=== PATIENT | female | born 1965 | race Caucasian/White ===

== ENCOUNTER 2018-01-15 21:43 | Inpatient (IN) | payer OTHER ==
[~2018-01-15] VITALS: Ht 160 cm; Wt 161.4 kg
[~2018-01-15 21:43] MED LIST: ASPEC81 PO; FRS/40 PO; IPRA1AER2 INH; LEVO125T72 PO; LSN20 PO; MCRK20 PO; MGNO400 PO; NCDT14 TD; PLN5 PO; SPIR25TA6 PO; TPRSR50 PO
[2018-01-16] VITALS (8 sets, daily range): BP systolic 82–105; BP diastolic 38–67; PULSE 83–92; TEMP 36.5–37.6; O2SAT 93–96; Ht 160 cm; Wt 161.4 kg
[2018-01-16] MEDS ORDERED: LORAZEPAM 2 MG/ML 1 ML VIAL IV PRN (02:45)
[2018-01-16] MEDS ORDERED: ACETAMINOPHEN 325 MG TAB PO PRN (02:45)
[2018-01-16] MEDS ORDERED: NITROGLYCERIN 0.4 MG SL PER TAB CHARGE SL PRN (02:45)
[2018-01-16] MEDS ORDERED: PROCHLORPERAZINE INJ 5 MG in SYRINGE 4 ML IV PRN (02:45)
[2018-01-16] MEDS ORDERED: HYDROmorphone INJ 0.5 MG/0.5 ML SYR IV PRN (02:45)
[2018-01-16] MEDS ORDERED: ALBU18002 INH (03:23)
[2018-01-16] MEDS ORDERED: BUSP5TAB59 PO (03:28)
[2018-01-16] MEDS ORDERED: LORAZEPAM INJ 0.5 MG in SYRINGE 0.75 ML IV PRN (03:30)
[2018-01-16] MEDS ORDERED: DICL-201 PO (03:32)
[2018-01-16] MEDS ORDERED: LEVO175T3 PO (03:33)
[2018-01-16] MEDS ORDERED: LISI20TA3 PO (03:34)
[2018-01-16] MEDS ORDERED: METO100T44 PO (03:35)
[2018-01-16] MEDS ORDERED: SPIRIVA 18MCG INH (03:37)
[2018-01-16] MEDS ORDERED: FURO80TA63 PO (03:38)
[2018-01-16] MEDS ORDERED: OXGN (03:39)
[2018-01-16] MEDS ORDERED: SODIUM CHLORIDE 0.9% 1000ML 1,000 ML IV ONE (03:45)
[2018-01-16] MEDS ORDERED: SODIUM CHLORIDE 0.9% 1000ML 1,000 ML IV SCH ×2 (03:45→05:15)
[2018-01-16] MEDS ORDERED: LEVALBUTEROL/IPRATROPIUM NEB INH PRN (03:45)
[2018-01-16 04:41] LABS: BASO % 0.2 %; BASO ABS # 0.02 K/uL (0-0.2); EOS % 1.9 %; HEMATOCRIT 31.5 % (37-47); HEMOGLOBIN 10.3 g/dL (12.0-16.0); IG# 0.09 K/uL (0.00-0.02); LYMPH ABS # 1.94 K/uL (1.2-3.4); MEAN CELL VOLUME 87.7 fL (80-100); MEAN CORPUSCULAR HEMOGLOBIN 28.7 pg (25-34); MEAN CORPUSCULAR HGB CONC 32.7 g/dl (32-36); MEAN PLATELET VOLUME 10.3 fL (7.4-10.4); MONO ABS # 0.65 K/uL (0.11-0.59); NEUT % 73.1 %; NEUT ABS # 7.86 K/uL (1.4-6.5); PLATELET COUNT 302 K/uL (130-400); RED CELL DISTRIBUTION WIDTH CV 15.1 % (11.5-14.5); RED CELL DISTRIBUTION WIDTH SD 48.8 fL (36.4-46.3); RETIC COUNT % 1.1 % (0.5-2.0); WHITE BLOOD COUNT 10.76 K/uL (4.8-10.8)
[2018-01-16] MEDS ORDERED: LEVALBUTEROL 1.25MG/0.5ML NEB INH PRN (04:45)
[2018-01-16] MEDS ORDERED: IPRATROPIUM BROMIDE NEB SOLN 0.02% 2.5 ML VIAL INH PRN (04:45)
[2018-01-16 05:00] LABS: PTT PATIENT 26.8 SECONDS (21.0-31.0)
[2018-01-16 05:11] LABS: CALCIUM 7.8 mg/dl (8.5-10.1); CREATININE 7.86 mg/dl (0.60-1.20); PHOSPHORUS 8.1 mg/dl (2.5-4.9); POTASSIUM 5.3 mmol/L (3.5-5.1)
[2018-01-16] MEDS ORDERED: DOXYCYCLINE IV 100 MG in DEXTROSE 5% 100ML 100 ML IV ONE (05:45)
[2018-01-16] MEDS ORDERED: SODIUM BICARB 8.4% INJ 50 MEQ/50 ML SYR IV STA (06:12)
[2018-01-16] MEDS: LEVOTHYROXINE 200 MCG TAB PO SCH (06:13)
--- NOTE | 2018-01-16 08:19 | DIAGNOSTIC IMAGING REPORT ---
CHEST ONE VIEW PORTABLE HISTORY: 52 years-old Female renal failure acute renal failure COMPARISON: Chest radiograph 12/25/2013 TECHNIQUE: Portable AP view of the chest FINDINGS: Cardiac silhouette is upper limits of normal in size. No pneumothorax, pleural effusion, focal airspace consolidation or overt pulmonary edema. Bones of the chest appear grossly intact. There are degenerative changes of the shoulders and spine. IMPRESSION: No acute process. The above report was generated using voice recognition software. It may contain grammatical, syntax or spelling errors. Electronically signed by: Romain Cunningham M.D. 01/16/2018 8:18 AM Dictated Date/Time: 01/16/2018 8:17 AM
[2018-01-16] MEDS: TIOTROPIUM BROMIDE 5 PUFF/90 MCG INH INH SCH (08:38)
[2018-01-16] MEDS: NICOTINE 14 MG/24 HR TDSY TD SCH (08:39)
--- NOTE | 2018-01-16 08:51 | ECHOCARDIOGRAM REPORT ---
*NOTICE TO RECEIVING LIBERTARIAN AGENCY This information is strictly Confidential and protected under [place] law. [place] law prohibits you from making any further disclosure of this information unless further disclosure is expressly permitted by the written consent of the person to whom it pertains or is authorized by law. A general authorization for the release of medical or other information is not sufficient for this purpose. Hospital accepts no responsibility if the information is made available to any other person, INCLUDING THE PATIENT. Interpretation Summary * Name: LUANN ALICEA Study Date: 01/16/2018 07:16 AM BP: 90/60 mmHg * Patient Location: .2E\S\E205\S\1 HR: 92 * : 1965 (M/d/yyyy) Gender: Female Height: 62 in * Age: 52 yrs Ethnicity: CA Weight: 345 lb * Ordering Physician: Elio Nayak * Performed By: Becca Riddle RDCS * * Reason For Study: Hypotension * BSA: 2.4 m2 * Grossly normal valvular structure and function. * -- Conclusions -- * This is a technically limited study. * The left ventricle is grossly normal size. * The left ventricular ejection fraction is grossly normal. * The right ventricle is not well visualized. * The left atrial size is normal. * Right atrial size is normal. * Grossly normal valvular structure and function. Procedure Details * A complete two-dimensional transthoracic echocardiogram was performed (2D, M-mode, Doppler and color flow Doppler). * The study was technically difficult. * The study was technically difficult, but visualization was adequate with the administration of Definity ultrasound contrast. * There were technical limitations due to patient'sbody habitus * A contrast injection of Definity was performed to improve assessment of LV function. * Contrast was injected into an intravenous site in the left arm. * One vial of Definity ultrasound contrast was diluted in normal saline to a total volume of 10 ml. A total of '2' ml of solution was administered during imaging. * Lot # [id number] of Definity utilized for procedure. * Expiration date 1May19. * The attending nurse who injected the contrast agent was HARINDER Cox. Left Ventricle * The left ventricle is grossly normal size. * Ejection Fraction = 65-70%. * The left ventricular ejection fraction is grossly normal. Right Ventricle * The right ventricle is not well visualized. Atria * The left atrial size is normal. * Right atrial size is normal. Mitral Valve * The mitral valve is not well visualized. * Significant mitral regurgitation is absent. Tricuspid Valve * The tricuspid valve is not well visualized. * Significant tricuspid regurgitation is absent. Aortic Valve * The aortic valve is not well visualized. * No hemodynamically significant valvular aortic stenosis. Pulmonic Valve * The pulmonic valve is not well visualized. MMode 2D Measurements and Calculations IVSd 1.1 cm LVIDd 3.8 cm LVIDs 2.1 cm LVPWd 1.6 cm IVS/LVPW 0.70 FS 43.8 % EDV(Teich) 61.2 ml ESV(Teich) 14.8 ml EF(Teich) 75.8 % EDV(cubed) 54.0 ml ESV(cubed) 9.6 ml EF(cubed) 82.3 % LV mass(C)d 181.8 grams LV mass(C)dI 75.4 grams/m\S\2 SV(Teich) 46.4 ml SI(Teich) 19.2 ml/m\S\2 SV(cubed) 44.5 ml SI(cubed) 18.4 ml/m\S\2 Ao root diam 3.3 cm Ao root area 8.6 cm\S\2 ACS 1.8 cm LA dimension 3.0 cm LA/Ao 0.91 LVAd ap4 31.9 cm\S\2 LVLd ap4 8.9 cm EDV(MOD-sp4) 95.9 ml EDV(sp4-el) 97.4 ml LVAs ap4 17.0 cm\S\2 LVLs ap4 7.8 cm ESV(MOD-sp4) 30.7 ml ESV(sp4-el) 31.3 ml EF(MOD-sp4) 67.9 % EF(sp4-el) 67.8 % LVAd ap2 35.8 cm\S\2 LVLd ap2 9.2 cm EDV(MOD-sp2) 113.9 ml EDV(sp2-el) 118.1 ml LVAs ap2 16.9 cm\S\2 LVLs ap2 7.4 cm ESV(MOD-sp2) 32.8 ml ESV(sp2-el) 32.6 ml EF(MOD-sp2) 71.2 % EF(sp2-el) 72.4 % LVLd %diff 3.2 % EDV(MOD-bp) 105.8 ml LVLs %diff -5.76 % ESV(MOD-bp) 32.6 ml EF(MOD-bp) 69.2 % SV(MOD-sp4) 65.1 ml SI(MOD-sp4) 27.0 ml/m\S\2 SV(MOD-sp2) 81.0 ml SI(MOD-sp2) 33.6 ml/m\S\2 SV(MOD-bp) 73.3 ml SI(MOD-bp) 30.4 ml/m\S\2 SV(sp4-el) 66.1 ml SI(sp4-el) 27.4 ml/m\S\2 SV(sp2-el) 85.5 ml SI(sp2-el) 35.5 ml/m\S\2 Doppler Measurements and Calculations MV E max ny 87.2 cm/sec MV A max ny 79.1 cm/sec MV E/A 1.1 MV dec time 0.25 sec Ao V2 max 182.0 cm/sec Ao max PG 13.3 mmHg Ao max PG (full) 7.6 mmHg LV V1 max PG 5.6 mmHg LV V1 max 118.8 cm/sec PA V2 max 114.3 cm/sec PA max PG 5.2 mmHg
--- NOTE | 2018-01-16 08:58 | HISTORY & PHYSICAL EXAMINATION ---
DATE OF ADMISSION: 01/16/2018 PRIMARY CARE PHYSICIAN: HOLLI Shields, Edwina Barr. CHIEF COMPLAINT: Renal failure. HISTORY OF PRESENT ILLNESS: History obtained from patient and records. Medical history significant for chronic diastolic heart failure, EF of 59% from a 2D echo from August 2015, hypertension, COPD/restrictive lung disease as per records , ongoing tobacco abuse, hypothyroidism, chronic nocturnal hypoxemia as per records, chronic lymphedema, history of MRSA, medication noncompliance as per records. Patient admitted at [facility] in the first week of November 2017 for leg swelling/ recurrent cellulitis in the setting of chronic lymphedema. Process not to be thought to be infectious as per notes. Home clonidine stopped due to BP being low as per notes on discharge. Had a followup with Podiatry about 2 weeks ago, ulcerated wounds noted on the lower extremities. As per note, patient unable to tolerate recommendations like forming compression wraps and offloading posterior lower legs. Patient declined second opinion at Wound care clinic. Three days history of fatigue, weakness, poor appetite, nonbloody diarrhea, no abdominal pain, not peeing a lot. Patient feeling sleepy. Denies headache or dizziness. No chest pain, no shortness of breath. Usual medication regimen. Legs little swollen, LE wounds draining odoriferous fluid. No fever no chills. Patient brought by family to [facility]. Creatinine noted to be 8.7, potassium 5.9. Patient given NSS, calcium gluconate, regular insulin and bicarbonate. Transferred to [facility] as per patient's request. MEDICAL HISTORY: As above. SURGICAL HISTORY: She has had a cholecystectomy, carpal tunnel syndrome/release. MEDICATIONS: Home medications include albuterol, buspirone, diclofenac, levothyroxine, lisinopril, metoprolol, citalopram, furosemide. ALLERGIES: ADHESIVE, MORPHINE. FAMILY HISTORY: Unknown as patient was adopted. PERSONAL/SOCIAL HISTORY: Half pack daily. No chronic alcoholic beverages. Unemployed. REVIEW OF SYSTEMS: As per HPI, all 10 systems reviewed, admits to usual depression, denies suicidal ideation; All other ROS negative. PHYSICAL EXAMINATION: VITAL SIGNS: Blood pressure was 90/60, pulse rate 92, RR 20, temperature 37 O2 saturations 94% on room air. GENERAL: Noted to be obese, somewhat apathetic. Uremic fetor SKIN: Sallow, warm. HEENT: Pale palpebral conjunctivae. No ptosis. Dry oral mucosa. NECK: Short, supple. CHEST: Decreased effort. Occasional wheeze. HEART: Regular rate and rhythm, no murmur. ABDOMEN: Some distention, nontender. EXTREMITIES: Bilateral indurated LE swelling with minimal erythema at the ankles close to the ankles. Ulcers in the posterior aspect yielding foul smelling drainage. NEUROLOGIC: Coherent. No gross focality. Gait and stance not assessed. LABORATORY DATA: Labs from [facility] 01/15/18 Hg 11.8, hematocrit 35, white cell count was 11, platelets 329. Sodium 132, potassium 5.9, CO2 of 18, BUN 92, creatinine 8.7, glucose 96, magnesium was 3.1, calcium 8.8, phosphorus 8.2. TSH noted to be 48.3. Troponin noted to be 0.02. EKG as per my interpretation showed junctional rhythm, peaked T waves, low voltage Chest x-ray as per my interpretation (01/16, [facility]) as per my interpretation showed atelectasis. ASSESSMENT: 1. Acute renal failure, hyperkalemia multifactorial : clinical dehydration secondary to acute gastroenteritis (rule out Clostridium difficile) Home medications (diuretics, CARLOS inhibitor, NSAIDs) 2. Chronic diastolic heart failure, EF 59% from a 2D echo in 2016. Patient on the dry side. 3. HTN, BP has been on the lower side since 11/2017 confinement at [facility] Prior clonidine rx had to be stopped. SBP currently 90s from hypovolemia. ro systolic dysfunction, pericardial effusion 4. Chronic obstructive pulmonary disease, restrictive lung disease per records. Ongoing tobacco abuse Pulmonary status at baseline. 5. Hypothyroidism, elevated TSH. hx medication noncompliance as per records 6. Leg wounds/minimal induration hx chronic lymphedema Foul-smelling drainage noted, potential infection; patient not septic however rule out deep venous thrombosis, 7. New onset anemia 8. Mood disorder, suboptimal as of recent outpatient PCP visit contributory to medication noncompliance PLAN: PCU. Baseline UA monitor creatinine response to IVF Daily renal function. Renal ultrasound if without improvement of kidney function Nephrology consult. RE Hyperkalemia, ARF Appropriate to hold CARLOS inhibitor, diuretics, NSAIDS for now until creatinine at baseline. Stool C. difficile Leg wound cultures, Doxycycline Wound care consult, leg wounds : Px may need wound care provider consult pending evaluation. Appropriate to hold other antihypertensives for now given low BP. 2D echo. RE hypotension Adjust levothyroxine dose. Anemia workup Psych consult RE depression, apathy Nicotine patch PT/OT evaluation. DVT prophylaxis.: Heparin subcu. Full code. MTDD
--- NOTE | 2018-01-16 09:49 | DIAGNOSTIC IMAGING REPORT ---
BILATERAL LOWER EXTREMITY VENOUS DOPPLER HISTORY: Acute pain and swelling of the bilateral lower extremities leg swelling COMPARISON STUDY: None. FINDINGS: There is normal compressibility, flow, and augmentation within the bilateral lower extremity deep venous systems. Subcutaneous edema about the lower extremities limits evaluation of the calf vessels. IMPRESSION: No sonographic evidence of deep venous thrombosis within the right or left lower extremity. Electronically signed by: Romain Cunningham M.D. 01/16/2018 9:48 AM Dictated Date/Time: 01/16/2018 9:46 AM
--- NOTE | 2018-01-16 10:09 | Nephrology Consultation ---
Nephrology Consultation Date of Consultation: Jan 16, 2018. Requesting Physician: Elio Nayak MD Reason for Consultation: MINDA History of Present Illness Patient is a 52 year old female with history of morbid obesity, CHF with EF of 59%, COPD, hypothyroidism and hypertension who we are asked to see for evaluation of worsening renal function. Patient was admitted yesterday with history of weakness, vomiting and diarrhea about 3 days. Patient reported poor p.o. intake. Patient was recently admitted at [facility] in November and at that time she had a creatinine of 1.5. She had normal creatinine of 0.8 in August of this year. We do not have records since November but it appears her renal function has markedly worsened and her creatinine now is 6.8 with a potassium of 5.3. Patient has also been diuresed aggressively with Lasix 80 mg twice daily. She also reports using NSAIDs occasionally. Her blood pressure has been low and today her blood pressures in the 90s over 60. Urine output since admission is about 200 mL. She did report reduced urine output over the past 3 days. Today she denies shortness of breath and main complaint is the pain in the legs. Past Medical/Surgical History CHF Morbid obesity Hypertension COPD Chronic leg ulcers Hypothyroidism Family History Patient reports no known family medical history. Social History Smoking Status: Current Every Day Smoker Alcohol Use: none Marital Status: Occupation Status: unemployed Allergies Coded Allergies: No Known Allergies (Unverified , 12/23/13) Medications Current Inpatient Medications Medications (Trade) Dose Ordered Sig/Eveline Route Start Time Stop Time Status Last Admin Dose Admin Acetaminophen (Tylenol Tab) 650 mg Q4H PRN PO 01/16/18 02:45 02/15/18 02:44 Nitroglycerin (Nitrostat Tab) 0.4 mg UD PRN SL 01/16/18 02:45 02/15/18 02:44 Hydromorphone HCl (Dilaudid Inj) 0.5 mg Q3H PRN IV 01/16/18 02:45 01/30/18 02:44 Tramadol HCl (Ultram Tab) 25 mg Q6H PRN PO 01/16/18 02:45 02/15/18 02:44 Prochlorperazine Edisylate 5 mg/ Syringe 5 ml @ 5 mls/min Q6H PRN IV 01/16/18 02:45 02/15/18 02:44 Lorazepam (Ativan Inj) 0.5 mg Q4H PRN IV 01/16/18 02:45 02/15/18 02:44 Lorazepam 0.5 mg/ Syringe 1 ml @ 1 mls/min Q4H PRN IV 01/16/18 03:30 02/15/18 03:29 Nicotine (Nicoderm Cq 14MG Patch) 1 patch QAM TD 01/16/18 09:00 02/15/18 08:59 Miscellaneous (Remove Nicoderm Patch) 1 ea HS N/A 01/16/18 21:00 02/15/18 20:59 Levothyroxine Sodium (Synthroid Tab) 200 mcg DAILYBB PO 01/16/18 06:00 02/15/18 05:59 01/16/18 06:13 200 MCG Ipratropium [place] (Atrovent 0.02% 0.5MG/2.5ML Neb) 0.5 mg Q4H PRN INH 01/16/18 04:45 02/15/18 04:44 Levalbuterol (Xopenex 1.25MG/ 0.5ML Neb) 1.25 mg Q4H PRN INH 01/16/18 04:45 02/15/18 04:44 Sodium Chloride 1,000 ml @ 80 mls/hr [id number] IV 01/16/18 05:15 01/16/18 17:15 01/16/18 05:34 80 MLS/HR Tiotropium [place] (Spiriva Handihaler Inhaler) 1 puff DAILY INH 01/16/18 09:00 02/15/18 08:59 01/16/18 08:38 1 PUFF Doxycycline Hyclate (Vibramycin Cap) 100 mg BID PO 01/16/18 21:00 01/26/18 20:59 Home Meds and Scripts Medications Dose Route/Sig Max Daily Dose Days Date Category Dose Instructions Oxygen Gas 2 Liters NA DAILY/UD 01/16/18 Reported Lasix (Furosemide) 80 Mg Tab 80 Mg PO BID 01/16/18 Reported Toprol-Xl (Metoprolol Succinate) 100 Mg Tabcr 100 Mg PO DAILY 01/16/18 Reported Levothyroxine Sodium 175 Mcg Tab 175 Mcg PO DAILY 01/16/18 Reported TAKE AT LEAST 30 MINUTES PRIOR TO BREAKFAST OR OTHER MEDS. Voltaren (Diclofenac Sodium) 75 Mg Tabcr 75 Mg PO BID 01/16/18 Reported WITH FOOD Buspirone Hcl 5 Mg Tab 5 Mg PO BID PRN 01/16/18 Reported Proair Respiclick (Albuterol Sulfate) 108 Mcg/Act Aer 2 Puffs INH QID 01/16/18 Reported Lisinopril 20 Mg Tab 20 Mg PO QAM 12/27/13 Rx Review of Systems Constitutional: No fever, No chills Eyes: No worsening of vision, No eye pain ENT: No hearing loss, No unusual epistaxis Respiratory: No cough, No sputum, No shortness of breath Cardiac: No chest pain, No orthopnea Abdomen: + nausea, No pain Musculoskeletal: + joint pain, + muscle pain, + swelling Female : No dysuria, No urinary frequency Heme: No abnormal bleeding/bruising Endo: No fatigue Skin: + new/changing skin lesions, No rash Physical Exam Date Time Temp Pulse Resp B/P (MAP) Pulse Ox O2 Delivery O2 Flow Rate FiO2 01/16/18 08:00 Room Air 01/16/18 06:55 36.5 83 18 90/67 (75) 96 Room Air 01/16/18 03:39 36.9 92 20 90/60 94 Room Air 01/16/18 02:52 36.9 92 20 90/60 (70) 94 Room Air General Appearance: no apparent distress Eyes: normal inspection ENT: normal ENT inspection, hearing grossly normal, pharynx normal Neck: supple, no adenopathy, thyroid normal, no JVD Respiratory/Chest: chest non-tender, lungs clear, normal breath sounds Cardiovascular: regular rate, rhythm, no murmur Abdomen: normal bowel sounds, non tender, soft Extremities: + pedal edema Neurologic/Psych: no motor/sensory deficits, alert, normal mood/affect, oriented x 3 Skin: normal color, warm/dry (Ulcers on the back of the legs) Diagnostics Last 24 Hours Test 01/16/18 04:15 01/16/18 04:25 01/16/18 04:28 01/16/18 04:54 Urine Color YELLOW Urine Appearance CLOUDY Urine pH 5.0 Urine Specific [place] 1.018 Urine Protein 1+ Urine Glucose (UA) NEG Urine Ketones TRACE Urine Occult Blood NEG Urine Nitrite NEG Urine Bilirubin NEG Urine Urobilinogen NEG Urine Leukocyte Esterase NEG Urine WBC (Auto) 1-5 /hpf Urine RBC (Auto) 0-4 /hpf Urine Hyaline Casts (Auto) >30 /lpf Urine Epithelial Cells (Auto) >30 /lpf Urine Bacteria (Auto) NEG Urine Renal Epithelial Cells /lpf Urine Crystals See comments Urine Pathogenic Casts /lpf White Blood Count 10.76 K/uL Red Blood Count 3.59 M/uL Hemoglobin 10.3 g/dL Hematocrit 31.5 % Mean Corpuscular Volume 87.7 fL Mean Corpuscular Hemoglobin 28.7 pg Mean Corpuscular Hemoglobin Concent 32.7 g/dl Platelet Count 302 K/uL Mean Platelet Volume 10.3 fL Neutrophils (%) (Auto) 73.1 % Lymphocytes (%) (Auto) 18.0 % Monocytes (%) (Auto) 6.0 % Eosinophils (%) (Auto) 1.9 % Basophils (%) (Auto) 0.2 % Neutrophils # (Auto) 7.86 K/uL Lymphocytes # (Auto) 1.94 K/uL Monocytes # (Auto) 0.65 K/uL Eosinophils # (Auto) 0.20 K/uL Basophils # (Auto) 0.02 K/uL RDW Standard Deviation 48.8 fL RDW Coefficient of Variation 15.1 % Immature Granulocyte % (Auto) 0.8 % Immature Granulocyte # (Auto) 0.09 K/uL Absolute Reticulocyte Count 0.04 10^6/uL Percent Reticulocyte Count 1.1 % Activated Partial Thromboplast Time 26.8 SECONDS Partial Thromboplastin Ratio 1.0 Sodium Level 133 mmol/L Potassium Level 5.3 mmol/L Chloride Level 105 mmol/L Carbon Dioxide Level 15 mmol/L Anion Gap 13.0 mmol/L Blood Urea Nitrogen 87 mg/dl Creatinine 7.86 mg/dl Est Creatinine Clear Calc Drug Dose 12.3 ml/min Estimated GFR () 6.2 Estimated GFR (Non- 5.3 BUN/Creatinine Ratio 11.0 Random Glucose 81 mg/dl Calcium Level 7.8 mg/dl Phosphorus Level 8.1 mg/dl Iron Level 64 mcg/dl Total Iron Binding Capacity 265 mcg/dl Transferrin 177 mg/dl Transferrin % Saturation 26 % Ferritin 172.8 ng/ml Ammonia 23.0 umol/L Albumin 2.7 gm/dl Vitamin B12 Level 317 pg/mL Folate 9.18 ng/mL Procalcitonin 0.10 ng/ml Thyroid Stimulating Hormone (TSH) 40.500 uIu/ml Free Thyroxine 0.79 ng/dl Total Triiodothyronine 0.54 ng/ml Hepatitis C Antibody Screen NEG Venous Blood pH 7.23 Venous Blood Partial Pressure CO2 43 mmHg Venous Blood Partial Pressure O2 35 mmHg Venous Blood HCO3 18 mmol/L Venous Blood Oxygen Saturation 62.5 % Venous Blood Base Excess -9.5 mEq/L Lactic Acid Level 1.1 mmol/L Assessment & Plan This is a 52-year-old female with history of morbid obesity, CHF, hypertension and hypothyroidism was admitted with fatigue vomiting and diarrhea now being evaluated for worsening renal function. 1. Acute kidney injury: Etiology is multifactorial but most likely acute tubular necrosis in setting of hypotension for several days. Patient has had diarrhea and vomiting for the past several days. She was also taking antihypertensives and high doses of Lasix with an CARLOS inhibitor. Urine sediment today reviewed by myself showed numerous granular casts, few muddy brown casts and a lot of hyaline casts. She also had calcium oxalate crystals. Recommend: Send urine sodium and creatinine Renal ultrasound Volume resuscitation with IV isotonic sodium bicarbonate solution. This can be prepared by putting 150 mEq of sodium bicarbonate in 1 L of D5 water and infusion can be run at 100 mL/h for 2 L. Stop Normal saline Monitor input output, avoid nephrotoxins. Agree with holding diuretics antihypertensives and CARLOS inhibitors. 2. Hyperkalemia: Due to acute kidney injury and acidosis. In short patient is on a renal diet. Anticipate improvement with correction of acidosis. 3. Acidosis due to MINDA. We are giving the patient isotonic sodium bicarbonate as above. 4. Hyperphosphatemia: Recommend Tums 1 g 3 times daily with food. Consider endocrinology referral for management of hypothyroidism Thank you for the courtesy of this consultation. Tima Nolasco MD
[2018-01-16 13:20] LABS: ALBUMIN 2.4 gm/dl (3.4-5.0); CALCIUM 7.6 mg/dl (8.5-10.1); CREATININE 6.36 mg/dl (0.60-1.20); PHOSPHORUS 7.2 mg/dl (2.5-4.9); POTASSIUM 5.3 mmol/L (3.5-5.1)
--- NOTE | 2018-01-16 14:12 | Psychiatric Consultation ---
Consultation Date of Consultation Jan 16, 2018. Identifying Data 52-year-old female from [facility] who has no psychiatric history but a history of multiple fairly severe medical problems and was admitted for renal failure. Psychiatry is consulted for depression. Chief Complaint "I have a lot going on with my health ". History of Present Illness According to records, the patient was admitted for renal failure. She has a history of chronic diastolic heart failure, hypertension, COPD, tobacco abuse, hypothyroidism, chronic nocturnal hypoxia, chronic lymphedema, MRSA, obesity, and medication noncompliance. She was admitted to [facility] in November for leg swelling and recurrent cellulitis, and followed up with podiatry 2 weeks ago, with ulcerated wounds noted on lower extremities. It appears she was transferred from [facility] to our facility at her request after she presented with 3 days of fatigue, weakness, or appetite, and diarrhea. She admitted to depressed mood on review of systems, and denied suicidal thoughts. Nephrology has been consulted due to acute renal failure, she is being treated for gastroenteritis and C. difficile ruled out, is being re-hydrated as dehydrated and hypotensive, and has leg wounds with foul-smelling drainage. On my assessment, the patient states that she has been frustrated by her ongoing medical problems and interactions with her outpatient doctors. She states that for years, she has been telling her outpatient doctors that "something's wrong, " and feels they just dismiss her concerns and "keep switching me to someone else." She does not feel they have communicated her diagnoses to her, and states she was not aware she had been diagnosed with renal failure in the past, until she was informed by staff here. She is in the process of switching to a new PCP, and hopes that it will be better. She states that mood is "not the best," and that it always goes down when she has to go to a doctor's appointment , but is "generally pretty good" the rest of the time. She had been going to the wound clinic once a week for a while, and noted that mood was always lower when she was at the clinic, but improved after returning home. She endorses decreased energy which she attributes to leg swelling, poor sleep for the past 2 weeks, and decreased appetite for the past few days. Concentration is slightly impaired, and she denies anhedonia, suicidal thoughts, psychomotor changes, and guilt. She denies symptoms of HENRRY, panic, OCD, and PTSD, and denies any history of depressive symptoms, roger, or psychotic symptoms. She says her PCP started low dose buspirone about a month ago to target episodes of tachycardia that she was having 1-2 times a day, lasted a few minutes, and were accompanied by shortness of breath, and she does think it is helping. She does not feel she needs psychiatric treatment, and states "I just need my doctor to take me seriously." She reports good support from her family and says they will attend doctor's appointments with her which she finds helpful. She scored a 6 on the PHQ 9, and states she has always been able to "handle a lot, I have broad shoulders." Past Psychiatric History Current OP Treatment: no current treatment Prior OP Treatment: no prior treatment Prior Psych Hospitalizations: none Access to a Gun: No Suicide Attempts: No Past Medication Trials None. Past Medical/Surgical History (1) Obesity (2) Hypertensive urgency (3) Hypoxia (4) CHF (congestive heart failure) (5) ARF (acute renal failure) (6) Hypothyroidism Allergies Allergies: Coded Allergies: No Known Allergies (Unverified , 12/23/13) Home Medications Scheduled Albuterol Sulfate (Proair Respiclick), 2 PUFFS INH QID Diclofenac (Voltaren), 75 MG PO BID Furosemide (Lasix), 80 MG PO BID Home O2 Therapy (Oxygen), 2 LITERS NA DAILY/UD Levothyroxine Sodium (Levothyroxine Sodium), 175 MCG PO DAILY Lisinopril (Lisinopril), 20 MG PO QAM Metoprolol Succ (Toprol Xl) (Toprol-Xl ), 100 MG PO DAILY Scheduled PRN Buspirone Hcl (Buspirone Hcl), 5 MG PO BID PRN for Anxiety Family History Patient reports no known family medical history. History of Suicide: No History of Substance Abuse: No Psychiatric History: No Alcohol Use Alcohol Use In Past 12 Months: No Smoking Use Smoking Status: Current Every Day Smoker Substance History Denies substance use/abuse. 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 Relationship History: ( lives in [place], [place] with her daughter, for financial reasons.) Children: 2 daughters and 7 grandchildren. Spiritual Affiliation: Denies Legal History: none Psychological Trauma History: Denies Hx Traumatic Event Review of Systems 10 systems reviewed, positive for shortness of breath, fatigue, decreased appetite, lower extremity swelling, joint and muscle pain, skin infection/lesion , others negative except as stated above. Examination Vital Signs Vital Signs Past 12 Hours Date Time Temp Pulse Resp B/P (MAP) Pulse Ox O2 Delivery O2 Flow Rate FiO2 01/16/18 12:55 37.6 87 20 82/38 (53) 93 Room Air 01/16/18 08:00 Room Air 01/16/18 06:55 36.5 83 18 90/67 (75) 96 Room Air 01/16/18 03:39 36.9 92 20 90/60 94 Room Air 01/16/18 02:52 36.9 92 20 90/60 (70) 94 Room Air Laboratory Results Last 24 Hours Test 01/16/18 04:15 01/16/18 04:25 01/16/18 04:28 01/16/18 04:54 Urine Color YELLOW Urine Appearance CLOUDY Urine pH 5.0 Urine Specific [place] 1.018 Urine Protein 1+ Urine Glucose (UA) NEG Urine Ketones TRACE Urine Occult Blood NEG Urine Nitrite NEG Urine Bilirubin NEG Urine Urobilinogen NEG Urine Leukocyte Esterase NEG Urine WBC (Auto) 1-5 /hpf Urine RBC (Auto) 0-4 /hpf Urine Hyaline Casts (Auto) >30 /lpf Urine Epithelial Cells (Auto) >30 /lpf Urine Bacteria (Auto) NEG Urine Renal Epithelial Cells /lpf Urine Crystals See comments Urine Pathogenic Casts /lpf White Blood Count 10.76 K/uL Red Blood Count 3.59 M/uL Hemoglobin 10.3 g/dL Hematocrit 31.5 % Mean Corpuscular Volume 87.7 fL Mean Corpuscular Hemoglobin 28.7 pg Mean Corpuscular Hemoglobin Concent 32.7 g/dl Platelet Count 302 K/uL Mean Platelet Volume 10.3 fL Neutrophils (%) (Auto) 73.1 % Lymphocytes (%) (Auto) 18.0 % Monocytes (%) (Auto) 6.0 % Eosinophils (%) (Auto) 1.9 % Basophils (%) (Auto) 0.2 % Neutrophils # (Auto) 7.86 K/uL Lymphocytes # (Auto) 1.94 K/uL Monocytes # (Auto) 0.65 K/uL Eosinophils # (Auto) 0.20 K/uL Basophils # (Auto) 0.02 K/uL RDW Standard Deviation 48.8 fL RDW Coefficient of Variation 15.1 % Immature Granulocyte % (Auto) 0.8 % Immature Granulocyte # (Auto) 0.09 K/uL Absolute Reticulocyte Count 0.04 10^6/uL Percent Reticulocyte Count 1.1 % Activated Partial Thromboplast Time 26.8 SECONDS Partial Thromboplastin Ratio 1.0 Sodium Level 133 mmol/L Potassium Level 5.3 mmol/L Chloride Level 105 mmol/L Carbon Dioxide Level 15 mmol/L Anion Gap 13.0 mmol/L Blood Urea Nitrogen 87 mg/dl Creatinine 7.86 mg/dl Est Creatinine Clear Calc Drug Dose 12.3 ml/min Estimated GFR () 6.2 Estimated GFR (Non- 5.3 BUN/Creatinine Ratio 11.0 Random Glucose 81 mg/dl Calcium Level 7.8 mg/dl Phosphorus Level 8.1 mg/dl Iron Level 64 mcg/dl Total Iron Binding Capacity 265 mcg/dl Transferrin 177 mg/dl Transferrin % Saturation 26 % Ferritin 172.8 ng/ml Ammonia 23.0 umol/L Albumin 2.7 gm/dl Vitamin B12 Level 317 pg/mL Folate 9.18 ng/mL Procalcitonin 0.10 ng/ml Thyroid Stimulating Hormone (TSH) 40.500 uIu/ml Free Thyroxine 0.79 ng/dl Total Triiodothyronine 0.54 ng/ml Hepatitis C Antibody Screen NEG Venous Blood pH 7.23 Venous Blood Partial Pressure CO2 43 mmHg Venous Blood Partial Pressure O2 35 mmHg Venous Blood HCO3 18 mmol/L Venous Blood Oxygen Saturation 62.5 % Venous Blood Base Excess -9.5 mEq/L Lactic Acid Level 1.1 mmol/L Test 01/16/18 12:07 01/16/18 14:01 Sodium Level 134 mmol/L Potassium Level 5.3 mmol/L Chloride Level 106 mmol/L Carbon Dioxide Level 17 mmol/L Anion Gap 11.0 mmol/L Blood Urea Nitrogen 87 mg/dl Creatinine 6.36 mg/dl Est Creatinine Clear Calc Drug Dose 15.2 ml/min Estimated GFR () 8.0 Estimated GFR (Non- 6.9 BUN/Creatinine Ratio 13.9 Random Glucose 78 mg/dl Calcium Level 7.6 mg/dl Phosphorus Level 7.2 mg/dl Albumin 2.4 gm/dl Mental Examination During interview pt is: alert and oriented, cooperative Appearance: appropriately dressed, other (Morbidly obese, malodorous, lying in bed in no acute distress) Motor behavior is: no abnormal motor movements Speech: normal in rate, rhythm & volume Affect: other (Mildly depressed, but reactive and appropriate, makes jokes at times and smiles appropriately.) Mood is: other ("Not the best.") Thought process: goal directed, linear, logical, clear, coherent Thought content: reality based without delusions Suicidal thought are: denied Homicidal thoughts are: denied Hallucinations: denies auditory, denies visual Cognition: memory grossly intact, attention grossly intact, language grossly intact Intelligence estimated to be: average Insight: fair Judgement: fair Impression / Recommendations Impression 52-year-old female with multiple medical problems and no psychiatric history who was transferred from an outside hospital at her request. She presented with several days of fatigue, decreased appetite, weakness, and diarrhea, and was found to be in renal failure. We are consulted for depression after she endorsed depressed mood on review of systems. She reports that mood has been negatively impacted by her ongoing health issues and dissatisfaction with her previous care. Her depressive symptoms are subsyndromal and limited to specific times (doctor's appointments), and she does not meet criteria for a primary mood or anxiety disorder. She was started on buspirone by her PCP, which she feels has been helpful, so may continue it. She does not express interest in outpatient mental health treatment at this time , but if we can be of any further assistance, please let us know.
[2018-01-16] MEDS: SODIUM BICARBONATE 8.4% INJ 150 MEQ in DEXTROSE 5% 1000ML 1,000 ML IV SCH (21:12)
[2018-01-16] MEDS: DOXYCYCLINE HYCLATE 100 MG CAP PO SCH (21:15)
[2018-01-16] MEDS ORDERED: HEPARIN SOD 5000 UNIT/0.5 ML CARP SQ SCH (22:00)
[2018-01-17 04:00] VITALS: BP 89/57; PULSE 83; TEMP 37.1; O2SAT 95
[2018-01-17] MEDS: LEVOTHYROXINE 200 MCG TAB PO SCH (06:18)
[2018-01-17 06:51] VITALS: BP 116/62; PULSE 84; TEMP 37.1; O2SAT 94
[2018-01-17 06:58] LABS: BASO % 0.4 %; BASO ABS # 0.03 K/uL (0-0.2); EOS % 2.9 %; EOS ABS # 0.23 K/uL (0-0.5); HEMATOCRIT 31.2 % (37-47); HEMOGLOBIN 10.3 g/dL (12.0-16.0); IG# 0.07 K/uL (0.00-0.02); LYMPH % 21.8 %; LYMPH ABS # 1.74 K/uL (1.2-3.4); MEAN CELL VOLUME 87.6 fL (80-100); MEAN CORPUSCULAR HEMOGLOBIN 28.9 pg (25-34); MEAN PLATELET VOLUME 10.4 fL (7.4-10.4); MONO % 7.3 %; MONO ABS # 0.58 K/uL (0.11-0.59); NEUT % 66.7 %; NEUT ABS # 5.32 K/uL (1.4-6.5); PLATELET COUNT 279 K/uL (130-400); RED CELL DISTRIBUTION WIDTH CV 14.9 % (11.5-14.5); WHITE BLOOD COUNT 7.97 K/uL (4.8-10.8)
[2018-01-17 07:34] LABS: ALBUMIN 2.5 gm/dl (3.4-5.0); CALCIUM 7.7 mg/dl (8.5-10.1); CREATININE 3.67 mg/dl (0.60-1.20); PHOSPHORUS 4.9 mg/dl (2.5-4.9); POTASSIUM 4.2 mmol/L (3.5-5.1)
[2018-01-17] MEDS: CALCIUM CARBONATE 500 MG CHEWABLE PO SCH ×3 (07:35→17:07)
[2018-01-17] MEDS: TIOTROPIUM BROMIDE 5 PUFF/90 MCG INH INH SCH (07:36)
[2018-01-17] MEDS: DOXYCYCLINE HYCLATE 100 MG CAP PO SCH ×2 (07:36→20:14)
[2018-01-17] MEDS: HEPARIN SOD 5000 UNIT/0.5 ML CARP SQ SCH ×2 (07:40→20:16)
[2018-01-17] MEDS: NICOTINE 14 MG/24 HR TDSY TD SCH (07:49)
[2018-01-17] MEDS: SODIUM BICARBONATE 8.4% INJ 150 MEQ in DEXTROSE 5% 1000ML 1,000 ML IV SCH (07:49)
[2018-01-17 11:08] VITALS: BP 101/50; PULSE 88; TEMP 37.3; O2SAT 92
[2018-01-17 15:16] VITALS: BP 131/59; PULSE 89; TEMP 36.9; O2SAT 92
--- NOTE | 2018-01-17 17:13 | Nephrology Progress Note ---
Nephrology Progress Note Date of Service: Jan 17, 2018. Subjective seen and evaluated on rounds this am about 10. no c/o sob, n/v; feels edema somewhat improved; some constipation/ minimal BM w/ less po Objective Date Time Temp Pulse Resp B/P (MAP) Pulse Ox O2 Delivery O2 Flow Rate FiO2 01/17/18 06:51 37.1 84 16 116/62 (80) 94 Room Air 01/17/18 04:00 37.1 83 16 89/57 (68) 95 Room Air 01/16/18 23:58 37.3 83 18 97/49 (65) 93 Room Air 01/16/18 20:00 Room Air 01/16/18 19:17 37.5 88 18 96/58 (71) 96 Room Air 01/16/18 15:48 37.1 92 18 105/57 (73) 94 Room Air 01/16/18 14:04 96/53 (67) 01/16/18 12:55 37.6 87 20 82/38 (53) 93 Room Air Physical Exam: General Appearance: no apparent distress, on RA, oriented x 3 Eyes: eomi ENT: dry MM Neck: supple Respiratory/Chest: diminishe dBS BL Cardiovascular: regular rate, rhythm, no murmur Abdomen: normal bowel sounds, non tender, soft Extremities: L>R BL distal LE redness; trace distal LE /pedal edema Neurologic/Psych: allen, maneuvers w/o help for exam, fluent speech Skin: normal color, warm/dry (Ulcers on the back of the legs) Current Inpatient Medications Medications (Trade) Dose Ordered Sig/[facility] Route Start Time Stop Time Status Last Admin Dose Admin Acetaminophen (Tylenol Tab) 650 mg Q4H PRN PO 01/16/18 02:45 02/15/18 02:44 Nitroglycerin (Nitrostat Tab) 0.4 mg UD PRN SL 01/16/18 02:45 02/15/18 02:44 Hydromorphone HCl (Dilaudid Inj) 0.5 mg Q3H PRN IV 01/16/18 02:45 01/30/18 02:44 Tramadol HCl (Ultram Tab) 25 mg Q6H PRN PO 01/16/18 02:45 02/15/18 02:44 Prochlorperazine Edisylate 5 mg/ Syringe 5 ml @ 5 mls/min Q6H PRN IV 01/16/18 02:45 02/15/18 02:44 Lorazepam (Ativan Inj) 0.5 mg Q4H PRN IV 01/16/18 02:45 02/15/18 02:44 Lorazepam 0.5 mg/ Syringe 1 ml @ 1 mls/min Q4H PRN IV 01/16/18 03:30 02/15/18 03:29 Nicotine (Nicoderm Cq 14MG Patch) 1 patch QAM TD 01/16/18 09:00 02/15/18 08:59 Miscellaneous (Remove Nicoderm Patch) 1 ea HS N/A 01/16/18 21:00 02/15/18 20:59 Levothyroxine Sodium (Synthroid Tab) 200 mcg DAILYBB PO 01/16/18 06:00 02/15/18 05:59 01/17/18 06:18 200 MCG Ipratropium [place] (Atrovent 0.02% 0.5MG/2.5ML Neb) 0.5 mg Q4H PRN INH 01/16/18 04:45 02/15/18 04:44 Levalbuterol (Xopenex 1.25MG/ 0.5ML Neb) 1.25 mg Q4H PRN INH 01/16/18 04:45 02/15/18 04:44 Tiotropium [place] (Spiriva Handihaler Inhaler) 1 puff DAILY INH 01/16/18 09:00 02/15/18 08:59 01/17/18 07:36 1 PUFF Doxycycline Hyclate (Vibramycin Cap) 100 mg BID PO 01/16/18 21:00 01/26/18 20:59 01/17/18 07:36 100 MG Heparin Sodium (Porcine) (Heparin Sq 5000 Unit/0.5ml) 5,000 unit BID SQ 01/17/18 09:00 02/15/18 21:59 01/17/18 07:40 5,000 UNIT Sodium Bicarbonate 150 meq/Dextrose 1,150 ml @ 100 mls/hr [id number] IV 01/16/18 20:45 02/15/18 20:44 01/17/18 07:49 100 MLS/HR Calcium Carbonate (Tums Chew Tab) 500 mg TIDM PO 01/17/18 07:30 02/16/18 07:29 01/17/18 07:35 500 MG Last 24 Hours Test 01/16/18 12:07 01/16/18 14:26 01/17/18 06:22 Sodium Level 134 mmol/L 136 mmol/L Potassium Level 5.3 mmol/L 4.2 mmol/L Chloride Level 106 mmol/L 106 mmol/L Carbon Dioxide Level 17 mmol/L 21 mmol/L Anion Gap 11.0 mmol/L 9.0 mmol/L Blood Urea Nitrogen 87 mg/dl 74 mg/dl Creatinine 6.36 mg/dl 3.67 mg/dl Est Creatinine Clear Calc Drug Dose 15.2 ml/min 26.8 ml/min Estimated GFR () 8.0 15.5 Estimated GFR (Non- 6.9 13.3 BUN/Creatinine Ratio 13.9 20.3 Random Glucose 78 mg/dl 101 mg/dl Calcium Level 7.6 mg/dl 7.7 mg/dl Phosphorus Level 7.2 mg/dl 4.9 mg/dl Albumin 2.4 gm/dl 2.5 gm/dl Prothrombin Time 10.3 SECONDS Prothromb Time International Ratio 1.0 White Blood Count 7.97 K/uL Red Blood Count 3.56 M/uL Hemoglobin 10.3 g/dL Hematocrit 31.2 % Mean Corpuscular Volume 87.6 fL Mean Corpuscular Hemoglobin 28.9 pg Mean Corpuscular Hemoglobin Concent 33.0 g/dl Platelet Count 279 K/uL Mean Platelet Volume 10.4 fL Neutrophils (%) (Auto) 66.7 % Lymphocytes (%) (Auto) 21.8 % Monocytes (%) (Auto) 7.3 % Eosinophils (%) (Auto) 2.9 % Basophils (%) (Auto) 0.4 % Neutrophils # (Auto) 5.32 K/uL Lymphocytes # (Auto) 1.74 K/uL Monocytes # (Auto) 0.58 K/uL Eosinophils # (Auto) 0.23 K/uL Basophils # (Auto) 0.03 K/uL RDW Standard Deviation 48.0 fL RDW Coefficient of Variation 14.9 % Immature Granulocyte % (Auto) 0.9 % Immature Granulocyte # (Auto) 0.07 K/uL Assessment & Plan 52-year-old female with morbid obesity, HF, hypertension and hypothyroidism admitted 01/16 with fatigue vomiting and diarrhea and presenting creatinine 7.9 Baseline creatinine 0.8 as recently as 08/2017; creatinine 1.5 last month during admission to [facility] ([place] for cellulitis . >>>Acute kidney injury>>nonoliguric prerenal MINDA on renal function which has worsened this spring/early summer and so with unestablished baseline. Etiology is multifactorial but most likely from hypotension, diarrhea and vomiting for several days [employer]. She was also taking antihypertensives and high doses of Lasix with an CARLOS inhibitor. No specific intervention needed for phos currently. Recommend: -Renal ultrasound -Volume resuscitation to continue but would change to 1/2 NS w/ 75 mEq/L Na bicarb same rate -Monitor input output, avoid nephrotoxins. Agree with holding diuretics antihypertensives and CARLOS inhibitors. >>>Hyperkalemia and acidosis improved > cont renal diet Consider endocrinology referral for management of hypothyroidism Appreciate consult; will follow with you.
[2018-01-17] MEDS: SODIUM BICARBONATE 8.4% INJ 75 MEQ in SODIUM CHLORIDE 0.45% 1000ML 1,000 ML IV SCH (18:28)
[2018-01-17 18:55] VITALS: BP 105/55; PULSE 93; TEMP 37.4; O2SAT 91
--- NOTE | 2018-01-17 20:51 | Progress Note ---
Medicine Progress Note Date & Time of Visit: Jan 17, 2018 at 16:00 . Subjective CC: Follow-up visit for acute kidney injury and other problems. HPI: Feels better. No fever or chills. No chest pain. No cough or SOB. No nausea, vomiting, diarrhea. Still has [place] cath to monitor urine output. Persistent lower extremity edema and discomfort. ROS: as noted above in HPI Objective Last 8 Hrs Date Time Temp Pulse Resp B/P (MAP) Pulse Ox O2 Delivery O2 Flow Rate FiO2 01/17/18 18:55 37.4 93 18 105/55 (72) 91 Room Air 01/17/18 15:16 36.9 89 20 131/59 (83) 92 Room Air Physical Exam: General- lying in bed; no distress Lungs- clear to auscultation; no respiratory distress Cardiovascular- RRR; no murmur or gallop appreciated; no JVD; marked edema lower extremities Abdomen- + bowel sounds, soft, nontender Extremities- no cyanosis; no calf tenderness; legs bandaged Neuro- alert, oriented Skin- warm & dry . Laboratory Results: Last 24 Hours Test 01/17/18 06:22 White Blood Count 7.97 K/uL Red Blood Count 3.56 M/uL Hemoglobin 10.3 g/dL Hematocrit 31.2 % Mean Corpuscular Volume 87.6 fL Mean Corpuscular Hemoglobin 28.9 pg Mean Corpuscular Hemoglobin Concent 33.0 g/dl Platelet Count 279 K/uL Mean Platelet Volume 10.4 fL Neutrophils (%) (Auto) 66.7 % Lymphocytes (%) (Auto) 21.8 % Monocytes (%) (Auto) 7.3 % Eosinophils (%) (Auto) 2.9 % Basophils (%) (Auto) 0.4 % Neutrophils # (Auto) 5.32 K/uL Lymphocytes # (Auto) 1.74 K/uL Monocytes # (Auto) 0.58 K/uL Eosinophils # (Auto) 0.23 K/uL Basophils # (Auto) 0.03 K/uL RDW Standard Deviation 48.0 fL RDW Coefficient of Variation 14.9 % Immature Granulocyte % (Auto) 0.9 % Immature Granulocyte # (Auto) 0.07 K/uL Sodium Level 136 mmol/L Potassium Level 4.2 mmol/L Chloride Level 106 mmol/L Carbon Dioxide Level 21 mmol/L Anion Gap 9.0 mmol/L Blood Urea Nitrogen 74 mg/dl Creatinine 3.67 mg/dl Est Creatinine Clear Calc Drug Dose 26.8 ml/min Estimated GFR () 15.5 Estimated GFR (Non- 13.3 BUN/Creatinine Ratio 20.3 Random Glucose 101 mg/dl Calcium Level 7.7 mg/dl Phosphorus Level 4.9 mg/dl Albumin 2.5 gm/dl Assessment & Plan ACUTE KIDNEY INJURY / METABOLIC ACIDOSIS Serum creatinine at time of admission 7.86. Nonoliguric MINDA associated with vomiting and diarrhea. Nephrology consulted. Receiving IV fluids with bicarb. Creatinine today = 3.67. Total CO2 15 --> 21. K 5.3 --> 4.2. CHF Echo technically limited, grossly normal LV sized and systolic function. May have chronic left ventricular diastolic CHF and/or right-sided heart failure due to COPD and/or obesity hypoventilation syndrome. Diuretics on hold due to MINDA. HYPERTENSION Metoprolol and lisinopril on hold. Follow and titrate therapy. COPD Pulmonary status appears to be stable. Continue bronchodilators. CHRONIC HYPOXIC RESPIRATORY FAILURE Probably due to COPD and/or obesity hypoventilation syndrome. On home O2. Continue O2. HYPOTHYROIDISM TSH = 40.5. ? compliance issue vs absorption vs dosing. Best not to escalate dose too quickly and overtreat. Continue levothyroxine 200 mcg daily. Follow. LOWER EXTREMITY ULCERS Wound Care consulted. MORBID OBESITY Wt 163 kg. BMI 63.7. AHA diet. HISTORY MRSA Contact isolation. VTE PROPHYLAXIS SQ heparin. Ambulate as able. DISPOSITION To be determined. Primary Care follow-up with HOLLI Shields, Edwina Barr. . Current Inpatient Medications: Current Inpatient Medications Medications (Trade) Dose Ordered Sig/[place] Route Start Time Stop Time Status Last Admin Dose Admin Acetaminophen (Tylenol Tab) 650 mg Q4H PRN PO 01/16/18 02:45 02/15/18 02:44 Nitroglycerin (Nitrostat Tab) 0.4 mg UD PRN SL 01/16/18 02:45 02/15/18 02:44 Hydromorphone HCl (Dilaudid Inj) 0.5 mg Q3H PRN IV 01/16/18 02:45 01/30/18 02:44 Tramadol HCl (Ultram Tab) 25 mg Q6H PRN PO 01/16/18 02:45 02/15/18 02:44 Prochlorperazine Edisylate 5 mg/ Syringe 5 ml @ 5 mls/min Q6H PRN IV 01/16/18 02:45 02/15/18 02:44 Lorazepam (Ativan Inj) 0.5 mg Q4H PRN IV 01/16/18 02:45 02/15/18 02:44 Lorazepam 0.5 mg/ Syringe 1 ml @ 1 mls/min Q4H PRN IV 01/16/18 03:30 02/15/18 03:29 Nicotine (Nicoderm Cq 14MG Patch) 1 patch QAM TD 01/16/18 09:00 02/15/18 08:59 Miscellaneous (Remove Nicoderm Patch) 1 ea HS N/A 01/16/18 21:00 02/15/18 20:59 Levothyroxine Sodium (Synthroid Tab) 200 mcg DAILYBB PO 01/16/18 06:00 02/15/18 05:59 01/17/18 06:18 200 MCG Ipratropium [place] (Atrovent 0.02% 0.5MG/2.5ML Neb) 0.5 mg Q4H PRN INH 01/16/18 04:45 02/15/18 04:44 Levalbuterol (Xopenex 1.25MG/ 0.5ML Neb) 1.25 mg Q4H PRN INH 01/16/18 04:45 02/15/18 04:44 Tiotropium [place] (Spiriva Handihaler Inhaler) 1 puff DAILY INH 01/16/18 09:00 02/15/18 08:59 01/17/18 07:36 1 PUFF Doxycycline Hyclate (Vibramycin Cap) 100 mg BID PO 01/16/18 21:00 01/26/18 20:59 01/17/18 20:14 100 MG Heparin Sodium (Porcine) (Heparin Sq 5000 Unit/0.5ml) 5,000 unit BID SQ 01/17/18 09:00 02/15/18 21:59 01/17/18 20:16 5,000 UNIT Calcium Carbonate (Tums Chew Tab) 500 mg TIDM PO 01/17/18 07:30 02/16/18 07:29 01/17/18 17:07 500 MG Sodium Bicarbonate 75 meq/Sodium Chloride 1,075 ml @ 80 mls/hr [id number] IV 01/17/18 17:30 02/16/18 17:29 01/17/18 18:28 80 MLS/HR
[2018-01-17] MEDS: TRAMADOL HCL 50 MG TAB PO PRN (21:59)
[2018-01-18] VITALS (9 sets, daily range): BP systolic 89–136; BP diastolic 58–78; PULSE 77–96; TEMP 36.4–37.5; O2SAT 91–99
[2018-01-18] MEDS: LEVOTHYROXINE 200 MCG TAB PO SCH (05:22)
[2018-01-18 06:23] LABS: BASO % 0.5 %; BASO ABS # 0.04 K/uL (0-0.2); EOS % 3.6 %; EOS ABS # 0.27 K/uL (0-0.5); HEMATOCRIT 29.3 % (37-47); HEMOGLOBIN 9.5 g/dL (12.0-16.0); IG# 0.02 K/uL (0.00-0.02); LYMPH % 33.2 %; LYMPH ABS # 2.47 K/uL (1.2-3.4); MEAN CELL VOLUME 87.2 fL (80-100); MEAN CORPUSCULAR HEMOGLOBIN 28.3 pg (25-34); MEAN CORPUSCULAR HGB CONC 32.4 g/dl (32-36); MEAN PLATELET VOLUME 10.1 fL (7.4-10.4); MONO % 9.2 %; MONO ABS # 0.68 K/uL (0.11-0.59); NEUT % 53.2 %; NEUT ABS # 3.95 K/uL (1.4-6.5); PLATELET COUNT 265 K/uL (130-400); RED CELL DISTRIBUTION WIDTH CV 14.7 % (11.5-14.5); RED CELL DISTRIBUTION WIDTH SD 46.8 fL (36.4-46.3); WHITE BLOOD COUNT 7.43 K/uL (4.8-10.8)
[2018-01-18 06:57] LABS: ALBUMIN 2.3 gm/dl (3.4-5.0); CALCIUM 7.9 mg/dl (8.5-10.1); CREATININE 1.94 mg/dl (0.60-1.20); PHOSPHORUS 2.9 mg/dl (2.5-4.9); POTASSIUM 4.3 mmol/L (3.5-5.1)
[2018-01-18] MEDS: NICOTINE 14 MG/24 HR TDSY TD SCH (07:23)
[2018-01-18] MEDS: CALCIUM CARBONATE 500 MG CHEWABLE PO SCH ×3 (07:25→18:30)
[2018-01-18] MEDS: TIOTROPIUM BROMIDE 5 PUFF/90 MCG INH INH SCH (07:26)
[2018-01-18] MEDS: DOXYCYCLINE HYCLATE 100 MG CAP PO SCH (07:26)
[2018-01-18] MEDS: HEPARIN SOD 5000 UNIT/0.5 ML CARP SQ SCH ×2 (07:27→20:31)
[2018-01-18] MEDS: SODIUM BICARBONATE 8.4% INJ 75 MEQ in SODIUM CHLORIDE 0.45% 1000ML 1,000 ML IV SCH (09:33)
--- NOTE | 2018-01-18 09:57 | Progress Note ---
Internal Med Progress Note Date of Service: Jan 18, 2018. Provider Documentation: SUBJECTIVE: Patient found sitting on chair, Mentions she feels tired as did not get much sleep last night-bed was uncomfortable Denies of any shortness of breath, no dyspnea on exertion, no cough, no dizzy spells or lightheadedness Has good appetite No nausea vomiting or diarrhea No fever or chills [place] draining clear/yellow urine OBJECTIVE: Vital Signs-as noted below Exam: General-very pleasant, no apparent distress, morbid obesity Eyes-sclera nonicteric, pupils bilateral equal reactive to light, extraocular muscle intact ENT-moist oral mucosa Neck-no JVD, no carotid bruit, no thyromegaly, trachea midline Lungs-occasional wheeze on expiration, no rales Heart-regular S1 and S2, no murmur gallop Abdomen-obese, soft, nontender, active bowel sound Extremities-extensive bilateral lower extremity lymphedema, with infected wound on the left lower extremity, bandage present, for plus pitting edema bilateral ankles and feet Neuro-no focal neurological deficit Psych-alert awake oriented 3, normal mood and affect Lymph nodes-no lymphadenopathy Lab data as noted below. ASSESSMENT & PLAN: ACUTE KIDNEY INJURY/CKD STAGE III -Presented with AK I/acute tubular necrosis secondary to volume loss-vomiting diarrhea/poor p.o. intake for a few days -Creatinine was 7.86 on admission (on : Creatinine was 0.8, Last month creatinine was 1.5 while at [facility]) -Appreciate input from nephrology -Ordered for renal ultrasound to rule out hydronephrosis, obstructive uropathy -Home antihypertensives, CARLOS inhibitor kept on hold since admission -Significant improvement of creatinine with IV fluids 1.9 today Continue to monitor renal function with daily PRP -Avoid NSAIDs, contrast studies -Patient is counseled not to take [id number] NSAIDs-Motrin, Aleve, Advil, ibuprofen, naproxen METABOLIC ACIDOSIS-RESOLVED Due to above -On IV bicarb drip per nephrology -CO2 improved to 25 today -Nephrology updated-possible need to discontinue bicarb drip today, will defer it to nephrology HYPERKALEMIA-RESOLVED Due to AK I CARLOS inhibitor been on hold/has been on bicarb drip potassium within normal limits-improvement of renal function/metabolic acidosis with bicarb drip Follow PRP Low potassium diet HISTORY OF HYPERTENSION BP in the low 100s now Patient denies of any symptoms of dizzy spell or lightheadedness Echo shows normal LV size and systolic function Lisinopril and metoprolol has been kept on hold CHRONIC CHF WITH DIASTOLIC DYSFUNCTION Possible associated with right-sided heart failure due to COPD and or obesity hypoventilation syndrome/WANDA Diuretics has been on hold for AK I/hypotension Continue to monitor daily weight/volume status COPD: Has occasional wheeze No shortness of breath, or dyspnea on exertion Continue home inhalers Spiriva, as needed albuterol as needed neb treatment as indicated for symptom of worsening of wheeze/shortness of breath CHRONIC HYPOXEMIC RESPIRATORY FAILURE Due to COPD/obstructive sleep apnea/obesity hypoventilation syndrome Respiratory status approximate baseline Continue 2 lIter O2 at night- HYPOTHYROIDISM Was on levothyroxine 175 mcg p.o. daily TSH elevated more than 40/with low T3 and T4 level Patient mentions she has been taking her levothyroxine daily in the morning Levothyroxine dose increased to 200 mcg p.o. daily Repeat TSH level in clinic 6-8 weeks to assess adequate correction Patient will benefit with outpatient endocrine referral CHRONIC BILATERAL LOWER EXTREMITY LYMPHEDEMA Lower extremity ultrasound negative for DVT Diuretics on hold secondary to AK I Patient is asked to keep limited elevated while sitting LEFT LOWER EXTREMITY INFECTED WOUND Wound culture: Growing group B streptococcus/gram-positive bacilli-isolation and sensitivity pending Antibiotic changed to IV Rocephin(was on p.o. doxycycline) ID evaluation requested Wound care consulted Patient was been followed at [facility] care clinic Was not happy with the care Will benefit with home health visiting nurse for wound care and dressing change MORBID OBESITY Weight 163.1 kg/BMI 63.7 Leading to bilateral lower extremity severe lymphedema, limited mobility On AHA diet HISTORY OF MRSA Contact isolation Ordered for repeat MRSA screen DEPRESSION Patient reported of being tired, fatigued all the time, none motivated Feels burdened with all her medical issues Has good family support Denies of any suicidal ideation or delusion Appreciate input from psychiatry Patient does not need any SSRI Was on BuSpar twice daily as needed for anxiety/sleep-recommend to continue that Patient does not want to follow-up with outpatient psychiatric clinic CODE STATUS: Full code DVT PROPHYLAXIS Moderate to high risk Secondary to morbid obesity/extensive lymphedema bilateral lower extremity/ limited mobility Subcu heparin DISPOSITION Lives at home, Mobility is restricted secondary to significant lower extremity lymphedema Uses walker Has a very supportive daughter Will benefit with home health visiting nurse-for chronic left lower extremity wound dressing Home physical therapy for ambulatory dysfunction PT OT evaluation requested Social service updated regarding home health visiting nurse referral expected to be discharged home when medically stable Follows at [facility] clinic with HOLLI Shields, Vital Signs: Date Time Temp Pulse Resp B/P (MAP) Pulse Ox O2 Delivery O2 Flow Rate FiO2 01/20/18 14:36 37.1 69 18 94 Room Air Lab Results:
[2018-01-18] MEDS ORDERED: ALBUTEROL HFA 8 GM INHALER INH PRN (10:00)
[2018-01-18] MEDS: SODIUM CHLORIDE 0.45% 1000ML 1,000 ML IV SCH ×2 (10:45→23:05)
[2018-01-18] MEDS: CEFTRIAXONE SOD INJ 1 GM in DEXTROSE 5% ADD-VANTAGE 50ML 50 ML IV SCH (10:52)
--- NOTE | 2018-01-18 14:02 | DIAGNOSTIC IMAGING REPORT ---
RENAL ULTRASOUND HISTORY: ACUTE RENAL FAILURE COMPARISON: None. FINDINGS: Right kidney: 11.2 cm. No hydronephrosis. Normal corticomedullary differentiation and cortical thickness. Left kidney: 10.9 cm. No hydronephrosis. Normal corticomedullary differentiation and cortical thickness. Bladder: No bladder wall thickening. The bilateral ureteral jets were identified. IMPRESSION: Normal renal ultrasound. Electronically signed by: Beau Wharton M.D. 01/18/2018 2:01 PM Dictated Date/Time: 01/18/2018 1:56 PM
[2018-01-18] MEDS: TRAMADOL HCL 50 MG TAB PO PRN (18:30)
--- NOTE | 2018-01-18 19:38 | Nephrology Progress Note ---
Nephrology Progress Note Date of Service: Jan 18, 2018. Subjective no c/o sob, n/v; feels edema improved; some constipation/ minimal BM w/ less po ; c/o dale discomfort Objective Date Time Temp Pulse Resp B/P (MAP) Pulse Ox O2 Delivery O2 Flow Rate FiO2 01/18/18 10:13 77 100/62 (75) 01/18/18 07:01 37.5 86 18 89/71 (77) 91 Room Air 01/18/18 04:05 37.3 87 16 99/58 (72) 92 Room Air 01/18/18 00:02 37.5 91 18 98/58 (71) 94 Room Air 01/17/18 20:00 Room Air 01/17/18 18:55 37.4 93 18 105/55 (72) 91 Room Air 01/17/18 15:16 36.9 89 20 131/59 (83) 92 Room Air 01/17/18 11:08 37.3 88 20 101/50 (67) 92 Physical Exam: General Appearance: no apparent distress, on RA, oriented x 3, up in chair Eyes: eomi ENT: dry MM Neck: supple Respiratory/Chest: diminished BS BL Cardiovascular: regular rate, rhythm, no murmur Abdomen: normal bowel sounds, non tender, soft Extremities: L>R BL distal LE redness; trace distal LE /pedal edema Neurologic/Psych: allen, maneuvers w/o help for exam, fluent speech Skin: normal color, warm/dry, leg ulcers not examined Current Inpatient Medications Medications (Trade) Dose Ordered Sig/Eveline Route Start Time Stop Time Status Last Admin Dose Admin Acetaminophen (Tylenol Tab) 650 mg Q4H PRN PO 01/16/18 02:45 02/15/18 02:44 Nitroglycerin (Nitrostat Tab) 0.4 mg UD PRN SL 01/16/18 02:45 02/15/18 02:44 Hydromorphone HCl (Dilaudid Inj) 0.5 mg Q3H PRN IV 01/16/18 02:45 01/30/18 02:44 Tramadol HCl (Ultram Tab) 25 mg Q6H PRN PO 01/16/18 02:45 02/15/18 02:44 01/17/18 21:59 25 MG Prochlorperazine Edisylate 5 mg/ Syringe 5 ml @ 5 mls/min Q6H PRN IV 01/16/18 02:45 02/15/18 02:44 Lorazepam (Ativan Inj) 0.5 mg Q4H PRN IV 01/16/18 02:45 02/15/18 02:44 Lorazepam 0.5 mg/ Syringe 1 ml @ 1 mls/min Q4H PRN IV 01/16/18 03:30 02/15/18 03:29 Nicotine (Nicoderm Cq 14MG Patch) 1 patch QAM TD 01/16/18 09:00 02/15/18 08:59 Miscellaneous (Remove Nicoderm Patch) 1 ea HS N/A 01/16/18 21:00 02/15/18 20:59 Levothyroxine Sodium (Synthroid Tab) 200 mcg DAILYBB PO 01/16/18 06:00 02/15/18 05:59 01/18/18 05:22 200 MCG Ipratropium [place] (Atrovent 0.02% 0.5MG/2.5ML Neb) 0.5 mg Q4H PRN INH 01/16/18 04:45 02/15/18 04:44 Levalbuterol (Xopenex 1.25MG/ 0.5ML Neb) 1.25 mg Q4H PRN INH 01/16/18 04:45 02/15/18 04:44 Tiotropium [place] (Spiriva Handihaler Inhaler) 1 puff DAILY INH 01/16/18 09:00 02/15/18 08:59 01/18/18 07:26 1 PUFF Heparin Sodium (Porcine) (Heparin Sq 5000 Unit/0.5ml) 5,000 unit BID SQ 01/17/18 09:00 02/15/18 21:59 01/18/18 07:27 5,000 UNIT Calcium Carbonate (Tums Chew Tab) 500 mg TIDM PO 01/17/18 07:30 02/16/18 07:29 01/18/18 07:25 500 MG Sodium Bicarbonate 75 meq/Sodium Chloride 1,075 ml @ 80 mls/hr [id number] IV 01/17/18 17:30 02/16/18 17:29 01/18/18 09:33 80 MLS/HR Buspirone HCl (Buspar Tab) 5 mg BID PRN PO 01/18/18 10:00 02/17/18 09:59 UNV Non-Formulary Medication (Albuterol Sulfate (Proair Respiclick)) 2 puffs QID PRN INH 01/18/18 10:00 02/17/18 09:59 UNV Ceftriaxone Sodium 1 gm/ Dextrose 50 ml @ 100 mls/hr Q24H IV 01/18/18 10:00 01/28/18 09:59 UNV Last 24 Hours Test 01/18/18 05:48 White Blood Count 7.43 K/uL Red Blood Count 3.36 M/uL Hemoglobin 9.5 g/dL Hematocrit 29.3 % Mean Corpuscular Volume 87.2 fL Mean Corpuscular Hemoglobin 28.3 pg Mean Corpuscular Hemoglobin Concent 32.4 g/dl Platelet Count 265 K/uL Mean Platelet Volume 10.1 fL Neutrophils (%) (Auto) 53.2 % Lymphocytes (%) (Auto) 33.2 % Monocytes (%) (Auto) 9.2 % Eosinophils (%) (Auto) 3.6 % Basophils (%) (Auto) 0.5 % Neutrophils # (Auto) 3.95 K/uL Lymphocytes # (Auto) 2.47 K/uL Monocytes # (Auto) 0.68 K/uL Eosinophils # (Auto) 0.27 K/uL Basophils # (Auto) 0.04 K/uL RDW Standard Deviation 46.8 fL RDW Coefficient of Variation 14.7 % Immature Granulocyte % (Auto) 0.3 % Immature Granulocyte # (Auto) 0.02 K/uL Sodium Level 138 mmol/L Potassium Level 4.3 mmol/L Chloride Level 106 mmol/L Carbon Dioxide Level 25 mmol/L Anion Gap 7.0 mmol/L Blood Urea Nitrogen 49 mg/dl Creatinine 1.94 mg/dl Est Creatinine Clear Calc Drug Dose 51.2 ml/min Estimated GFR () 33.4 Estimated GFR (Non- 28.8 BUN/Creatinine Ratio 25.3 Random Glucose 83 mg/dl Calcium Level 7.9 mg/dl Phosphorus Level 2.9 mg/dl Albumin 2.3 gm/dl Assessment & Plan 52-year-old female with morbid obesity, HF, hypertension and hypothyroidism admitted 01/16 with fatigue vomiting and diarrhea and presenting creatinine 7.9 Baseline creatinine 0.8 as recently as 08/2017; creatinine 1.5 last month during admission to [facility] for cellulitis . >>>Acute kidney injury>>nonoliguric prerenal MINDA on renal function which has worsened this spring/early summer and so with unestablished baseline. Etiology is multifactorial but most likely from hypotension, diarrhea and vomiting for several days [employer]. She was also taking antihypertensives and high doses of Lasix with an CARLOS inhibitor. No specific intervention needed for phos currently. Recommend: -Renal ultrasound -Volume resuscitation to continue but would change to 1/2 NS w/ 75 mEq/L Na bicarb to 1/2 NS same rate -Monitor input output, avoid nephrotoxins. Agree with holding diuretics antihypertensives and CARLOS inhibitors. -OK to remove dale >>>Hyperkalemia and acidosis improved > cont renal diet Appreciate consult; will follow with you. care coordinated w/ dr garcia
[2018-01-18] MEDS: BOOST BREEZE NUTRITION DRINK 1 BOX PO SCH (20:29)
[2018-01-19 04:25] VITALS: BP 97/61; PULSE 85; TEMP 37.6; O2SAT 91
[2018-01-19] MEDS: LEVOTHYROXINE 200 MCG TAB PO SCH (06:13)
[2018-01-19 06:22] LABS: ALBUMIN 2.3 gm/dl (3.4-5.0); CALCIUM 7.9 mg/dl (8.5-10.1); CREATININE 1.48 mg/dl (0.60-1.20); PHOSPHORUS 2.8 mg/dl (2.5-4.9); POTASSIUM 4.2 mmol/L (3.5-5.1)
[2018-01-19] MEDS: TIOTROPIUM BROMIDE 5 PUFF/90 MCG INH INH SCH (07:50)
[2018-01-19] MEDS: BOOST BREEZE NUTRITION DRINK 1 BOX PO SCH ×2 (07:50→20:21)
[2018-01-19] MEDS: CALCIUM CARBONATE 500 MG CHEWABLE PO SCH ×3 (07:50→18:40)
[2018-01-19] MEDS: NICOTINE 14 MG/24 HR TDSY TD SCH (07:51)
[2018-01-19] MEDS: HEPARIN SOD 5000 UNIT/0.5 ML CARP SQ SCH ×2 (07:52→21:22)
[2018-01-19 07:56] VITALS: BP 104/56; PULSE 82; TEMP 37.5; O2SAT 90
[2018-01-19] MEDS ORDERED: METOPROLOL SUCC 50MG EXT REL TAB PO SCH (09:00)
[2018-01-19] MEDS: SODIUM CHLORIDE 0.45% 1000ML 1,000 ML IV SCH ×2 (09:30→23:48)
[2018-01-19] MEDS: CEFTRIAXONE SOD INJ 1 GM in DEXTROSE 5% ADD-VANTAGE 50ML 50 ML IV SCH (09:59)
[2018-01-19 11:55] VITALS: BP 93/60; PULSE 75; TEMP 37; O2SAT 93
--- NOTE | 2018-01-19 15:04 | Medical Consult ---
Consultation Date of Consultation: Jan 19, 2018. Attending Physician: Aysha Gentile M.D. Reason for Consultation: Lower extremity infected wound History of Present Illness 52-year-old female with morbid obesity, chronic lower extremity edema, COPD, hypertension, chronic congestive heart failure, hospitalized in November for lower extremity cellulitis, followed for bilateral lower extremity wounds at [facility] wound care center, now admitted with several days of weakness , dizziness, and fatigue. Found to have acute kidney injury with creatinine 8.9. Also noted to have bilateral leg ulcerations with foul-smelling drainage. We will start empirically on ceftriaxone 1 g daily. Cultures have now grown group C streptococcus, Morganella, and also another gram-negative bacilli. She has been afebrile, drainage has improved. Creatinine also significantly improved. Denies any significant fever or chills prior to admission. Previously known to be MRSA carrier. Past Medical/Surgical History Past Medical/Surgical History CHF Morbid obesity Hypertension COPD Chronic leg ulcers Hypothyroidism Family History Patient reports no known family medical history. Social History Smoking Status: Current Every Day Smoker Marital Status: Occupation Status: unemployed Allergies Coded Allergies: No Known Allergies (Unverified , 12/23/13) Current Inpatient Medications Current Inpatient Medications Medications (Trade) Dose Ordered Sig/Eveline Route Start Time Stop Time Status Last Admin Dose Admin Acetaminophen (Tylenol Tab) 650 mg Q4H PRN PO 01/16/18 02:45 02/15/18 02:44 Nitroglycerin (Nitrostat Tab) 0.4 mg UD PRN SL 01/16/18 02:45 02/15/18 02:44 Hydromorphone HCl (Dilaudid Inj) 0.5 mg Q3H PRN IV 01/16/18 02:45 01/30/18 02:44 01/18/18 20:34 0.5 MG Tramadol HCl (Ultram Tab) 25 mg Q6H PRN PO 01/16/18 02:45 02/15/18 02:44 01/18/18 18:30 25 MG Prochlorperazine Edisylate 5 mg/ Syringe 5 ml @ 5 mls/min Q6H PRN IV 01/16/18 02:45 02/15/18 02:44 Lorazepam (Ativan Inj) 0.5 mg Q4H PRN IV 01/16/18 02:45 02/15/18 02:44 Lorazepam 0.5 mg/ Syringe 1 ml @ 1 mls/min Q4H PRN IV 01/16/18 03:30 02/15/18 03:29 Nicotine (Nicoderm Cq 14MG Patch) 1 patch QAM TD 01/16/18 09:00 02/15/18 08:59 Miscellaneous (Remove Nicoderm Patch) 1 ea HS N/A 01/16/18 21:00 02/15/18 20:59 Levothyroxine Sodium (Synthroid Tab) 200 mcg DAILYBB PO 01/16/18 06:00 02/15/18 05:59 01/19/18 06:13 200 MCG Ipratropium [place] (Atrovent 0.02% 0.5MG/2.5ML Neb) 0.5 mg Q4H PRN INH 01/16/18 04:45 02/15/18 04:44 Levalbuterol (Xopenex 1.25MG/ 0.5ML Neb) 1.25 mg Q4H PRN INH 01/16/18 04:45 02/15/18 04:44 Tiotropium [place] (Spiriva Handihaler Inhaler) 1 puff DAILY INH 01/16/18 09:00 02/15/18 08:59 01/19/18 07:50 1 PUFF Heparin Sodium (Porcine) (Heparin Sq 5000 Unit/0.5ml) 5,000 unit BID SQ 01/17/18 09:00 02/15/18 21:59 01/19/18 07:52 5,000 UNIT Calcium Carbonate (Tums Chew Tab) 500 mg TIDM PO 01/17/18 07:30 02/16/18 07:29 01/19/18 11:52 500 MG Buspirone HCl (Buspar Tab) 5 mg BID PRN PO 01/18/18 10:00 02/17/18 09:59 Albuterol (Ventolin Hfa Inhaler) 2 puffs QID PRN INH 01/18/18 10:00 02/17/18 09:59 Ceftriaxone Sodium 1 gm/ Dextrose 50 ml @ 100 mls/hr Q24H IV 01/18/18 11:00 01/28/18 10:59 01/19/18 09:59 100 MLS/HR Sodium Chloride 1,000 ml @ 80 mls/hr [id number] IV 01/18/18 10:30 02/16/18 17:29 01/19/18 09:30 80 MLS/HR Enteral Nutritional Formula (Boost Breeze Nutritional Drink) 1 box BID PO 01/18/18 21:00 02/17/18 20:59 01/19/18 07:50 1 BOX Metoprolol Succinate (Toprol Xl Tab) 50 mg DAILY PO 01/20/18 09:00 02/19/18 08:59 Review of Systems All systems were reviewed and are negative except as per HPI Physical Exam Date Time Temp Pulse Resp B/P (MAP) Pulse Ox O2 Delivery O2 Flow Rate FiO2 01/19/18 11:55 37.0 75 16 93/60 (71) 93 Room Air 01/19/18 08:00 Room Air 01/19/18 07:56 37.5 82 16 104/56 (72) 90 Room Air 01/19/18 04:25 37.6 85 18 97/61 (73) 91 Room Air 01/18/18 23:03 37.1 87 18 125/64 (84) 92 Room Air 01/18/18 20:42 Room Air 01/18/18 19:07 37.5 96 15 101/78 (86) 95 Room Air 01/18/18 19:00 36.4 83 19 136/70 (92) 99 Nasal Cannula 4.0 Humidified Oxygen 01/18/18 15:29 37.0 85 19 123/71 (88) 95 Room Air General Appearance: WD/WN, no apparent distress, + obese Head: normocephalic, atraumatic Eyes: normal inspection, EOMI, sclerae normal ENT: normal ENT inspection, hearing grossly normal, pharynx normal Neck: supple, no adenopathy, thyroid normal, trachea midline Respiratory/Chest: chest non-tender, lungs clear, normal breath sounds, no respiratory distress Cardiovascular: regular rate, rhythm, no gallop, no murmur Abdomen/GI: normal bowel sounds, non tender, soft, no organomegaly Back: normal inspection, no CVA tenderness Extremities/Musculoskelatal: no calf tenderness, + inflammation, + pedal edema , + swelling, + pertinent finding (Massive lymphedema both lower extremities) Neurologic/Psych: alert, oriented x 3 Skin: normal color, no rash Lymphatic: no adenopathy Laboratory Results RUN DATE: 01/19/18 [facility] LAB PAGE 1 RUN TIME: 08 Specimen Inquiry PATIENT: LUANN ALICEA LOC: Anisha U # : [id number] AGE/SX: 52/F ROOM: [facility] REG : 01/16/[address]: Aysha Gentile M.D. : 1965 BED: 1 DIS : STATUS: ADM IN TLOC: SPEC #: [id number] GISELL: 01/16/18 STATUS: RES REQ #: [id number] RECD: 01/16/[address]: Elio Nayak M.D. SOURCE: ULCER ENTR: 01/16/[address]: Tima Nolasco M.D. SPDESC: LEG LL No Doctor, Assigned ORDERED: SURF MALLORY CHILEL/JOHN COMMENTS: Has Specimen Been Obtained/Collected? Y Procedure Result Verified Site GRAM STAIN Final 01/16/18 RESULT FEW WBCs SEEN FEW GRAM POSITIVE COCCI RARE GRAM NEGATIVE BACILLI RARE GRAM POSITIVE BACILLI SURFACE WOUND CULTURE Preliminary 01/19/18 Organism 1 GROUP C BETA STREP QUANITY MODERATE SENS SENSITIVITY TO FOLLOW +MIXWOUND PLUS MODERATE COUNTS OF PROBABLE SKIN FRANCE Organism 2 GRAM NEGATIVE BACILLI QUANITY MODERATE SENS SENSITIVITY TO FOLLOW Organism 3 MORGANELLA MORGANII QUANITY MODERATE SENS SENSITIVITY TO FOLLOW GCBS MOR ELVIN M.I.C. RX M.I.C. RX --------- ------ --------- ------ TRIMET/SULFA <=2/38 S AMPICILLIN <=0.06 S AMPICILLIN/SUL >16/8 R CEFOXITIN <=8 S CEFOTAXIME <=0.25 S <=2 S CEFTRIAXONE <=0.25 S <=1 S CEFEPIME <=0.25 S <=4 S CHLORAMPHENICOL 4 S IMIPENEM 4 R VANCOMYCIN 0.5 S PENICILLIN <=0.03 S GENTAMICIN <=4 S TOBRAMYCIN <=4 S ERYTHROMYCIN <=0.06 S AMIKACIN <=16 S CIPROFLOXACIN <=1 S LEVOFLOXACIN <=2 S CLINDAMYCIN 0.25 S ERTAPENEM <=1 S PIP/TAZO <=16 S CONTINUED ON NEXT PAGE RUN DATE: 01/19/18 [facility] LAB PAGE 2 RUN TIME: 829 Specimen Inquiry SPEC: [id number] PATIENT: LUANN ALICEA [id number] ( Continued) Procedure Result Verified Site SURFACE WOUND CULTURE Preliminary (continued) 01/19/18-829 NEVIN GoddardITeresaCTeresa JIMENEZ M.I.CTeresa RX --------- ------ --------- ------ AZITHROMYCIN <=0.25 S 1. GROUP C BETA STREP Target Route Dose RX AB Cost M.I.C. IQ ------ ----- ------ -- ------ -------- - ------ AMPICILLIN S <=0.06 CEFOTAXIME S <=0.25 CEFTRIAXONE S <=0.25 CEFEPIME S <=0.25 CHLORAMPHENICOL S 4 VANCOMYCIN S 0.5 PENICILLIN S <=0.03 ERYTHROMYCIN S <=0.06 CLINDAMYCIN S 0.25 AZITHROMYCIN S <=0.25 3. MORGANELLA MORGANII Target Route Dose RX AB Cost M.I.C. IQ ------ ----- ------ -- ------ -------- - ------ TRIMET/SULFA S <=2/38 AMPICILLIN/SUL R >16/8 CEFOXITIN S <=8 CEFOTAXIME S <=2 CEFTRIAXONE S <=1 CEFEPIME S <=4 IMIPENEM R 4 GENTAMICIN S <=4 TOBRAMYCIN S <=4 AMIKACIN S <=16 CIPROFLOXACIN S <=1 LEVOFLOXACIN S <=2 ERTAPENEM S <=1 PIP/TAZO S <=16 S = SENSITIVE I = INTERMEDIATE R = RESISTANT END OF REPORT Last 24 Hours Test 01/19/18 05:37 Sodium Level 137 mmol/L Potassium Level 4.2 mmol/L Chloride Level 106 mmol/L Carbon Dioxide Level 27 mmol/L Anion Gap 4.0 mmol/L Blood Urea Nitrogen 40 mg/dl Creatinine 1.48 mg/dl Est Creatinine Clear Calc Drug Dose 67.5 ml/min Estimated GFR () 46.4 Estimated GFR (Non- 40.0 BUN/Creatinine Ratio 26.8 Random Glucose 83 mg/dl Calcium Level 7.9 mg/dl Phosphorus Level 2.8 mg/dl Albumin 2.3 gm/dl Patient Name: LUANN ALICEA Unit Number: [id number] Dictated: 01/16/18945 Transcribed: 01/16/18945 JRB Printed Date/Time: [~ rep prt dt]/[~ rep prt tm] [~ rep ct labl] - [~ rep ct ivnm] [facility] [place] [address] Dictated: 01/16/18945 Transcribed: 01/16/18945 JRB Printed Date/Time: [~ rep prt dt]/[~ rep prt tm] [~ rep ct labl] - [~ rep ct ivnm] [~ rep ct add3]] BILATERAL LOWER EXTREMITY VENOUS DOPPLER HISTORY: Acute pain and swelling of the bilateral lower extremities leg swelling COMPARISON STUDY: None. FINDINGS: There is normal compressibility, flow, and augmentation within the bilateral lower extremity deep venous systems. Subcutaneous edema about the lower extremities limits evaluation of the calf vessels. IMPRESSION: No sonographic evidence of deep venous thrombosis within the right or left lower extremity. Electronically signed by: Romain Cunningham M.D. 01/16/2018 9:48 AM Dictated Date/Time: 01/16/2018 9:46 AM The status of this report is Signed. Draft = Not yet reviewed or approved by Radiologist. Signed = Reviewed and approved by Radiologist. <AttendingPhy>Jorden Manrique M.D.</AttendingPhy> <FamilyPhy>No Doctor, Assigned </FamilyPhy> <PrimaryPhy>No Doctor, Assigned</PrimaryPhy> <UnitNumber>[id number] </UnitNumber> <VisitNumber>[id number]</VisitNumber> <PatientName>LUANN ALICEA</PatientName> <DateOfBirth>1965</DateOfBirth> <Location>[facility]</ Location> <ServiceDate></ServiceDate> <MNE>ESINDI</MNE> <OrderingPhy>Elio Nayak M.D.</OrderingPhy> <OrderingPhyMNE>f rep ord dr hendrickson</OrderingPhyMNE> < DictatingPhyMNE>f rep dict dr hendrickson</DictatingPhyMNE> <CCListMNE>f rep ct vannessae</ CCListMNE> <AdmittingPhyMNE>f pt admit dr hendrickson</AdmittingPhyMNE> <AttendingPhyMNE >f pt attend dr hendrickson</AttendingPhyMNE> <ConsultingPhyMNE>f pt consult dr hendrickson</ConsultingPhyMNE> <FamilyPhyMNE>f pt fam dr hendrickson</FamilyPhyMNE> <OtherPhyMNE>f pt other dr hendrickson</OtherPhyMNE> < PrimaryPhyMNE>f pt prim care dr hendrickson</PrimaryPhyMNE> <ReferringPhyMNE>f pt referring dr hendrickson</ReferringPhyMNE> Assessment & Plan 52-year-old with infected leg ulcerations bilaterally in the setting of lymphedema. Cultures positive for Streptococcus and Morganella. Ceftriaxone should provide adequate coverage, will increase dose to 2 g daily, likely can transition to oral antibiotics in the near future, likely Ceftin ear 300 mg twice daily. Compressive therapy and other treatments for lymphedema critical in management of this patient. Will follow.
--- NOTE | 2018-01-19 15:31 | Progress Note ---
Internal Med Progress Note Date of Service: Jan 19, 2018. Provider Documentation: SUBJECTIVE: No complaint of pain or discomfort No fever or chills, Denies of any shortness of breath, no orthopnea no dyspnea on exertion OBJECTIVE: Vital Signs-as noted below Exam: General-very pleasant, no apparent distress, morbid obesity Eyes-sclera nonicteric, pupils bilateral equal reactive to light, extraocular muscle intact ENT-moist oral mucosa Neck-no JVD, no carotid bruit, no thyromegaly, trachea midline Lungs-occasional wheeze on expiration, no rales Heart-regular S1 and S2, no murmur gallop Abdomen-obese, soft, nontender, active bowel sound Extremities-extensive bilateral lower extremity lymphedema, with infected wound on the left lower extremity, bandage present, +3 pitting edema bilateral ankles and feet Neuro-no focal neurological deficit Psych-alert awake oriented 3, normal mood and affect Lymph nodes-no lymphadenopathy Lab data as noted below. ASSESSMENT & PLAN: ACUTE KIDNEY INJURY/CKD STAGE III Renal function continues to improve with IV hydration -Presented with AK I/acute tubular necrosis secondary to volume loss-vomiting diarrhea/poor p.o. intake for a few days -Creatinine was 7.86 on admission (on : Creatinine was 0.8, Last month creatinine was 1.5 while at [facility]) -Appreciate input from nephrology -renal ultrasound shows normal study - CARLOS inhibitor kept on hold since admission -Significant improvement of creatinine with IV fluids 1.9 - > 1.4 today Continue to monitor renal function with daily PRP -Avoid NSAIDs, contrast studies -Patient is counselled not to take [id number] NSAIDs-Motrin, Aleve, Advil , ibuprofen, naproxen METABOLIC ACIDOSIS-RESOLVED Due to above HYPERKALEMIA-RESOLVED potassium within normal limits-improvement of renal function/metabolic acidosis with bicarb drip Due to MINDA CARLOS inhibitor kept on hold Can be resumed in next 1-2 days as renal function improves to approximate baseline Follow PRP Low potassium diet HISTORY OF HYPERTENSION BP remains low in 90s Asymptomatic Patient denies of any symptoms of dizzy spell or lightheadedness Echo shows normal LV size and systolic function Lisinopril on hold for MINDA Toprol resumed with lower dose 50 mg daily (was on 100 mg daily) Stable to be transferred to medical CHRONIC CHF WITH DIASTOLIC DYSFUNCTION Possible associated with right-sided heart failure due to COPD and or obesity hypoventilation syndrome/WANDA Diuretics has been on hold for MINDA/hypotension Continue to monitor daily weight/volume status COPD: Has occasional wheeze No shortness of breath, or dyspnea on exertion Continue home inhalers Spiriva, as needed albuterol as needed neb treatment as indicated for symptom of worsening of wheeze/shortness of breath CHRONIC HYPOXEMIC RESPIRATORY FAILURE Due to COPD/obstructive sleep apnea/obesity hypoventilation syndrome Respiratory status approximate baseline Continue 2 lIter O2 at night- HYPOTHYROIDISM Was on levothyroxine 175 mcg p.o. daily TSH elevated more than 40/with low T3 and T4 level Patient mentions she has been taking her levothyroxine daily in the morning Levothyroxine dose increased to 200 mcg p.o. daily Repeat TSH level in clinic 6-8 weeks to assess adequate correction Patient will benefit with outpatient endocrine referral CHRONIC BILATERAL LOWER EXTREMITY LYMPHEDEMA Lower extremity ultrasound negative for DVT Diuretics on hold secondary to AK I Patient is asked to keep legs elevated while sitting LEFT LOWER EXTREMITY INFECTED WOUND infected leg ulcerations bilaterally in the setting of lymphedema. Wound culture: Growing group B streptococcus/gram-positive bacilli-Morganella Antibiotic changed to IV Rocephin(was not p.o. doxycycline) ID evaluation requested Appreciate input Recommend to continue ceftriaxone /increase d dose to 2 g IV daily transition to oral antibiotics prior to discharge - Ceftin 300 mg p.o. twice daily. Compressive therapy and other treatments for lymphedema critical in management of chronic lower extremity wound Wound care consulted Patient was been followed at [place] wound care clinic Was not happy with the care Arrangement made for home health visiting nurse for wound care and dressing change MORBID OBESITY Weight 163.1 kg/BMI 63.7 Leading to bilateral lower extremity severe lymphedema, limited mobility On AHA diet HISTORY OF MRSA Contact isolation MRSA screen-negative DEPRESSION Patient reported of being tired, fatigued all the time, none motivated Feels burdened with all her medical issues Has good family support Denies of any suicidal ideation or delusion Appreciate input from psychiatry Patient does not need any SSRI Was on BuSpar twice daily as needed for anxiety/sleep-recommend to continue that Patient does not want to follow-up with outpatient psychiatric clinic CODE STATUS: Full code DVT PROPHYLAXIS Moderate to high risk Secondary to morbid obesity/extensive lymphedema bilateral lower extremity/ limited mobility Subcu heparin DISPOSITION Lives at home, Mobility is restricted secondary to significant lower extremity lymphedema Uses walker Has a very supportive daughter Will benefit with home health visiting nurse-for chronic left lower extremity wound dressing Home physical therapy for ambulatory dysfunction PT OT evaluation appreciated, patient is at her baseline functional status stable to return home with home health Social service updated regarding home health visiting nurse referral Possible discharged home tomorrow Follows at [facility] with HOLLI Shields, Vital Signs: Date Time Temp Pulse Resp B/P (MAP) Pulse Ox O2 Delivery O2 Flow Rate FiO2 01/20/18 14:36 37.1 69 18 94 Room Air Lab Results:
[2018-01-19 16:12] VITALS: BP 107/69; PULSE 70; TEMP 37; O2SAT 94
[2018-01-19] MEDS: TRAMADOL HCL 50 MG TAB PO PRN (18:40)
[2018-01-20 00:02] VITALS: BP 111/68; PULSE 80; TEMP 37.4; O2SAT 91
[2018-01-20] MEDS: LEVOTHYROXINE 200 MCG TAB PO SCH (06:44)
[2018-01-20 07:28] LABS: ALBUMIN 2.3 gm/dl (3.4-5.0); CREATININE 1.26 mg/dl (0.60-1.20); PHOSPHORUS 2.8 mg/dl (2.5-4.9); POTASSIUM 4.1 mmol/L (3.5-5.1)
[2018-01-20 07:32] VITALS: BP 124/81; PULSE 69; TEMP 37.1; O2SAT 94
[2018-01-20] MEDS ORDERED: METOPROLOL SUCC 50MG EXT REL TAB PO SCH (08:00)
[2018-01-20] MEDS: NICOTINE 14 MG/24 HR TDSY TD SCH (08:00)
[2018-01-20] MEDS: BOOST BREEZE NUTRITION DRINK 1 BOX PO SCH (08:25)
[2018-01-20] MEDS: TIOTROPIUM BROMIDE 5 PUFF/90 MCG INH INH SCH (08:25)
[2018-01-20] MEDS: CALCIUM CARBONATE 500 MG CHEWABLE PO SCH ×2 (08:25→11:38)
[2018-01-20] MEDS: HEPARIN SOD 5000 UNIT/0.5 ML CARP SQ SCH (09:37)
[2018-01-20] MEDS: CEFTRIAXONE SOD INJ 1 GM in DEXTROSE 5% ADD-VANTAGE 50ML 50 ML IV SCH (11:37)
[2018-01-20] MEDS: SODIUM CHLORIDE 0.45% 1000ML 1,000 ML IV SCH (11:38)
[2018-01-20] MEDS ORDERED: CIPROFLOXACIN 500 MG TAB PO SCH (14:00)
[2018-01-20] MEDS ORDERED: TPRSR50 PO (14:25)
[2018-01-20] MEDS ORDERED: ULT50X PO (14:25)
[2018-01-20] MEDS ORDERED: SYN200 PO (14:25)
--- NOTE | 2018-01-20 14:26 | Discharge Instructions ---
Discharge Instructions Date of Service Jan 20, 2018. Admission Reason for Admission: Acute Renal Failure Discharge Discharge Diagnosis / Problem: ACUTE RENAL FAILURE /INFECTED LOWER EXTREMITY WOUND Discharge Goals Goal(s): Decrease discomfort, Improve function, Increase independence, Improve disease control, Therapeutic intervention Activity Recommendations Activity Limitations: resume your previous activity . Instructions / Follow-Up Instructions / Follow-Up HOSPITAL FOLLOW UP ; 01/25/2018 1:00 PM Nisa Gaston DO [facility] LAB WORK : BASIC METABOLIC PANEL ON 01/25/18 YOUR LEVOTHYROXINE DOSE INCREASED TO 200 MCG DAILY ( WAS ON 175 MCG DAILY ) NEED TSH LEVEL TO BE CHECKED IN 4-6 WEEKS AND ADJUST LEVOTHYROXINE DOSE NEEDED DO NOT TAKE ADVIL , IBUPROFEN , MOTRIN , ALEVE , NAPROXEN ,VOLTAREN( Diclofenac ) -WILL CAUSE MORE DAMAGE TO YOUR KIDNEYS Current Hospital Diet Patient's current hospital diet: Renal Diet, Low Potassium Diet (2g K) Discharge Diet Recommended Diet: AHA Diet (Heart Healthy), Low Potassium Diet (2g K) Pending Studies Studies pending at discharge: no Work Instructions Additional Instructions: Medical Emergencies . Who to Call and When: Medical Emergencies: If at any time you feel your situation is an emergency, please call 911 immediately. . Non-Emergent Contact Non-Emergency issues call your: Primary Care Provider . . "Provider Documentation" section prepared by Aysha Gentile. .
[2018-01-20] MEDS ORDERED: CPR500 PO (14:31)
[2018-01-20] MEDS ORDERED: AMOX1TAB43 PO (14:32)
[2018-01-20 14:36] VITALS: BP 124/81; PULSE 69; TEMP 37.1; O2SAT 94
--- NOTE | 2018-01-20 15:20 | Discharge Summary ---
Discharge Summary Date of Service Jan 20, 2018. Discharge Summary Admission Date: Jan 16, 2018 at 02:32 Discharge Date: Jan 20, 2018 Discharge Disposition: Home with services Principal Diagnosis: ACUTE RENAL FAILURE /INFECTED LOWER EXTREMITY WOUND Procedures: RENAL ULTRASOUND FINDINGS: Right kidney: 11.2 cm. No hydronephrosis. Normal corticomedullary differentiation and cortical thickness. Left kidney: 10.9 cm. No hydronephrosis. Normal corticomedullary differentiation and cortical thickness. Bladder: No bladder wall thickening. The bilateral ureteral jets were identified. IMPRESSION: Normal renal ultrasound. ECHOCARDIOGRAM Study dated 01/17/2008 This is a technically limited study. The left ventricle is grossly normal size Left ventricular ejection fraction is grossly normal The right ventricle is not well visualized The left atrial size is normal Right atrial size is normal Grossly normal valvular structure and function Consultations: [facility] ID DR MAYORGA Medication Reconciliation New Medications: Amoxicillin & Pot Clavulanate (Amoxicillin/Clavulanate P) 1 Tab Tab 875 MG PO BIDM for 5 Days, #10 TAB Ciprofloxacin (Ciprofloxacin HCl) 500 Mg Tab 500 MG PO BID for 5 Days, #10 TAB Levothyroxine Sodium (Synthroid) 200 Mcg Tab 200 MCG PO DAILYBB for 30 Days, #30 TAB 1 Refill Metoprolol Succinate (Metoprolol Succinate ER) 50 Mg Tabcr 50 MG PO DAILY for 30 Days, #30 TABS 3 Refills Tramadol HCl (Tramadol HCl) 50 Mg Tab 25 MG PO Q8 PRN for Pain, #14 TAB Continued Medications: Albuterol Sulfate (Proair Respiclick) 108 Mcg/Act Aer 2 PUFFS INH QID Buspirone Hcl (Buspirone Hcl) 5 Mg Tab 5 MG PO BID PRN for Anxiety, TAB Furosemide (Lasix) 80 Mg Tab 80 MG PO BID, TAB Home O2 Therapy (Oxygen) Gas 2 LITERS NA DAILY/UD, BTL Discontinued Medications: Diclofenac (Voltaren) 75 Mg Tabcr 75 MG PO BID, TAB WITH FOOD Levothyroxine Sodium (Levothyroxine Sodium) 175 Mcg Tab 175 MCG PO DAILY, TAB TAKE AT LEAST 30 MINUTES PRIOR TO BREAKFAST OR OTHER MEDS. Lisinopril (Lisinopril) 20 Mg Tab 20 MG PO QAM, #30 TAB Metoprolol Succ (Toprol Xl) (Toprol-Xl ) 100 Mg Tabcr 100 MG PO DAILY, TAB Admission Information HPI (per Admitting provider): DATE OF ADMISSION: 01/16/2018 PRIMARY CARE PHYSICIAN: HOLLI Shields, Edwina Barr. CHIEF COMPLAINT: Renal failure. HISTORY OF PRESENT ILLNESS: History obtained from patient and records. Medical history significant for chronic diastolic heart failure, EF of 59% from a 2D echo from August 2015, hypertension, COPD/restrictive lung disease as per records , ongoing tobacco abuse, hypothyroidism, chronic nocturnal hypoxemia as per records, chronic lymphedema, history of MRSA, medication noncompliance as per records. Patient admitted at [facility] in the first week of November 2017 for leg swelling/ recurrent cellulitis in the setting of chronic lymphedema. Process not to be thought to be infectious as per notes. Home clonidine stopped due to BP being low as per notes on discharge. Had a followup with Podiatry about 2 weeks ago, ulcerated wounds noted on the lower extremities. As per note, patient unable to tolerate recommendations like forming compression wraps and offloading posterior lower legs. Patient declined second opinion at Wound care clinic. Three days history of fatigue, weakness, poor appetite, nonbloody diarrhea, no abdominal pain, not peeing a lot. Patient feeling sleepy. Denies headache or dizziness. No chest pain, no shortness of breath. Usual medication regimen. Legs little swollen, LE wounds draining odoriferous fluid. No fever no chills. Patient brought by family to [facility]. Creatinine noted to be 8.7, potassium 5.9. Patient given NSS, calcium gluconate, regular insulin and bicarbonate. Transferred to [facility] as per patient's request. REVIEW OF SYSTEMS: As per HPI, all 10 systems reviewed, admits to usual depression, denies suicidal ideation; All other ROS negative. Physical Exam (per Admitting): PHYSICAL EXAMINATION: VITAL SIGNS: Blood pressure was 90/60, pulse rate 92, RR 20, temperature 37 O2 saturations 94% on room air. GENERAL: Noted to be obese, somewhat apathetic. Uremic fetor SKIN: Sallow, warm. HEENT: Pale palpebral conjunctivae. No ptosis. Dry oral mucosa. NECK: Short, supple. CHEST: Decreased effort. Occasional wheeze. HEART: Regular rate and rhythm, no murmur. ABDOMEN: Some distention, nontender. EXTREMITIES: Bilateral indurated LE swelling with minimal erythema at the ankles close to the ankles. Ulcers in the posterior aspect yielding foul smelling drainage. NEUROLOGIC: Coherent. No gross focality. Gait and stance not assessed. Hospital Course Feels fine today, No complaint of shortness of breath, no cough no fever or chills Renal function improved to baseline Stable to be discharged home today Arrangements made for home health visiting nurse PHYSICAL EXAM General-very pleasant, no apparent distress, morbid obesity Eyes-sclera nonicteric, pupils bilateral equal reactive to light, extraocular muscle intact ENT-moist oral mucosa Neck-no JVD, no carotid bruit, no thyromegaly, trachea midline Lungs-occasional wheeze on expiration, no rales Heart-regular S1 and S2, no murmur gallop Abdomen-obese, soft, nontender, active bowel sound Extremities-extensive bilateral lower extremity lymphedema, with infected wound on the left lower extremity, bandage present, +3 pitting edema bilateral ankles and feet Neuro-no focal neurological deficit Psych-alert awake oriented 3, normal mood and affect Lymph nodes-no lymphadenopathy Date Time Temp Pulse Resp B/P (MAP) Pulse Ox O2 Delivery O2 Flow Rate FiO2 01/20/18 14:36 37.1 69 18 94 Room Air ACUTE KIDNEY INJURY/CKD STAGE III -Presented with MINDA/acute tubular necrosis secondary to volume loss-vomiting diarrhea/poor p.o. intake for a few days Renal function improved to approximate baseline with IV hydration/Creatinine 1.2 today -Creatinine was 7.86 on admission (on : Creatinine was 0.8,/last admission in [facility] creatinine was 1.5-possible new baseline ) -Appreciate input from nephrology -renal ultrasound shows normal study - CARLOS inhibitor kept on hold since admission - will not be a candidate for future CARLOS inhibitor treatment given presentation with hyperkalemia, MINDA Patient lab work with the next physician visit to check renal function -Patient is counselled not to take [id number] NSAIDs-Motrin, Aleve, Advil , ibuprofen, naproxen METABOLIC ACIDOSIS-RESOLVED Due to acute kidney injury/ Required IV bicarb drip transiently Bicarb within normal limits at present HYPERKALEMIA-RESOLVED Due to MINDA potassium within normal limits-improvement of renal function/metabolic acidosis with bicarb drip will not be a candidate for future CARLOS inhibitor treatment given presentation with hyperkalemia, MINDA HISTORY OF HYPERTENSION Was hypotensive on presentation Blood pressure at present remained stable Asymptomatic Patient denies of any symptoms of dizzy spell or lightheadedness Echo shows normal LV size and systolic function Lisinopril discontinued for MINDA/hyperkalemia Toprol resumed with lower dose 50 mg daily (was on 100 mg daily) CHRONIC CHF WITH DIASTOLIC DYSFUNCTION Possible associated with right-sided heart failure due to COPD and or obesity hypoventilation syndrome/WANDA Diuretics has been on hold for MINDA/hypotension Lisinopril discontinued for MINDA/hyperkalemia Lasix resumed-improved to approximate baseline Outpatient lab work with basic metabolic panel with next physician visit COPD: Respiratory status stable No evidence of exacerbation No shortness of breath, or dyspnea on exertion Continue home inhalers Spiriva, as needed albuterol CHRONIC HYPOXEMIC RESPIRATORY FAILURE Due to COPD/obstructive sleep apnea/obesity hypoventilation syndrome Respiratory status approximate baseline Continue 2 lIter O2 at night- HYPOTHYROIDISM Was on levothyroxine 175 mcg p.o. daily TSH elevated more than 40/with low T3 and T4 level Patient mentions she has been taking her levothyroxine daily in the morning Levothyroxine dose increased to 200 mcg p.o. daily Repeat TSH level in clinic 6-8 weeks to assess adequate correction Patient will benefit with outpatient endocrine referral CHRONIC BILATERAL LOWER EXTREMITY LYMPHEDEMA Lower extremity ultrasound negative for DVT Diuretics on hold secondary to MINDA Lasix resumed, Lisinopril discontinued for MINDA/hyperkalemia Patient is asked to keep legs elevated while sitting Will benefit with outpatient lymphedema clinic for compression wrap/stocking LEFT LOWER EXTREMITY INFECTED WOUND infected leg ulcerations bilaterally in the setting of lymphedema. Treated while in hospital IV Rocephin, increased to 2 g IV daily per ID recommendation ID evaluation appreciated Appreciate input Left lower leg wound culture: Multi-organism 1.Group C beta Streptococcus-sensitive to penicillin 2.Pseudomonas/ 3.Morganella morganii-sensitive to ciprofloxacin Antibiotic changed to: P.o. Augmentin 875 mg twice daily for 5 days (group C beta Streptococcus) Ciprofloxacin 500 mg twice daily for 5 days(Pseudomonas/Morganella morganii Compressive therapy and other treatments for lymphedema is recommended for management of chronic lower extremity wound Wound care consulted Patient was been followed at [place] wound care clinic Was not happy with the care Arrangement made for home health visiting nurse for wound care and dressing change Patient's daughter is very involved in care, helps with wound dressing change MORBID OBESITY Weight 163.1 kg/BMI 63.7 Leading to bilateral lower extremity severe lymphedema, limited mobility On AHA diet HISTORY OF MRSA Contact isolation MRSA screen-negative DEPRESSION Patient reported of being tired, fatigued all the time, none motivated Feels burdened with all her medical issues Has good family support Denies of any suicidal ideation or delusion Appreciate input from psychiatry Patient does not need any SSRI Was on BuSpar twice daily as needed for anxiety/sleep-recommend to continue that Patient does not want to follow-up with outpatient psychiatric clinic CODE STATUS: Full code DVT PROPHYLAXIS Moderate to high risk Secondary to morbid obesity/extensive lymphedema bilateral lower extremity/ limited mobility Subcu heparin DISPOSITION Stable to be discharged home today Management made for home health visiting nurse Follows at [facility] with HOLLI Shields, Total time spent on discharge = 40 mins This includes examination of the patient, discharge planning, medication reconciliation, and communication with other providers. Discharge Instructions Discharge Instructions Date of Service Jan 20, 2018. Admission Reason for Admission: Acute Renal Failure Discharge Discharge Diagnosis / Problem: ACUTE RENAL FAILURE /INFECTED LOWER EXTREMITY WOUND Discharge Goals Goal(s): Decrease discomfort, Improve function, Increase independence, Improve disease control, Therapeutic intervention Activity Recommendations Activity Limitations: resume your previous activity . Instructions / Follow-Up Instructions / Follow-Up HOSPITAL FOLLOW UP ; 01/25/2018 1:00 PM Nisa Gaston DO [facility] LAB WORK : BASIC METABOLIC PANEL ON 01/25/18 YOUR LEVOTHYROXINE DOSE INCREASED TO 200 MCG DAILY ( WAS ON 175 MCG DAILY ) NEED TSH LEVEL TO BE CHECKED IN 4-6 WEEKS AND ADJUST LEVOTHYROXINE DOSE NEEDED DO NOT TAKE ADVIL , IBUPROFEN , MOTRIN , ALEVE , NAPROXEN ,VOLTAREN( Diclofenac ) -WILL CAUSE MORE DAMAGE TO YOUR KIDNEYS Current Hospital Diet Patient's current hospital diet: Renal Diet, Low Potassium Diet (2g K) Discharge Diet Recommended Diet: AHA Diet (Heart Healthy), Low Potassium Diet (2g K) Pending Studies Studies pending at discharge: no Work Instructions Additional Instructions: Medical Emergencies . Who to Call and When: Medical Emergencies: If at any time you feel your situation is an emergency, please call 911 immediately. . Non-Emergent Contact Non-Emergency issues call your: Primary Care Provider . . "Provider Documentation" section prepared by Aysha Gentile. .
[2018-01-20] MEDS ORDERED: AMOXICILLIN/CLAVULANATE TAB 875 MG TAB PO SCH (17:00)
[2018-01-21] MEDS ORDERED: CEFTRIAXONE SOD INJ 2000 MG in DEXTROSE 5% 50ML IV SCH (11:00)
== END 2018-01-20 16:35 | disposition home or self-care (01) | DRG 683 ==
LOC: C.2T 21:43 → UNDOADMIN 21:43 → C.2E 01-16 02:32 → ENRESERV 01-19 14:40 → C.MS4W 01-19 15:41
PROVIDERS: ADMIT Internal Medicine; ATTEND Hospitalist
DX: N17.0 Acute kidney failure with tubular necrosis (principal); J96.11 Chronic respiratory failure with hypoxia; I50.32 Chronic diastolic (congestive) heart failure; Z68.44 Body mass index [BMI] 60.0-69.9, adult; E87.2 Acidosis; I13.0 Hypertensive heart and chronic kidney disease with heart failure and stage 1 through stage 4 chronic kidney disease, or unspecified chronic kidney disease; L97.929 Non-pressure chronic ulcer of unspecified part of left lower leg with unspecified severity; L97.919 Non-pressure chronic ulcer of unspecified part of right lower leg with unspecified severity; E66.2 Morbid (severe) obesity with alveolar hypoventilation; L08.9 Local infection of the skin and subcutaneous tissue, unspecified; B95.4 Other streptococcus as the cause of diseases classified elsewhere; B96.5 Pseudomonas (aeruginosa) (mallei) (pseudomallei) as the cause of diseases classified elsewhere; B96.89 Other specified bacterial agents as the cause of diseases classified elsewhere; I95.9 Hypotension, unspecified; E87.5 Hyperkalemia; E83.39 Other disorders of phosphorus metabolism; E86.0 Dehydration; K52.9 Noninfective gastroenteritis and colitis, unspecified; N18.3 Chronic kidney disease, stage 3 (moderate); J44.9 Chronic obstructive pulmonary disease, unspecified; E03.9 Hypothyroidism, unspecified; I89.0 Lymphedema, not elsewhere classified; D64.9 Anemia, unspecified; F32.9 Major depressive disorder, single episode, unspecified; F17.210 Nicotine dependence, cigarettes, uncomplicated; Z22.322 Carrier or suspected carrier of Methicillin resistant Staphylococcus aureus; Z86.14 Personal history of Methicillin resistant Staphylococcus aureus infection; Z91.14 Patient's other noncompliance with medication regimen; Z99.81 Dependence on supplemental oxygen; Z79.899 Other long term (current) drug therapy

== ENCOUNTER 2018-07-30 18:15 | Inpatient (IN) ==
[2018-07-30] MEDS ORDERED: methylPREDNISolone 125 MG/2 ML VIAL IV STA (18:44)
[2018-07-30] MEDS ORDERED: ALBUT/IPRATROP 3MG/0.5MG NEB 3 ML VIAL NEB STA (18:44)
[2018-07-30] MEDS ORDERED: ACETAMINOPHEN 500 MG TAB PO STA (18:53)
--- NOTE | 2018-07-30 19:05 | XRay Report ---
XR chest 1V portable CLINICAL HISTORY: 52 years-old Female presenting with cough, fever, sob. TECHNIQUE: Portable upright AP view of the chest was obtained. COMPARISON: 04/04/2018. FINDINGS: Atherosclerosis of the aortic arch. Cardiac silhouette enlarged. Pulmonary vascular prominence. Appar ent nodular opacity in the right mid lung new from prior. Bronchial wall thickening may be present on the right. Overall coarsened lung markings. No large effusion or pneumothorax. Osseous structures no rmal. IMPRESSION: 1. Apparent right midlung nodular infiltrate and possible right bronchial wall thickening. PA and la teral views are recommended for better assessment. 2. Cardiomegaly with volume overload. Electronically signed by: Vincent Richter M.D. 07/30/2018 7:04 PM
[2018-07-30 19:43] LABS: Hematocrit (blood only) 33.5 % (37-47); Hemoglobin 10.7 g/dL (12.0-16.0); Mean Corpuscular Hgb Conc 31.9 g/dL (32-36); Mean Corpuscular Volume 88.9 fL (80-100); Platelet Count 419 K/uL (130-400); RDW Coefficient of Variation 15.2 % (11.5-14.5); RDW Standard Deviation 49.4 fL (36.4-46.3); Red Blood Count 3.77 M/uL (4.2-5.4); White Blood Count 14.21 K/uL (4.8-10.8)
[2018-07-30 20:03] LABS: Alanine Aminotransferase 21 U/L (12-78); Albumin Level 2.9 gm/dl (3.4-5.0); Aspartate Aminotransferase 17 U/L (15-37); BUN Creatinine Ratio 16.2 (10-20); Blood Urea Nitrogen 25 mg/dl (7-18); Calcium 8.7 mg/dl (8.5-10.1); Carbon Dioxide 29 mmol/L (21-32); Chloride 101 mmol/L (98-107); Creatinine Clr Calc Pharmacy 61.1 ml/min; Est GFR (African American) 45.3; Est GFR (Non-African American) 39.1; Glucose 105 mg/dl (70-99); Magnesium 2.3 mg/dl (1.8-2.4); Potassium 3.5 mmol/L (3.5-5.1); Sodium 140 mmol/L (136-145)
[2018-07-30 20:08] LABS: Albumin Globulin Ratio 0.5 (0.9-2); Alkaline Phosphatase 83 U/L (45-117); Bilirubin,Total 0.5 mg/dl (0.2-1); Globulin 6.1 gm/dl (2.5-4.0); NT Pro B Type Natriuretic Pept 108 pg/ml (0-900); Troponin I < 0.015 ng/ml (0-0.045)
[2018-07-30 20:10] LABS: Basophils # (auto) 0.05 K/uL (0-0.2); Basophils % (auto) 0.4 %; Eosinophils # (auto) 0.17 K/uL (0-0.5); Eosinophils % (auto) 1.2 %; Immature Granulocytes # (auto) 0.13 K/uL (0.00-0.02); Immature Granulocytes % (auto) 0.9 %; Lymphocytes # (auto) 2.59 K/uL (1.2-3.4); Lymphocytes % (auto) 18.2 %; Monocytes # (auto) 1.36 K/uL (0.11-0.59); Monocytes % (auto) 9.6 %; Neutrophils # (auto) 9.91 K/uL (1.4-6.5); Neutrophils % (auto) 69.7 %
[2018-07-30] MEDS ORDERED: LEVOFLOXACIN/D5W 750 MG/150 ML BAG IV STA (20:31)
[2018-07-30] MEDS ORDERED: ALBUT/IPRATROP 3MG/0.5MG NEB 3 ML VIAL NEB ONE (20:31)
--- NOTE | 2018-07-30 22:39 | CT Scan Report ---
CT abd pelvis wo con CLINICAL HISTORY: 52 years-old Female presenting with L abd pain for a few days. TECHNIQUE: Multidetector CT of the abdomen and pelvis was performed without the use of intravenous co ntrast. IV contrast: None. One or more dose lowering techniques were used consistent with the princip les of ALARA (as low as reasonably achievable), including automatic exposure control, mA or kV adjust ment to individual patient size, and/or use of iterative reconstruction. COMPARISON: None. CT DOSE (mGy.cm): The estimated cumulative dose is 1471.61 mGy.cm. FINDINGS: [employer] topogram: Cholecystectomy clips. Lung bases: Extensive tree-in-bud opacities with scattered nodular consolidation and endobronchial de bris. Aortic valve calcification. Normal heart size. No pericardial or pleural effusion. Liver: Normal morphology. Density consistent with hepatic steatosis. Biliary: No gross biliary ductal dilatation allowing for noncontrast technique. Gallbladder surgicall y absent. Pancreas: Moderate parenchymal atrophy. Spleen: Normal. Splenule noted. Adrenal glands: Indeterminant 1.4 cm left adrenal nodule. Kidneys and ureters: Normal noncontrast appearance. No nephrolithiasis. No hydronephrosis. Normal ure ters. Bladder: Incompletely evaluated secondary to underdistention. Pelvic organs: Normal noncontrast appearance. Bowel: Normal appendix. No bowel obstruction. Peritoneal cavity: No free fluid or intraperitoneal gas. Lymph nodes: No gross lymphadenopathy allowing for noncontrast technique. Vasculature: Atherosclerosis of the normal caliber abdominal aorta. Abdominal wall: Large intramuscular hematoma within the left rectus abdominis and abdominal wall musc ulature extending into the properitoneal fat along the left inguinal region. Cyst measures up to 10.3 x 6.5 cm in maximal axial dimension. Mild overlying subcutaneous infiltration. Musculoskeletal: Degenerative changes of the spine. IMPRESSION: 1. Large intramuscular left abdominal wall hematoma with extension into the properitoneal fat along the left inguinal region. This may iatrogenic or spontaneous related to coagulopathy. Correlate clini janet. 2. No hemoperitoneum. 3. Indeterminate 1.4 cm left adrenal nodule. 4. Extensive tree-in-bud opacities and nodular consolidation at the lung bases as well as the right middle lobe and lingula. This raises concern for an indolent infection such as mycobacterium avium in tracellulare. The report will be called/faxed according to standard departmental protocol. Electronically signed by: Vincent Richter M.D. 07/30/2018 10:38 PM
[2018-07-30 22:56] LABS: HCO3 ABG 28 mmol/L (19-24); Oxygen Saturation ABG 84.2 % (90-95); PCO2 ABG 45 mmHg (35-46); PO2 ABG 53 mm/Hg (80-95); pH ABG 7.41 (7.35-7.45)
[2018-07-30 22:57] LABS: Allen Test Pos (Pos)
[2018-07-30 23:12] LABS: Prothrombin Time 64.6 Seconds (9.0-12.0)
[2018-07-30 23:19] LABS: INR 7.1 (0.9-1.1)
[2018-07-31] MEDS ORDERED: POTASSIUM CHLORIDE 20 MEQ TABCR PO STA (00:04)
[2018-07-31 00:14] LABS: Hematocrit (blood only) 31.7 % (37-47); Hemoglobin 9.8 g/dL (12.0-16.0)
[2018-07-31] MEDS ORDERED: DOXYCYCLINE HYCLATE 100 MG in DEXTROSE 5% 100 ML IV STA (00:36)
--- NOTE | 2018-07-31 00:38 | History & Physical Report ---
Date of Service July 31, 2018 Assessment & Plan (1) Acute hypoxemic respiratory failure: Secondary to COPD/RLD exacerbation secondary to communty acquired pneumonia Possible sepsis History MRSA as per records chronic diastolic heart failure, EF of 70%, TTE 2018 Patient euvolemic to dry. Despite pulmonary congestion on CXR, patient has actually had significant weight loss. hypertension, slight elevated secondary to illness WANDA on CPAP Recent history ischemic CVA status post completion of Plavix rx Currently on aspirin for secondary stroke prevention hx recent PE (03/2018) on Coumadin, INR supratherapeutic Left abdominal wall hematoma secondary to cough symptoms in the setting of Coumadin coagulopathy Hemoglobin stable at baseline Hypothyroidism, euthyroid as of recent outpatient TSH of 1.24 last April 2018 past tobacco abuse CRI, creatinine at baseline chronic lymphedema Medical telemetry Supplemental O2 Cultures, Ceftriaxone, Doxycycline Nebs, prednisone course Pulmonology consult RE respiratory failure IVF, resume home diuretic in a.m. if volume status improved Hold Coumadin given supratherapeutic INR/abdominal wall hematoma, oral vitamin K for now given stable hemoglobin Patient may need full reversal with IV vitamin K if with further hemoglobin drop from baseline. Consider cessation of Coumadin Rx given therapy greater than 3 months. Appropriate to hold home aspirin for now with abdominal wall hematoma. Resume aspirin for secondary stroke prevention once hemoglobin stable. DVT prophylaxis. SCDs while Coumadin on hold if INR less than 2 RE abdominal hematoma Full code History of Present Illness Chief Complaint: cough, SOB Primary Care Provider: Dr. Nisa Gaston History obtained from patient and records. Medical history significant for chronic diastolic heart failure, EF of 70%, TTE 2018, hypertension, COPD/restrictive lung disease/WANDA on CPAP as per records, history CVA, history PE on Coumadin, past tobacco abuse, hypothyroidism, CRI (baseline creatinine 1.3-1.5 ), chronic anemia (baseline hemoglobin 9-10 ) chronic lymphedema, history of MRSA Recent confinement March 2018 for decompensated heart failure. Patient also found to have CVA, left frontoparietal. Patient discharged on aspirin and Plavix. Patient also found to have multiple pulmonary emboli during confinement. Patient discharged on Coumadin. Few days history of cough symptoms productive of junky sputum with worsening shortness of breath. Admits to some sick contacts, denies aspiration. No chest pain. Achy left-sided abdominal pain from coughing. Patient brought to the ER by family because of worsening symptoms. At the ER, patient received IV Solu-Medrol and Levaquin for COPD exacerbation. Patient currently feeling better. Medical History as above Surgical History : Breast surgery, section, carpal tunnel surgery, tonsillectomy, cholecystectomy Family History : Unknown as patient was adopted Personal/Social history : Past tobacco abuse, no chronic EtOH intake, unemployed Allergies Allergy/AdvReac Type Severity Reaction Status Date / Time morphine AdvReac Unknown Unverified 07/30/18 18:59 CLOTH TAPE AdvReac Rash Uncoded 07/30/18 18:59 Home Medications Home Medications Medication Instructions Recorded Confirmed Type acetaminophen [Tylenol] 650 mg PO Q4 PRN 07/30/18 07/30/18 History albuterol sulfate 2 puff INHALATION QID PRN 07/30/18 07/30/18 History aspirin 81 mg PO DAILY 07/30/18 07/30/18 History fluticasone-vilanterol [Breo 1 inh INHALATION DAILY 07/30/18 07/30/18 History Ellipta] levothyroxine 12.5 mcg PO DAILY 07/30/18 07/30/18 History levothyroxine 200 mcg PO DAILY 07/30/18 07/30/18 History metoprolol succinate 50 mg PO DAILY 07/30/18 07/30/18 History potassium chloride 40 meq PO DAILY 07/30/18 07/30/18 History tiotropium bromide [Spiriva with 1 cap INHALATION DAILY 07/30/18 07/30/18 History HandiHaler] torsemide [Demadex] 20 mg PO DAILY 07/30/18 07/30/18 History varenicline 0.5 mg PO UD 07/30/18 07/30/18 History warfarin [Coumadin] 12 mg PO DAILY 07/30/18 07/30/18 History Past Med/Surg History Medical History Pulmonary emboli CVA (cerebral vascular accident) WANDA (obstructive sleep apnea) Tobacco abuse COPD (chronic obstructive pulmonary disease) (Chronic) UTI (urinary tract infection) Expressive aphasia Chronic acquired lymphedema Acute right heart failure SOB (shortness of breath) (Acute) CHF (congestive heart failure) (Acute) Hypoxia (Acute) Elevated troponin (Acute) Hypothyroidism (Chronic) ARF (acute renal failure) CHF (congestive heart failure) (Acute) Hypertensive urgency (Acute) Hypertensive urgency (Acute) Hypoxia (Acute) Malignant hypertension (Acute 12/24/13) Obesity ARF (acute renal failure) (Chronic) CHF (congestive heart failure) (Chronic) Family History Other Adopted No pertinent family history Social History Current Living Situation: Family Feels Safe at Home: Yes Safety Concerns: Feels Safe At This Time Smoking Status: Never smoker Hx Alcohol Use: No Hx Substance Use: No Beliefs That Will Affect Care: None Preferred Language: Georgian Communication Ability: Effective Tour Consultant Required: No Review of Systems As per HPI, all 10 systems reviewed, all other ROS negative Physical Exam 2 Vital Signs (Past 24 Hours): Last Vital Signs Temp 36.7 C 07/30/18 22:51 Pulse 111 H 07/30/18 22:51 Resp 22 07/30/18 22:51 BP 107/59 L 07/30/18 22:51 Pulse Ox 93 07/30/18 22:51 Physical Exam: GENERAL: Obese, minimal respiratory distress SKIN: Pallor, warm HEENT: Pale palpebral conjunctivae, no ptosis, dry buccal mucosa, O2 mask in place NECK : Supple, short, no tenderness CHEST : Decreased breath sounds, occasional expiratory wheezes, no tenderness HEART : Tachycardic , no obvious murmurs ABDOMEN: Some distention, nontender EXTREMITIES : scottie LE swelling/skin thickening (chronic), no tenderness, no other conspicuous deformities noted NEUROLOGIC : Coherent, no facial asymmetry, no other gross focality Results & Data Laboratory Results Laboratory Results WBC 14.21 K/uL (4.8-10.8) H 07/30/18 19:30 RBC 3.77 M/uL (4.2-5.4) L 07/30/18 19:30 Hgb 9.8 g/dL (12.0-16.0) L 07/31/18 00:01 Hct 31.7 % (37-47) L 07/31/18 00:01 MCV 88.9 fL (80-100) 07/30/18 19:30 MCH 28.4 pg (25-34) 07/30/18 19:30 MCHC 31.9 g/dL (32-36) L 07/30/18 19:30 RDW Std Deviation 49.4 fL (36.4-46.3) H 07/30/18 19:30 RDW Coeff of [place] 15.2 % (11.5-14.5) H 07/30/18 19:30 Plt Count 419 K/uL (130-400) H 07/30/18 19:30 MPV 10.0 fL (7.4-10.4) 07/30/18 19:30 Immature Gran % (Auto) 0.9 % 07/30/18 19:30 Neut % (Auto) 69.7 % 07/30/18 19:30 Lymph % (Auto) 18.2 % 07/30/18 19:30 [place] % (Auto) 9.6 % 07/30/18 19:30 Eos % (Auto) 1.2 % 07/30/18 19:30 Baso % (Auto) 0.4 % 07/30/18 19:30 Immature Gran # (Auto) 0.13 K/uL (0.00-0.02) H 07/30/18 19:30 Neut # (Auto) 9.91 K/uL (1.4-6.5) H 07/30/18 19:30 Lymph # (Auto) 2.59 K/uL (1.2-3.4) 07/30/18 19:30 [place] # (Auto) 1.36 K/uL (0.11-0.59) H 07/30/18 19:30 Eos # (Auto) 0.17 K/uL (0-0.5) 07/30/18 19:30 Baso # (Auto) 0.05 K/uL (0-0.2) 07/30/18 19:30 PT 64.6 Seconds (9.0-12.0) H 07/30/18 22:46 INR 7.1 (0.9-1.1) H* 07/30/18 22:46 ABG pH 7.41 (7.35-7.45) 07/30/18 22:46 ABG pCO2 45 mmHg (35-46) 07/30/18 22:46 ABG pO2 53 mm/Hg (80-95) L 07/30/18 22:46 ABG HCO3 28 mmol/L (19-24) H 07/30/18 22:46 ABG O2 Saturation 84.2 % (90-95) L 07/30/18 22:46 ABG Base Excess 2.3 mEq/L (-9-1.8) H 07/30/18 22:46 Carl Test Pos (Pos) 07/30/18 22:46 Barometric Pressure 733.8 mm/Hg 07/30/18 22:46 Oxygen Given 2.5 07/30/18 22:46 Sodium 140 mmol/L (136-145) 07/30/18 19:30 Potassium 3.5 mmol/L (3.5-5.1) 07/30/18 19:30 Chloride 101 mmol/L (98-107) 07/30/18 19:30 Carbon Dioxide 29 mmol/L (21-32) 07/30/18 19:30 Anion Gap 9.0 (3-11) 07/30/18 19:30 BUN 25 mg/dl (7-18) H 07/30/18 19:30 Creatinine 1.51 mg/dl (0.6-1.2) H 07/30/18 19:30 Est Cr Clr Drug Dosing 61.1 ml/min 07/30/18 19:30 Est GFR ( Amer) 45.3 07/30/18 19:30 Est GFR (Non-Af Amer) 39.1 07/30/18 19:30 BUN/Creatinine Ratio 16.2 (10-20) 07/30/18 19:30 Glucose 105 mg/dl (70-99) H 07/30/18 19:30 POC Lactic Acid Omer 1.24 mmol/L (0.90-1.70) 07/30/18 19:34 Calcium 8.7 mg/dl (8.5-10.1) 07/30/18 19:30 Magnesium 2.3 mg/dl (1.8-2.4) 07/30/18 19:30 Total Bilirubin 0.5 mg/dl (0.2-1) 07/30/18 19:30 AST 17 U/L (15-37) 07/30/18 19:30 ALT 21 U/L (12-78) 07/30/18 19:30 Alkaline Phosphatase 83 U/L (45-117) 07/30/18 19:30 Troponin I < 0.015 ng/ml (0-0.045) 07/30/18 19:30 NT-Pro-B Natriuret Pep 108 pg/ml (0-900) 07/30/18 19:30 Total Protein 9.0 gm/dl (6.4-8.2) H 07/30/18 19:30 Albumin 2.9 gm/dl (3.4-5.0) L 07/30/18 19:30 Globulin 6.1 gm/dl (2.5-4.0) H 07/30/18 19:30 Albumin/Globulin Ratio 0.5 (0.9-2) L 07/30/18 19:30 Diagnostic Findings Chest x-ray: 1. Apparent right midlung nodular infiltrate and possible right bronchial wall thickening. PA and lateral views are recommended for better assessment. 2. Cardiomegaly with volume overload. CT abdomen pelvis: 1. Large intramuscular left abdominal wall hematoma with extension into the properitoneal fat along the left inguinal region. This may iatrogenic or spontaneous related to coagulopathy. Correlate clinically. 2. No hemoperitoneum. 3. Indeterminate 1.4 cm left adrenal nodule. 4. Extensive tree-in-bud opacities and nodular consolidation at the lung bases as well as the right middle lobe and lingula. This raises concern for an indolent infection such as mycobacterium avium intracellulare. EKG as per my interpretation: Rate 110, sinus tachycardia, nonspecific ST-T wave abnormalities
[2018-07-31] MEDS ORDERED: PHYTONADIONE 5 MG TAB PO STA (00:44)
[2018-07-31 01:39] LABS: Influenza A virus by PCR Neg for Influ A (Neg); Influenza B virus by PCR Neg for Influ B (Neg)
[2018-07-31] MEDS ORDERED: HYDROmorphone INJ 0.5 MG/0.5 ML SYR IV PRN (02:20)
[2018-07-31] MEDS ORDERED: TRAMADOL HCL 50 MG TABLET PO PRN (02:20)
[2018-07-31] MEDS ORDERED: LACTATED RINGER'S 1,000 ML IV ONE (02:20)
[2018-07-31] MEDS ORDERED: XOPENEX/ATROVENT 1.25mg/0.5MG NEB COMBO NEB SCH (02:20)
[2018-07-31] MEDS ORDERED: PROCHLORPERAZINE 5 MG in SYRINGE 4 ML IV PRN (02:20)
[2018-07-31] MEDS: METOPROLOL SUCC 50MG EXT REL TAB PO SCH (03:08)
[2018-07-31] MEDS: LEVOTHYROXINE SODIUM 200 MCG TABLET PO SCH (06:21)
[2018-07-31] MEDS: LEVOTHYROXINE SODIUM 25 MCG TABLET PO SCH (06:21)
[2018-07-31] MEDS: guaiFENesin 600 MG TABCR PO SCH ×3 (06:21→20:42)
[2018-07-31 07:06] LABS: Mean Corpuscular Hgb Conc 30.9 g/dL (32-36); Mean Platelet Volume 10.3 fL (7.4-10.4); Nucleated RBC # (auto) 0.02 K/uL (0-0); Nucleated RBC % (auto) 0.1 %; Platelet Count 403 K/uL (130-400)
[2018-07-31] MEDS: LEVALBUTEROL 1.25MG/0.5ML NEB INH SCH ×3 (07:24→18:52)
[2018-07-31] MEDS: IPRATROPIUM BROMIDE NEB SOLN 0.02% 2.5 ML VIAL INH SCH ×3 (07:24→18:52)
[2018-07-31 07:41] LABS: BUN Creatinine Ratio 19.6 (10-20); Est GFR (African American) 54.2; Est GFR (Non-African American) 46.8
[2018-07-31 07:47] LABS: Prothrombin Time 63.4 Seconds (9.0-12.0)
[2018-07-31] MEDS: predniSONE 20 MG TAB PO SCH (07:55)
[2018-07-31] MEDS: BENZONATATE 100 MG CAPSULE PO PRN ×2 (07:57→20:42)
[2018-07-31 08:06] LABS: Hematocrit (blood only) 31.7 % (37-47); Hemoglobin 9.8 g/dL (12.0-16.0); Mean Corpuscular Volume 88.3 fL (80-100); RDW Coefficient of Variation 15.2 % (11.5-14.5); RDW Standard Deviation 48.9 fL (36.4-46.3); Red Blood Count 3.59 M/uL (4.2-5.4); White Blood Count 13.04 K/uL (4.8-10.8)
[2018-07-31 08:07] LABS: Basophils # (auto) 0.01 K/uL (0-0.2); Basophils % (auto) 0.1 %; Immature Granulocytes # (auto) 0.12 K/uL (0.00-0.02); Immature Granulocytes % (auto) 0.9 %; Lymphocytes # (auto) 1.06 K/uL (1.2-3.4); Lymphocytes % (auto) 8.1 %; Monocytes # (auto) 0.47 K/uL (0.11-0.59); Monocytes % (auto) 3.6 %; Neutrophils # (auto) 11.38 K/uL (1.4-6.5); Neutrophils % (auto) 87.3 %
[2018-07-31] MEDS ORDERED: METOPROLOL SUCC 50MG EXT REL TAB PO SCH (09:00)
[2018-07-31] MEDS: cefTRIAXone SODIUM 1,000 MG in DEXTROSE 5% 50 ML IV SCH (09:00)
--- NOTE | 2018-07-31 11:35 | Hospitalist Progress Note ---
Date of Service July 31, 2018 Assessment & Plan (1) Pneumonia: (2) COPD exacerbation: (3) Acute hypoxemic respiratory failure: Secondary to COPD exacerbation secondary vs pneumonia CXR showed right midlung nodular infiltrate and possible right bronchial wall thickening. CT showed extensive tree-in-bud opacities and nodular consolidation at the lung bases as well as the right middle lobe and lingula Continue abx with Rocephin and doxycycline Continue prednisone and neb treatment Blood cx pending Pulmonology on board (4) Hematoma of abdominal wall: Possible due to excessive cough in the setting of supratherapeutic INR CT abd/pelvis showed Large intramuscular left abdominal wall hematoma with extension into the properitoneal fat along the left inguinal region INR on admission above 7 Received Vit K and hold aspirin Hgb 9.8 Continue monitor H/H (5) WANDA (obstructive sleep apnea): Continue CPap (6) CVA (cerebral vascular accident): CVA in Mar 2018 Completed plavix for 1 month has been on aspirin daily Hold aspirin for now due to hematoma Stable (7) Pulmonary emboli: Present with abdominal wall hematoma INR above 7 Reeived Vit K Hgb 9.8 Continue holding coumadin Monitor INR (8) CHF (congestive heart failure): Chronic diastolic heart failure Last ECHO showed EF of 70%, TTE 2018 CXR showed cardiomegaly with volume overload. Does not showed any clinically signs of volume overload Will give torsemide x1 dose today (9) Supratherapeutic INR: INR above 7 Received Vit K oral Coumadin on hold Monitor PT/INR DVT px on SCDS INR above 7 CODE STATUS FULL CODE Subjective Pt was seen and examined Lying in bed with no distress Pt said that continues to cough She said that she is having left lower abdominal tenderness after coughing Denies any chest pain, palpitation and SOB Physical Exam 2 Vital Signs (Past 24 Hours): Last Vital Signs Temp 36.8 C 07/31/18 02:26 Pulse 85 07/31/18 10:21 Resp 18 07/31/18 07:26 BP 167/87 H 07/31/18 02:26 Pulse Ox 93 07/31/18 07:26 Physical Exam: General- No acute distress Head- atraumatic Eyes- PERRL, EOMI, ENT- oropharynx clear Neck- supple, no JVD Lungs- coarse BS Heart- regular rhythm Abdomen- normal bowel sounds, soft, nontender Extremities- no calf tenderness, +edema Neuro- alert, oriented x 3; PERRL, EOMI; no facial palsy Skin- warm & dry _ (1) CHF (congestive heart failure) Heart failure chronicity: unspecified Heart failure type: unspecified Qualified Code(s): I50.9 - Heart failure, unspecified (2) Pneumonia Aspiration pneumonia type: Laterality: right Lung location: middle lobe of lung Pneumonia type: due to unspecified organism Qualified Code(s): J18.1 - Lobar pneumonia, unspecified organism
[2018-07-31 12:11] LABS: Hematocrit (blood only) 30.9 % (37-47); Hemoglobin 9.6 g/dL (12.0-16.0)
--- NOTE | 2018-07-31 14:39 | Emergency Department Note ---
Entered by Rafi Zelaya acting as a scribe for History of Present Illness General Chief complaint: Shortness of Breath/Dyspnea Stated complaint: SOB, ABD PAIN Time Seen by Provider: 07/30/18 18:23 Source: patient History of Present Illness Onset (ago): day(s) (a few days ago) Location: chest Pain Consistency: + constant Maximum Pain Intensity: 10 Associated symptoms: + other (Positive for a dry cough, pelvis pain, and a decreased appetite. Negative for fever, chills, rhinorrhea, sore throat, nausea , vomiting, urinary symptoms, and change in her bowels.) The patient is a 52 year old female who presents to the emergency department with complaints of constant SOB beginning a few days ago. The patient states that she first developed a cold a week ago. She notes that the cold is not going away and she reports that she still has a dry cough. No hemoptysis. The patient states that she fell in the bathroom last week. She notes that she fell backwards and landed on her buttocks. No head injury or LOC. She reports that she developed left pelvis pain beginning two days after she fell. States she felt fine with help was able to get up and had no reported pain or injury. The patient states that her LLQ pain worsens when she coughs. She also complains of a decreased appetite. She denies any fever, chills, rhinorrhea, sore throat, nausea, vomiting, urinary symptoms, and change in her bowels. She notes that she has a history of CHF but does not have a history of diabetes. She reports that she did not receive a flu vaccine this year. Patient states she does take Coumadin due to prior blood clot. Home Medications Home Medications Medication Instructions Recorded Confirmed Type acetaminophen [Tylenol] 650 mg PO Q4 PRN 07/30/18 07/30/18 History albuterol sulfate 2 puff INHALATION QID PRN 07/30/18 07/30/18 History aspirin 81 mg PO DAILY 07/30/18 07/30/18 History fluticasone-vilanterol [Breo 1 inh INHALATION DAILY 07/30/18 07/30/18 History Ellipta] levothyroxine 12.5 mcg PO DAILY 07/30/18 07/30/18 History levothyroxine 200 mcg PO DAILY 07/30/18 07/30/18 History metoprolol succinate 50 mg PO DAILY 07/30/18 07/30/18 History potassium chloride 40 meq PO DAILY 07/30/18 07/30/18 History tiotropium bromide [Spiriva with 1 cap INHALATION DAILY 07/30/18 07/30/18 History HandiHaler] torsemide [Demadex] 20 mg PO DAILY 07/30/18 07/30/18 History varenicline 0.5 mg PO UD 07/30/18 07/30/18 History warfarin [Coumadin] 12 mg PO DAILY 07/30/18 07/30/18 History Allergies Allergy/AdvReac Type Severity Reaction Status Date / Time morphine AdvReac Unknown Unverified 07/30/18 18:59 CLOTH TAPE AdvReac Rash Uncoded 07/30/18 18:59 Past Med/Surg History Medical History Pulmonary emboli CVA (cerebral vascular accident) WANDA (obstructive sleep apnea) Tobacco abuse COPD (chronic obstructive pulmonary disease) (Chronic) UTI (urinary tract infection) Expressive aphasia Chronic acquired lymphedema Acute right heart failure SOB (shortness of breath) (Acute) CHF (congestive heart failure) (Acute) Hypoxia (Acute) Elevated troponin (Acute) Hypothyroidism (Chronic) ARF (acute renal failure) CHF (congestive heart failure) (Acute) Hypertensive urgency (Acute) Hypertensive urgency (Acute) Hypoxia (Acute) Malignant hypertension (Acute 12/24/13) Obesity ARF (acute renal failure) (Chronic) CHF (congestive heart failure) (Chronic) Family History Other Adopted No pertinent family history Social History Current Living Situation: Family Feels Safe at Home: Yes Safety Concerns: Feels Safe At This Time Smoking Status: Never smoker Hx Alcohol Use: No Hx Substance Use: No Beliefs That Will Affect Care: None Preferred Language: Haitian Communication Ability: Effective Rn Womens Health Required: No Review of Systems See HPI for pertinent positives & negatives. and A total of 10 systems reviewed and were otherwise negative Physical Exam Vital Signs Vital Signs - 24 hr 07/30/18 18:17 07/30/18 19:36 07/30/18 20:06 Temperature 38.1 C H 37.4 C Temperature Source Oral Oral Sepsis Recent Fever Within 48 Hours Yes Sepsis New/Unexplained Change in Mental Status No Sepsis Action Taken by Nursing No Action Required Pulse Rate 112 H Pulse Rate [Apical] 106 H Pulse Rate [Right Finger] Pulse Rhythm [Apical] Regular Pulse Rhythm [Right Finger] Pulse Strength [Apical] Normal Pulse Strength [Right Finger] Respiratory Rate 24 22 Respiratory Effort / Characteristics Non-Labored Spontaneous Respiratory Depth Normal Respiratory Pattern Blood Pressure 138/65 Blood Pressure [Left Arm] 173/101 H Blood Pressure Mean 89 Blood Pressure Mean [Left Arm] 125 Blood Pressure Position [Left Arm] Sitting Pulse Oximetry 92 92 88 L Oxygen Delivery Method Nasal Cannula Nasal Cannula Oxygen Flow Rate 2.5 2 07/30/18 20:09 07/30/18 20:57 07/30/18 21:03 Temperature Temperature Source Sepsis Recent Fever Within 48 Hours Sepsis New/Unexplained Change in Mental Status Sepsis Action Taken by Nursing Pulse Rate Pulse Rate [Apical] 101 H 101 H Pulse Rate [Right Finger] Pulse Rhythm [Apical] Regular Pulse Rhythm [Right Finger] Pulse Strength [Apical] Normal Pulse Strength [Right Finger] Respiratory Rate 20 20 22 Respiratory Effort / Characteristics Non-Labored Spontaneous Non-Labored Spontaneous Non-Labored Spontaneous Respiratory Depth Normal Normal Respiratory Pattern Regular Regular Blood Pressure Blood Pressure [Left Arm] 121/65 Blood Pressure Mean Blood Pressure Mean [Left Arm] 83 Blood Pressure Position [Left Arm] Sitting Pulse Oximetry 93 95 96 Oxygen Delivery Method Oxymask Room Air Nebulizer Oxygen Flow Rate 3 15 07/30/18 22:51 07/31/18 01:02 07/31/18 01:29 Temperature 36.7 C 36.8 C Temperature Source Oral Oral Sepsis Recent Fever Within 48 Hours Sepsis New/Unexplained Change in Mental Status Sepsis Action Taken by Nursing Pulse Rate Pulse Rate [Apical] 111 H 102 H 100 H Pulse Rate [Right Finger] Pulse Rhythm [Apical] Regular Regular Regular Pulse Rhythm [Right Finger] Pulse Strength [Apical] Normal Normal Normal Pulse Strength [Right Finger] Respiratory Rate 22 20 21 Respiratory Effort / Characteristics Non-Labored Spontaneous Respiratory Depth Normal Normal Respiratory Pattern Regular Blood Pressure Blood Pressure [Left Arm] 107/59 L 133/75 122/79 Blood Pressure Mean Blood Pressure Mean [Left Arm] 75 94 93 Blood Pressure Position [Left Arm] Sitting Pulse Oximetry 93 91 90 Oxygen Delivery Method Oxymask Oxymask Oxymask Oxygen Flow Rate 3 3 3 07/31/18 01:44 07/31/18 02:20 07/31/18 02:26 Temperature 37.7 C H 36.8 C Temperature Source Oral Oral Sepsis Recent Fever Within 48 Hours Sepsis New/Unexplained Change in Mental Status Sepsis Action Taken by Nursing Pulse Rate Pulse Rate [Apical] 114 H Pulse Rate [Right Finger] 99 H Pulse Rhythm [Apical] Regular Pulse Rhythm [Right Finger] Regular Pulse Strength [Apical] Normal Pulse Strength [Right Finger] Normal Respiratory Rate 18 20 Respiratory Effort / Characteristics Non-Labored Spontaneous SOB on Exertion Non-Labored Spontaneous SOB on Exertion Respiratory Depth Normal Normal Respiratory Pattern Regular Regular Blood Pressure Blood Pressure [Left Arm] 143/84 H 167/87 H Blood Pressure Mean Blood Pressure Mean [Left Arm] 103 113 Blood Pressure Position [Left Arm] Right Lateral Lying Pulse Oximetry 93 91 Oxygen Delivery Method Oxymask Nasal Cannula Oxymask CPAP Oxygen Flow Rate 3 4 3 07/31/18 02:54 07/31/18 07:26 07/31/18 10:21 Temperature Temperature Source Sepsis Recent Fever Within 48 Hours Sepsis New/Unexplained Change in Mental Status Sepsis Action Taken by Nursing Pulse Rate 97 H 85 Pulse Rate [Apical] Pulse Rate [Right Finger] 90 Pulse Rhythm [Apical] Pulse Rhythm [Right Finger] Pulse Strength [Apical] Pulse Strength [Right Finger] Respiratory Rate 18 18 Respiratory Effort / Characteristics Non-Labored Spontaneous Non-Labored Spontaneous Non-Labored Spontaneous Short of Breath Respiratory Depth Normal Respiratory Pattern Regular Blood Pressure Blood Pressure [Left Arm] Blood Pressure Mean Blood Pressure Mean [Left Arm] Blood Pressure Position [Left Arm] Pulse Oximetry 92 93 Oxygen Delivery Method Oxymask Nasal Cannula Oxygen Flow Rate 3 2 3 07/31/18 14:14 Temperature Temperature Source Sepsis Recent Fever Within 48 Hours Sepsis New/Unexplained Change in Mental Status Sepsis Action Taken by Nursing Pulse Rate Pulse Rate [Apical] Pulse Rate [Right Finger] 86 Pulse Rhythm [Apical] Pulse Rhythm [Right Finger] Pulse Strength [Apical] Pulse Strength [Right Finger] Respiratory Rate 18 Respiratory Effort / Characteristics Respiratory Depth Respiratory Pattern Blood Pressure Blood Pressure [Left Arm] Blood Pressure Mean Blood Pressure Mean [Left Arm] Blood Pressure Position [Left Arm] Pulse Oximetry 94 Oxygen Delivery Method Nasal Cannula Oxygen Flow Rate 4 GENERAL: alert, ill appearing, well nourished, no distress, non-toxic, morbidly obese. EYE EXAM: normal conjunctiva, PERRL and EOM's grossly intact OROPHARYNX: no exudate, no erythema, lips, buccal mucosa, and tongue normal and mucous membranes are dry NECK: supple, no nuchal rigidity, no adenopathy, non-tender LUNGS: Clear to auscultation. Normal chest wall mechanics. Coarse breath sounds bilaterally with faint scattered expiratory wheeze. HEART: no murmurs, S1 normal and S2 normal ABDOMEN: abdomen soft, normo-active bowel sounds, no masses, no rebound or guarding. Mild left lower quadrant tenderness with palpation. BACK: Back is symmetrical on inspection and there is no deformity, no midline tenderness, no CVA tenderness. SKIN: no rashes and no bruising UPPER EXTREMITIES: upper extremities are grossly normal. FROM, nml pulses b/l. LOWER EXTREMITIES: No lower extremity edema. FROM, nml pulses b/l. NEURO EXAM: Normal sensorium, cranial nerves II-XII grossly intact, normal speech, no gross weakness of arms, no gross weakness of legs. Course 1832: Past medical records reviewed. The patient was evaluated in room A3, and a complete history and physical examination were performed. 2029: I reevaluated and updated the patient. She has increased wheezing bilaterally. On room air, her oxygen saturation is 88%. On 3.5L, she has an oxygen saturation of 92%. We discussed admission and the patient is in agreement. 2051: Upon reevaluation, the patient is stable. I discussed the results and treatment plan with the patient. She verbalizes understanding and agreement. I discussed the patient's case with Edwina Mendez. The patient will be evaluated for further management and care. Consultations Consultation #1: I reviewed the patient's case with Edwina Mendez. He will evaluate the patient for further management. Time: 20:52 Administered Medications Benzonatate (Tessalon Perle) 100 mg PO TID PRN PRN Reason: Cough Stop: 08/30/18 05:48 Last Admin: 07/31/18 07:57 Dose: 100 mg Guaifenesin (Mucinex) 600 mg PO Q12 KAREEM Stop: 08/30/18 02:19 Last Admin: 07/31/18 07:55 Dose: Not Given Admin: 07/31/18 06:21 Dose: Not Given Ceftriaxone Sodium 1,000 mg/ (Dextrose) 60 mls @ 100 mls/hr IV Q24H KAREEM Stop: 08/07/18 08:59 Last Infusion: 07/31/18 11:34 Dose: 0 mls/hr Admin: 07/31/18 09:00 Dose: 100 mls/hr Lactated Ringer's (Lr) 1,000 mls @ 75 mls/hr IV .[id number] ONE Stop: 07/31/18 15:39 Last Admin: 07/31/18 03:08 Dose: 75 mls/hr Ipratropium [place] (Atrovent 0.02% 0.5mg/2.5ml) 0.5 mg INH Q6R KAREEM Stop: 08/30/18 07:59 Last Admin: 07/31/18 14:11 Dose: 0.5 mg Admin: 07/31/18 07:24 Dose: 0.5 mg Levalbuterol HCl (Xopenex 1.25mg/0.5ml Neb) 1.25 mg INH Q6R KAREEM Stop: 08/30/18 07:59 Last Admin: 07/31/18 14:11 Dose: 1.25 mg Admin: 07/31/18 07:24 Dose: 1.25 mg Levothyroxine Sodium (Synthroid) 12.5 mcg PO DAILYBB [facility] Stop: 08/30/18 06:29 Last Admin: 07/31/18 06:21 Dose: 12.5 mcg Levothyroxine Sodium (Synthroid) 200 mcg PO DAILYBB [facility] Stop: 08/30/18 06:29 Last Admin: 07/31/18 06:21 Dose: 200 mcg Metoprolol Succinate (Toprol Xl) 50 mg PO DAILY KAREEM Stop: 08/30/18 02:44 Last Admin: 07/31/18 03:08 Dose: 50 mg Prednisone (Prednisone) 40 mg PO DAILY KAREEM Stop: 08/04/18 08:59 Last Admin: 07/31/18 07:55 Dose: 40 mg Discontinued Medications Acetaminophen (Tylenol) 1,000 mg PO NOW STA Stop: 07/30/18 18:54 Last Admin: 07/30/18 19:06 Dose: 1,000 mg Albuterol (Duoneb) 3 ml NEB NOW STA Stop: 07/30/18 18:45 Last Admin: 07/30/18 19:06 Dose: 3 ml Albuterol (Duoneb) 12 ml NEB ONE ONE Stop: 07/30/18 20:32 Last Admin: 07/30/18 20:55 Dose: 12 ml Levofloxacin/Dextrose (Levaquin/D5w) 750 mg in 150 mls @ 100 mls/hr IV NOW STA Stop: 07/30/18 22:00 Last Infusion: 07/30/18 23:48 Dose: 0 mls/hr Admin: 07/30/18 21:02 Dose: 100 mls/hr Doxycycline Hyclate 100 mg/ (Dextrose) 110 mls @ 50 mls/hr IV NOW STA Stop: 07/31/18 02:47 Last Infusion: 07/31/18 03:38 Dose: 0 mls/hr Admin: 07/31/18 01:26 Dose: 50 mls/hr Methylprednisolone (Solumedrol) 125 mg IV NOW STA Stop: 07/30/18 18:45 Last Admin: 07/30/18 19:06 Dose: 125 mg Phytonadione (Mephyton) 5 mg PO NOW STA Stop: 07/31/18 00:45 Last Admin: 07/31/18 00:51 Dose: 5 mg Potassium Chloride (Klor-Con M20) 50 meq PO NOW STA Stop: 07/31/18 00:05 Last Admin: 07/31/18 00:37 Dose: 50 meq Medical Decision Making Differential Diagnosis Differential diagnosis: Etiologies such as infections, reactive airway disease, COPD, pneumonia, pleural effusion, pulmonary edema, ARDS, pneumothorax, CHF, cardiac ischemia, cardiac tamponade, dysrhythmia, anemia, pulmonary embolism, musculoskeletal, gastrointestinal process, as well as others were entertained. Medical Records Attestation: I reviewed the patient's medical records. Home Medications Current Medication List: was personally reviewed by me Laboratory Data Attestation: I reviewed the patient's lab results. Result diagrams: 07/31/18 11:57 07/31/18 06:28 Lab Results 07/30/18 07/30/18 07/30/18 Range/Units 19:30 19:30 19:34 WBC 14.21 H (4.8-10.8) K/uL RBC 3.77 L (4.2-5.4) M/uL Hgb 10.7 L (12.0-16.0) g/dL Hct 33.5 L (37-47) % MCV 88.9 (80-100) fL MCH 28.4 (25-34) pg MCHC 31.9 L (32-36) g/dL RDW Std Deviation 49.4 H (36.4-46.3) fL RDW Coeff of [place] 15.2 H (11.5-14.5) % Plt Count 419 H (130-400) K/uL MPV 10.0 (7.4-10.4) fL Immature Gran % (Auto) 0.9 % Neut % (Auto) 69.7 % Lymph % (Auto) 18.2 % [place] % (Auto) 9.6 % Eos % (Auto) 1.2 % Baso % (Auto) 0.4 % Immature Gran # (Auto) 0.13 H (0.00-0.02) K/uL Neut # (Auto) 9.91 H (1.4-6.5) K/uL Lymph # (Auto) 2.59 (1.2-3.4) K/uL [place] # (Auto) 1.36 H (0.11-0.59) K/uL Eos # (Auto) 0.17 (0-0.5) K/uL Baso # (Auto) 0.05 (0-0.2) K/uL Absolute Nucleated RBC (0-0) K/uL Nucleated RBC % (auto) % Giant Platelets PT (9.0-12.0) Seconds INR (0.9-1.1) ABG pH (7.35-7.45) ABG pCO2 (35-46) mmHg ABG pO2 (80-95) mm/Hg ABG HCO3 (19-24) mmol/L ABG O2 Saturation (90-95) % ABG Base Excess (-9-1.8) mEq/L Carl Test (Pos) Barometric Pressure mm/Hg Oxygen Given Sodium 140 (136-145) mmol/L Potassium 3.5 (3.5-5.1) mmol/L Chloride 101 (98-107) mmol/L Carbon Dioxide 29 (21-32) mmol/L Anion Gap 9.0 (3-11) BUN 25 H (7-18) mg/dl Creatinine 1.51 H (0.6-1.2) mg/dl Est Cr Clr Drug Dosing 61.1 ml/min Est GFR ( Amer) 45.3 Est GFR (Non-Af Amer) 39.1 BUN/Creatinine Ratio 16.2 (10-20) Glucose 105 H (70-99) mg/dl POC Lactic Acid Omer 1.24 (0.90-1.70) mmol/L Calcium 8.7 (8.5-10.1) mg/dl Magnesium 2.3 (1.8-2.4) mg/dl Total Bilirubin 0.5 (0.2-1) mg/dl AST 17 (15-37) U/L ALT 21 (12-78) U/L Alkaline Phosphatase 83 (45-117) U/L Troponin I < 0.015 (0-0.045) ng/ml NT-Pro-B Natriuret Pep 108 (0-900) pg/ml Total Protein 9.0 H (6.4-8.2) gm/dl Albumin 2.9 L (3.4-5.0) gm/dl Globulin 6.1 H (2.5-4.0) gm/dl Albumin/Globulin Ratio 0.5 L (0.9-2) Influenza Type A (PCR) (Neg) Influenza Type B (PCR) (Neg) Blood Type Antibody Screen 07/30/18 07/30/18 07/31/18 Range/Units 22:46 22:46 00:01 WBC (4.8-10.8) K/uL RBC (4.2-5.4) M/uL Hgb 9.8 L (12.0-16.0) g/dL Hct 31.7 L (37-47) % MCV (80-100) fL MCH (25-34) pg MCHC (32-36) g/dL RDW Std Deviation (36.4-46.3) fL RDW Coeff of [place] (11.5-14.5) % Plt Count (130-400) K/uL MPV (7.4-10.4) fL Immature Gran % (Auto) % Neut % (Auto) % Lymph % (Auto) % [place] % (Auto) % Eos % (Auto) % Baso % (Auto) % Immature Gran # (Auto) (0.00-0.02) K/uL Neut # (Auto) (1.4-6.5) K/uL Lymph # (Auto) (1.2-3.4) K/uL [place] # (Auto) (0.11-0.59) K/uL Eos # (Auto) (0-0.5) K/uL Baso # (Auto) (0-0.2) K/uL Absolute Nucleated RBC (0-0) K/uL Nucleated RBC % (auto) % Giant Platelets PT 64.6 H (9.0-12.0) Seconds INR 7.1 H* (0.9-1.1) ABG pH 7.41 (7.35-7.45) ABG pCO2 45 (35-46) mmHg ABG pO2 53 L (80-95) mm/Hg ABG HCO3 28 H (19-24) mmol/L ABG O2 Saturation 84.2 L (90-95) % ABG Base Excess 2.3 H (-9-1.8) mEq/L Carl Test Pos (Pos) Barometric Pressure 733.8 mm/Hg Oxygen Given 2.5 Sodium (136-145) mmol/L Potassium (3.5-5.1) mmol/L Chloride (98-107) mmol/L Carbon Dioxide (21-32) mmol/L Anion Gap (3-11) BUN (7-18) mg/dl Creatinine (0.6-1.2) mg/dl Est Cr Clr Drug Dosing ml/min Est GFR ( Amer) Est GFR (Non-Af Amer) BUN/Creatinine Ratio (10-20) Glucose (70-99) mg/dl POC Lactic Acid Omer (0.90-1.70) mmol/L Calcium (8.5-10.1) mg/dl Magnesium (1.8-2.4) mg/dl Total Bilirubin (0.2-1) mg/dl AST (15-37) U/L ALT (12-78) U/L Alkaline Phosphatase (45-117) U/L Troponin I (0-0.045) ng/ml NT-Pro-B Natriuret Pep (0-900) pg/ml Total Protein (6.4-8.2) gm/dl Albumin (3.4-5.0) gm/dl Globulin (2.5-4.0) gm/dl Albumin/Globulin Ratio (0.9-2) Influenza Type A (PCR) (Neg) Influenza Type B (PCR) (Neg) Blood Type Antibody Screen 07/31/18 07/31/18 07/31/18 Range/Units 00:01 00:50 06:28 WBC 13.04 H (4.8-10.8) K/uL RBC 3.59 L (4.2-5.4) M/uL Hgb 9.8 L (12.0-16.0) g/dL Hct 31.7 L (37-47) % MCV 88.3 (80-100) fL MCH 27.3 (25-34) pg MCHC 30.9 L (32-36) g/dL RDW Std Deviation 48.9 H (36.4-46.3) fL RDW Coeff of [place] 15.2 H (11.5-14.5) % Plt Count 403 H (130-400) K/uL MPV 10.3 (7.4-10.4) fL Immature Gran % (Auto) 0.9 % Neut % (Auto) 87.3 % Lymph % (Auto) 8.1 % [place] % (Auto) 3.6 % Eos % (Auto) 0.0 % Baso % (Auto) 0.1 % Immature Gran # (Auto) 0.12 H (0.00-0.02) K/uL Neut # (Auto) 11.38 H (1.4-6.5) K/uL Lymph # (Auto) 1.06 L (1.2-3.4) K/uL [place] # (Auto) 0.47 (0.11-0.59) K/uL Eos # (Auto) 0.00 (0-0.5) K/uL Baso # (Auto) 0.01 (0-0.2) K/uL Absolute Nucleated RBC 0.02 H (0-0) K/uL Nucleated RBC % (auto) 0.1 % Giant Platelets 1+ PT (9.0-12.0) Seconds INR (0.9-1.1) ABG pH (7.35-7.45) ABG pCO2 (35-46) mmHg ABG pO2 (80-95) mm/Hg ABG HCO3 (19-24) mmol/L ABG O2 Saturation (90-95) % ABG Base Excess (-9-1.8) mEq/L Carl Test (Pos) Barometric Pressure mm/Hg Oxygen Given Sodium (136-145) mmol/L Potassium (3.5-5.1) mmol/L Chloride (98-107) mmol/L Carbon Dioxide (21-32) mmol/L Anion Gap (3-11) BUN (7-18) mg/dl Creatinine (0.6-1.2) mg/dl Est Cr Clr Drug Dosing ml/min Est GFR ( Amer) Est GFR (Non-Af Amer) BUN/Creatinine Ratio (10-20) Glucose (70-99) mg/dl POC Lactic Acid Omer (0.90-1.70) mmol/L Calcium (8.5-10.1) mg/dl Magnesium (1.8-2.4) mg/dl Total Bilirubin (0.2-1) mg/dl AST (15-37) U/L ALT (12-78) U/L Alkaline Phosphatase (45-117) U/L Troponin I (0-0.045) ng/ml NT-Pro-B Natriuret Pep (0-900) pg/ml Total Protein (6.4-8.2) gm/dl Albumin (3.4-5.0) gm/dl Globulin (2.5-4.0) gm/dl Albumin/Globulin Ratio (0.9-2) Influenza Type A (PCR) Neg for Influ A (Neg) Influenza Type B (PCR) Neg for Influ B (Neg) Blood Type A Negative Antibody Screen NEGATIVE 07/31/18 07/31/18 07/31/18 Range/Units 06:28 06:28 11:57 WBC (4.8-10.8) K/uL RBC (4.2-5.4) M/uL Hgb 9.6 L (12.0-16.0) g/dL Hct 30.9 L (37-47) % MCV (80-100) fL MCH (25-34) pg MCHC (32-36) g/dL RDW Std Deviation (36.4-46.3) fL RDW Coeff of [place] (11.5-14.5) % Plt Count (130-400) K/uL MPV (7.4-10.4) fL Immature Gran % (Auto) % Neut % (Auto) % Lymph % (Auto) % [place] % (Auto) % Eos % (Auto) % Baso % (Auto) % Immature Gran # (Auto) (0.00-0.02) K/uL Neut # (Auto) (1.4-6.5) K/uL Lymph # (Auto) (1.2-3.4) K/uL [place] # (Auto) (0.11-0.59) K/uL Eos # (Auto) (0-0.5) K/uL Baso # (Auto) (0-0.2) K/uL Absolute Nucleated RBC (0-0) K/uL Nucleated RBC % (auto) % Giant Platelets PT 63.4 H (9.0-12.0) Seconds INR 7.0 H* (0.9-1.1) ABG pH (7.35-7.45) ABG pCO2 (35-46) mmHg ABG pO2 (80-95) mm/Hg ABG HCO3 (19-24) mmol/L ABG O2 Saturation (90-95) % ABG Base Excess (-9-1.8) mEq/L Carl Test (Pos) Barometric Pressure mm/Hg Oxygen Given Sodium 136 (136-145) mmol/L Potassium 4.0 (3.5-5.1) mmol/L Chloride 104 (98-107) mmol/L Carbon Dioxide 29 (21-32) mmol/L Anion Gap 3.0 (3-11) BUN 25 H (7-18) mg/dl Creatinine 1.30 H (0.6-1.2) mg/dl Est Cr Clr Drug Dosing 71.0 ml/min Est GFR ( Amer) 54.2 Est GFR (Non-Af Amer) 46.8 BUN/Creatinine Ratio 19.6 (10-20) Glucose 145 H (70-99) mg/dl POC Lactic Acid Omer (0.90-1.70) mmol/L Calcium 9.0 (8.5-10.1) mg/dl Magnesium (1.8-2.4) mg/dl Total Bilirubin (0.2-1) mg/dl AST (15-37) U/L ALT (12-78) U/L Alkaline Phosphatase (45-117) U/L Troponin I (0-0.045) ng/ml NT-Pro-B Natriuret Pep (0-900) pg/ml Total Protein (6.4-8.2) gm/dl Albumin (3.4-5.0) gm/dl Globulin (2.5-4.0) gm/dl Albumin/Globulin Ratio (0.9-2) Influenza Type A (PCR) (Neg) Influenza Type B (PCR) (Neg) Blood Type Antibody Screen 07/31/18 Range/Units 11:57 WBC (4.8-10.8) K/uL RBC (4.2-5.4) M/uL Hgb (12.0-16.0) g/dL Hct (37-47) % MCV (80-100) fL MCH (25-34) pg MCHC (32-36) g/dL RDW Std Deviation (36.4-46.3) fL RDW Coeff of [place] (11.5-14.5) % Plt Count (130-400) K/uL MPV (7.4-10.4) fL Immature Gran % (Auto) % Neut % (Auto) % Lymph % (Auto) % [place] % (Auto) % Eos % (Auto) % Baso % (Auto) % Immature Gran # (Auto) (0.00-0.02) K/uL Neut # (Auto) (1.4-6.5) K/uL Lymph # (Auto) (1.2-3.4) K/uL [place] # (Auto) (0.11-0.59) K/uL Eos # (Auto) (0-0.5) K/uL Baso # (Auto) (0-0.2) K/uL Absolute Nucleated RBC (0-0) K/uL Nucleated RBC % (auto) % Giant Platelets PT (9.0-12.0) Seconds INR (0.9-1.1) ABG pH (7.35-7.45) ABG pCO2 (35-46) mmHg ABG pO2 (80-95) mm/Hg ABG HCO3 (19-24) mmol/L ABG O2 Saturation (90-95) % ABG Base Excess (-9-1.8) mEq/L Carl Test (Pos) Barometric Pressure mm/Hg Oxygen Given Sodium (136-145) mmol/L Potassium (3.5-5.1) mmol/L Chloride (98-107) mmol/L Carbon Dioxide (21-32) mmol/L Anion Gap (3-11) BUN (7-18) mg/dl Creatinine (0.6-1.2) mg/dl Est Cr Clr Drug Dosing ml/min Est GFR ( Amer) Est GFR (Non-Af Amer) BUN/Creatinine Ratio (10-20) Glucose (70-99) mg/dl POC Lactic Acid [place]mer (0.90-1.70) mmol/L Calcium (8.5-10.1) mg/dl Magnesium (1.8-2.4) mg/dl Total Bilirubin (0.2-1) mg/dl AST (15-37) U/L ALT (12-78) U/L Alkaline Phosphatase (45-117) U/L Troponin I (0-0.045) ng/ml NT-Pro-B Natriuret Pep 216 (0-900) pg/ml Total Protein (6.4-8.2) gm/dl Albumin (3.4-5.0) gm/dl Globulin (2.5-4.0) gm/dl Albumin/Globulin Ratio (0.9-2) Influenza Type A (PCR) (Neg) Influenza Type B (PCR) (Neg) Blood Type Antibody Screen Imaging Data Radiologist's Impression: Radiology results as stated below per my review and the radiologist's interpretation: XR chest 1V portable FINDINGS: Atherosclerosis of the aortic arch. Cardiac silhouette enlarged. Pulmonary vascular prominence. Apparent nodular opacity in the right mid lung new from prior. Bronchial wall thickening may be present on the right. Overall coarsened lung markings. No large effusion or pneumothorax. Osseous structures normal. IMPRESSION: 1. Apparent right midlung nodular infiltrate and possible right bronchial wall thickening. PA and lateral views are recommended for better assessment. 2. Cardiomegaly with volume overload. Electronically signed by: Vincent Richter M.D. 07/30/2018 7:04 PM ECG Data Attestation: I personally reviewed and interpreted this ECG as follows: Indication: SOB/dyspnea Rate (beats per minute): 107 Rhythm: sinus tachycardia Findings: no ST depression and no ST elevation Additional Comments: Normal axis, normal intervals, baseline artifact noted. Blood Pressure Blood Pressure Findings: Elevated blood pressure Blood Pressure Disposition: further management by hospitalist FRANK Narrative Patient here ill-appearing with trouble breathing and cough. Patient anticoagulated and stated last check of INR was normal. Patient denies any hemoptysis. Patient with history of tobacco abuse and only quit smoking 2 months ago. Likely patient with evolving pneumonia and COPD exacerbation. Patient is difficult exam due to body habitus. I do not suspect overt congestive heart failure. Patient with some left lower quadrant pain that began several days after a fall, however only hurts when she coughs. Patient had a fall from standing several days ago, with no reported injury at that time and was ambulatory afterwards. Mild anemia noted although stable compared to baseline. Given fever, leukocytosis, hypoxia on room air, likely evolving pneumonia, case discussed with hospitalist for additional evaluation and management. PT/INR still pending at the time of our discussion. ABG reassuring , no evidence of hypercarbia. Patient had initial single DuoNeb, then placed on a continuous nebulizer given worsening bilateral wheezing as well as other adventitious sounds at the right base on physical exam. Patient's troponin negative. I do not suspect additional cardiac etiology. Patient otherwise hemodynamically stable here. Tachycardia seems more related to fever and nebulizer treatments. I do not suspect bacteremia/sepsis at this time. I have a low suspicion for additional occult traumatic injury. I do not suspect occult GI or infection or pathology at this time given the left lower quadrant pain which is involved. UA pending at the time of discussion with the hospitalist also, however no change in urinary habits and no symptoms reported by patient. Impression & Plan Pneumonia, Obesity, COPD exacerbation, Hypoxia Discharge Plan Visit Data *Final* Discharge Date/Time: 07/31/18 01:44 Chief Complaint: Shortness of Breath/Dyspnea Stated Complaint: SOB, ABD PAIN ED Provider: Fina Ruffin Discharge Problem: Pneumonia, Obesity, COPD exacerbation, Hypoxia Patient Disposition: Admitted As Inpatient Condition: Good Discharge Instructions Interventions: ED Discharge Assessment Last Done: 07/31/18 01:44 The jarredibe's documentation has been prepared under my direction and personally reviewed by me in its entirety. I confirm that the note above accurately reflects all work, treatment, procedures, and medical decision making performed by me.
[2018-07-31 18:16] LABS: Hematocrit (blood only) 31.4 % (37-47); Hemoglobin 9.7 g/dL (12.0-16.0)
[2018-07-31] MEDS: DOXYCYCLINE HYCLATE 100 MG CAP PO SCH (20:42)
--- NOTE | 2018-07-31 21:05 | Consultation Report ---
DATE OF CONSULTATION: 07/31/2018 PULMONARY CONSULTATION TIME: 11:00 a.m. REPORT OF CONSULTATION: The patient was seen in room 279, bed 1. She is a 52-year-old female with a history of COPD. Approximately 2 weeks ago, she developed an increased cough. The cough has felt loose, but she has not expectorated any phlegm. Sometimes, it would awaken her at night. She was not aware of any chills, fevers, or sweats at home. She did not contact her physicians regarding the symptoms. Yesterday, her shortness of breath became much more severe. She was short of breath at rest. She was feeling much more congested. The cough intermittently has been severe. About a week ago, she developed some pain in the left side of her abdomen that seemed to be related to the coughing. She has been found to have an abdominal wall hematoma based upon CAT scanning. The patient does carry a history of COPD. She had been a long-term smoker, but she ultimately quit 2 months ago. She did smoke up to 2 packs per day. She has smoked for about 25 years. She had cut back to one-half pack last fall and now has been off cigarettes entirely for 2 months. Alcohol use is denied. Last fall she did become hospitalized with a CVA. Her manifestations were expressive aphasia. She was found to have a pulmonary embolism at that time. She has been on Coumadin since then. An echocardiogram was done at that time, but it was very limited by her body habitus. I am not certain if she ever had a bubble study to rule out a patent foramen ovale in light of that history. In addition to her pulmonary problems, she carries a diagnosis of diastolic CHF. She also has sleep apnea. This was diagnosed within the past 6 months. She wears CPAP regularly, although she had not worn it much recently due to the cough. She states that she has lost as much as 72 pounds in the last 4-6 months. I was not exactly certain how that was accomplished. She did state that she has lost a lot of edema to her lower extremities. PAST SURGICAL HISTORY: 1. Carpal tunnel x2. 2. x2. 3. Hernia repair. 4. T and A. PAST MEDICAL HISTORY: 1. Diastolic CHF. 2. Hypertension. 3. COPD. 4. Restrictive lung disease. 5. Obstructive sleep apnea. 6. CVA. 7. PE. 8. Hypothyroidism. 9. Anemia. 10. Lymphedema. 11. MRSA from a leg wound. FAMILY HISTORY: The patient was adopted. ALLERGIES: MORPHINE. 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 MEDICATIONS AT HOME: 1. Albuterol inhaler p.r.n. 2. Baby aspirin. 3. Breo Ellipta. 4. Levothyroxine 12.5 and 200 daily. 5. Metoprolol 50 mg daily. 6. Potassium 40 mEq daily. 7. Spiriva 1 daily. 8. Torsemide 20 mg daily. 9. Varenicline 0.5 mg daily. 10. Coumadin 12 mg daily. REVIEW OF SYSTEMS: The patient denies headache. She does have expressive aphasia. She denies heartburn. Appetite is decreased since her stroke. Denies difficulty swallowing. Denies bowel complaints. Denies urine complaints. She is quite inactive. The remainder of review of systems is negative except as noted. Ten systems reviewed. PHYSICAL EXAMINATION: GENERAL: The patient is a 52-year-old female who was cooperative, alert and oriented. She had obvious expressive aphasia. Weight is 146.1 kilograms with a BMI of 57.1. HEENT: Pupils were reactive to light and equal in size. Nares were clear. Mouth exam shows a Mallampati grade 3 pharynx. No erythema or exudate was noted in the throat. NECK: Palpation of the neck reveals no lymph nodes. VITAL SIGNS: The cardiac rate is 85 per minute. Rhythm was regular. Blood pressure 167/87. Temperature is 36, temperature upon presentation yesterday was up to 38.1. Respiratory rate was 18. LUNGS: Scattered rales and rhonchi are heard posteriorly bilaterally. She was not in distress. There was no accessory muscle use. Saturation is 93% on 3 liter nasal cannula. ABDOMEN: Obese. Bowel sounds were normal. She does have tenderness in the left side of her abdomen and there is some focal tenderness and fullness in this area as well. This is likely the area of the hematoma. EXTREMITIES: Reveal findings consistent with lymphedema. There was no pitting edema, but there is still significant swelling. DIAGNOSTIC DATA: I was unable to access her EKG. A chest x-ray done yesterday suggested a questionable nodular infiltrate in the right mid lung field. It was a one-view portable, however. Cardiomegaly was seen. Could not exclude mild CHF. She did have a CAT scan of the abdomen and pelvis done. This showed a large intramuscular left abdominal wall hematoma. There was a 1.4 cm left adrenal nodule that was indeterminant. In the lung bases as well as the middle lobe and lingula was extensive tree-in-bud opacities with some nodular consolidation. Cannot exclude atypical infection such as Mycobacterium avium. White count is 13.04, hemoglobin 9.8, platelets 403,000. In March, her hemoglobin had been 9.6, so it is not significantly changed. INR on admission was 7.1 and today it is 7.0. ABG showed a pH of 7.41, pCO2 of 45, and a pO2 of 53. Electrolytes show sodium 136, potassium 4, chloride 104, bicarb 29. BUN 25 with a creatinine of 1.3. Total protein was elevated at 9. Albumin was 2.9, which is low, but globulin was markedly elevated at 6.1. Flu test was negative. Blood cultures are pending. IMPRESSION: 1. Chronic obstructive pulmonary disease with exacerbation. 2. Nodular tree-in-bud changes, mid and lower lung llanos - rule out atypical infection versus bronchiolitis. 3. Obstructive sleep apnea. 4. Obesity with BMI 57. 5. History of pulmonary embolism. 6. Restrictive lung disease by history. 7. Abdominal wall hematoma secondary to anticoagulation. COMMENTS AND RECOMMENDATIONS: The patient clinically seems to be doing reasonably well. I agree with ceftriaxone and doxycycline as ordered for antibiotic coverage. I also agree with the levalbuterol, ipratropium treatments being given every 6 hours. She is on prednisone 40 mg daily and I would taper this gradually. She is getting lactated Ringer's at 75 mL per hour. The x-ray report suggested the possibility of some volume overload. Her creatinine today has returned to baseline. Perhaps the Ringer's could be decreased or discontinued. Would consider doing a ProBNP in light of her volume overload suggested on CAT scan. I believe we should do a CAT scan of the chest without contrast to better evaluate the nodulations noted on the CAT scan of the abdomen. The patient has abnormal total protein and globulin. Suggest protein electrophoresis. The patient did have a CVA and pulmonary embolism concurrently. At some point in time, one might consider doing an echo with bubble study if not already done. Thank you for asking me to assist in her care.
[2018-08-01] MEDS: LEVALBUTEROL 1.25MG/0.5ML NEB INH SCH ×4 (01:52→19:40)
[2018-08-01] MEDS: IPRATROPIUM BROMIDE NEB SOLN 0.02% 2.5 ML VIAL INH SCH ×4 (01:52→19:40)
[2018-08-01] MEDS: LEVOTHYROXINE SODIUM 200 MCG TABLET PO SCH (06:46)
[2018-08-01] MEDS: LEVOTHYROXINE SODIUM 25 MCG TABLET PO SCH (06:46)
[2018-08-01 06:47] LABS: Hematocrit (blood only) 29.4 % (37-47); Hemoglobin 9.1 g/dL (12.0-16.0); Mean Corpuscular Volume 88.3 fL (80-100); Mean Platelet Volume 10.1 fL (7.4-10.4); Platelet Count 396 K/uL (130-400); RDW Coefficient of Variation 15.3 % (11.5-14.5); RDW Standard Deviation 49.5 fL (36.4-46.3); Red Blood Count 3.33 M/uL (4.2-5.4); White Blood Count 17.92 K/uL (4.8-10.8)
[2018-08-01 07:15] LABS: INR 2.1 (0.9-1.1); Prothrombin Time 20.3 Seconds (9.0-12.0)
[2018-08-01 07:25] LABS: BUN Creatinine Ratio 26.3 (10-20); Calcium 9.1 mg/dl (8.5-10.1); Creatinine Clr Calc Pharmacy 76.7 ml/min; Est GFR (African American) 59.2; Potassium 4.1 mmol/L (3.5-5.1)
--- NOTE | 2018-08-01 08:50 | CT Scan Report ---
CT chest wo con CLINICAL HISTORY: 52 years-old Female presenting with abnormal ct abd with basilar tree in bud. TECHNIQUE: Multidetector CT imaging of the chest was performed without the use of intravenous contras t. IV contrast: None. One or more dose lowering techniques were used consistent with the principles o f ALARA (as low as reasonably achievable), including automatic exposure control, mA or kV adjustment to individual patient size, and/or use of iterative reconstruction. COMPARISON: CTA from 12/26/2013 and chest x-ray from 07/30/[address] abdomen and pelvis from 07/30/2018. CT DOSE (mGy.cm): The estimated cumulative dose is 949.31 mGy.cm. FINDINGS: Senior Compliance Analyst topogram: Unremarkable. On soft tissue windows, thyroid mildly enlarged. Infiltration along the left lateral inferior chest w all (series 4 image 277) No axillary, supraclavicular, hilar, or mediastinal lymphadenopathy. Normal aorta. Normal heart size. Coronary artery calcification. No pericardial or pleural effusion. Mild hep atic steatosis. On lung windows, no pneumothorax. Minimal subsegmental endobronchial debris primarily in the lower lo bes. Diffuse mild bronchial wall thickening most severe in the lower lobes, right middle lobe, and li ngula. Bandlike opacities in the medial segment of the right middle lobe and lingula likely relate to atelectasis or scarring. Peribronchovascular nodular consolidation in the lateral segment of the rig ht middle lobe, measuring 20 mm in diameter (series 4 image 131). Extensive centrilobular groundglass nodules noted throughout all 5 lobes. Additional patchy groundglass and more solid consolidation wit h an upper lobe predominance. No significant bronchiectasis. On bone windows, degenerative changes of the spine. IMPRESSION: 1. Extensive centrilobular nodules throughout all 5 lobes though with an upper lobe predominance as well as patchy consolidation, including a dominant 20 mm peribronchovascular nodule in the right midd le lobe. These findings are concerning for subacute hypersensitivity pneumonitis or infectious bronch iolitis. Infectious etiologies include tuberculous nontuberculous mycobacterial infections as well as fungal infectious lung other etiologies. Sarcoidosis or other etiologies are considered less likely. Consider bronchoscopy and/or short-term interval follow-up chest CT in 3 -- 6 months. Electronically signed by: Vincent Richter M.D. 08/01/2018 8:48 AM
[2018-08-01] MEDS: cefTRIAXone SODIUM 1,000 MG in DEXTROSE 5% 50 ML IV SCH (10:06)
[2018-08-01] MEDS: guaiFENesin 600 MG TABCR PO SCH ×2 (10:06→22:03)
[2018-08-01] MEDS: predniSONE 20 MG TAB PO SCH (10:07)
[2018-08-01] MEDS: DOXYCYCLINE HYCLATE 100 MG CAP PO SCH ×2 (10:07→22:04)
[2018-08-01] MEDS: METOPROLOL SUCC 50MG EXT REL TAB PO SCH ×2 (10:49→18:05)
--- NOTE | 2018-08-01 16:02 | Hospitalist Progress Note ---
Date of Service August 01, 2018 Assessment & Plan (1) Pneumonia: (2) COPD exacerbation: (3) Acute hypoxemic respiratory failure: Secondary to COPD exacerbation secondary vs pneumonia CXR showed right midlung nodular infiltrate and possible right bronchial wall thickening. CT showed extensive tree-in-bud opacities and nodular consolidation at the lung bases as well as the right middle lobe and lingula CT chest done today showed extensive centrilobular nodules throughout all 5 lobes though with an upper lobe predominance as well as patchy consolidation, including a dominant 20 mm peribronchovascular nodule in the right middle lobe. Case discussed with pulmonology recommended to r/o active Sputum AFB x3 ordered (08/01, 08/02, 08/03) Plan to get Bronch done possible Wednesday or Continue abx with Rocephin and doxycycline Continue prednisone and neb treatment Blood cx no growth Will keep on airbone isolation until AFB r/o any active TB (4) Hematoma of abdominal wall: Possible due to excessive cough in the setting of supratherapeutic INR CT abd/pelvis showed Large intramuscular left abdominal wall hematoma with extension into the properitoneal fat along the left inguinal region INR on admission above 7 INR 2 today Received Vit K and hold aspirin Hgb 9.1 Continue monitor H/H Will repeat imaging before discharge or if hgb trending down to f/u the hematoma (5) WANDA (obstructive sleep apnea): Continue CPap (6) CVA (cerebral vascular accident): CVA in Mar 2018 Completed plavix for 1 month has been on aspirin daily Hold aspirin and coumadin for now due to hematoma Stable (7) Pulmonary emboli: Present with abdominal wall hematoma INR above 7 on admission Reeived VitK yesterday INR 2 today Hgb 9.1 Continue holding coumadin Monitor INR (8) CHF (congestive heart failure): Chronic diastolic heart failure Last ECHO showed EF of 70%, TTE 2018 CXR showed cardiomegaly with volume overload. Does not showed any clinically signs of volume overload Will give torsemide x1 dose today (9) Supratherapeutic INR: INR above 7 Received Vit K oral Coumadin on hold Monitor PT/INR DVT px on SCDS INR 2 today Continue monitor coumadin CODE STATUS FULL CODE Disposition Continue monitor closely Subjective Pt was seen and examined Sitting in bed with no distress eating lunch She said that her breathing improves and she is coughing less She does have tenderness in her LLQ area with coughing Denies any chest pain, palpitation, dizziness and SOB Physical Exam 2 Vital Signs (Past 24 Hours): Last Vital Signs Temp 36.9 C 08/01/18 11:01 Pulse 108 H 08/01/18 15:50 Resp 18 08/01/18 13:29 BP 135/62 08/01/18 11:01 Pulse Ox 93 08/01/18 13:29 Physical Exam: General- No acute distress Head- atraumatic Eyes- PERRL, EOMI, ENT- oropharynx clear Neck- supple, no JVD Lungs- coarse BS Heart- regular rhythm Abdomen- normal bowel sounds, soft, nontender Extremities- no calf tenderness, +edema Neuro- alert, oriented x 3; PERRL, EOMI; no facial palsy Skin- warm & dry _ (1) CHF (congestive heart failure) Heart failure chronicity: unspecified Heart failure type: unspecified Qualified Code(s): I50.9 - Heart failure, unspecified (2) Pneumonia Aspiration pneumonia type: Laterality: right Lung location: middle lobe of lung Pneumonia type: due to unspecified organism Qualified Code(s): J18.1 - Lobar pneumonia, unspecified organism
[2018-08-01] MEDS ORDERED: TORSEMIDE 20 MG TAB PO ONE (16:25)
--- NOTE | 2018-08-01 23:58 | Progress Note ---
DATE: 08/01/2018 SUBJECTIVE: A 52-year-old female who has past medical history significant for hypertension as well as COPD, restrictive lung disease, and obstructive sleep apnea as well as chronic obstructive pulmonary disease, and also recent episode of pulmonary embolism in March, was admitted in the hospital with increasing shortness of breath, cough, and tightness in the chest. She had some sputum, but no fever, no chills, sweat, or hemoptysis. Also, she denies having any chest pain. The patient denies any sick contact with any patient who has got flu or any other infectious disease or tuberculosis. 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 The patient had a CT scan of the chest, which was reported as extensive centrilobular nodules throughout all 5 lobes with an upper lobe predominance as well as patchy consolidation and 20 mm peribronchovascular nodules in the right middle lobe, possibility of subacute hypersensitivity pneumonitis or infectious bronchiolitis, possibility of tuberculous, nontuberculous mycobacterial infections, as well as fungal infections of the lung. Currently, she is being treated with antibiotics. She is on doxycycline and also on prednisone. The patient denies having any chest pain or hemoptysis. PHYSICAL EXAMINATION: GENERAL: Middle-aged female, morbidly obese, resting in the bed, not in any acute distress. VITAL SIGNS: Her temperature is 36.9, blood pressure 135/62, pulse ox 93% on 4 L nasal cannula and respiratory rate was 18. Her input was 1210 and output was 750. HEENT: Pupils are reactive to light. There is no cervical or supraclavicular adenopathy. No jugular venous distention. Nasal passages are clear. Sinuses are nontender. CHEST: Bilateral air entry with decreased breath sounds, few scattered rhonchi, no wheezing heard. Some crackles posteriorly at the bases. HEART: S1, S2 heard, regular rate and rhythm. ABDOMEN: Soft, nontender, obese. Bowel sounds are positive. EXTREMITIES: Bilaterally lymphedema. There was no pitting edema. Nontender calf muscles. NEUROLOGIC: Limited study, which is grossly nonfocal. She is moving all her extremities. SKIN: No rash, no lesions. LABORATORY DATA: WBC is 17.92, H and H 9.1/29.4 and her platelets are 396, PT/INR is 20.3/2.1. She was admitted with INR of 7. Sodium 138, potassium 4.1, chloride 104, CO2 30, anion gap was 4, BUN 32, creatinine 1.21, glucose 108, calcium 9.1. CT of the chest revealed extensive centrilobular nodules throughout all the lung llanos. Predominant in upper lobes also patchy consolidation, also 20 mm peribronchovascular nodules in the right middle lobe, possibility of hypersensitivity pneumonitis or infectious bronchiolitis, possibility of tuberculosis/nontuberculous mycobacterial infection as well as fungal infection, sarcoidosis. Other etiologies less likely. IMPRESSION AND PLAN: A 52-year-old female admitted with cough, increasing shortness of breath, hypoxemia. 1. Pulmonary nodules/tree-in-bud changes bilaterally in all the lung llanos. At this stage, I am concerned that it could be related to Mycobacterium avium infection or tuberculous bacteria. The patient is on droplet precaution and now we are also going to schedule her for bronchoscopy and bronchoalveolar lavage as soon as her INR comes down. She was on Coumadin for pulmonary embolism and she was admitted with INR of 7. Currently, INR is also 2.2 and she also got vitamin K. We will repeat INR tomorrow and if is therapeutic, we will go ahead and schedule her for bronchoscopy and will send the lavage for microbiology culture and sensitivity, AFB smear culture and sensitivity, fungal smear culture and sensitivity as well as cytology. 2. Possibility of pneumonia. The patient will be going for bronchoscopy. In the meantime, she was started on doxycycline which we are going to continue with that. We will also follow the sputum for Gram stain, culture and sensitivity. 3. Chronic obstructive pulmonary disease with exacerbation. Currently, she is on nebulizer treatment. She is also on Levaquin, which will be also continued and we will follow very closely. 4. Obstructive sleep apnea syndrome. The patient remains on CPAP. She is also on CPAP at home. 5. History of pulmonary embolism. The patient has been on Coumadin, which was on hold secondary to her elevated PT/INR and she also has hematoma in abdominal wall. 6. Restrictive lung disease, mostly related to the obesity, possibility of pulmonary component as well. We will follow her. We do not have any pulmonary function tests at this time. 7. History of pulmonary embolism. The patient has been on Coumadin. Right now, she is off the Coumadin because of elevated INR and we are also going to schedule him for bronchoscopy. In the meantime, she is on sequential compression device, which will be continued. We are going to continue with all other management as prescribed. I have also discussed with the primary care provider. I have also discussed with nursing staff. I have spent greater than 35 minutes of critical care time. I had a long discussion with the patient, explained to her about the indication, contraindication, complications, and alternatives of the bronchoscopy and she wishes to proceed as soon as her PT/INR comes to baseline. FRANCIE
[2018-08-02] MEDS: LEVALBUTEROL 1.25MG/0.5ML NEB INH SCH ×4 (02:08→19:28)
[2018-08-02] MEDS: IPRATROPIUM BROMIDE NEB SOLN 0.02% 2.5 ML VIAL INH SCH ×4 (02:08→19:28)
[2018-08-02] MEDS: LEVOTHYROXINE SODIUM 25 MCG TABLET PO SCH (05:57)
[2018-08-02] MEDS: LEVOTHYROXINE SODIUM 200 MCG TABLET PO SCH (05:57)
[2018-08-02 07:03] LABS: Hematocrit (blood only) 29.8 % (37-47); Mean Corpuscular Hgb Conc 30.2 g/dL (32-36); Mean Platelet Volume 10.3 fL (7.4-10.4); Platelet Count 405 K/uL (130-400); RDW Coefficient of Variation 15.4 % (11.5-14.5); Red Blood Count 3.35 M/uL (4.2-5.4)
[2018-08-02 07:17] LABS: INR 1.4 (0.9-1.1)
[2018-08-02 07:34] LABS: BUN Creatinine Ratio 28.1 (10-20); Calcium 8.6 mg/dl (8.5-10.1); Creatinine Clr Calc Pharmacy 72.3 ml/min; Est GFR (African American) 54.8; Est GFR (Non-African American) 47.2; Potassium 3.9 mmol/L (3.5-5.1)
[2018-08-02] MEDS ORDERED: TORSEMIDE 20 MG TAB PO SCH (08:00)
[2018-08-02] MEDS: guaiFENesin 600 MG TABCR PO SCH ×2 (08:03→20:29)
[2018-08-02] MEDS: predniSONE 20 MG TAB PO SCH (08:03)
[2018-08-02] MEDS: DOXYCYCLINE HYCLATE 100 MG CAP PO SCH ×2 (08:04→20:31)
[2018-08-02] MEDS: cefTRIAXone SODIUM 1,000 MG in DEXTROSE 5% 50 ML IV SCH (08:10)
--- NOTE | 2018-08-02 11:02 | Pulmonology Progress Note ---
Date of Service August 02, 2018 Assessment & Plan (1) Pneumonia: 1. Pneumonia. The patient has bilateral patchy infiltrates and she also has nodular densities. Currently she is on IV antibiotics which will be continued. 2. Bilateral nodular densities/tree-in-bud appearance. 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 We have scheduled this patient for bronchoscopy and and bronchoalveolar lavage. 3. Hypoxia. The patient remains on 2 L nasal cannula O2 and is oxygenating well. We are going to continue with all other management as prescribed. I have spent greater than 35 minutes of clinical time. I have also discuss with primary care about this patient at length. Dr. Jaquez. Aspiration pneumonia type: Laterality: right Lung location: middle lobe of lung Pneumonia type: due to unspecified organism Qualified Code (s): J18.1 - Lobar pneumonia, unspecified organism Present on Admission?: Yes Subjective 52-year-old female.Was admitted with bilateral pneumonia. The CT scan of the chest was consistent with bilateral nodular densities and tree-in-bud appearance. Overall the patient seems to be doing better. She is still coughing but has improved. Denies having any chest pain fever chills or hemoptysis. Her PT/INR has come down to 1.4. We are going to schedule this patient for bronchoscopy and bronchoalveolar lavage. Since she ate her breakfast today she is scheduled for tomorrow at 10:30 in the morning. I had a long discussion with the patient and she was also explained about the indication , contraindication, complications and alternatives of the procedure and she is wishing to go ahead with the procedure. Physical Exam 2 Vital Signs (Past 24 Hours): Last Vital Signs Temp 37.0 C 08/02/18 07:00 Pulse 75 08/02/18 07:26 Resp 18 08/02/18 07:26 BP 140/85 08/02/18 07:00 Pulse Ox 94 08/02/18 07:26 Physical Exam: Middle-aged female morbidly obese resting comfortably and not in any acute distress. HEENT pupils are equally reactive to light there is no cervical or supraclavicular adenopathy. Neck. Supple no JVD no lymphadenopathy. Chest. Bilateral air entry with decreased breath sounds, bilateral scattered rhonchi, no wheezing no crackles. Heart. S1-S2 heard no murmur no gallop no rub. Abdomen. Morbidly obese. Soft, nontender, bowel sounds are positive. Extremities. No edema no clubbing nontender calf muscles. Skin. No rash no lesion. Neurological exam. Alert, awake and oriented x3. Pupils are reactive to light. The patient is moving all her extremities and there is no focal deficit. Results & Data Laboratory Results Laboratory Results - last 24 hr 08/02/18 08/02/18 08/02/18 06:26 06:26 06:26 WBC 12.60 H RBC 3.35 L Hgb 9.0 L Hct 29.8 L MCV 89.0 MCH 26.9 MCHC 30.2 L RDW Std Deviation 50.0 H RDW Coeff of [place] 15.4 H Plt Count 405 H MPV 10.3 PT 14.0 H INR 1.4 H Sodium 139 Potassium 3.9 Chloride 105 Carbon Dioxide 29 Anion Gap 5.0 BUN 36 H Creatinine 1.29 H Est Cr Clr Drug Dosing 72.3 Est GFR ( Amer) 54.8 Est GFR (Non-Af Amer) 47.2 BUN/Creatinine Ratio 28.1 H Glucose 89 Calcium 8.6 Medications Administered Current Inpatient Medications Benzonatate (Tessalon Perle) 100 mg PO TID PRN PRN Reason: Cough Stop: 08/30/18 05:48 Last Admin: 07/31/18 20:42 Dose: 100 mg Doxycycline Hyclate (Vibramycin) 100 mg PO BID KAREEM Stop: 08/07/18 20:59 Last Admin: 08/02/18 08:04 Dose: 100 mg Guaifenesin (Mucinex) 600 mg PO Q12 KAREEM Stop: 08/30/18 02:19 Last Admin: 08/02/18 08:03 Dose: 600 mg Hydromorphone HCl (Dilaudid) 0.5 mg IV Q3H PRN PRN Reason: Pain Stop: 08/14/18 02:19 Ceftriaxone Sodium 1,000 mg/ (Dextrose) 60 mls @ 100 mls/hr IV Q24H KAREEM Stop: 08/07/18 08:59 Last Infusion: 08/02/18 08:46 Dose: Infused Prochlorperazine 5 mg/ Syringe 5 mls @ 5 mls/min IV Q6H PRN PRN Reason: Nausea And Vomiting Stop: 08/30/18 02:19 Ipratropium [place] (Atrovent 0.02% 0.5mg/2.5ml) 0.5 mg INH Q6R [facility] Stop: 08/30/18 07:59 Last Admin: 08/02/18 07:24 Dose: 0.5 mg Levalbuterol HCl (Xopenex 1.25mg/0.5ml Neb) 1.25 mg INH Q6R [facility] Stop: 08/30/18 07:59 Last Admin: 08/02/18 07:24 Dose: 1.25 mg Levothyroxine Sodium (Synthroid) 12.5 mcg PO DAILYBB [facility] Stop: 08/30/18 06:29 Last Admin: 08/02/18 05:57 Dose: 12.5 mcg Levothyroxine S[facility]roid) [facility] Stop: 08/30/18 06:29 Last Admin: 08/02/18 05:57 Dose: 200 mcg Metoprolol Succinate (Toprol Xl) 50 mg PO QDD [facility] Stop: 08/31/18 16:29 Last Admin: 08/01/18 18:05 Dose: 50 mg Prednisone (Prednisone) 40 mg PO DAILY [facility] Stop: 08/04/18 08:59 Last Admin: 08/02/18 08:03 Dose: 40 mg Tramadol HCl (Ultram) 25 - 50 mg PO Q4H PRN PRN Reason: Pain Stop: 08/30/18 02:19
--- NOTE | 2018-08-02 14:04 | Hospitalist Progress Note ---
Date of Service August 02, 2018 Assessment & Plan (1) Pneumonia: (2) COPD exacerbation: (3) Acute hypoxemic respiratory failure: Secondary to COPD exacerbation secondary vs pneumonia CXR showed right midlung nodular infiltrate and possible right bronchial wall thickening. CT showed extensive tree-in-bud opacities and nodular consolidation at the lung bases as well as the right middle lobe and lingula CT chest done today showed extensive centrilobular nodules throughout all 5 lobes though with an upper lobe predominance as well as patchy consolidation, including a dominant 20 mm peribronchovascular nodule in the right middle lobe. Case discussed with pulmonology recommended to r/o active Sputum AFB x3 ordered (08/01, 08/02, 08/03) Plan to get Bronch done possible Wednesday Continue abx with Rocephin and doxycycline Continue prednisone and neb treatment Blood cx no growth Will keep on airbone isolation until AFB r/o any active TB Plan for bronch in am Will keep NPO after midnight Clinically improves (4) Hematoma of abdominal wall: Possible due to excessive cough in the setting of supratherapeutic INR CT abd/pelvis showed Large intramuscular left abdominal wall hematoma with extension into the properitoneal fat along the left inguinal region INR on admission above 7 Received Vit K INR 1.4 today Hgb 9 today Continue hold aspirin and coumadin Continue monitor H/H Will repeat imaging before discharge or if hgb trending down to f/u the hematoma (5) WANDA (obstructive sleep apnea): Continue CPap (6) CVA (cerebral vascular accident): CVA in Mar 2018 Completed plavix for 1 month has been on aspirin daily Hold aspirin and coumadin for now due to hematoma Stable (7) Pulmonary emboli: Present with abdominal wall hematoma INR above 7 on admission Reeived VitK yesterday INR 1.4 today Hgb 9.1 Continue holding coumadin Monitor INR (8) CHF (congestive heart failure): Chronic diastolic heart failure Last ECHO showed EF of 70%, TTE 2018 CXR showed cardiomegaly with volume overload. Does not showed any clinically signs of volume overload Will give torsemide x1 dose today (9) Supratherapeutic INR: INR above 7 Received Vit K oral Coumadin on hold Monitor PT/INR DVT px on SCDS INR 2 today Continue monitor coumadin CODE STATUS FULL CODE Disposition Plan for bronch tomorrow Subjective Pt was seen and examined Lying in bed with no distress Pt said that she does have tenderness in LLQ She said that cough and breathing improve Denies any chest pain, palpitation and SOB Physical Exam 2 Vital Signs (Past 24 Hours): Last Vital Signs Temp 36.8 C 08/02/18 11:00 Pulse 96 H 08/02/18 11:00 Resp 20 08/02/18 11:00 BP 150/79 H 08/02/18 11:00 Pulse Ox 91 08/02/18 11:00 Physical Exam: General- No acute distress Head- atraumatic Eyes- PERRL, EOMI, ENT- oropharynx clear Neck- supple, no JVD Lungs- coarse BS Heart- regular rhythm Abdomen- normal bowel sounds, soft, nontender Extremities- no calf tenderness, +edema Neuro- alert, oriented x 3; PERRL, EOMI; no facial palsy Skin- warm & dry _ (1) Pneumonia Aspiration pneumonia type: Laterality: right Lung location: middle lobe of lung Pneumonia type: due to unspecified organism Qualified Code(s): J18.1 - Lobar pneumonia, unspecified organism (2) CHF (congestive heart failure) Heart failure chronicity: unspecified Heart failure type: unspecified Qualified Code(s): I50.9 - Heart failure, unspecified
--- NOTE | 2018-08-02 15:50 | Anesthesiology Consultation ---
Date of Service August 02, 2018 Assessment & Plan (1) Encounter for pre-operative examination: Chart Review Chart Review: entry level management initiated History Surgery Operation Date: 08/03/18 10:30 Proposed Procedures p Bronchoscopy Respiratory - Melissa Jaquez Height/Weight Height: 5 ft 3 in Weight: 148.3 kg Allergies Allergy/AdvReac Type Severity Reaction Status Date / Time morphine AdvReac Unknown Unverified 07/30/18 18:59 CLOTH TAPE AdvReac Rash Uncoded 07/30/18 18:59 Medications Home Medications Medication Instructions Recorded Confirmed Last Taken acetaminophen [Tylenol] 650 mg PO Q4 PRN 07/30/18 07/30/18 Unknown albuterol sulfate 2 puff INHALATION QID PRN 07/30/18 07/30/18 Unknown aspirin 81 mg PO DAILY 07/30/18 07/30/18 Unknown fluticasone-vilanterol [Breo 1 inh INHALATION DAILY 07/30/18 07/30/18 Unknown Ellipta] levothyroxine 12.5 mcg PO DAILY 07/30/18 07/30/18 Unknown levothyroxine 200 mcg PO DAILY 07/30/18 07/30/18 Unknown metoprolol succinate 50 mg PO DAILY 07/30/18 07/30/18 Unknown potassium chloride 40 meq PO DAILY 07/30/18 07/30/18 Unknown tiotropium bromide [Spiriva with 1 cap INHALATION DAILY 07/30/18 07/30/18 Unknown HandiHaler] torsemide [Demadex] 20 mg PO DAILY 07/30/18 07/30/18 Unknown varenicline 0.5 mg PO UD 07/30/18 07/30/18 Unknown warfarin [Coumadin] 12 mg PO DAILY 07/30/18 07/30/18 07/28/18 Active Medications Generic Name Dose Route Start Last Admin Trade Name Freq PRN Reason Stop Dose Admin Benzonatate 100 mg 07/31/18 05:49 07/31/18 20:42 Tessalon Perle PO 08/30/18 05:48 100 mg TID PRN Administration Cough Doxycycline Hyclate 100 mg 07/31/18 21:00 08/02/18 08:04 Vibramycin PO 08/07/18 20:59 100 mg BID KAREEM Administration Guaifenesin 600 mg 07/31/18 02:20 08/02/18 08:03 Mucinex PO 08/30/18 02:19 600 mg Q12 KAREEM Administration Ceftriaxone Sodium 1,000 mg/ 60 mls @ 100 mls/hr 07/31/18 09:00 08/02/18 08: 46 Dextrose IV 08/07/18 08:59 Infused Q24H KAREEM Infusion Ipratropium [place] 0.5 mg 07/31/18 08:00 08/02/18 14:19 Atrovent 0.02% 0.5mg/2.5ml INH 08/30/18 07:59 0.5 mg Q6R KAREEM Administration Levalbuterol HCl 1.25 mg 07/31/18 08:00 08/02/18 14:19 Xopenex 1.25mg/0.5ml Neb INH 08/30/18 07:59 1.25 mg Q6R KAREEM Administration Levothyroxine Sodium 12.5 mcg 07/31/18 06:30 08/02/18 05:57 Synthroid PO 08/30/18 06:29 12.5 mcg DAILYBB KAREEM Administration Levothyroxine Sodium 200 mcg 07/31/18 06:30 08/02/18 05:57 Synthroid PO 08/30/18 06:29 200 mcg DAILYBB KAREEM Administration Metoprolol Succinate 50 mg 08/01/18 16:30 08/01/18 18:05 Toprol Xl PO 08/31/18 16:29 50 mg QDD KAREEM Administration Prednisone 40 mg 07/31/18 09:00 08/02/18 08:03 Prednisone PO 08/04/18 08:59 40 mg DAILY KAREEM Administration Past Medical History Medical History Pulmonary emboli CVA (cerebral vascular accident) WANDA (obstructive sleep apnea) Tobacco abuse COPD (chronic obstructive pulmonary disease) (Chronic) UTI (urinary tract infection) Expressive aphasia Chronic acquired lymphedema Acute right heart failure SOB (shortness of breath) (Acute) CHF (congestive heart failure) (Acute) Hypoxia (Acute) Elevated troponin (Acute) Hypothyroidism (Chronic) ARF (acute renal failure) CHF (congestive heart failure) (Acute) Hypertensive urgency (Acute) Hypertensive urgency (Acute) Hypoxia (Acute) Malignant hypertension (Acute 12/24/13) Obesity ARF (acute renal failure) (Chronic) CHF (congestive heart failure) (Chronic) Past Family History Family History Other Adopted No pertinent family history Social History Smoking Status: Never smoker Hx Alcohol Use: No Hx Substance Use: No Physical Exam Vital Signs Last Vital Signs Temp 36.8 C 08/02/18 11:00 Pulse 87 08/02/18 15:12 Resp 18 08/02/18 14:21 BP 150/79 H 08/02/18 11:00 Pulse Ox 93 08/02/18 14:21 ENMT Mouth: + dentition abnormality, + poor dentition and + chipped teeth Thyromental Distance: > or= 3.5 Finger Breadths Mallampati Class: II Mouth / Teeth: 2 1. Missing 2. Missing 3. broken 4. broken 5. missing/broken Neck normal visual inspection Respiratory normal respiratory effort Auscultation: + diminished lung sounds C/o WEI with current problem. Cardiovascular Rate/Rhythm: regular rate and regular rhythm Neurologic moves all extremities Testing Electrocardiogram Date: 07/30/18 Findings: + ST @ (107) Sinus tachycardia Nonspecific ST and T wave abnormality Abnormal ECG When compared with ECG of 06-APR-2018 07:30, No significant change was found Chest X-Ray Date: 07/30/18 IMPRESSION: 1. Apparent right midlung nodular infiltrate and possible right bronchial wall thickening. PA and lateral views are recommended for better assessment. 2. Cardiomegaly with volume overload. Echocardiogram Date: 04/05/18 Echo technically limited due to poor acoustic windows. LV wall motion normal. LVEF 60-65% RV not well visualized. Mild RV chamber enlargement present and mild RV systolic dysfunction present. Tricuspid regurgitation envelope was insufficient to allow estimation of the PASP. Other Testing Chest CT (08/01/18) IMPRESSION: 1. Extensive centrilobular nodules throughout all 5 lobes though with an upper lobe predominance as well as patchy consolidation, including a dominant 20 mm peribronchovascular nodule in the right middle lobe. These findings are concerning for subacute hypersensitivity pneumonitis or infectious bronchiolitis. Infectious etiologies include tuberculous nontuberculous mycobacterial infections as well as fungal infectious lung other etiologies. Sarcoidosis or other etiologies are considered less likely. Consider bronchoscopy and/or short-term interval follow-up chest CT in 3 -- 6 months. Abd/Pelvis CT (07/30/18) IMPRESSION: 1. Large intramuscular left abdominal wall hematoma with extension into the properitoneal fat along the left inguinal region. This may iatrogenic or spontaneous related to coagulopathy. Correlate clinically. 2. No hemoperitoneum. 3. Indeterminate 1.4 cm left adrenal nodule. 4. Extensive tree-in-bud opacities and nodular consolidation at the lung bases as well as the right middle lobe and lingula. This raises concern for an indolent infection such as mycobacterium avium intracellulare. Neck CTA (04/07/18) IMPRESSION: 1. Multiple pulmonary emboli are seen involving lobar, segmental and subsegmental branches of the bilateral upper lobes. 2. No aneurysm, dissection, high-grade stenosis or proximal branch occlusion. 3. Patchy groundglass opacities about the imaged bilateral upper lobes suggest an infectious or inflammatory pneumonitis. 4. Multinodular goiter. Carotid Doppler (04/05/18) IMPRESSION: No evidence for a hemodynamically significant stenosis. Laboratory Results 08/02/18 06:26 08/02/18 06:26 Blood Type A Negative 07/31/18 00:01 Antibody Screen NEGATIVE 07/31/18 00:01 PT 14.0 Seconds (9.0-12.0) H 08/02/18 06:26 INR 1.4 (0.9-1.1) H 08/02/18 06:26 07/30/18 20:44 Blood Culture - Preliminary Blood No growth to date. 07/30/18 20:39 Blood Culture - Preliminary Blood No growth to date.
[2018-08-02] MEDS: METOPROLOL SUCC 50MG EXT REL TAB PO SCH (16:48)
[2018-08-02 17:27] LABS: Albumin 2.7 G/DL (3.8-4.8); Alpha 1 Globulin 0.4 G/DL (0.2-0.3); Alpha 2 Globulin 1.1 G/DL (0.5-0.9); Beta-1-Globulin 0.4 G/DL (0.4-0.6); Beta-2-Globulin 0.6 G/DL (0.2-0.5); Gamma Globulin 1.8 G/DL (0.8-1.7); Monoclonal Protein Band 1 DNR G/DL (NOT DETECTED); Monoclonal Protein Band 2 DNR G/DL (NOT DETECTED); Monoclonal Protein Band 3 DNR G/DL (NOT DETECTED)
[2018-08-03] MEDS: LEVALBUTEROL 1.25MG/0.5ML NEB INH SCH ×4 (01:43→18:58)
[2018-08-03] MEDS: IPRATROPIUM BROMIDE NEB SOLN 0.02% 2.5 ML VIAL INH SCH ×4 (01:43→18:58)
[2018-08-03] MEDS: LEVOTHYROXINE SODIUM 200 MCG TABLET PO SCH (06:17)
[2018-08-03] MEDS: LEVOTHYROXINE SODIUM 25 MCG TABLET PO SCH (06:17)
[2018-08-03 06:29] LABS: Hemoglobin 9.1 g/dL (12.0-16.0); Mean Corpuscular Hgb Conc 30.3 g/dL (32-36); Mean Corpuscular Volume 88.2 fL (80-100); Mean Platelet Volume 10.1 fL (7.4-10.4); Platelet Count 413 K/uL (130-400); RDW Coefficient of Variation 15.2 % (11.5-14.5); White Blood Count 13.07 K/uL (4.8-10.8)
[2018-08-03 06:53] LABS: INR 1.3 (0.9-1.1); Prothrombin Time 12.7 Seconds (9.0-12.0)
[2018-08-03] MEDS: cefTRIAXone SODIUM 1,000 MG in DEXTROSE 5% 50 ML IV SCH (09:03)
[2018-08-03] MEDS: predniSONE 20 MG TAB PO SCH (11:28)
[2018-08-03] MEDS: DOXYCYCLINE HYCLATE 100 MG CAP PO SCH ×2 (11:28→21:13)
[2018-08-03] MEDS: guaiFENesin 600 MG TABCR PO SCH ×2 (11:29→21:13)
--- NOTE | 2018-08-03 13:47 | Pulmonology Progress Note ---
Date of Service August 03, 2018 Assessment & Plan (1) Pneumonia: 1. Pneumonia. The patient has bilateral patchy infiltrates and she also has nodular densities. Currently she is on IV antibiotics which will be continued. 2. Bilateral nodular densities/tree-in-bud appearance. 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 We have scheduled this patient for bronchoscopy and and bronchoalveolar lavage In the OR. We are waiting for her sputum to come back and if they are reported as negative then she will be taken to the OR intubated for airway protection and will go for bronchoscopy and bronchoalveolar lavage. 3. Hypoxia. The patient remains on 2 L nasal cannula O2 and is oxygenating well. We are going to continue with all other management as prescribed. I have spent greater than 35 minutes of clinical time. I have also discuss with primary care about this patient at length. Dr. Jaquez. Aspiration pneumonia type: Laterality: right Lung location: middle lobe of lung Pneumonia type: due to unspecified organism Qualified Code (s): J18.1 - Lobar pneumonia, unspecified organism Subjective 52-year-old female.Was admitted with bilateral pneumonia. The CT scan of the chest was consistent with bilateral nodular densities and tree-in-bud appearance. Overall the patient seems to be doing better. She is still coughing but has improved. Denies having any chest pain fever chills or hemoptysis. Her PT/INR has come down to 1.4. We are going to schedule this patient for bronchoscopy and bronchoalveolar lavage. Since she ate her breakfast today she is scheduled for tomorrow at 10:30 in the morning. I had a long discussion with the patient and she was also explained about the indication , contraindication, complications and alternatives of the procedure and she is wishing to go ahead with the procedure. The patient was scheduled for bronchoscopy today. We will be awaiting for sputum for AFB to come back and if they are negative then we are going to take her to the OR and intubate the patient to protect her airways and do a bronchoscopy and bronchoalveolar lavage and send the bronchial lavage for AFB, fungus, cytology and Gram stain and culture and sensitivity. I have explained this to the patient as well as her family and they agreed to that. Otherwise she is comfortable she is resting comfortably. The patient is also hemodynamically stable and is oxygenating well. Physical Exam 2 Vital Signs (Past 24 Hours): Last Vital Signs Temp 37.2 C 08/03/18 11:40 Pulse 90 08/03/18 11:40 Resp 18 08/03/18 11:40 BP 114/69 08/03/18 11:40 Pulse Ox 93 08/03/18 11:40
[2018-08-03] MEDS: METOPROLOL SUCC 50MG EXT REL TAB PO SCH (17:04)
--- NOTE | 2018-08-03 19:01 | Hospitalist Progress Note ---
Date of Service August 03, 2018 Assessment & Plan (1) Pneumonia: CXR 07/30/18 showed right midlung nodular infiltrate and possible right bronchial wall thickening. CT 07/30/18 showed extensive tree-in-bud opacities and nodular consolidation at the lung bases as well as the right middle lobe and lingula CT chest 08/01/18 showed extensive centrilobular nodules throughout all 5 lobes though with an upper lobe predominance as well as patchy consolidation, including a dominant 20 mm peribronchovascular nodule in the right middle lobe. 1. Pneumonia. The patient has bilateral patchy infiltrates and she also has nodular densities. Currently she is on IV antibiotics which will be continued ( ceftriaxone and doxycycline since 07/31/18) 2. Bilateral nodular densities/tree-in-bud appearance. 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 We have scheduled this patient for bronchoscopy and and bronchoalveolar lavage In the OR. We are waiting for her sputum to come back and if they are reported as negative then she will be taken to the OR intubated for airway protection and will go for bronchoscopy and bronchoalveolar lavage. 3. Hypoxia. The patient remains on 2 L nasal cannula O2 and is oxygenating well. (2) COPD exacerbation: (3) Acute hypoxemic respiratory failure: Secondary to above (4) Hematoma of abdominal wall: Possible due to excessive cough in the setting of supratherapeutic INR CT abd/pelvis showed Large intramuscular left abdominal wall hematoma with extension into the properitoneal fat along the left inguinal region had supratherapeutic INR of 7 on 07/30/18 to 07/31/18 and then received Vit K oral Coumadin on hold, INR is now 1.3 Monitor PT/INR (5) WANDA (obstructive sleep apnea): Continue CPAP (6) CVA (cerebral vascular accident): CVA in Mar 2018 Completed plavix for 1 month has been on aspirin daily Hold aspirin and coumadin for now due to hematoma Stable (7) Pulmonary emboli: had supratherapeutic INR of 7 on 07/30/18 to 07/31/18 and then received Vit K oral Coumadin on hold because of hematoma, INR is now 1.3 (8) CHF (congestive heart failure): Chronic diastolic heart failure Last ECHO showed EF of 70%, TTE 2018 CXR showed cardiomegaly with volume overload. Does not showed any clinically signs of volume overload Will give torsemide x1 dose today (9) Supratherapeutic INR: had supratherapeutic INR of 7 on 07/30/18 to 07/31/18 and then received Vit K oral Coumadin on hold, INR is now 1.3 Monitor PT/INR DVT prophylaxis as SCD CODE STATUS FULL CODE Subjective Pt was seen and examined Lying in bed with no distress On nasal cannula Denies any chest pain. denies abdominal pain. denies palpitations Physical Exam 2 Vital Signs (Past 24 Hours): Last Vital Signs Temp 37.2 C 08/03/18 15:10 Pulse 89 08/03/18 17:03 Resp 18 08/03/18 15:10 BP 152/83 H 08/03/18 17:03 Pulse Ox 92 08/03/18 17:03 Physical Exam: GENERAL: Obese, minimal respiratory distress SKIN: Pallor, warm HEENT: Pale palpebral conjunctivae, no ptosis, dry buccal mucosa, O2 mask in place NECK : Supple, short, no tenderness CHEST : no wheezing, good air entry and exhalation HEART : regular rate ABDOMEN: Some distention, nontender EXTREMITIES : scottie LE swelling/skin thickening (chronic), no tenderness, no other conspicuous deformities noted NEUROLOGIC : Coherent, no facial asymmetry, no other gross focality _ (1) CHF (congestive heart failure) Heart failure chronicity: unspecified Heart failure type: unspecified Qualified Code(s): I50.9 - Heart failure, unspecified (2) Pneumonia Aspiration pneumonia type: Laterality: right Lung location: middle lobe of lung Pneumonia type: due to unspecified organism Qualified Code(s): J18.1 - Lobar pneumonia, unspecified organism
[2018-08-04] MEDS: IPRATROPIUM BROMIDE NEB SOLN 0.02% 2.5 ML VIAL INH SCH ×4 (02:01→19:00)
[2018-08-04] MEDS: LEVALBUTEROL 1.25MG/0.5ML NEB INH SCH ×4 (02:01→19:00)
[2018-08-04] MEDS: LEVOTHYROXINE SODIUM 200 MCG TABLET PO SCH (06:12)
[2018-08-04] MEDS: LEVOTHYROXINE SODIUM 25 MCG TABLET PO SCH (06:12)
[2018-08-04] MEDS ORDERED: Heparin IV Standard *NO* Bolus IV SCH (08:05)
[2018-08-04] MEDS ORDERED: WARFARIN SOD 10 MG TAB PO ONE (08:08)
[2018-08-04] MEDS: cefTRIAXone SODIUM 1,000 MG in DEXTROSE 5% 50 ML IV SCH (08:44)
[2018-08-04] MEDS: HEPARIN STANDARD DEXTROSE 25,000 UNITS/500 ML IV SCH ×3 (08:50→23:32)
[2018-08-04] MEDS: guaiFENesin 600 MG TABCR PO SCH ×2 (08:51→21:14)
[2018-08-04] MEDS: DOXYCYCLINE HYCLATE 100 MG CAP PO SCH ×2 (08:51→21:14)
[2018-08-04 09:30] LABS: Basophils # (auto) 0.03 K/uL (0-0.2); Basophils % (auto) 0.2 %; Eosinophils # (auto) 0.07 K/uL (0-0.5); Eosinophils % (auto) 0.5 %; Hematocrit (blood only) 31.4 % (37-47); Hemoglobin 9.6 g/dL (12.0-16.0); Immature Granulocytes # (auto) 0.17 K/uL (0.00-0.02); Immature Granulocytes % (auto) 1.1 %; Lymphocytes % (auto) 23.5 %; Mean Corpuscular Volume 89.2 fL (80-100); Mean Platelet Volume 10.1 fL (7.4-10.4); Monocytes # (auto) 0.63 K/uL (0.11-0.59); Monocytes % (auto) 4.1 %; Neutrophils % (auto) 70.6 %; Platelet Count 394 K/uL (130-400); RDW Coefficient of Variation 15.4 % (11.5-14.5); RDW Standard Deviation 50.1 fL (36.4-46.3); Red Blood Count 3.52 M/uL (4.2-5.4)
[2018-08-04 09:32] LABS: Mean Corpuscular Hgb Conc 30.6 g/dL (32-36)
[2018-08-04 09:54] LABS: INR 1.2 (0.9-1.1); Partial Thromboplastin Time 25.5 Seconds (21.0-31.0)
--- NOTE | 2018-08-04 11:48 | Pulmonology Progress Note ---
Date of Service August 04, 2018 Assessment & Plan (1) Pneumonia: Patient is white count is 15.3 Patient is afebrile Patient continues on ceftriaxone and doxycycline We will continue 7 days of total treatment Patient will need outpatient CT scan in 4 weeks Continue to titrate O2 off as tolerated Patient should be out of bed to chair and ambulate as tolerated Aspiration pneumonia type: Laterality: right Lung location: middle lobe of lung Pneumonia type: due to unspecified organism Qualified Code (s): J18.1 - Lobar pneumonia, unspecified organism (2) Pulmonary emboli: History of prior pulmonary emboli in March Anticoagulation has been held for possible bronchoscopy At this point, agree with starting Coumadin and anticoagulated with a heparin drip Patient does have a hematoma on imaging Would watch H&H closely as anticoagulation is initiated (3) Tobacco abuse: Patient quit smoking in March 2018 Continue Chantix as an outpatient Continue to encouraging smoking abstinence (4) Abnormal CT of the chest: Patient has a multinodular bilateral appearance which was not present in 2014. Patient also has some new tree-in-bud appearance with some groundglass opacities There is an area of approximately 2 cm in the right middle lobe that may possibly be mucus as it terminates at the end of a bronchus. Would repeat chest x-ray PA, lateral views and follow Consider aggressive pulmonary toilet with flutter valve and incentive spirometry to clear any mucus Question of miliary tuberculosis -continue isolation precautions pending AFB smears QuantiFERON gold ordered -await reference test results If no improvement on CAT scan in 4 weeks, would refer patient to pulmonary clinic for further management and care (5) Hypoxia: Patient has abnormal findings on CT of chest as listed above No home O2 use in the past Significant past tobacco abuse -quit smoking March 2018 Would ambulate patient as tolerated and moved patient from bed to chair as tolerated Titrate supplemental O2 to approximately 90% SaO2 No respiratory distress on exam (6) DVT prophylaxis: Anticoagulation reinstituted today with heparin drip. Coumadin also started Ambulate as tolerated Out of bed to chair as tolerated Thank you for including us in the care of this patient. Please refer to Dr. Jaquez's addendum for further recommendations. Supervising Physician Co-Signing Physician Notes I have seen and examined this patient with Julian Carrion and agree with his assessment and plan of care. We are going to continue with current plan of care as prescribed. Talked to the pathology today about the AFB smear and 1 out of 3 smears are negative for AFB at this time. The 2 smears are pending which will be reported tomorrow. I have discussed the case with the primary care physician Dr. Gilmore that we are not going to do a bronchoscopy at this time and we are going to follow and if it is negative, we will continue with the above plan of care as prescribed and patient will be followed up from outpatient with the pulmonary physician with a follow-up CT scan of the chest in 1 month time. During that time if the CT scan is still abnormal then we will consider doing a bronchoscopy from outpatient. Thank you. Dr. Mario Jaquez. Subjective There is a 52-year-old [place] female that was admitted with shortness of breath and abnormal CT scan suggestive of bilateral pneumonia. She also has tree-in- bud opacities as well as a multinodular pattern bilaterally. The patient has been placed on droplet precautions to rule out miliary TB and we are currently awaiting acid-fast bacilli testing from morning sputum. Patient was scheduled for bronchoscopy but this was held secondary to unavailability of a negative pressure bronchoscopy room. CT scan from this admission was compared to a prior CTA of the chest from 2013. While there was some minimal tree-in-bud appearance on the prior CT it certainly is progressive over the last 5 years. The patient was seen at bedside and reports that her shortness of breath is much improved. She is on supplemental oxygen with 2 L/min and is comfortable as well saturating well at that level. She denies any home O2 use. She does have a smoking history of most of her adult life. She did have a stroke last fall and states that she has been on Chantix since March and this has abated her urge for nicotine. She has no chest pain or tightness. She has no sputum production with cough. She denies back pain. She has no fever, sweats, rigors. She denies nausea or vomiting. She is eating well and denies aspiration or coughing with ingestion. The patient has no other acute complaints this morning. Physical Exam 2 Vital Signs (Past 24 Hours): Last Vital Signs Temp 37.1 C 08/04/18 07:00 Pulse 93 H 08/04/18 08:00 Resp 20 08/04/18 07:00 BP 124/73 08/04/18 07:00 Pulse Ox 92 08/04/18 07:00 Physical Exam: GENERAL : No acute distress. Pleasant EYES: No icterus, gaze conjugate, pupils equal round and reactive to light NOSE: No evidence of epistaxis MOUTH: No lesions or candidiasis. Patient does have poor dental hygiene with several missing teeth. NECK: Supple. LUNGS: Patient is generally clear throughout all lung zones. She does have an occasional wheeze on the anterior upper lung zone. She has no stridor. HEART: Regular, rate controlled. No appreciation of ectopy. Heart sounds are distant ABDOMEN: Soft, NT, ND, BS Present EXTREMITIES: No LE edema, pedal pulses intact bilaterally. Positive for bilateral lymphadema of the lower extremities NEURO: A&OX3 Results & Data Laboratory Results Abnormal lab results 08/04/18 08/04/18 Range/Units 09:16 09:16 WBC 15.30 H (4.8-10.8) K/uL RBC 3.52 L (4.2-5.4) M/uL Hgb 9.6 L (12.0-16.0) g/dL Hct 31.4 L (37-47) % MCHC 30.6 L (32-36) g/dL RDW Std Deviation 50.1 H (36.4-46.3) fL RDW Coeff of [place] 15.4 H (11.5-14.5) % Immature Gran # (Auto) 0.17 H (0.00-0.02) K/uL Neut # (Auto) 10.80 H (1.4-6.5) K/uL Lymph # (Auto) 3.60 H (1.2-3.4) K/uL [place] # (Auto) 0.63 H (0.11-0.59) K/uL INR 1.2 H (0.9-1.1) Diagnostic Findings PA and lateral chest x-ray is ordered and pending
--- NOTE | 2018-08-04 12:10 | XRay Report ---
XR chest PA, lat, obliques CLINICAL HISTORY: 52 years-old Female presenting with follow up lung infiltrates. TECHNIQUE: PA, lateral and bilateral oblique views of the chest were obtained. COMPARISON: 07/30/[address] from 08/01/2018. FINDINGS: Cardiac silhouette mildly enlarged. Mild pulmonary basilar prominence. Redemonstration of vague bilat eral opacities. No pleural effusion or pneumothorax. Degenerative changes of the thoracic spine. Uppe r abdomen normal. IMPRESSION: 1. Vague bilateral infiltrates best demonstrated on CT. Radiographic evaluation for follow-up is not reliable for resolution given the diffuse tree-in-bud predominant pattern. No progression. 2. Mild cardiomegaly. Electronically signed by: Vincent Richter M.D. 08/04/2018 12:08 PM
--- NOTE | 2018-08-04 15:28 | Hospitalist Progress Note ---
Date of Service August 04, 2018 Assessment & Plan (1) Pneumonia: CXR 07/30/18 showed right midlung nodular infiltrate and possible right bronchial wall thickening. CT 07/30/18 showed extensive tree-in-bud opacities and nodular consolidation at the lung bases as well as the right middle lobe and lingula CT chest 08/01/18 showed extensive centrilobular nodules throughout all 5 lobes though with an upper lobe predominance as well as patchy consolidation, including a dominant 20 mm peribronchovascular nodule in the right middle lobe. 1. Pneumonia. The patient has bilateral patchy infiltrates and she also has nodular densities. Currently she is on IV antibiotics which will be continued ( ceftriaxone and doxycycline since 07/31/18) continue 7 days of total treatment 2. Bilateral nodular densities/tree-in-bud appearance. 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 at this time there are no active plans for for bronchoscopy or bronchoalveolar lavage as per pulmonary service awaiting final results of the 3 AFB smears Patient will need outpatient CT scan in 4 weeks 3. Hypoxia. The patient remains on nasal cannula O2 and is oxygenating well. (2) COPD exacerbation: (3) Acute hypoxemic respiratory failure: Secondary to above (4) Hematoma of abdominal wall: Possible due to excessive cough in the setting of supratherapeutic INR CT abd/pelvis showed Large intramuscular left abdominal wall hematoma with extension into the properitoneal fat along the left inguinal region had supratherapeutic INR of 7 on 07/30/18 to 07/31/18 and then received Vit K oral subsequently coumadin was placed on hold because of concerns of abdominal wall hematoma and also unclear whether pulmonary service was going to perfrom bronchoscopy on the patient as of 08/04/18 no obvious superficial bruising of abdomen, and no immediate plans by pulmonary service to perform bronschoscopy so patient has been started on heparin drip and and oral coumadin to resume anticoagulation from history of pulmonary embolism (5) WANDA (obstructive sleep apnea): Continue CPAP (6) CVA (cerebral vascular accident): CVA in Mar 2018 Completed plavix for 1 month has been on aspirin daily Hold aspirin for now due to abdominal wall hematoma (7) Pulmonary emboli: had supratherapeutic INR of 7 on 07/30/18 to 07/31/18 and then received Vit K oral subsequently coumadin was placed on hold because of concerns of abdominal wall hematoma and also unclear whether pulmonary service was going to perfrom bronchoscopy on the patient as of 08/04/18 no obvious superficial bruising of abdomen, and no immediate plans by pulmonary service to perform bronschoscopy so patient has been started on heparin drip and and oral coumadin to resume anticoagulation from history of pulmonary embolism (8) CHF (congestive heart failure): Chronic diastolic heart failure Last ECHO showed EF of 70%, TTE 2018 07/30/18 CXR showed cardiomegaly with volume overload patient had received intermittent doses of torsemide on this admission 08/04/18 CXR Redemonstration of vague bilateral opacities. No pleural effusion or pneumothorax resume home dose oral torsemide as daily (9) Supratherapeutic INR: had supratherapeutic INR of 7 on 07/30/18 to 07/31/18 and then received Vit K oral Coumadin on hold, INR is now 1.3 Monitor PT/INR DVT prophylaxis as heparin drip and and oral coumadin CODE STATUS FULL CODE Subjective Pt was seen and examined On nasal cannula Denies any chest pain. denies palpitations no obvious superficial bruising of abdomen patient has been started on heparin drip and and oral coumadin to resume anticoagulation from history of pulmonary embolism patient denies blood from orifices or abdominal pain Physical Exam 2 Vital Signs (Past 24 Hours): Last Vital Signs Temp 37.1 C 08/04/18 11:00 Pulse 83 08/04/18 14:13 Resp 18 08/04/18 14:13 BP 123/70 08/04/18 11:00 Pulse Ox 96 08/04/18 14:13 Constitutional: + obese Eyes: PERRL, conjunctivae normal, anicteric sclerae Neck: normal visual inspection Respiratory: normal respiratory effort Cardiovascular: Rate/Rhythm: regular rate and regular rhythm Gastrointestinal (Abdomen): normal bowel sounds, soft, nontender, no hepatosplenomegaly Musculoskeletal: no cyanosis or clubbing, extremities motor strength 5/5 Head/Neck/Chest: normocephalic and head atraumatic Psychiatric: A+Ox3, euthymic affect _ (1) CHF (congestive heart failure) Heart failure chronicity: unspecified Heart failure type: unspecified Qualified Code(s): I50.9 - Heart failure, unspecified (2) Pneumonia Aspiration pneumonia type: Laterality: right Lung location: middle lobe of lung Pneumonia type: due to unspecified organism Qualified Code(s): J18.1 - Lobar pneumonia, unspecified organism
[2018-08-04 15:52] LABS: Partial Thromboplastin Ratio 1.3; Partial Thromboplastin Time 33.4 Seconds (21.0-31.0)
[2018-08-04] MEDS ORDERED: WARFARIN SOD 10 MG TAB PO SCH (16:00)
[2018-08-04] MEDS: TORSEMIDE 20 MG TAB PO SCH (16:52)
[2018-08-04] MEDS: METOPROLOL SUCC 50MG EXT REL TAB PO SCH (16:55)
[2018-08-04] MEDS ORDERED: HEPARIN IV BOLUS 7,000 UNITS in SYRINGE 0 ML IV ONE (17:00)
[2018-08-04 23:26] LABS: Partial Thromboplastin Ratio 2.7
[2018-08-04 23:38] LABS: Partial Thromboplastin Time 70.6 Seconds (21.0-31.0)
[2018-08-05] MEDS: IPRATROPIUM BROMIDE NEB SOLN 0.02% 2.5 ML VIAL INH SCH ×2 (01:55→07:02)
[2018-08-05] MEDS: LEVALBUTEROL 1.25MG/0.5ML NEB INH SCH ×2 (01:55→07:02)
[2018-08-05] MEDS: LEVOTHYROXINE SODIUM 200 MCG TABLET PO SCH (06:21)
[2018-08-05] MEDS: LEVOTHYROXINE SODIUM 25 MCG TABLET PO SCH (06:21)
[2018-08-05 06:41] LABS: Basophils # (auto) 0.05 K/uL (0-0.2); Basophils % (auto) 0.4 %; Eosinophils # (auto) 0.23 K/uL (0-0.5); Eosinophils % (auto) 1.7 %; Hematocrit (blood only) 29.6 % (37-47); Hemoglobin 8.9 g/dL (12.0-16.0); Immature Granulocytes # (auto) 0.17 K/uL (0.00-0.02); Immature Granulocytes % (auto) 1.2 %; Lymphocytes % (auto) 22.8 %; Mean Corpuscular Hgb Conc 30.1 g/dL (32-36); Mean Corpuscular Volume 89.7 fL (80-100); Mean Platelet Volume 10.3 fL (7.4-10.4); Monocytes # (auto) 1.07 K/uL (0.11-0.59); Monocytes % (auto) 7.9 %; Neutrophils # (auto) 8.99 K/uL (1.4-6.5); Platelet Count 404 K/uL (130-400); RDW Coefficient of Variation 15.6 % (11.5-14.5); RDW Standard Deviation 50.4 fL (36.4-46.3); White Blood Count 13.61 K/uL (4.8-10.8)
[2018-08-05 07:03] LABS: INR 1.2 (0.9-1.1); Partial Thromboplastin Ratio 2.2; Prothrombin Time 12.3 Seconds (9.0-12.0)
[2018-08-05 07:05] LABS: Partial Thromboplastin Time 58.4 Seconds (21.0-31.0)
[2018-08-05 07:08] LABS: RBC Morphology Unremarkable
[2018-08-05 07:09] LABS: BUN Creatinine Ratio 26.7 (10-20); Calcium 8.1 mg/dl (8.5-10.1); Creatinine Clr Calc Pharmacy 81.8 ml/min; Est GFR (African American) 62.3; Est GFR (Non-African American) 53.7; Potassium 3.9 mmol/L (3.5-5.1)
[2018-08-05] MEDS: TORSEMIDE 20 MG TAB PO SCH (08:22)
[2018-08-05] MEDS: DOXYCYCLINE HYCLATE 100 MG CAP PO SCH ×2 (08:23→20:37)
[2018-08-05] MEDS: guaiFENesin 600 MG TABCR PO SCH ×2 (08:23→20:37)
[2018-08-05] MEDS: cefTRIAXone SODIUM 1,000 MG in DEXTROSE 5% 50 ML IV SCH (09:05)
[2018-08-05] MEDS ORDERED: LEVALBUTEROL 1.25MG/0.5ML NEB INH PRN (11:23)
[2018-08-05] MEDS ORDERED: IPRATROPIUM BROMIDE NEB SOLN 0.02% 2.5 ML VIAL INH PRN (11:23)
[2018-08-05] MEDS: HEPARIN STANDARD DEXTROSE 25,000 UNITS/500 ML IV SCH (11:43)
--- NOTE | 2018-08-05 13:50 | Hospitalist Progress Note ---
Date of Service August 05, 2018 Assessment & Plan (1) Pneumonia: CXR 07/30/18 showed right midlung nodular infiltrate and possible right bronchial wall thickening. CT 07/30/18 showed extensive tree-in-bud opacities and nodular consolidation at the lung bases as well as the right middle lobe and lingula CT chest 08/01/18 showed extensive centrilobular nodules throughout all 5 lobes though with an upper lobe predominance as well as patchy consolidation, including a dominant 20 mm peribronchovascular nodule in the right middle lobe. 1. Pneumonia. The patient has bilateral patchy infiltrates and she also has nodular densities. Currently she is on IV antibiotics which will be continued ( ceftriaxone and doxycycline since 07/31/18) continue 7 days of total treatment as per pulmonary service 2. Bilateral nodular densities/tree-in-bud appearance. 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 at this time there are no active plans for for bronchoscopy or bronchoalveolar lavage as per pulmonary service the 3 AFB smears are negative Patient will need outpatient CT scan in 4 weeks 3. Hypoxia. The patient remains on nasal cannula O2 and is oxygenating well. (2) COPD exacerbation: (3) Acute hypoxemic respiratory failure: Secondary to above (4) Hematoma of abdominal wall: Possible due to excessive cough in the setting of supratherapeutic INR CT abd/pelvis showed Large intramuscular left abdominal wall hematoma with extension into the properitoneal fat along the left inguinal region had supratherapeutic INR of 7 on 07/30/18 to 07/31/18 and then received Vit K oral subsequently coumadin was placed on hold because of concerns of abdominal wall hematoma and also unclear whether pulmonary service was going to perfrom bronchoscopy on the patient as of 08/04/18 no obvious superficial bruising of abdomen, and no immediate plans by pulmonary service to perform bronschoscopy so patient has been started on heparin drip and and oral coumadin to resume anticoagulation from history of pulmonary embolism continue heparin drip and daily coumadin plan on getting to a therapeutic coumadin level near or at 2 and then repeat abdominal imaging (5) WANDA (obstructive sleep apnea): Continue CPAP (6) CVA (cerebral vascular accident): CVA in Mar 2018 Completed plavix for 1 month has been on aspirin daily Hold aspirin for now due to abdominal wall hematoma (7) Pulmonary emboli: had supratherapeutic INR of 7 on 07/30/18 to 07/31/18 and then received Vit K oral subsequently coumadin was placed on hold because of concerns of abdominal wall hematoma and also unclear whether pulmonary service was going to perfrom bronchoscopy on the patient as of 08/04/18 no obvious superficial bruising of abdomen, and no immediate plans by pulmonary service to perform bronschoscopy so patient has been started on heparin drip and and oral coumadin to resume anticoagulation from history of pulmonary embolism continue heparin drip and daily coumadin (8) CHF (congestive heart failure): Chronic diastolic heart failure Last ECHO showed EF of 70%, TTE 2018 07/30/18 CXR showed cardiomegaly with volume overload patient had received intermittent doses of torsemide on this admission 08/04/18 CXR Redemonstration of vague bilateral opacities. No pleural effusion or pneumothorax continue home dose oral torsemide as daily (9) Supratherapeutic INR: had supratherapeutic INR of 7 on 07/30/18 to 07/31/18 and then received Vit K oral DVT prophylaxis as heparin drip and and oral coumadin INR today is 1.2 CODE STATUS FULL CODE Subjective Pt was seen and examined On nasal cannula Denies any chest pain. denies palpitations no obvious superficial bruising of abdomen some tenderness on palpation of right abdomen patient denies blood from orifices Physical Exam 2 Vital Signs (Past 24 Hours): Last Vital Signs Temp 37.3 C 08/05/18 11:48 Pulse 78 08/05/18 11:48 Resp 18 08/05/18 11:48 BP 131/83 08/05/18 11:48 Pulse Ox 96 08/05/18 11:48 Constitutional: + obese Eyes: PERRL, conjunctivae normal, anicteric sclerae Neck: normal visual inspection Respiratory: normal respiratory effort Cardiovascular: Rate/Rhythm: regular rate and regular rhythm Gastrointestinal (Abdomen): Inspection/Auscultation: abdomen normal to inspection Percussion/Palpation: abdomen soft (no bruising, some tenderness of right lower quadrant on palpation) Musculoskeletal: no cyanosis or clubbing, extremities motor strength 5/5 Head/Neck/Chest: normocephalic and head atraumatic Psychiatric: A+Ox3, euthymic affect _ (1) Pneumonia Aspiration pneumonia type: Laterality: right Lung location: middle lobe of lung Pneumonia type: due to unspecified organism Qualified Code(s): J18.1 - Lobar pneumonia, unspecified organism (2) CHF (congestive heart failure) Heart failure chronicity: unspecified Heart failure type: unspecified Qualified Code(s): I50.9 - Heart failure, unspecified
[2018-08-05] MEDS: WARFARIN SOD 10 MG TAB PO SCH (16:10)
[2018-08-05] MEDS: METOPROLOL SUCC 50MG EXT REL TAB PO SCH (16:11)
[2018-08-06] MEDS: HEPARIN STANDARD DEXTROSE 25,000 UNITS/500 ML IV SCH ×2 (00:13→13:17)
[2018-08-06] MEDS: LEVOTHYROXINE SODIUM 200 MCG TABLET PO SCH (06:26)
[2018-08-06] MEDS: LEVOTHYROXINE SODIUM 25 MCG TABLET PO SCH (06:26)
[2018-08-06] MEDS: guaiFENesin 600 MG TABCR PO SCH ×2 (07:59→21:43)
[2018-08-06] MEDS: cefTRIAXone SODIUM 1,000 MG in DEXTROSE 5% 50 ML IV SCH (07:59)
[2018-08-06] MEDS: DOXYCYCLINE HYCLATE 100 MG CAP PO SCH ×2 (08:00→21:43)
[2018-08-06] MEDS: TORSEMIDE 20 MG TAB PO SCH (08:00)
[2018-08-06] MEDS: TIOTROPIUM BROMIDE 5 PUFF/90 MCG INH INH SCH (08:00)
[2018-08-06 11:39] LABS: INR 1.2 (0.9-1.1); Partial Thromboplastin Ratio 2.3; Prothrombin Time 12.3 Seconds (9.0-12.0)
[2018-08-06 11:48] LABS: Partial Thromboplastin Time 60.5 Seconds (21.0-31.0)
[2018-08-06] MEDS: METOPROLOL SUCC 50MG EXT REL TAB PO SCH (15:46)
[2018-08-06] MEDS: WARFARIN SOD 10 MG TAB PO SCH (17:07)
--- NOTE | 2018-08-06 18:05 | Hospitalist Progress Note ---
Date of Service August 06, 2018 Assessment & Plan (1) Pneumonia: CXR 07/30/18 showed right midlung nodular infiltrate and possible right bronchial wall thickening. CT 07/30/18 showed extensive tree-in-bud opacities and nodular consolidation at the lung bases as well as the right middle lobe and lingula CT chest 08/01/18 showed extensive centrilobular nodules throughout all 5 lobes though with an upper lobe predominance as well as patchy consolidation, including a dominant 20 mm peribronchovascular nodule in the right middle lobe. 1. Pneumonia. The patient has bilateral patchy infiltrates and she also has nodular densities. Currently she is on IV antibiotics which will be continued ( ceftriaxone and doxycycline since 07/31/18) continue 7 days of total treatment as per pulmonary service 2. Bilateral nodular densities/tree-in-bud appearance. 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 at this time there are no active plans for for bronchoscopy or bronchoalveolar lavage as per pulmonary service the 3 AFB smears are negative Patient will need outpatient CT scan in 4 weeks 3. Hypoxia. The patient remains on nasal cannula O2 and is oxygenating well. (2) COPD exacerbation: (3) Acute hypoxemic respiratory failure: Secondary to above (4) Hematoma of abdominal wall: Possible due to excessive cough in the setting of supratherapeutic INR CT abd/pelvis showed Large intramuscular left abdominal wall hematoma with extension into the properitoneal fat along the left inguinal region had supratherapeutic INR of 7 on 07/30/18 to 07/31/18 and then received Vit K oral subsequently coumadin was placed on hold because of concerns of abdominal wall hematoma and also unclear whether pulmonary service was going to perfrom bronchoscopy on the patient as of 08/04/18 no obvious superficial bruising of abdomen, and no immediate plans by pulmonary service to perform bronschoscopy so patient has been started on heparin drip and and oral coumadin to resume anticoagulation from history of pulmonary embolism continue heparin drip and daily coumadin 10 mg 08/06/18. INR is still 1.2 as patient is close to completing recommended number of days for inpatient V pulmonary antibiotics, have ordered repeat abdomen /pelvis to follow the abominal hematoma (5) WANDA (obstructive sleep apnea): Continue CPAP (6) CVA (cerebral vascular accident): CVA in Mar 2018 Completed plavix for 1 month has been on aspirin daily Hold aspirin for now due to abdominal wall hematoma (7) Pulmonary emboli: had supratherapeutic INR of 7 on 07/30/18 to 07/31/18 and then received Vit K oral subsequently coumadin was placed on hold because of concerns of abdominal wall hematoma and also unclear whether pulmonary service was going to perfrom bronchoscopy on the patient as of 08/04/18 resumed anticoagulation with heparin drip to bridge to therapeutic INR with coumadin (8) CHF (congestive heart failure): Chronic diastolic heart failure Last ECHO showed EF of 70%, TTE 2018 07/30/18 CXR showed cardiomegaly with volume overload patient had received intermittent doses of torsemide on this admission 08/04/18 CXR Redemonstration of vague bilateral opacities. No pleural effusion or pneumothorax continue home dose oral torsemide as daily (9) Supratherapeutic INR: had supratherapeutic INR of 7 on 07/30/18 to 07/31/18 and then received Vit K oral DVT prophylaxis as heparin drip and and oral coumadin INR today is 1.2 CODE STATUS FULL CODE Subjective Pt was seen and examined On nasal cannula Denies any chest pain. denies palpitations no obvious superficial bruising of abdomen patient denies blood from orifices Physical Exam 2 Vital Signs (Past 24 Hours): Last Vital Signs Temp 37.5 C 08/06/18 15:38 Pulse 71 08/06/18 15:38 Resp 18 08/06/18 15:38 BP 146/83 H 08/06/18 15:38 Pulse Ox 96 08/06/18 15:38 Constitutional: + obese Eyes: PERRL, conjunctivae normal, anicteric sclerae Neck: normal visual inspection Respiratory: normal respiratory effort Cardiovascular: Rate/Rhythm: regular rate and regular rhythm Gastrointestinal (Abdomen): normal bowel sounds, soft, nontender, no hepatosplenomegaly Inspection/Auscultation: abdomen normal to inspection Percussion/Palpation: abdomen soft (no bruising) Musculoskeletal: no cyanosis or clubbing, extremities motor strength 5/5 Head/Neck/Chest: normocephalic and head atraumatic Psychiatric: A+Ox3, euthymic affect _ (1) Pneumonia Aspiration pneumonia type: Laterality: right Lung location: middle lobe of lung Pneumonia type: due to unspecified organism Qualified Code(s): J18.1 - Lobar pneumonia, unspecified organism (2) CHF (congestive heart failure) Heart failure chronicity: unspecified Heart failure type: unspecified Qualified Code(s): I50.9 - Heart failure, unspecified
[2018-08-06] MEDS ORDERED: OPTIRAY 320 125ml IV PRN (21:35)
--- NOTE | 2018-08-06 22:14 | CT Scan Report ---
CT SCAN OF THE ABDOMEN AND PELVIS WITH IV CONTRAST CLINICAL HISTORY: Follow-up hematoma. COMPARISON STUDY: Abdominal CT dated 07/30/2018. TECHNIQUE: Following the IV administration of 119 cc of Optiray 320, CT scan of the abdomen and pelv is is performed from the lung bases to the proximal femora. Images are reviewed in the axial, sagitta l, and coronal planes. IV contrast was administered without complication. Oral contrast was utilized. A dose lowering technique was utilized adhering to the principles of ALARA. The examination is a gre ater by large body habitus, and by streak artifact from the body wall abutting the CT gantry. CT DOSE: 1716.71 mGy.cm FINDINGS: Lung bases: The heart is normal in size and without pericardial effusion. There is bibasilar scarring /atelectasis. Tree-in-bud airspace opacities at the lung bases have significantly improved. No lobar consolidation or pleural effusion is identified. Liver: The contrast-enhanced liver is enlarged, measuring 21.8 cm in length. The liver is normal in c ontour and attenuation. There is minimal central intrahepatic biliary ductal dilatation. The hepatic veins and portal veins are patent. Gallbladder: Surgically absent noting clips in the gallbladder fossa. Spleen: Normal in size and attenuation. Pancreas: Moderately atrophic and grossly unremarkable. Adrenal glands: A left adrenal adenoma is again suggested. The right adrenal gland is normal in appea lo. Kidneys: The contrast enhanced kidneys demonstrate mild cortical atrophy and are without hydronephros is. The kidneys enhance symmetrically. Abdominal vasculature: The abdominal aorta is normal in course and caliber noting mild atheroscleroti c calcification. Bowel: There is no bowel obstruction. Mild to moderate colonic fecal retention is observed.. The appe ndix is well-visualized and normal. Peritoneum/retroperitoneum: There is no intraperitoneal free air or abdominal ascites. Again seen is a large intramuscular hematoma centered in the left rectus muscle. This measures approximately 16.5 x 5.5 x 8 cm in maximum dimension. This is similar in size as compared to the prior study. There is in trapelvic extraperitoneal extension of hemorrhage identified on the inferior margin. No evidence of a ctive extravasation is identified at the time of examination. Lymphadenopathy: None. Pelvic viscera: The bladder, uterus, and adnexa are normal as visualized. Skeletal structures: The skeletal structures are osteopenic. There is mild lumbosacral spondylosis. A rthritic change is also seen in the hips. No lytic or blastic lesions are seen. IMPRESSION: 1. Again seen is a large intramuscular hematoma centered in the left rectus muscle. This is overall s imilar in size to the 07/30/2018 examination. 2. Intrapelvic extraperitoneal extensor is again identified along the inferior margin hematoma. 3. No active extravasation is identified at the time of examination. 4. Hepatomegaly. 5. Tree-in-bud airspace opacities at the lung bases have significantly improved from 07/30/2018. 6. Additional findings as above. Electronically signed by: Julian Tamez M.D. 08/06/2018 10:12 PM
[2018-08-07] MEDS: HEPARIN STANDARD DEXTROSE 25,000 UNITS/500 ML IV SCH ×2 (03:18→16:43)
[2018-08-07] MEDS: LEVOTHYROXINE SODIUM 25 MCG TABLET PO SCH (06:10)
[2018-08-07] MEDS: LEVOTHYROXINE SODIUM 200 MCG TABLET PO SCH (06:10)
[2018-08-07 07:58] LABS: INR 1.3 (0.9-1.1); Partial Thromboplastin Ratio 2.3; Prothrombin Time 12.7 Seconds (9.0-12.0)
[2018-08-07 08:09] LABS: Partial Thromboplastin Time 60.6 Seconds (21.0-31.0)
[2018-08-07] MEDS: DOXYCYCLINE HYCLATE 100 MG CAP PO SCH ×2 (08:17→21:28)
[2018-08-07] MEDS: guaiFENesin 600 MG TABCR PO SCH (08:17)
[2018-08-07] MEDS: TORSEMIDE 20 MG TAB PO SCH (08:17)
[2018-08-07] MEDS: TIOTROPIUM BROMIDE 5 PUFF/90 MCG INH INH SCH (08:18)
[2018-08-07 08:22] LABS: Calcium 8.6 mg/dl (8.5-10.1); Creatinine Clr Calc Pharmacy 76.6 ml/min; Est GFR (African American) 58.6; Est GFR (Non-African American) 50.5; Potassium 3.5 mmol/L (3.5-5.1)
--- NOTE | 2018-08-07 14:45 | Hospitalist Progress Note ---
Date of Service August 07, 2018 Assessment & Plan (1) Pneumonia: CXR 07/30/18 showed right midlung nodular infiltrate and possible right bronchial wall thickening. CT 07/30/18 showed extensive tree-in-bud opacities and nodular consolidation at the lung bases as well as the right middle lobe and lingula CT chest 08/01/18 showed extensive centrilobular nodules throughout all 5 lobes though with an upper lobe predominance as well as patchy consolidation, including a dominant 20 mm peribronchovascular nodule in the right middle lobe. 1. Pneumonia. The patient has bilateral patchy infiltrates and she also has nodular densities On antibiotics of ceftriaxone from 07/31/18 to 08/07/18. Doxycycline 100 mg BID from 07/31/18 to date. Will plan on continuing Doxycycline up to 08/14/18 to complete a 14 day course 2. 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 Hypoxia The hypoxia has been resolving and currently as of 08/07/18 patient has been on 1 liter/min nasal cannula or room air (2) COPD exacerbation: (3) Acute hypoxemic respiratory failure: Secondary to pneumonia supplemental oxygen requirements have decreased over time currently as of 08/07/18 patient has been on 1 liter/min nasal cannula or room air (4) Hematoma of abdominal wall: Possible due to excessive cough in the setting of supratherapeutic INR CT abd/pelvis showed Large intramuscular left abdominal wall hematoma with extension into the properitoneal fat along the left inguinal region had supratherapeutic INR of 7 on 07/30/18 to 07/31/18 and then received Vit K oral subsequently coumadin was placed on hold because of concerns of abdominal wall hematoma and also unclear whether pulmonary service was going to perfrom bronchoscopy on the patient as of 08/04/18 no obvious superficial bruising of abdomen, and no immediate plans by pulmonary service to perform bronschoscopy so patient has been started on heparin drip and and oral coumadin to resume anticoagulation from history of pulmonary embolism repeat CT abdomen/pelvis 08/06/18 large intramuscular hematoma centered in the left rectus muscle is overall similar in size to the 07/30/2018 examination (5) WANDA (obstructive sleep apnea): Continue CPAP (6) CVA (cerebral vascular accident): CVA in Mar 2018 Completed plavix for 1 month aspirin had been held during hospital stay because of abdominal wall hematoma will plan on resuming starting 08/08/18 as abdominal wall hematoma appears stable (7) Pulmonary emboli: had supratherapeutic INR of 7 on 07/30/18 to 07/31/18 and then received Vit K oral subsequently coumadin was placed on hold because of concerns of abdominal wall hematoma and also unclear whether pulmonary service was going to perfrom bronchoscopy on the patient as of 08/04/18 resumed anticoagulation with heparin drip to bridge to therapeutic INR with coumadin while on 10 mg coumadin daily, the INR has barely increased as of 08/07/18, the INR is 1.3 and will increase coumadin to 11 mg daily (8) CHF (congestive heart failure): Chronic diastolic heart failure Last ECHO showed EF of 70%, TTE 2018 07/30/18 CXR showed cardiomegaly with volume overload patient had received intermittent doses of torsemide on this admission 08/04/18 CXR Redemonstration of vague bilateral opacities. No pleural effusion or pneumothorax continue home dose oral torsemide as daily continue metoprolol (9) Supratherapeutic INR: had supratherapeutic INR of 7 on 07/30/18 to 07/31/18 and then received Vit K oral DVT prophylaxis as heparin drip and and oral coumadin INR today is 1.3 CODE STATUS FULL CODE Subjective currently as of 08/07/18 patient has been on 1 liter/min nasal cannula or room air Denies any chest pain. denies palpitations no obvious superficial bruising of abdomen patient denies blood from orifices Physical Exam 2 Vital Signs (Past 24 Hours): Last Vital Signs Temp 36.9 C 08/07/18 11:35 Pulse 72 08/07/18 13:10 Resp 16 08/07/18 11:35 BP 128/74 08/07/18 11:35 Pulse Ox 95 08/07/18 13:10 Constitutional: + obese Eyes: PERRL, conjunctivae normal, anicteric sclerae Neck: normal visual inspection Respiratory: normal respiratory effort Cardiovascular: Rate/Rhythm: regular rate and regular rhythm Gastrointestinal (Abdomen): normal bowel sounds, soft, nontender, no hepatosplenomegaly Inspection/Auscultation: abdomen normal to inspection Percussion/Palpation: abdomen soft (no bruising) Musculoskeletal: no cyanosis or clubbing, extremities motor strength 5/5 Head/Neck/Chest: normocephalic and head atraumatic Psychiatric: A+Ox3, euthymic affect _ (1) Pneumonia Aspiration pneumonia type: Laterality: right Lung location: middle lobe of lung Pneumonia type: due to unspecified organism Qualified Code(s): J18.1 - Lobar pneumonia, unspecified organism (2) CHF (congestive heart failure) Heart failure chronicity: unspecified Heart failure type: unspecified Qualified Code(s): I50.9 - Heart failure, unspecified
[2018-08-07] MEDS: WARFARIN SOD 1 MG TAB PO SCH (15:57)
[2018-08-07] MEDS: WARFARIN SOD 10 MG TAB PO SCH (15:57)
[2018-08-07] MEDS: METOPROLOL SUCC 50MG EXT REL TAB PO SCH (15:58)
[2018-08-08] MEDS: HEPARIN STANDARD DEXTROSE 25,000 UNITS/500 ML IV SCH ×2 (05:22→17:51)
[2018-08-08] MEDS: LEVOTHYROXINE SODIUM 25 MCG TABLET PO SCH (06:24)
[2018-08-08] MEDS: LEVOTHYROXINE SODIUM 200 MCG TABLET PO SCH (06:24)
[2018-08-08 07:13] LABS: Partial Thromboplastin Ratio 2.5
[2018-08-08] MEDS: TORSEMIDE 20 MG TAB PO SCH (08:32)
[2018-08-08] MEDS: TIOTROPIUM BROMIDE 5 PUFF/90 MCG INH INH SCH (08:33)
[2018-08-08] MEDS: DOXYCYCLINE HYCLATE 100 MG CAP PO SCH ×2 (08:33→20:58)
[2018-08-08] MEDS: ASPIRIN 81 MG ECTAB PO SCH (08:33)
[2018-08-08 10:42] LABS: Basophils # (auto) 0.05 K/uL (0-0.2); Basophils % (auto) 0.6 %; Eosinophils # (auto) 0.21 K/uL (0-0.5); Eosinophils % (auto) 2.4 %; Hematocrit (blood only) 32.2 % (37-47); Hemoglobin 9.9 g/dL (12.0-16.0); Immature Granulocytes % (auto) 1.1 %; Lymphocytes # (auto) 1.94 K/uL (1.2-3.4); Lymphocytes % (auto) 22.3 %; Mean Corpuscular Volume 88.7 fL (80-100); Mean Platelet Volume 9.9 fL (7.4-10.4); Monocytes # (auto) 0.82 K/uL (0.11-0.59); Monocytes % (auto) 9.4 %; Neutrophils # (auto) 5.58 K/uL (1.4-6.5); Neutrophils % (auto) 64.2 %; Platelet Count 394 K/uL (130-400); RDW Coefficient of Variation 15.7 % (11.5-14.5); RDW Standard Deviation 50.9 fL (36.4-46.3); Red Blood Count 3.63 M/uL (4.2-5.4)
[2018-08-08 10:44] LABS: Mean Corpuscular Hgb Conc 30.7 g/dL (32-36)
[2018-08-08 10:49] LABS: INR 1.4 (0.9-1.1); Prothrombin Time 13.6 Seconds (9.0-12.0)
--- NOTE | 2018-08-08 15:40 | Hospitalist Progress Note ---
Date of Service August 08, 2018 Assessment & Plan (1) Pneumonia: CXR 07/30/18 showed right midlung nodular infiltrate and possible right bronchial wall thickening. CT 07/30/18 showed extensive tree-in-bud opacities and nodular consolidation at the lung bases as well as the right middle lobe and lingula CT chest 08/01/18 showed extensive centrilobular nodules throughout all 5 lobes though with an upper lobe predominance as well as patchy consolidation, including a dominant 20 mm peribronchovascular nodule in the right middle lobe. 1. Pneumonia. The patient has bilateral patchy infiltrates and she also has nodular densities On antibiotics of ceftriaxone from 07/31/18 to 08/07/18. Doxycycline 100 mg BID from 07/31/18 to date. Will plan on continuing Doxycycline up to 08/14/18 to complete a 14 day course 2. 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 Hypoxia The hypoxia has resolved and currently as of 08/07/18 patient has been on room air (2) COPD exacerbation: (3) Acute hypoxemic respiratory failure: Secondary to pneumonia supplemental oxygen requirements have decreased over time currently as of 08/07/18 patient has been room air (4) Hematoma of abdominal wall: Possible due to excessive cough in the setting of supratherapeutic INR CT abd/pelvis showed Large intramuscular left abdominal wall hematoma with extension into the properitoneal fat along the left inguinal region had supratherapeutic INR of 7 on 07/30/18 to 07/31/18 and then received Vit K oral subsequently coumadin was placed on hold because of concerns of abdominal wall hematoma and also unclear whether pulmonary service was going to perfrom bronchoscopy on the patient as of 08/04/18 no obvious superficial bruising of abdomen, and no immediate plans by pulmonary service to perform bronschoscopy so patient has been started on heparin drip and and oral coumadin to resume anticoagulation from history of pulmonary embolism repeat CT abdomen/pelvis 08/06/18 large intramuscular hematoma centered in the left rectus muscle is overall similar in size to the 07/30/2018 examination (5) WANDA (obstructive sleep apnea): Continue CPAP (6) CVA (cerebral vascular accident): CVA in Mar 2018 Completed plavix for 1 month aspirin had been held during hospital stay because of abdominal wall hematoma will plan on resuming starting 08/08/18 as abdominal wall hematoma appears stable (7) Pulmonary emboli: had supratherapeutic INR of 7 on 07/30/18 to 07/31/18 and then received Vit K oral subsequently coumadin was placed on hold because of concerns of abdominal wall hematoma and also unclear whether pulmonary service was going to perfrom bronchoscopy on the patient as of 08/04/18 resumed anticoagulation with heparin drip to bridge to therapeutic INR with coumadin while on 10 mg coumadin daily, the INR has barely increased as of 08/07/18, the INR is 1.3 and will increase coumadin to 11 mg daily as of 08/08/18, the INR is 1.4 and continue coumadin 11 mg daily. if by 08/09/18 the INR is not significantly changed then will consider going to coumadin 12 mg daily (8) CHF (congestive heart failure): Chronic diastolic heart failure Last ECHO showed EF of 70%, TTE 2018 07/30/18 CXR showed cardiomegaly with volume overload patient had received intermittent doses of torsemide on this admission 08/04/18 CXR Redemonstration of vague bilateral opacities. No pleural effusion or pneumothorax continue home dose oral torsemide as daily continue metoprolol (9) Supratherapeutic INR: had supratherapeutic INR of 7 on 07/30/18 to 07/31/18 and then received Vit K oral DVT prophylaxis as heparin drip and and oral coumadin INR today is 1.4 CODE STATUS FULL CODE Subjective currently on room air patient reporting that her breathing is at baseline Denies any chest pain. denies palpitations no obvious superficial bruising of abdomen patient denies blood from orifices remains on heparin drip as INR is still subtherapeutic Physical Exam 2 Vital Signs (Past 24 Hours): Last Vital Signs Temp 37.2 C 08/08/18 07:31 Pulse 73 08/08/18 07:31 Resp 18 08/08/18 07:31 BP 129/84 08/08/18 07:31 Pulse Ox 92 08/08/18 07:31 Constitutional: + obese Eyes: PERRL, conjunctivae normal, anicteric sclerae Neck: normal visual inspection Respiratory: normal respiratory effort Cardiovascular: Rate/Rhythm: regular rate and regular rhythm Gastrointestinal (Abdomen): normal bowel sounds, soft, nontender, no hepatosplenomegaly Inspection/Auscultation: abdomen normal to inspection Percussion/Palpation: abdomen soft (no bruising) Musculoskeletal: no cyanosis or clubbing, extremities motor strength 5/5 Head/Neck/Chest: normocephalic and head atraumatic Psychiatric: A+Ox3, euthymic affect _ (1) CHF (congestive heart failure) Heart failure chronicity: unspecified Heart failure type: unspecified Qualified Code(s): I50.9 - Heart failure, unspecified (2) Pneumonia Aspiration pneumonia type: Laterality: right Lung location: middle lobe of lung Pneumonia type: due to unspecified organism Qualified Code(s): J18.1 - Lobar pneumonia, unspecified organism
[2018-08-08 15:50] LABS: Quantiferon Mitogen-NIL >10.00 IU/ML; Quantiferon NIL 0.12 IU/ML; Quantiferon TB Gold Plus NEGATIVE; Quantiferon TB1-NIL <0.00 IU/ML; Quantiferon TB2-NIL <0.00 IU/ML
[2018-08-08] MEDS: WARFARIN SOD 10 MG TAB PO SCH (16:04)
[2018-08-08] MEDS: METOPROLOL SUCC 50MG EXT REL TAB PO SCH (16:04)
[2018-08-08] MEDS: WARFARIN SOD 1 MG TAB PO SCH (16:04)
[2018-08-09] MEDS: LEVOTHYROXINE SODIUM 200 MCG TABLET PO SCH (06:15)
[2018-08-09] MEDS: LEVOTHYROXINE SODIUM 25 MCG TABLET PO SCH (06:15)
[2018-08-09] MEDS: DOXYCYCLINE HYCLATE 100 MG CAP PO SCH ×2 (07:48→20:35)
[2018-08-09] MEDS: ASPIRIN 81 MG ECTAB PO SCH (07:49)
[2018-08-09] MEDS: TORSEMIDE 20 MG TAB PO SCH (07:49)
[2018-08-09] MEDS: TIOTROPIUM BROMIDE 5 PUFF/90 MCG INH INH SCH (07:50)
[2018-08-09 08:17] LABS: Partial Thromboplastin Ratio 2.3
[2018-08-09 08:18] LABS: Partial Thromboplastin Time 59.5 Seconds (21.0-31.0)
[2018-08-09 09:17] LABS: INR 1.4 (0.9-1.1); Prothrombin Time 13.9 Seconds (9.0-12.0)
[2018-08-09] MEDS: WARFARIN SOD 2 MG TAB PO SCH (15:43)
[2018-08-09] MEDS: WARFARIN SOD 10 MG TAB PO SCH (15:43)
[2018-08-09] MEDS: METOPROLOL SUCC 50MG EXT REL TAB PO SCH (15:43)
--- NOTE | 2018-08-09 16:28 | Hospitalist Progress Note ---
Date of Service August 09, 2018 Assessment & Plan (1) Pneumonia: CXR 07/30/18 showed right midlung nodular infiltrate and possible right bronchial wall thickening. CT 07/30/18 showed extensive tree-in-bud opacities and nodular consolidation at the lung bases as well as the right middle lobe and lingula CT chest 08/01/18 showed extensive centrilobular nodules throughout all 5 lobes though with an upper lobe predominance as well as patchy consolidation, including a dominant 20 mm peribronchovascular nodule in the right middle lobe. 1. Pneumonia. The patient has bilateral patchy infiltrates and she also has nodular densities On antibiotics of ceftriaxone from 07/31/18 to 08/07/18. Doxycycline 100 mg BID from 07/31/18 to date. Will plan on continuing Doxycycline up to 08/14/18 to complete a 14 day course 2. 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 Hypoxia The hypoxia has resolved and currently as of 08/07/18 patient has been on room air (2) COPD exacerbation: (3) Acute hypoxemic respiratory failure: Secondary to pneumonia supplemental oxygen requirements have decreased over time currently as of 08/07/18 patient has been on room air (4) Hematoma of abdominal wall: Possible due to excessive cough in the setting of supratherapeutic INR CT abd/pelvis showed Large intramuscular left abdominal wall hematoma with extension into the properitoneal fat along the left inguinal region had supratherapeutic INR of 7 on 07/30/18 to 07/31/18 and then received Vit K oral subsequently coumadin was placed on hold because of concerns of abdominal wall hematoma and also unclear whether pulmonary service was going to perfrom bronchoscopy on the patient as of 08/04/18 no obvious superficial bruising of abdomen, and no immediate plans by pulmonary service to perform bronschoscopy so patient has been started on heparin drip and and oral coumadin to resume anticoagulation from history of pulmonary embolism repeat CT abdomen/pelvis 08/06/18 large intramuscular hematoma centered in the left rectus muscle is overall similar in size to the 07/30/2018 examination (5) WANDA (obstructive sleep apnea): Continue CPAP (6) CVA (cerebral vascular accident): CVA in Mar 2018 Completed plavix for 1 month aspirin had been held during hospital stay because of abdominal wall hematoma continue aspirin starting 08/08/18 as abdominal wall hematoma appears stable (7) Pulmonary emboli: had supratherapeutic INR of 7 on 07/30/18 to 07/31/18 and then received Vit K oral subsequently coumadin was placed on hold because of concerns of abdominal wall hematoma and also unclear whether pulmonary service was going to perform bronchoscopy on the patient as of 08/04/18 resumed anticoagulation with heparin drip to bridge to therapeutic INR with coumadin while on 10 mg coumadin daily, the INR has barely increased as of 08/07/18, the INR is 1.3 and will increase coumadin to 11 mg daily as of 08/08/18, the INR is 1.4 and continue coumadin 11 mg daily. as of 08/09/18, the INR is 1.4 and will increase coumadin 12 mg daily (8) CHF (congestive heart failure): Chronic diastolic heart failure Last ECHO showed EF of 70%, TTE 2018 07/30/18 CXR showed cardiomegaly with volume overload patient had received intermittent doses of torsemide on this admission 08/04/18 CXR Redemonstration of vague bilateral opacities. No pleural effusion or pneumothorax continue home dose oral torsemide as daily continue metoprolol (9) Supratherapeutic INR: had supratherapeutic INR of 7 on 07/30/18 to 07/31/18 and then received Vit K oral DVT prophylaxis as heparin drip and and oral coumadin INR today is 1.4 CODE STATUS FULL CODE Subjective currently on room air patient reporting that her breathing is at baseline Denies any chest pain. denies palpitations no obvious superficial bruising of abdomen patient denies blood from orifices remains on heparin drip as INR is still subtherapeutic as 1.4 Physical Exam 2 Vital Signs (Past 24 Hours): Last Vital Signs Temp 36.7 C 08/09/18 07:24 Pulse 70 08/09/18 07:24 Resp 17 08/09/18 07:24 BP 117/68 08/09/18 07:24 Pulse Ox 91 08/09/18 07:24 Constitutional: + obese Eyes: PERRL, conjunctivae normal, anicteric sclerae Neck: normal visual inspection Respiratory: normal respiratory effort Cardiovascular: Rate/Rhythm: regular rate and regular rhythm Gastrointestinal (Abdomen): normal bowel sounds, soft, nontender, no hepatosplenomegaly Inspection/Auscultation: abdomen normal to inspection Percussion/Palpation: abdomen soft (no bruising) Musculoskeletal: no cyanosis or clubbing, extremities motor strength 5/5 Head/Neck/Chest: normocephalic and head atraumatic Psychiatric: A+Ox3, euthymic affect _ (1) Pneumonia Aspiration pneumonia type: Laterality: right Lung location: middle lobe of lung Pneumonia type: due to unspecified organism Qualified Code(s): J18.1 - Lobar pneumonia, unspecified organism (2) CHF (congestive heart failure) Heart failure chronicity: unspecified Heart failure type: unspecified Qualified Code(s): I50.9 - Heart failure, unspecified
[2018-08-09] MEDS: HEPARIN STANDARD DEXTROSE 25,000 UNITS/500 ML IV SCH (22:04)
[2018-08-10] MEDS: LEVOTHYROXINE SODIUM 200 MCG TABLET PO SCH (06:00)
[2018-08-10] MEDS: LEVOTHYROXINE SODIUM 25 MCG TABLET PO SCH (06:00)
[2018-08-10 06:46] LABS: INR 1.5 (0.9-1.1); Partial Thromboplastin Ratio 2.6; Prothrombin Time 14.4 Seconds (9.0-12.0)
[2018-08-10 06:48] LABS: Partial Thromboplastin Time 67.4 Seconds (21.0-31.0)
[2018-08-10] MEDS: TORSEMIDE 20 MG TAB PO SCH (08:30)
[2018-08-10] MEDS: ASPIRIN 81 MG ECTAB PO SCH (08:30)
[2018-08-10] MEDS: DOXYCYCLINE HYCLATE 100 MG CAP PO SCH ×2 (08:31→20:35)
[2018-08-10] MEDS: TIOTROPIUM BROMIDE 5 PUFF/90 MCG INH INH SCH (08:32)
[2018-08-10] MEDS: HEPARIN STANDARD DEXTROSE 25,000 UNITS/500 ML IV SCH (10:33)
[2018-08-10] MEDS ORDERED: SODIUM CHLORIDE 0.9% 1000ML 1,000 ML IV SCH (15:30)
[2018-08-10] MEDS: METOPROLOL SUCC 50MG EXT REL TAB PO SCH (15:42)
[2018-08-10] MEDS: WARFARIN SOD 10 MG TAB PO SCH (15:43)
[2018-08-10] MEDS: WARFARIN SOD 2 MG TAB PO SCH (15:43)
--- NOTE | 2018-08-10 16:37 | Hospitalist Progress Note ---
Date of Service August 10, 2018 Assessment & Plan (1) Pneumonia: --CT chest: Findings suggestive of subacute hypersensitivity pneumonitis or infectious bronchiolitis Received ceftriaxone from 07/31/18 to 08/07/18. --TB testing: Negative --Continue Doxycycline 100 mg BID for 4 more days to complete 2 week course --Needs repeat CT chest in 4 weeks --Appreciate Pulmnology Input Hypoxia Resolved Saturating well on room air (2) COPD exacerbation: (3) Acute hypoxemic respiratory failure: Secondary to pneumonia supplemental oxygen as needed (4) Hematoma of abdominal wall: Possible due to excessive cough in the setting of supratherapeutic INR CT abd/pelvis showed Large intramuscular left abdominal wall hematoma with extension into the properitoneal fat along the left inguinal region supratherapeutic INR:: INR 7.1 on 07/30/18 Received Vit K INR: 1.5 today Follows with Coumadin clinic May need repeat Abdominal imaging as outpatient (5) WANDA (obstructive sleep apnea): Continue CPAP (6) CVA (cerebral vascular accident): CVA in Mar 2018 Completed plavix for 1 month Continue aspirin (7) Pulmonary emboli: Monitor INR: 1.5 Continue Coumadin Plan to DC Heparin ggt when INR therapeutic range (8) CHF (congestive heart failure): Chronic diastolic heart failure Last ECHO showed EF of 70%, TTE 2018 continue torsemide, metoprolol (9) Supratherapeutic INR: Resolved DVT Px: On Heparin ggt, Coumadin Code Status: Full Code Disposition: Expect to discharge home when stable Subjective Patient is seen and examined at bedside Doing well today Offers no complaints Denies chest pain, dyspnea, abd pain, bleeding issues, dizziness Eager to get discharged on heparin ggt Physical Exam 2 Vital Signs (Past 24 Hours): Last Vital Signs Temp 36.9 C 08/10/18 14:37 Pulse 82 08/10/18 14:37 Resp 18 08/10/18 14:37 BP 138/79 08/10/18 14:37 Pulse Ox 93 08/10/18 14:37 Physical Exam: Physical Exam: Vitals signs as noted above General Appearance:Morbidly Obese, no apparent distress Head: normocephalic, Atraumatic Eyes: normal inspection, EOMI Neck: supple, Trachea midline Respiratory/Chest: Decreased breath sounds, CTA Cardiovascular: S1, S2, No murmur Abdomen/GI:Soft, Non tender, Bowel sounds present Extremities/Musculoskelatal:normal inspection, No pedal edema, Chronic venous stasis changes Neurologic/Psych:AAOX3, grossly no focal neurological deficits Skin: normal color, warm _ (1) Pneumonia Aspiration pneumonia type: Laterality: right Lung location: middle lobe of lung Pneumonia type: due to unspecified organism Qualified Code(s): J18.1 - Lobar pneumonia, unspecified organism (2) CHF (congestive heart failure) Heart failure chronicity: unspecified Heart failure type: unspecified Qualified Code(s): I50.9 - Heart failure, unspecified
--- NOTE | 2018-08-10 17:41 | Progress Note ---
DATE: 08/10/2018 Chart reviewed, patient examined. SUBJECTIVE: The patient feels reasonably well, was admitted with progressive symptoms of shortness of breath. Her last cigarette she states was 2 months ago after a longstanding smoking habit. CT scan on 08/03/2018 showed extensive tree-in-bud opacities and nodular consolidation at the lung bases as well as the right middle lobe and lingula. Repeat CT scan 2 days later showed central lobular nodules throughout all 5 lobes with an upper lobe predominance as well as patchy consolidation in a dominant 20 mm peribronchovascular nodular right middle lobe. The patient had been on doxycycline and was continued on that for a 14-day course. The patient was evaluated by Dr. Melissa Jaquez from pulmonary medicine and sputum was obtained for acid fast bacilli x3 with two reportedly being negative. The QuantiFERON-TB gold serology has been negative and the patient had been anticoagulated with Coumadin with a prolonged INR on admission. Apparently chest x-ray 07/30/2018 showed volume overload and the patient has been receiving intermittent diuretics. PHYSICAL EXAMINATION: GENERAL: Currently, the patient is stable. VITAL SIGNS: Blood pressure 138/79, pulse 82 and regular, respiratory rate 18, temperature 36.9, pulse 93% on room air. SKIN: Warm and dry. HEENT: Atraumatic, normocephalic, PERRLA, EOMI. Conjunctivae pale. Sclerae nonicteric. Fundi poorly visualized. NECK: Neck veins are not distended at 45 degrees. No evidence of adenopathy in the supra or infraclavicular areas. LUNGS: Scattered wheeze. Distant P&A. CARDIAC EXAM: Unchanged. ABDOMEN: Soft, protuberant. EXTREMITIES: No pedal edema, clubbing or cyanosis. NEUROLOGIC: Intact. No lateralizing signs. PTT INR 2.6, PT/INR 1.5. ABGs on admission pH 7.41, pCO2 of 45, pO2 of 53, BUN 28, creatinine 1.22. Serology as noted negative for influenza A and B PCR. CT scan as noted. Sputum x3 with two negative for acid fast bacilli. OVERALL ASSESSMENT: [id number] with COPD/asthma with diffuse patchy opacities with areas of consolidation, certainly suspicious for RADHA infection, but allergic bronchopulmonary aspergillosis versus other etiology cannot be ruled out. She does have a history of pulmonary thromboembolic disease and will need to review that hospitalization and her indications for prolonged or indefinite anticoagulant therapy (patient states she was told she will have to be on a blood thinner the rest of her life). In the meantime I will schedule for bronchoscopic evaluation tomorrow with BAL for more definitive diagnostic consideration.
[2018-08-11 06:12] LABS: Hematocrit (blood only) 30.7 % (37-47); Hemoglobin 9.2 g/dL (12.0-16.0); Mean Platelet Volume 10.9 fL (7.4-10.4); Platelet Count 307 K/uL (130-400); RDW Coefficient of Variation 15.9 % (11.5-14.5); RDW Standard Deviation 51.2 fL (36.4-46.3); Red Blood Count 3.45 M/uL (4.2-5.4); White Blood Count 8.62 K/uL (4.8-10.8)
[2018-08-11] MEDS: LEVOTHYROXINE SODIUM 200 MCG TABLET PO SCH (06:21)
[2018-08-11] MEDS: LEVOTHYROXINE SODIUM 25 MCG TABLET PO SCH (06:21)
[2018-08-11 06:24] LABS: INR 1.4 (0.9-1.1); Partial Thromboplastin Ratio 1.1; Partial Thromboplastin Time 28.6 Seconds (21.0-31.0); Prothrombin Time 13.9 Seconds (9.0-12.0)
--- NOTE | 2018-08-11 08:56 | History & Physical Bridge Note ---
Date of Service August 11, 2018 History & Physical Bridge Note I have examined the patient, reviewed the History & Physical and in the interval since the performance of the History & Physical I have noted the following changes of clinical significance: no changes noted
--- NOTE | 2018-08-11 08:57 | Pre Anesthesia Assessment ---
Date of Service August 11, 2018 Pre Sedation Assessment Vital Signs Temp Pulse Pulse Resp BP BP Pulse Ox 08/11/18 07:14 36.8 C 72 16 113/63 91 08/10/18 23:30 78 18 95 08/10/18 22:13 36.7 C 70 18 127/70 94 08/10/18 14:37 36.9 C 82 18 138/79 93 Cardiovascular RRR, no murmur, no edema Respiratory normal respiratory effort, lungs clear to auscultation Pre-Sedation Airway Assessment Smoking Status: Never smoker Thyromental Distance: > or= 3.5 Finger Breadths Mallampati Class: II ASA: ASA2 Notes The planned sedation has been discussed with the patient. Informed Consent was obtained. I have identified the patient, determined the appropriateness of sedation and have assessed the patient immediately prior to the procedure. All medicine(s) and interventions are by my order.
[2018-08-11] MEDS: HEPARIN STANDARD DEXTROSE 25,000 UNITS/500 ML IV SCH ×2 (09:27→13:58)
[2018-08-11] MEDS ORDERED: LIDOCAINE HCL 2% (LOCAL) INJ 50 ML VIAL INFIL STA (10:37)
[2018-08-11] MEDS ORDERED: fentaNYL citrate 100 MCG/2 ML VIAL IV ONE (10:37)
[2018-08-11] MEDS ORDERED: LIDOCAINE HCL VISCOUS SOLN 2% 15 ML UDC MT ONE (10:37)
[2018-08-11] MEDS ORDERED: MIDAZOLAM HCL 1 MG/ML 2ML VIAL IV STA (10:37)
[2018-08-11] MEDS ORDERED: OXYMETAZOLINE 0.05% 30 ML BTL ONE (10:37)
[2018-08-11] MEDS ORDERED: LEVALBUTEROL 1.25MG/0.5ML NEB NEB STA (10:37)
[2018-08-11] MEDS ORDERED: LIDOCAINE 4% INH SOLN 4 ML BTL INH STA (10:37)
--- NOTE | 2018-08-11 11:34 | Post Anesthesia Assessment ---
Date of Service August 11, 2018 Post Sedation Assessment Vital Signs Temp Pulse Pulse Resp BP BP Pulse Ox 08/11/18 10:48 77 16 122/69 91 08/11/18 10:45 77 16 115/63 95 08/11/18 10:40 75 14 114/55 L 93 08/11/18 10:35 74 14 115/66 93 08/11/18 10:30 75 16 117/67 94 08/11/18 10:25 74 14 118/67 93 08/11/18 10:20 72 14 116/69 95 08/11/18 10:09 76 20 112/61 94 08/11/18 07:14 36.8 C 72 16 113/63 91 08/10/18 23:30 78 18 95 08/10/18 22:13 36.7 C 70 18 127/70 94 08/10/18 14:37 36.9 C 82 18 138/79 93 Recovery Score Activity: Moves 4 extremities Respiration: Deep Breath/Cough Circulation: +/-20% PreAnes Value Consciousness: Arouseable (by name) Oxygen Saturation: O2 needed for >90% Post Anesthesia Score: 8 Post Sedation Plan On clinical assessment, the patient appears to have tolerated the sedation without complications. Patient is recovering as anticipated. Patient will continue to be monitored by nursing and may be discharged when sedation discharge criteria are met per below protocol. Upon Completions of procedure and additional 15 minutes continue every 5 minute vital signs and the P.A.R. score; then discharge to a Phase I or Fast Track to Phase II per the following guidelines: * Discharge Patient to appropriate Phase II area if PAR is 8 or greater or return to pre- procedure baseline. The post - procedure orders will be as directed. * If PAR score is less than 8 or not return to pre-procedure baseline then patient will follow Phase I monitoring till PAR is reached for Phase II. The Phase I may be done in procedure room or may call to secure a Phase I area. * �If naloxone or flumazenil are used for reversal, hold in Phase I for continued monitoring from when last reversal dose was given for a minimum of 60 minutes or longer pending the nurse and/or physician discretion of patient condition before discharge to Phase II.� Please call the Sedation Physician to re-evaluate and complete post-note for discharge to Phase II area. Do NOT discharge from procedure sedation or Phase 1 until post- sedation evaluation note is complete by procedure /sedation MD Sedation Discharge Instructions to be given to the patient at discharge to home.
--- NOTE | 2018-08-11 11:35 | Post Operative Brief Note ---
Immediate Post Op Note v1 Date of Surgery August 11, 2018 Pre & Post Diagnosis Operation Date: 08/03/18 10:30 <No data on this case meets the specified criteria> Operation Date: 08/11/18 10:00 Pre-Op Diagnosis: Multifocal Pneumonia Post-Op Diagnosis: Multifocal Pneumonia Procedure Operation Date: 08/03/18 10:30 <No data on this case meets the specified criteria> Operation Date: 08/11/18 10:00 Actual Procedures p Bronchoscopy Radiology(Bilateral) - Good Bolaños MD Surgeon Good Bolaños MD Sliver Cutter none Estimated Blood Loss 0 Findings Consistent with Post-Op Diagnosis Multifocal opacities Complications none Disposition Accompanied Patient To Recovery: No Overlapping Procedure I was present for: the critical portions of procedure. I was immediately available: during the entire case. Back up surgeon: was not required during procedure.
[2018-08-11] MEDS ORDERED: Nursing to Pharmacy Communication ONE (11:45)
--- NOTE | 2018-08-11 11:56 | Progress Note ---
DATE: 08/11/2018 PULMONARY MEDICINE PROGRESS NOTE Chart reviewed, patient examined. SUBJECTIVE: The patient underwent bronchoscopic evaluation uneventfully this morning. She has had a history of multifocal opacities with suspicion for RADHA infection. Sputum for acid fast bacilli had been negative as has her QuantiFERON gold serology. Her anticoagulation in the form of IV heparin was held at midnight and her Coumadin was held today so far. She underwent the procedure uneventfully with bronchial washings and lavage taken from different lobar and segmental bronchi with cultures planted. No endobronchial lesions were seen. She tolerated the procedure well and was to be restarted on IV heparin with additional bolus and continued on her Coumadin anticoagulant therapy today. The patient can be discharged from my standpoint with followup in the clinic within several weeks. I would not start patient on treatment for RADHA infection unless we have culture evidence for that given that we are looking at 12-18 months of 2-3 drug regimen at a minimum; therefore, not to be treat empirically. MTDD
[2018-08-11] MEDS: TORSEMIDE 20 MG TAB PO SCH (12:41)
[2018-08-11] MEDS: DOXYCYCLINE HYCLATE 100 MG CAP PO SCH ×2 (12:41→21:17)
[2018-08-11] MEDS: ASPIRIN 81 MG ECTAB PO SCH (12:42)
[2018-08-11] MEDS: TIOTROPIUM BROMIDE 5 PUFF/90 MCG INH INH SCH (13:31)
--- NOTE | 2018-08-11 14:03 | Operative Report ---
DATE OF OPERATION: 08/11/2018 PROCEDURE: Fiberoptic bronchoscopy, bronchoalveolar lavage. INDICATIONS: Persistent respiratory symptoms with multifocal opacities. ANESTHESIA PREOPERATIVELY: None. ANESTHESIA DURING PROCEDURE: IV fentanyl 100 mcg, IV Versed 5 mg. DESCRIPTION OF PROCEDURE: The patient received moderate conscious sedation from 10:23 to 10:37. The fiberoptic bronchoscope was inserted into the right naris with minimal difficulty and passed to the level of the true vocal cords. The cords appear to approximate normally with phonation without evidence of lesions or paralysis. The area was anesthetized with 2% Xylocaine spray. The scope was then introduced to right and left tracheobronchial tree. The trachea and caity were within normal limits and the caity was sharp. The right main stem bronchus was found to be free of endobronchial lesions. Right upper lobe, the apical posterior, anterior segments, bronchus intermedius, right middle lobe and the medial lateral segments and all basilar segments of right lower lobe were free of endobronchial lesions with plug like mucus lavaged from right lower lobe basilar segments until clear and the aspirate collected for analysis. Left tracheobronchial tree showed no endobronchial lesions. Left upper lobe, lingual subdivision and left lower lobe were free of endobronchial lesions down to the subsegmental bronchi, but copious mucoviscous secretion was lavaged from the left lower lobe basal segments until clear. No brushings or biopsies were obtained. The patient tolerated the procedure well, was given a nebulizer treatment and then transferred back to the medical floor hemodynamically stable. We will await microbiological and cytologic examination of the bronchial washings. I attest to the content of the Intraoperative Record and any orders documented therein. Any exception s are noted below.
--- NOTE | 2018-08-11 15:01 | Progress Note ---
DATE: 08/11/2018 ADDENDUM: I did speak with Dr. Juan Bowden concerning Nohemy Chavis. I reiterated that I felt she needs to be followed up in our office in 4-6 weeks when the cultures should be back from the bronchial washings done today. She needs to be followed from a pulmonary standpoint. The nurses have been instructed to place her back on IV heparin with bolus as per protocol and dose with Coumadin today. She could be discharged on Lovenox/Coumadin in my opinion with followup in our clinic. I would place her on a tapered course of prednisone along with her and discontinue her doxycycline. I would make sure she has the use of a nebulizer with aerosolized bronchodilator for home use and will be seen in the clinic in followup by myself or one of our mid levels within 4-6 weeks.
[2018-08-11] MEDS: WARFARIN SOD 2 MG TAB PO SCH (16:52)
[2018-08-11] MEDS: METOPROLOL SUCC 50MG EXT REL TAB PO SCH (16:52)
[2018-08-11] MEDS: WARFARIN SOD 10 MG TAB PO SCH (16:52)
--- NOTE | 2018-08-11 19:50 | Hospitalist Progress Note ---
Date of Service August 11, 2018 Assessment & Plan (1) Pneumonia: --CT chest: Findings suggestive of subacute hypersensitivity pneumonitis or infectious bronchiolitis Received ceftriaxone from 07/31/18 to 08/07/18. --TB testing: Negative --S/P bronchoscopy --Continue Doxycycline 100 mg BID for 3 more days to complete 2 week course --Needs repeat CT chest in 4 weeks --Appreciate Pulmnology Input --Needs FU with Pulmnology in 4-6 weeks Hypoxia Resolved Saturating well on room air (2) COPD exacerbation: (3) Acute hypoxemic respiratory failure: Secondary to pneumonia supplemental oxygen as needed (4) Hematoma of abdominal wall: Possible due to excessive cough in the setting of supratherapeutic INR CT abd/pelvis showed Large intramuscular left abdominal wall hematoma with extension into the properitoneal fat along the left inguinal region supratherapeutic INR:: INR 7.1 on 07/30/18 Received Vit K INR: 1.4 today Follows with Coumadin clinic May need repeat Abdominal imaging as outpatient Resumed coumadin today (5) WANDA (obstructive sleep apnea): Continue CPAP (6) CVA (cerebral vascular accident): CVA in Mar 2018 Completed plavix for 1 month Continue aspirin (7) Pulmonary emboli: Monitor INR: 1.4 Continue Coumadin Plan to DC Heparin ggt when INR therapeutic range (8) CHF (congestive heart failure): Chronic diastolic heart failure Last ECHO showed EF of 70%, TTE 2018 continue torsemide, metoprolol (9) Supratherapeutic INR: Resolved DVT Px: On Heparin ggt, Coumadin Code Status: Full Code Disposition: Expect to discharge home when stable Subjective Patient is seen and examined at bedside Had Bronchoscopy today Plan to resume anticoagulation today Offers no complaints Denies chest pain, dyspnea, abd pain, bleeding issues, dizziness Family at bedside on heparin ggt Physical Exam 2 Vital Signs (Past 24 Hours): Last Vital Signs Temp 37.4 C 08/11/18 15:18 Pulse 75 08/11/18 15:18 Resp 18 08/11/18 15:18 BP 113/68 08/11/18 15:18 Pulse Ox 90 08/11/18 15:18 Physical Exam: Physical Exam: Vitals signs as noted above General Appearance:Morbidly Obese, no apparent distress Head: normocephalic, Atraumatic Eyes: normal inspection, EOMI Neck: supple, Trachea midline Respiratory/Chest: Decreased breath sounds, CTA Cardiovascular: S1, S2, No murmur Abdomen/GI:Soft, Non tender, Bowel sounds present Extremities/Musculoskelatal:normal inspection, No pedal edema, Chronic venous stasis changes Neurologic/Psych:AAOX3, grossly no focal neurological deficits Skin: normal color, warm Results & Data Laboratory Results Short CBC 08/11/18 Range/Units 05:36 WBC 8.62 (4.8-10.8) K/uL Hgb 9.2 L (12.0-16.0) g/dL Hct 30.7 L (37-47) % Plt Count 307 (130-400) K/uL _ (1) Pneumonia Aspiration pneumonia type: Laterality: right Lung location: middle lobe of lung Pneumonia type: due to unspecified organism Qualified Code(s): J18.1 - Lobar pneumonia, unspecified organism (2) CHF (congestive heart failure) Heart failure chronicity: unspecified Heart failure type: unspecified Qualified Code(s): I50.9 - Heart failure, unspecified
[2018-08-11 20:02] LABS: Partial Thromboplastin Ratio 1.8
[2018-08-11 20:08] LABS: Partial Thromboplastin Time 46.4 Seconds (21.0-31.0)
[2018-08-11] MEDS ORDERED: HEPARIN IV BOLUS 4,000 UNITS in SYRINGE 0 ML IV ONE (20:45)
[2018-08-12] MEDS: HEPARIN STANDARD DEXTROSE 25,000 UNITS/500 ML IV SCH (02:09)
[2018-08-12 03:33] LABS: Hematocrit (blood only) 31.2 % (37-47); Hemoglobin 9.5 g/dL (12.0-16.0); Mean Corpuscular Hgb Conc 30.4 g/dL (32-36); Mean Corpuscular Volume 88.9 fL (80-100); Mean Platelet Volume 9.8 fL (7.4-10.4); Platelet Count 341 K/uL (130-400); RDW Coefficient of Variation 16.2 % (11.5-14.5); Red Blood Count 3.51 M/uL (4.2-5.4); White Blood Count 8.27 K/uL (4.8-10.8)
[2018-08-12 03:53] LABS: INR 1.4 (0.9-1.1); Prothrombin Time 13.6 Seconds (9.0-12.0)
[2018-08-12] MEDS: LEVOTHYROXINE SODIUM 200 MCG TABLET PO SCH (06:34)
[2018-08-12] MEDS: LEVOTHYROXINE SODIUM 25 MCG TABLET PO SCH (06:34)
[2018-08-12] MEDS: DOXYCYCLINE HYCLATE 100 MG CAP PO SCH ×2 (07:46→20:49)
[2018-08-12] MEDS: TIOTROPIUM BROMIDE 5 PUFF/90 MCG INH INH SCH (07:47)
[2018-08-12] MEDS: TORSEMIDE 20 MG TAB PO SCH (07:48)
[2018-08-12] MEDS: ASPIRIN 81 MG ECTAB PO SCH (07:49)
[2018-08-12 11:20] LABS: Partial Thromboplastin Ratio 2.4
[2018-08-12] MEDS ORDERED: LOVENOX TEACHING KIT PRN (12:05)
--- NOTE | 2018-08-12 13:21 | Progress Note ---
DATE: 08/12/2018 PULMONARY MEDICINE PROGRESS NOTE Chart reviewed, the patient examined. SUBJECTIVE: The patient feels reasonably well. Minimal cough. She has tolerated bronchoscopy well with cultures pending. I reviewed her record from early admission this time to previous admission in March when suffered a CVA and the diagnosis of pulmonary emboli were made concurrently. The diagnosis of pulmonary emboli was made by CTA of the head and neck interesting enough. There were multiple significant segmental pulmonary emboli involving bilateral upper lobes seen as part of the "washed-out" phase of the CT angiogram done to better visualize the arterial vascular structures of the head and neck at that time. The patient did have an echocardiogram and bubble study and no obvious patent AST was noted. The patient was started on anticoagulant therapy and had to be admitted this time with a large bleed visible by abdominal pelvic CT scan on 07/30/2018. At that time, a large intramuscular hematoma centered in the left rectus muscle was noted and had not changed from 07/30/2018 to 08/06/2018 with a stable H and H. The patient has been started back on IV heparin and Coumadin and apparently is to be discharged either today or tomorrow on a combination of Lovenox and Coumadin as per the hospitalist service. The patient has been stable with no obvious recurrence of her bleeding and her cough is virtually dissipated so that triggering influence is no longer present. I had not seen a CTA of the chest at that time during the March admission, but clearly in review with Dr. Julian Tamez from radiology saw the pulmonary emboli as an incidental finding involving the segmental branches to both upper lobes. A full CTA was never performed. The patient was told at that time that she would have to remain on full anticoagulant therapy indefinitely perhaps the rest of her life. Currently, we were in the fifth month of treatment and she is currently being bridged for outpatient followup. I am happy to see the patient in the clinic in 4-6 weeks' time and will check the cultures from the BAL to see if RADHA or a slow-growing indolent infection/organism or the reason for the multifocal opacities seen on previous CAT scan. The CAT scan of the chest appears to be improving.
[2018-08-12] MEDS: ENOXAPARIN INJ 120 MG/0.8 ML SYR SQ SCH (16:08)
[2018-08-12] MEDS: METOPROLOL SUCC 50MG EXT REL TAB PO SCH (16:10)
[2018-08-12] MEDS: WARFARIN SOD 10 MG TAB PO SCH (16:10)
[2018-08-12] MEDS: WARFARIN SOD 2 MG TAB PO SCH (16:11)
--- NOTE | 2018-08-12 19:23 | Hospitalist Progress Note ---
Date of Service August 12, 2018 Assessment & Plan (1) Pneumonia: --CT chest: Findings suggestive of subacute hypersensitivity pneumonitis or infectious bronchiolitis Received ceftriaxone from 07/31/18 to 08/07/18. --TB testing: Negative --S/P bronchoscopy --Continue Doxycycline 100 mg BID for 2 more days to complete 2 week course --Needs repeat CT chest in 4 weeks --Appreciate Pulmnology Input --Needs FU with Pulmnology in 4-6 weeks Hypoxia Resolved Saturating well on room air (2) COPD exacerbation: (3) Acute hypoxemic respiratory failure: Secondary to pneumonia supplemental oxygen as needed (4) Hematoma of abdominal wall: Possible due to excessive cough in the setting of supratherapeutic INR CT abd/pelvis showed Large intramuscular left abdominal wall hematoma with extension into the properitoneal fat along the left inguinal region supratherapeutic INR:: INR 7.1 on 07/30/18 Received Vit K INR: 1.4 today Follows with Coumadin clinic May need repeat Abdominal imaging as outpatient Resumed coumadin (5) WANDA (obstructive sleep apnea): Continue CPAP (6) CVA (cerebral vascular accident): CVA in Mar 2018 Completed plavix for 1 month Continue aspirin (7) Pulmonary emboli: Monitor INR: 1.4 Continue Coumadin Transitioned from Heparin ggt to Lovenox Monitor renal function (8) CHF (congestive heart failure): Chronic diastolic heart failure Last ECHO showed EF of 70%, TTE 2018 continue torsemide, metoprolol (9) Supratherapeutic INR: Resolved DVT Px: On Lovenox, Coumadin Code Status: Full Code Disposition: Expect to discharge home when stable Needs Insurance auth for Lovenox Subjective Patient is seen and examined at bedside Plan to switch to lovenox today No new complaints Denies chest pain, dyspnea, abd pain, bleeding issues, dizziness Eager to get discharged Physical Exam 2 Vital Signs (Past 24 Hours): Last Vital Signs Temp 37.1 C 08/12/18 15:51 Pulse 73 08/12/18 15:51 Resp 18 08/12/18 15:51 BP 108/73 08/12/18 15:51 Pulse Ox 92 08/12/18 15:51 Physical Exam: Physical Exam: Vitals signs as noted above General Appearance:Morbidly Obese, no apparent distress Head: normocephalic, Atraumatic Eyes: normal inspection, EOMI Neck: supple, Trachea midline Respiratory/Chest: Decreased breath sounds, CTA Cardiovascular: S1, S2, No murmur Abdomen/GI:Soft, Non tender, Bowel sounds present Extremities/Musculoskelatal:normal inspection, No pedal edema, Chronic venous stasis changes Neurologic/Psych:AAOX3, grossly no focal neurological deficits Skin: normal color, warm Results & Data Laboratory Results Short CBC 08/12/18 Range/Units 03:18 WBC 8.27 (4.8-10.8) K/uL Hgb 9.5 L (12.0-16.0) g/dL Hct 31.2 L (37-47) % Plt Count 341 (130-400) K/uL _ (1) Pneumonia Aspiration pneumonia type: Laterality: right Lung location: middle lobe of lung Pneumonia type: due to unspecified organism Qualified Code(s): J18.1 - Lobar pneumonia, unspecified organism (2) CHF (congestive heart failure) Heart failure chronicity: unspecified Heart failure type: unspecified Qualified Code(s): I50.9 - Heart failure, unspecified
[2018-08-13 05:59] LABS: Hematocrit (blood only) 31.3 % (37-47); Hemoglobin 9.7 g/dL (12.0-16.0)
[2018-08-13] MEDS: LEVOTHYROXINE SODIUM 25 MCG TABLET PO SCH (06:26)
[2018-08-13] MEDS: ENOXAPARIN INJ 120 MG/0.8 ML SYR SQ SCH (06:27)
[2018-08-13] MEDS: LEVOTHYROXINE SODIUM 200 MCG TABLET PO SCH (06:27)
[2018-08-13 06:31] LABS: Creatinine Clr Calc Pharmacy 78.5 ml/min; Est GFR (African American) 61.6; Est GFR (Non-African American) 53.2
[2018-08-13 06:59] LABS: INR 1.3 (0.9-1.1); Prothrombin Time 13.3 Seconds (9.0-12.0)
[2018-08-13] MEDS: TIOTROPIUM BROMIDE 5 PUFF/90 MCG INH INH SCH (09:18)
[2018-08-13] MEDS: TORSEMIDE 20 MG TAB PO SCH (09:19)
[2018-08-13] MEDS: DOXYCYCLINE HYCLATE 100 MG CAP PO SCH (09:19)
[2018-08-13] MEDS: ASPIRIN 81 MG ECTAB PO SCH (09:20)
--- NOTE | 2018-08-13 14:07 | Hospitalist Progress Note ---
Date of Service August 13, 2018 Assessment & Plan (1) Pneumonia: --CT chest: Findings suggestive of subacute hypersensitivity pneumonitis or infectious bronchiolitis Received ceftriaxone from 07/31/18 to 08/07/18. --TB testing: Negative --S/P bronchoscopy --Completed Doxycycline 100 mg BID--2 week course --Needs repeat CT chest in 4 weeks --Appreciate Pulmnology Input --Needs FU with Pulmnology in 4-6 weeks Hypoxia Resolved Saturating well on room air (2) COPD exacerbation: (3) Acute hypoxemic respiratory failure: Secondary to pneumonia supplemental oxygen as needed (4) Hematoma of abdominal wall: Possible due to excessive cough in the setting of supratherapeutic INR CT abd/pelvis showed Large intramuscular left abdominal wall hematoma with extension into the properitoneal fat along the left inguinal region supratherapeutic INR:: INR 7.1 on 07/30/18 Received Vit K INR: 1.4 today Follows with Coumadin clinic May need repeat Abdominal imaging as outpatient Resumed coumadin (5) WANDA (obstructive sleep apnea): Continue CPAP (6) CVA (cerebral vascular accident): CVA in Mar 2018 Completed plavix for 1 month Continue aspirin (7) Pulmonary emboli: Monitor INR: 1.4 Continue Coumadin Transitioned from Heparin ggt to Lovenox while hospitalized Monitor renal function --Discussed with risks/benefits of lovenox bridging in setting of large intramuscular hematoma--Patient and family preferred no bridge and agreed to continue coumadin alone and follow up with coumadin clinic on 08/15/18 --Advised to take 15mg coumadin today (8) CHF (congestive heart failure): Chronic diastolic heart failure Last ECHO showed EF of 70%, TTE 2018 continue torsemide, metoprolol (9) Supratherapeutic INR: Resolved DVT Px: On Lovenox, Coumadin Code Status: Full Code Disposition: Expect to discharge home when stable Subjective Patient is seen and examined at bedside Doing well today Hb better No new complaints Family at bedside Denies chest pain, dyspnea, abd pain, bleeding issues, dizziness Physical Exam 2 Vital Signs (Past 24 Hours): Last Vital Signs Temp 37.0 C 08/13/18 08:13 Pulse 73 08/13/18 08:13 Resp 18 08/13/18 08:13 BP 101/66 08/13/18 08:13 Pulse Ox 90 08/13/18 08:13 Physical Exam: Physical Exam: Vitals signs as noted above General Appearance:Morbidly Obese, no apparent distress Head: normocephalic, Atraumatic Eyes: normal inspection, EOMI Neck: supple, Trachea midline Respiratory/Chest: Decreased breath sounds, CTA Cardiovascular: S1, S2, No murmur Abdomen/GI:Soft, Non tender, Bowel sounds present Extremities/Musculoskelatal:normal inspection, No pedal edema, Chronic venous stasis changes Neurologic/Psych:AAOX3, grossly no focal neurological deficits Skin: normal color, warm Results & Data Laboratory Results Short CBC 08/13/18 Range/Units 05:28 Hgb 9.7 L (12.0-16.0) g/dL Hct 31.3 L (37-47) % BMP 08/13/18 05:28 Creatinine 1.17 _ (1) Pneumonia Aspiration pneumonia type: Laterality: right Lung location: middle lobe of lung Pneumonia type: due to unspecified organism Qualified Code(s): J18.1 - Lobar pneumonia, unspecified organism (2) CHF (congestive heart failure) Heart failure chronicity: unspecified Heart failure type: unspecified Qualified Code(s): I50.9 - Heart failure, unspecified
--- NOTE | 2018-08-13 14:17 | Discharge Summary ---
Date of Service August 13, 2018 Admission HPI Per Admitting Provider History obtained from patient and records. Medical history significant for chronic diastolic heart failure, EF of 70%, TTE 2018, hypertension, COPD/restrictive lung disease/WANDA on CPAP as per records, history CVA, history PE on Coumadin, past tobacco abuse, hypothyroidism, CRI (baseline creatinine 1.3-1.5 ), chronic anemia (baseline hemoglobin 9-10 ) chronic lymphedema, history of MRSA Recent confinement March 2018 for decompensated heart failure. Patient also found to have CVA, left frontoparietal. Patient discharged on aspirin and Plavix. Patient also found to have multiple pulmonary emboli during confinement. Patient discharged on Coumadin. Few days history of cough symptoms productive of junky sputum with worsening shortness of breath. Admits to some sick contacts, denies aspiration. No chest pain. Achy left-sided abdominal pain from coughing. Patient brought to the ER by family because of worsening symptoms. At the ER, patient received IV Solu-Medrol and Levaquin for COPD exacerbation. Patient currently feeling better. Medical History as above Surgical History : Breast surgery, section, carpal tunnel surgery, tonsillectomy, cholecystectomy Family History : Unknown as patient was adopted Personal/Social history : Past tobacco abuse, no chronic EtOH intake, unemployed Admission Exam Per Admitting Provider GENERAL: Obese, minimal respiratory distress SKIN: Pallor, warm HEENT: Pale palpebral conjunctivae, no ptosis, dry buccal mucosa, O2 mask in place NECK : Supple, short, no tenderness CHEST : Decreased breath sounds, occasional expiratory wheezes, no tenderness HEART : Tachycardic , no obvious murmurs ABDOMEN: Some distention, nontender EXTREMITIES : scottie LE swelling/skin thickening (chronic), no tenderness, no other conspicuous deformities noted NEUROLOGIC : Coherent, no facial asymmetry, no other gross focality Principal Diagnosis Discharge Information Discharge Diagnosis Pneumonia COPD exacerbation Hematoma of abdominal wall Discharge Goals Decrease discomfort,Improve disease control, Improve function Discharge Activity Limitations Resume your previous activity Discharge Data Allergies Allergy/AdvReac Type Severity Reaction Status Date / Time adhesive tape Allergy Intermediate Rash - Verified 08/09/18 07:05 CLOTH TAPE morphine AdvReac Unknown Unverified 07/30/18 18:59 Consultations 07/30/18 20:54 ED Decision to Admit Stat 07/31/18 02:20 Consult Pulmonology Routine Procedures Performed Operation Date: 08/03/18 10:30 <No data on this case meets the specified criteria> Operation Date: 08/11/18 10:00 Actual Procedures p Bronchoscopy Radiology(Bilateral) - Good Bolaños MD CT ABD: 1. Large intramuscular left abdominal wall hematoma with extension into the properitoneal fat along the left inguinal region. This may iatrogenic or spontaneous related to coagulopathy. Correlate clinically. 2. No hemoperitoneum. 3. Indeterminate 1.4 cm left adrenal nodule. 4. Extensive tree-in-bud opacities and nodular consolidation at the lung bases as well as the right middle lobe and lingula. This raises concern for an indolent infection such as mycobacterium avium intracellulare. The report will be called/faxed according to standard departmental protocol. Chest CT: Extensive centrilobular nodules throughout all 5 lobes though with an upper lobe predominance as well as patchy consolidation, including a dominant 20 mm peribronchovascular nodule in the right middle lobe. These findings are concerning for subacute hypersensitivity pneumonitis or infectious bronchiolitis. Infectious etiologies include tuberculous nontuberculous mycobacterial infections as well as fungal infectious lung other etiologies. Sarcoidosis or other etiologies are considered less likely. Consider bronchoscopy and/or short-term interval follow-up chest CT in 3 -- [address] ABD: 1. Again seen is a large intramuscular hematoma centered in the left rectus muscle. This is overall similar in size to the 07/30/2018 examination. 2. Intrapelvic extraperitoneal extensor is again identified along the inferior margin hematoma. 3. No active extravasation is identified at the time of examination. 4. Hepatomegaly. 5. Tree-in-bud airspace opacities at the lung bases have significantly improved from 07/30/2018. 6. Additional findings as above. Ordered Studies 07/30/18 21:50 CT abd pelvis wo con Urgent 08/01/18 08:00 CT chest wo con Routine 08/06/18 17:52 CT abd pelvis oral and IV con Routine 08/11/18 [place] bronchoscopy Routine Hospital Course (1) Pneumonia: --CT chest: Findings suggestive of subacute hypersensitivity pneumonitis or infectious bronchiolitis Received ceftriaxone from 07/31/18 to 08/07/18. --TB testing: Negative --S/P bronchoscopy --Completed Doxycycline 100 mg BID--2 week course --Needs repeat CT chest in 4 weeks --Appreciate Pulmnology Input --Needs FU with Pulmnology in 4-6 weeks Hypoxia Resolved Saturating well on room air (2) COPD exacerbation: (3) Acute hypoxemic respiratory failure: Secondary to pneumonia supplemental oxygen as needed (4) Hematoma of abdominal wall: Possible due to excessive cough in the setting of supratherapeutic INR CT abd/pelvis showed Large intramuscular left abdominal wall hematoma with extension into the properitoneal fat along the left inguinal region supratherapeutic INR:: INR 7.1 on 07/30/18 Received Vit K INR: 1.4 today Follows with Coumadin clinic May need repeat Abdominal imaging as outpatient Resumed coumadin (5) WANDA (obstructive sleep apnea): Continue CPAP (6) CVA (cerebral vascular accident): CVA in Mar 2018 Completed plavix for 1 month Continue aspirin (7) Pulmonary emboli: Monitor INR: 1.4 Continue Coumadin Transitioned from Heparin ggt to Lovenox while hospitalized Monitor renal function --Discussed with risks/benefits of lovenox bridging in setting of large intramuscular hematoma--Patient and family preferred no bridge and agreed to continue coumadin alone and follow up with coumadin clinic on 08/15/18 --Advised to take 15mg coumadin today (8) CHF (congestive heart failure): Chronic diastolic heart failure Last ECHO showed EF of 70%, TTE 2018 continue torsemide, metoprolol (9) Supratherapeutic INR: Resolved DVT Px: On Lovenox, Coumadin Code Status: Full Code Disposition: Expect to discharge home when stable Total Time Total Time Spent Total Time Spent (In Minutes): 38 minutes Total Time Includes: Examination of the Patient, Discharge Planning, Medication Reconciliation, Communication With Other Providers and Other Discharge Plan Discharge Items Patient Disposition: Home - Self-Care Reason For Visit: SEPSIS Discharge Diagnosis: Pneumonia COPD exacerbation Hematoma of abdominal wall Condition: Good Discharge Goals: Decrease discomfort, Improve disease control and Improve function Activity: Resume your previous activity Exercise/Sports: Gradually increase as tolerated Non-emergency contact: Primary Care Provider and Braider Operator Call non-emergency contact if: you have any medication questions, your symptoms worsen, your pain is not controlled, your pain is worsening, your pain is unusual for you, your pain is concerning for you and you have a fever Diet: Heart Healthy Addtl Provider Instructions: Follow up with your PCP in 1 week Follow up with your Pulmnologist in 4 weeks Follow up with Coumadin clinic on 08/15/18 as advised Get PT/INR, CBC checked on 08/15/18 and follow up coumadin clinic/PCP for further recommendations on coumadin dosing GET CT CHEST AND ABDOMEN/PELVIS in 4 weeks and follow up with your Physician Seek immediate medical attention if your symptoms reoccur or worsen Take 15mg coumadin today and tomorrow (08/13/18 and 08/14/18) and follow up with Coumadin clinic for further coumadin dosing Prescriptions: Continue warfarin [Coumadin] 6 mg Tablet 12 mg PO DAILY RF: 0 levothyroxine 200 mcg Tablet 200 mcg PO DAILY RF: 0 albuterol sulfate 90 mcg/actuation Hfa Aerosol Inhaler 2 puff INHALATION QID PRN (Reason: Shortness Of Breath) RF: 0 tiotropium bromide [Spiriva with HandiHaler] 18 mcg Capsule, W/Inhalation Device 1 cap INHALATION DAILY RF: 0 acetaminophen [Tylenol] 325 mg Capsule 650 mg PO Q4 PRN (Reason: Pain) RF: 0 fluticasone-vilanterol [Breo Ellipta] 200-25 mcg/dose Blister With Device 1 inh INHALATION DAILY RF: 0 torsemide [Demadex] 20 mg Tablet 20 mg PO DAILY RF: 0 metoprolol succinate 50 mg Tablet Extended Release 24 Hr 50 mg PO DAILY RF: 0 varenicline 0.5 mg Tablet 0.5 mg PO UD RF: 0 potassium chloride 20 mEq Tablet Extended Release 40 meq PO DAILY RF: 0 aspirin 81 mg Tablet,Delayed Release (Dr/Ec) 81 mg PO DAILY RF: 0 levothyroxine 25 mcg Tablet 12.5 mcg PO DAILY RF: 0 Stand-Alone Forms: [facility] Discharge Orders: Discharge Order (Routine); Ordered 08/13/18 Ordered By: Juan Bowden Admission Data Admit Date/Time: 07/31/18 00:43 Attending Provider: Juan Bowden Admit Provider: Elio Nayak Primary Care Provider: Nisa Gaston Other Providers: Elio Nayak ; Elio Melgar ; Karthik Gilmore Service: Medical Other Interventions: Discharge Summary Assessment (RN) Last Done: 08/13/18 14:21 Pending Studies at Discharge: No DC Date/Time DO NOT enter until pt leaves facility: 08/13/18 14:39
[2018-08-13] MEDS: WARFARIN SOD 10 MG TAB PO SCH (14:23)
[2018-08-13] MEDS ORDERED: WARFARIN SOD 5 MG TAB PO SCH (16:00)
== END 2018-08-13 14:39 | disposition home or self-care (01) ==
LOC: ED 18:15 → 2N 07-31 00:43 → SUATTDRO 07-31 00:43 → 2N 07-31 01:44 → 4E 08-08 19:34

== ENCOUNTER 2018-09-06 09:56 | Inpatient (IN) ==
[2018-09-06 10:45] LABS: Basophils # (auto) 0.04 K/uL (0-0.2); Basophils % (auto) 0.5 %; Eosinophils # (auto) 0.06 K/uL (0-0.5); Eosinophils % (auto) 0.8 %; Hematocrit (blood only) 33.4 % (37-47); Hemoglobin 10.3 g/dL (12.0-16.0); Immature Granulocytes # (auto) 0.01 K/uL (0.00-0.02); Immature Granulocytes % (auto) 0.1 %; Lymphocytes # (auto) 1.21 K/uL (1.2-3.4); Lymphocytes % (auto) 15.2 %; Mean Corpuscular Hgb Conc 30.8 g/dL (32-36); Mean Corpuscular Volume 88.1 fL (80-100); Neutrophils # (auto) 6.22 K/uL (1.4-6.5); Neutrophils % (auto) 78.4 %; Platelet Count 291 K/uL (130-400); RDW Coefficient of Variation 15.5 % (11.5-14.5); RDW Standard Deviation 50.1 fL (36.4-46.3); Red Blood Count 3.79 M/uL (4.2-5.4); White Blood Count 7.94 K/uL (4.8-10.8)
[2018-09-06 10:54] LABS: INR 1.2 (0.9-1.1)
[2018-09-06 10:56] LABS: Alanine Aminotransferase 15 U/L (12-78); Albumin Level 3.1 gm/dl (3.4-5.0); Aspartate Aminotransferase 18 U/L (15-37); BUN Creatinine Ratio 19.9 (10-20); Blood Urea Nitrogen 24 mg/dl (7-18); Calcium 8.6 mg/dl (8.5-10.1); Carbon Dioxide 27 mmol/L (21-32); Chloride 106 mmol/L (98-107); Est GFR (African American) 59.2; Glucose 111 mg/dl (70-99); Potassium 3.8 mmol/L (3.5-5.1); Sodium 138 mmol/L (136-145)
[2018-09-06 11:07] LABS: Albumin Globulin Ratio 0.6 (0.9-2); Alkaline Phosphatase 82 U/L (45-117); Bilirubin,Total 0.5 mg/dl (0.2-1); Creatine Kinase 99 U/L (26-192); Globulin 4.9 gm/dl (2.5-4.0)
[2018-09-06] MEDS ORDERED: NITROGLYCERIN 2% OINTMENT 30GM TUBE EXT ONE (11:19)
[2018-09-06] MEDS ORDERED: METOPROLOL TARTRATE 1 MG/ML VIAL IV STA ×2 (11:41→12:31)
--- NOTE | 2018-09-06 11:45 | XRay Report ---
SINGLE VIEW CHEST CLINICAL HISTORY: Atypical chest pain. FINDINGS: An AP, portable, upright chest radiograph is compared to study dated 08/04/2018 and correlate d with chest CT dated 08/30/2018. The examination is degraded by portable technique and apical lordotic positioning. The heart is enlarged. The pulmonary vasculature is noncongested. Chronic interstitial thickening is similar to previous. Bibasilar atelectasis is observed. No airspace consolidation or l arge pleural effusion is identified. No pneumothorax is seen. The skeletal structures are osteopenic. The bony thorax is grossly intact. IMPRESSION: Cardiomegaly with no acute cardiopulmonary abnormality. Electronically signed by: Julian Tamez M.D. 09/06/2018 11:43 AM
[2018-09-06] MEDS ORDERED: Heparin IV Standard *NO* Bolus IV ONE ×2 (12:18→16:45)
[2018-09-06] MEDS ORDERED: NITROGLYCERIN/D5W 100MCG/ML 250 ML IV STA (12:22)
[2018-09-06] MEDS ORDERED: HEPARIN IV BOLUS 2,000 UNITS in SYRINGE 0 ML IV ONE (12:28)
[2018-09-06] MEDS ORDERED: HEPARIN 25000 UNIT/500 ML D5W IV ONE (12:33)
[2018-09-06] MEDS ORDERED: HEPARIN SOD (PORCINE) 1000 UNIT/ML 10 ML VIAL ONE (12:37)
--- NOTE | 2018-09-06 13:05 | History & Physical Report ---
Date of Service September 06, 2018 Assessment & Plan (1) NSTEMI (non-ST elevated myocardial infarction): (2) Hypertensive urgency: (3) Chest pain: -Admit to ICU -Patient presenting from home with sudden onset of chest pain -In the ED, troponin found to be elevated at 2.230, EKG without acute ST changes, BP significantly elevated at 203/111 -Bedside echo performed by Dr. Marquez in the ED demonstrated a new apical wall hypokinesis -Patient started on heparin (noted to be on Coumadin however INR only 1.2), nitro drip, and received 2 doses of metoprolol 5 mg IV -Patient to Complex Director today (4) Pulmonary emboli: -History of PE 03/2018 -On Coumadin, however INR only 1.2 (patient reports compliance with Coumadin) -On IV heparin as above (5) CKD (chronic kidney disease), stage III: - baseline creat runs in the low 1's - creat noted to be 1.2 today - continue to monitor, avoid nephrotoxic agents when able (6) Hematoma of abdominal wall: -Recent admission for rectus sheath hematoma in the setting of a supratherapeutic INR -Recent outpatient CT ABD/pelvis showing interval decrease in size in the small left rectus sheath hematoma. -Monitor closely for signs of bleeding (7) CVA (cerebral vascular accident): -Stable, continue aspirin (8) WANDA (obstructive sleep apnea): -CPAP as per home settings (9) COPD (chronic obstructive pulmonary disease): -Appears stable, no signs of acute exacerbation -Continue home inhalers (10) Chronic acquired lymphedema: -Appears stable, continue home dose of torsemide (11) Hypothyroidism: -Continue levothyroxine (12) DVT prophylaxis: -On IV heparin as above History of Present Illness Chief Complaint: Chest Pain Primary Care Provider: Nisa Gaston DO 52 year old female who presents to the ED with chest pain. Of note, patient was recently admitted to [facility] 07/31 - 08/13 for pneumonia and abdominal wall hematoma in the setting of a supra therapuetic INR. Patient completed a 2 week course of doxycycline and Coumadin was resumed by discharged without any bridging. Patient reports she had been feeling well until this morning. She reports she was bending over to put her shoes on this morning when she had a sudden onset of chest pain across her entire chest. She describes the pain as severe and also had an associated stabbing feeling in her back. She then took her dog outside and reports she felt no better. She denies associated shortness of breath, palpitations, nausea, diaphoresis, lightheadedness, dizziness, syncopal events. She reports that "something just didn't feel right". She then came to the ED for further evaluation. Patient denies abdominal pain, vomiting, and diarrhea. No fevers or chills. She denies any urinary symptoms. In the ED, patient is found to be significantly hypertensive with BP 203/111. Initial troponin is 2.230, EKG does not show any acute ST changes. INR noted to be 1.2 (patient reports Coumadin compliance). Patient was started on 1 inch nitro paste. Allergies Allergy/AdvReac Type Severity Reaction Status Date / Time adhesive tape Allergy Intermediate Rash - Verified 09/06/18 10:30 CLOTH TAPE morphine AdvReac Unknown Unverified 09/06/18 10:30 Home Medications Home Medications Medication Instructions Recorded Confirmed Type Breo Ellipta 1 inh INHALATION DAILY 07/30/18 09/06/18 History Spiriva with HandiHaler 1 cap INHALATION DAILY 07/30/18 09/06/18 History acetaminophen [Tylenol] 650 mg PO Q4 PRN 07/30/18 09/06/18 History albuterol sulfate 2 puff INHALATION QID PRN 07/30/18 09/06/18 History aspirin 81 mg PO DAILY 07/30/18 09/06/18 History levothyroxine 12.5 mcg PO DAILY 07/30/18 09/06/18 History levothyroxine 200 mcg PO DAILY 07/30/18 09/06/18 History metoprolol succinate 50 mg PO DAILY 07/30/18 09/06/18 History potassium chloride 40 meq PO DAILY 07/30/18 09/06/18 History torsemide [Demadex] 20 mg PO DAILY 07/30/18 09/06/18 History varenicline 0.5 mg PO UD 07/30/18 09/06/18 History warfarin [Coumadin] 12 mg PO DAILY 07/30/18 09/06/18 History Past Med/Surg History Medical History HTN (hypertension) (Chronic) CKD (chronic kidney disease), stage III (Chronic) Hematoma of abdominal wall (Resolved) Obesity (Chronic) Pulmonary emboli (Chronic) CVA (cerebral vascular accident) (Chronic) WANDA (obstructive sleep apnea) (Chronic) Tobacco abuse (Chronic) COPD (chronic obstructive pulmonary disease) (Chronic) Expressive aphasia (Chronic) Chronic acquired lymphedema (Chronic) Hypothyroidism (Chronic) ARF (acute renal failure) (Chronic) CHF (congestive heart failure) (Chronic) Surgical History History of cholecystectomy (Chronic) History of tonsillectomy (Chronic) History of carpal tunnel surgery (Chronic) Family History Other Adopted Social History Preferred Language: Kiswahili Communication Ability: Effective Recreational Director Required: No Beliefs That Will Affect Care: None Current Living Situation: Family Other Information That Helps Us Care for You: No Feels Safe at Home: Yes Safety Concerns: Feels Safe At This Time Smoking Status: Former smoker Hx Alcohol Use: No Hx Substance Use: No Review of Systems ROS per HPI, all other systems reviewed and negative Physical Exam Vital Signs (Past 24 Hours): Last Vital Signs Temp 36.9 C 09/06/18 09:57 Pulse 80 09/06/18 12:52 Resp 16 09/06/18 12:52 BP 200/119 H 09/06/18 12:52 Pulse Ox 95 09/06/18 12:52 Constitutional: WD/WN, vitals as above + obese Eyes: PERRL, conjunctivae normal, anicteric sclerae ENMT: external ear and nose normal, oropharynx normal Respiratory: normal respiratory effort, lungs clear to auscultation Cardiovascular: Rate/Rhythm: regular rate and regular rhythm Vessels: normal peripheral pulses Extremities: + edema (lymphedema BLLE) Gastrointestinal (Abdomen): normal bowel sounds, soft, nontender, no hepatosplenomegaly Musculoskeletal: no cyanosis or clubbing, extremities motor strength 5/5 Skin: no rashes, warm and dry Neurologic: Cranial Nerves: PERRL, normal accommodation, EOM intact bilaterally and normal facial strength mild expressive aphasia Psychiatric: A+Ox3, euthymic affect Results & Data Laboratory Results Laboratory Last Values WBC 7.94 K/uL (4.8-10.8) 09/06/18 10:20 RBC 3.79 M/uL (4.2-5.4) L 09/06/18 10:20 Hgb 10.3 g/dL (12.0-16.0) L 09/06/18 10:20 Hct 33.4 % (37-47) L 09/06/18 10:20 MCV 88.1 fL (80-100) 09/06/18 10:20 MCH 27.2 pg (25-34) 09/06/18 10:20 MCHC 30.8 g/dL (32-36) L 09/06/18 10:20 RDW Std Deviation 50.1 fL (36.4-46.3) H 09/06/18 10: RDW Coeff of [place] 15.5 % (11.5-14.5) H 09/06/18 10:20 Plt Count 291 K/uL (130-400) 09/06/18 10:20 MPV 10.0 fL (7.4-10.4) 09/06/18 10:20 Immature Gran % (Auto) 0.1 % 09/06/18 10:20 Neut % (Auto) 78.4 % 09/06/18 10:20 Lymph % (Auto) 15.2 % 09/06/18 10:20 Early % (Auto) 5.0 % 09/06/18 10:20 Eos % (Auto) 0.8 % 09/06/18 10:20 Baso % (Auto) 0.5 % 09/06/18 10:20 Immature Gran # (Auto) 0.01 K/uL (0.00-0.02) 09/06/18 10:20 Neut # (Auto) 6.22 K/uL (1.4-6.5) 09/06/18 10:20 Lymph # (Auto) 1.21 K/uL (1.2-3.4) 09/06/18 10:20 Early # (Auto) 0.40 K/uL (0.11-0.59) 09/06/18 10:20 Eos # (Auto) 0.06 K/uL (0-0.5) 09/06/18 10:20 Baso # (Auto) 0.04 K/uL (0-0.2) 09/06/18 10:20 PT 12.0 Seconds (9.0-12.0) 09/06/18 10:20 INR 1.2 (0.9-1.1) H 09/06/18 10:20 APTT 26.5 Seconds (21.0-31.0) 09/06/18 10:20 PTT Ratio 1.0 09/06/18 10:20 Sodium 138 mmol/L (136-145) 09/06/18 10:20 Potassium 3.8 mmol/L (3.5-5.1) 09/06/18 10:20 Chloride 106 mmol/L (98-107) 09/06/18 10:20 Carbon Dioxide 27 mmol/L (21-32) 09/06/18 10:20 Anion Gap 5.0 (3-11) 09/06/18 10:20 BUN 24 mg/dl (7-18) H 09/06/18 10:20 Creatinine 1.21 mg/dl (0.6-1.2) H 09/06/18 10:20 Est Cr Clr Drug Dosing Not Reportable 09/06/18 10:20 Est GFR ( Amer) 59.2 09/06/18 10:20 Est GFR (Non-Af Amer) 51.0 09/06/18 10:20 BUN/Creatinine Ratio 19.9 (10-20) 09/06/18 10:20 Glucose 111 mg/dl (70-99) H 09/06/18 10:20 Calcium 8.6 mg/dl (8.5-10.1) 09/06/18 10:20 Total Bilirubin 0.5 mg/dl (0.2-1) 09/06/18 10:20 AST 18 U/L (15-37) 09/06/18 10:20 ALT 15 U/L (12-78) 09/06/18 10:20 Alkaline Phosphatase 82 U/L (45-117) 09/06/18 10:20 Total Creatine Kinase 99 U/L (26-192) 09/06/18 10:20 Troponin I 2.230 ng/ml (0-0.045) H* 09/06/18 10:20 Total Protein 8.0 gm/dl (6.4-8.2) 09/06/18 10:20 Albumin 3.1 gm/dl (3.4-5.0) L 09/06/18 10:20 Globulin 4.9 gm/dl (2.5-4.0) H 09/06/18 10:20 Albumin/Globulin Ratio 0.6 (0.9-2) L 09/06/18 10:20 Lipase 49 U/L (73-393) L 09/06/18 10:20 Diagnostic Findings CXR IMPRESSION: Cardiomegaly with no acute cardiopulmonary abnormality. Code Status & VTE Plan VTE Prophylaxis Plan VTE Prophylaxis will be ordered: Yes Supervising Physician Co-Signing Physician Notes I saw this patient with the Nurse Practitioner, I participated in the history, physical, review of systems, and physical exam. I reviewed the medications with the patient and the Nurse Practitioner and helped reconcile the medications. I helped take a detailed family and social history as well. I formulated the assessment and plan personally with the Nurse Practioner went over it with the patient. ROS-No Headache, No Visual Changes, No Nausea, No Vomiting, No Fever, No Chills, No Neck Pain or Stiffness, +Chest Pain, No Palpitations, No SOB, No WEI, No Cough, No Sputum, No Wheezing, No Abdominal Pain, No Diarrhea, No Hematemesis, No Hemoptysis, No Unexpected Weight Loss, No Flank pain, No Melena, No Hematochezia, No Frequency, No Urgency, No Burning, No Hematuria, No Rashes, No Diaphoresis. Appetite is Normal Physical Exam Gen-AAO x 3, NAD, Afebrile, morbidly obese Head-NCAT, EOMI, PERRLA, Anicteric Sclera, No Posterior Pharyngeal Erythema Neck-Supple, No JVD, No Thyromegaly, No Masses, No LAD, No Bruits Lungs-Clear to Auscultation Bilaterally, No Rales, No Rhonchi, No Wheezing, No Crepitus Chest-No S4, +S1, +S2, No S3, No Murmurs, No Rubs, No Gallops, No Ectopy Abdomen-Soft, Bowel Sounds Present, Obese, Non Tender, Non Distended, No Hepatomegaly, No Splenomegaly, No Palpable Masses, No Rebound, No Rigidity, No Guarding Musculoskeletal-Full Range of Motion Bilaterally, No CVAT Extremities-No Cyanosis, No Clubbing, No Edema Nuero-Cranial Nerves II-XII grossly intact, Motor WNL, DTRs WNL, Strength WNL, Non Focal Psych-Normal Mood
[2018-09-06 13:15] LABS: Partial Thromboplastin Time 26.5 Seconds (21.0-31.0)
[2018-09-06] MEDS ORDERED: fentaNYL citrate 100 MCG/2 ML VIAL ONE (13:17)
[2018-09-06] MEDS ORDERED: MIDAZOLAM HCL 1 MG/ML 2ML VIAL ONE (13:17)
[2018-09-06] MEDS ORDERED: NiCARDipine HCL INJ 2.5 MG/ML 10 ML AMP ONE (13:21)
[2018-09-06] MEDS ORDERED: HEPARIN (PORCINE) 1000 UNIT/ML 10 ML (CATH LAB USE ONLY) ONE (13:21)
[2018-09-06] MEDS ORDERED: NITROGLYCERIN/D5W 100MCG/ML 20ML SYR ONE (13:22)
[2018-09-06] MEDS ORDERED: ICU PROTOCOL FOR HYPERGLYCEMIA PRN (13:55)
--- NOTE | 2018-09-06 14:30 | Post Anesthesia Assessment ---
Date of Service September 06, 2018 Post Sedation Assessment Vital Signs Temp Pulse Pulse Resp BP BP Pulse Ox 09/06/18 12:52 80 16 200/119 H 95 09/06/18 12:51 81 19 94 09/06/18 12:42 81 20 188/113 H 95 09/06/18 12:30 78 27 H 94 09/06/18 12:28 80 18 157/110 H 95 09/06/18 12:12 86 16 154/100 H 95 09/06/18 12:11 85 20 154/100 H 95 09/06/18 11:28 86 16 170/102 H 96 09/06/18 11:27 91 H 20 170/102 H 95 09/06/18 11:16 95 09/06/18 09:57 36.9 C 95 H 22 203/111 H 94 09/06/18 09:45 90 25 H 155/91 H Recovery Score Activity: Moves 4 extremities Respiration: Deep Breath/Cough Circulation: +/-20% PreAnes Value Consciousness: Fully Awake Oxygen Saturation: O2 needed for >90% Post Sedation Plan On clinical assessment, the patient appears to have tolerated the sedation without complications. Patient is recovering as anticipated. Patient will continue to be monitored by nursing and may be discharged when sedation discharge criteria are met per below protocol. Upon Completions of procedure and additional 15 minutes continue every 5 minute vital signs and the P.A.R. score; then discharge to a Phase I or Fast Track to Phase II per the following guidelines: * Discharge Patient to appropriate Phase II area if PAR is 8 or greater or return to pre- procedure baseline. The post - procedure orders will be as directed. * If PAR score is less than 8 or not return to pre-procedure baseline then patient will follow Phase I monitoring till PAR is reached for Phase II. The Phase I may be done in procedure room or may call to secure a Phase I area. * If naloxone or flumazenil are used for reversal, hold in Phase I for continued monitoring from when last reversal dose was given for a minimum of 60 minutes or longer pending the nurse and/or physician discretion of patient condition before discharge to Phase II. Please call the Sedation Physician to re-evaluate and complete post-note for discharge to Phase II area. Do NOT discharge from procedure sedation or Phase 1 until post- sedation evaluation note is complete by procedure /sedation MD Sedation Discharge Instructions to be given to the patient at discharge to home.
--- NOTE | 2018-09-06 14:30 | Pre Anesthesia Assessment ---
Date of Service September 06, 2018 Pre Sedation Assessment Vital Signs Temp Pulse Pulse Resp BP BP Pulse Ox 09/06/18 12:52 80 16 200/119 H 95 09/06/18 12:51 81 19 94 09/06/18 12:42 81 20 188/113 H 95 09/06/18 12:30 78 27 H 94 09/06/18 12:28 80 18 157/110 H 95 09/06/18 12:12 86 16 154/100 H 95 09/06/18 12:11 85 20 154/100 H 95 09/06/18 11:28 86 16 170/102 H 96 09/06/18 11:27 91 H 20 170/102 H 95 09/06/18 11:16 95 09/06/18 09:57 36.9 C 95 H 22 203/111 H 94 09/06/18 09:45 90 25 H 155/91 H Cardiovascular RRR, no murmur, no edema Respiratory normal respiratory effort, lungs clear to auscultation Pre-Sedation Airway Assessment Smoking Status: Former smoker Hx Sleep Apnea: Yes Hx Difficult Intubation: No Short, Thick Neck: Yes Oral Cavity: + WNL Mallampati Class: III ASA: ASA3 NPO Status Date of Last Intake of Fluids: 09/06/18 Time of Last Intake of Fluids: 07:00 Date of Last Intake of Solid Food: 09/05/18 Time of Last Intake of Solid Foods: 19:30 Procedure Planning Contraindications for Sedation: none Current Medications Reviewed: Yes Notes The planned sedation has been discussed with the patient. Informed Consent was obtained. I have identified the patient, determined the appropriateness of sedation and have assessed the patient immediately prior to the procedure. All medicine(s) and interventions are by my order.
--- NOTE | 2018-09-06 14:32 | Cardiac Catheterization ---
Cardiac Cath Procedure Full Procedure Date September 06, 2018 Pre-Procedure Diagnosis Pre-Procedure Diagnosis: Non STEMI AUC Score AUC Score: 8 Post-Procedure Diagnosis Post-Procedure Diagnosis: Normal Coronary Arteries Procedure(s) Performed Procedure(s) Performed: Coronary Angiography, Left Heart Cath and LV Angiography Tie Up Worker Dyllan Connors MD Amusement Machine Mechanic(s) Shawn Estimated Blood Loss Estimated Blood Loss: 5 Medication(s) Medication(s): Fentanyl, Lidocaine 1%, Nicardipine, Nitroglycerin and Versed Summary of Findings Indication: High risk NSTEMI Access: 6 Citizen Of [place] right radial artery Catheters: [place], JL 3.5, pigtail Findings: LM -large caliber vessel, angiographically normal LAD -large caliber vessel, tortuous, extends to apex and gives off one large diagonal, no significant obstructive disease Circumflex -very large caliber vessel (7 mm proximally), codominant, gives off a large caliber first OM. No significant obstructive disease RCA -codominant, large acute marginal comes off aortic cusp and extends to apex. True RCA, acute marginal without significant disease. LVEDP -17 LVEF55%, apical akinesis Arterial Closure: TR band Summary: 1. No significant coronary artery disease 2. Normal intracardiac filling pressure 3. Preserved overall LV function. Apical akinesis. Recommendations: Suspect chest pain, troponin elevation secondary to stress-induced cardiomyopathy versus vasospasm versus hypertensive emergency Return to ICU for continued management of hypertension Continued ASCVD risk factor modification Hemodynamics Rest Ao:: 145/85/114 Final Ao: 137/84/104 LV: 138/17 Recommendations Recommendations: Medical Therapy and/or Counseling Specimens Specimens: None Radiation Exposure (mGy) 1555 Contrast (mls) 155 Fluids (cc crystalloids) Fluids (cc crystalloids): 61 Drains Drains: None Anesthesia Moderate Procedural Complication(s) None Disposition ICU ACC Data: Cooling Pipe Inspector Cardiac Status Clinical evaluation leading to the procedure CAD Presenation: Non STEMI Anginal Classification: CCS IV Heart Failure: No Cardiogenic Shock within 24 Hours: No Cardiac Arrest within 24 Hours: No Imaging Studies Past 6 Months: Yes Stress Studies Past 6 Months: No Diagnostic Physicians Name: Dyllan Connors MD Status: Urgent Closure Device Percutaneous Entry Location: Radial Closure Device: Radial Band Recommendations: Medical Therapy and/or Counseling Intraprocedure Events Significant Disection: No Perforation: No
--- NOTE | 2018-09-06 16:09 | Critical Care Consultation ---
Date of Consultation September 06, 2018 Assessment & Plan (1) NSTEMI (non-ST elevated myocardial infarction): Reason Critically Ill: 52-year-old female presented to ED with crushing chest pain with radiation to back, no ST elevation on EKG, elevated troponin, hypertensive urgency. Was started on heparin and nitro drips and taken to [facility]. No ischemic process. Neuro - [facility] ICU: Negative History of CVA: Mild dysarthria and expressive aphasia at baseline Cardiac NSTEMI-heart cath negative for ischemic process, EKG negative for ST elevation; likely secondary to hypertensive urgency see management below -Patient reports mild apical chest pain on exam in ICU -Continue nitro drip, restart heparin drip per cardiology -Cardiology consulted, follow recommendation -Continue aspirin, MTP -Trending troponins -A.m. EKG Hypertensive urgency/hypertensionon nitro drip for BP control -Increasing home dose metoprolol CHFEcho report showed EF 50-55%, moderate to severe apical wall hypokinesis, moderate left ventricular hypertrophy -continue torsemide home dose -Follow-up BNP -Strict I's and O's -Cardiac diet, fluid restrictions Respiratory COPDchest x-ray negative for acute process, patient shows no signs of respiratory distress -AA nebs -Pulmonary toileting -Monitor need for further intervention Chronic PEpatient on Coumadin, subtherapeutic INR on admission - will restart heparin drip to bridge GI No indication for PPI at this time History of hematoma of the abdominal wall on last admission, will monitor closely given patient is on heparin drip RENAL/LYTES CKDcreatinine/BUN consistent with previous admissions, stable -Monitor with routine BMPs -Continue torsemide Strict I's and O's ENDO - -ICU hyperglycemic protocol Hypothyroidismcontinue home dose Synthroid HEME - Monitor routine CBCs ID - No evidence of infectious process LINES/IV ACCESS - Peripheral IVs DVT PROPHYLAXIS - SCDs, heparin drip (2) CKD (chronic kidney disease), stage III: (3) HTN (hypertension): (4) Hypertensive urgency: (5) Pulmonary emboli: (6) COPD (chronic obstructive pulmonary disease): (7) Hypothyroidism: Supervising Physician Co-Signing Physician Notes I have personally evaluated and examined this patient. I agree with assessment and plan of Raheem DE LA GARZA. Clean coronaries, likely hypertensive urgency better blood pressure control. I have personally spent 35 minutes of critical care time in the direct management of this patient. This is a life/limb threatening event. This includes time spent evaluating patient, direct bedside care, chart review, placing orders, interpretation of diagnostic studies, discussion with consultants, patient, and/or family members regarding treatment decisions, as well as other required patient management activities. This time is exclusive of all separately billable procedures, and teaching time and separate from and in addition to any other critical care service time. History of Present Illness Attending Physician: Karthik Mandujano DO History of Present Illness Ms. Chavis is a 52-year-old female past medical history hypertension, CVA, PE, CKD, hematoma of the abdominal wall (from recent admission in July), COPD, CHF who presented to the ED today after having chest pain described as crushing with radiation to the back described as stabbing. Patient states the pain persisted and was unrelieved with rest and position change. At this point she called EMS and was taken to the ER. On arrival, EKG was negative for ST elevation. Troponin was elevated and patient was found to be hypertensive with BP of 203/111. She was placed on nitro drip and heparin drip and taken to [facility]. Per catheterization report, no significant ischemic process identified in coronary vessels. However Echo revealed EF 50-55%, moderate to severe apical wall hypokinesis, and moderate left ventricle hypertrophy. Upon arrival to the ICU the patient is alert and oriented x3. She appears comfortable on room air. She remains on nitro drip. She reports mild apical chest pain described as a throb. She states that she took her BP medications as prescribed this morning. She denies shortness of breath, dyspnea, palpitations, syncope, LOC. Patient is currently hemodynamically stable will, remain in ICU o vernight, advancing BP meds and weaning nitro drip as tolerated. Allergies Allergy/AdvReac Type Severity Reaction Status Date / Time adhesive tape Allergy Intermediate Rash - Verified 09/06/18 10:30 CLOTH TAPE morphine AdvReac Unknown Unverified 09/06/18 10:30 Home Medications Home Medications Medication Instructions Recorded Confirmed Type Breo Ellipta 1 inh INHALATION DAILY 07/30/18 09/06/18 History Spiriva with HandiHaler 1 cap INHALATION DAILY 07/30/18 09/06/18 History acetaminophen [Tylenol] 650 mg PO Q4 PRN 07/30/18 09/06/18 History albuterol sulfate 2 puff INHALATION QID PRN 07/30/18 09/06/18 History aspirin 81 mg PO DAILY 07/30/18 09/06/18 History levothyroxine 12.5 mcg PO DAILY 07/30/18 09/06/18 History levothyroxine 200 mcg PO DAILY 07/30/18 09/06/18 History metoprolol succinate 50 mg PO DAILY 07/30/18 09/06/18 History potassium chloride 40 meq PO DAILY 07/30/18 09/06/18 History torsemide [Demadex] 20 mg PO DAILY 07/30/18 09/06/18 History varenicline 0.5 mg PO UD 07/30/18 09/06/18 History warfarin [Coumadin] 12 mg PO DAILY 07/30/18 09/06/18 History Patient History Medical History HTN (hypertension) (Chronic) CKD (chronic kidney disease), stage III (Chronic) Hematoma of abdominal wall (Resolved) Obesity (Chronic) Pulmonary emboli (Chronic) CVA (cerebral vascular accident) (Chronic) WANDA (obstructive sleep apnea) (Chronic) Tobacco abuse (Chronic) COPD (chronic obstructive pulmonary disease) (Chronic) Expressive aphasia (Chronic) Chronic acquired lymphedema (Chronic) Hypothyroidism (Chronic) ARF (acute renal failure) (Chronic) CHF (congestive heart failure) (Chronic) Surgical History History of cholecystectomy (Chronic) History of tonsillectomy (Chronic) History of carpal tunnel surgery (Chronic) Family History Other Adopted Social History Communication Ability: Effective Beliefs That Will Affect Care: None Current Living Situation: Family Other Information That Helps Us Care for You: No Feels Safe at Home: Yes Safety Concerns: Feels Safe At This Time Smoking Status: Former smoker Hx Alcohol Use: No Hx Substance Use: No Review of Systems Constitutional: as per Subjective / HPI Physical Exam Vital Signs (Past 24 Hours): Last Vital Signs Temp 36.7 C 09/06/18 15:00 Pulse 74 09/06/18 15:45 Resp 20 09/06/18 15:45 BP 144/82 H 09/06/18 15:45 Pulse Ox 96 09/06/18 15:45 Constitutional: Morbidly obese, comfortable, alert and oriented, no acute distress Eyes: PERRL, conjunctivae normal, anicteric sclerae ENMT: external ear and nose normal, oropharynx normal Neck: trachea midline, no thyromegaly Respiratory: normal respiratory effort, lungs clear to auscultation Cardiovascular: Rate/Rhythm: regular rate and regular rhythm Heart Sounds: normal S1 and normal S2 Edema +4 in lower extremities bilaterally Gastrointestinal (Abdomen): normal bowel sounds, soft, nontender, no hepatosplenomegaly Abdomen obese Neurologic: Mild dysarthria (from previous stroke), PERRLA Results & Data Laboratory Results Laboratory Results - last 24 hr 09/06/18 09/06/18 09/06/18 10:20 10:20 10:20 WBC 7.94 RBC 3.79 L Hgb 10.3 L Hct 33.4 L MCV 88.1 MCH 27.2 MCHC 30.8 L RDW Std Deviation 50.1 H RDW Coeff of [place] 15.5 H Plt Count 291 MPV 10.0 Immature Gran % (Auto) 0.1 Neut % (Auto) 78.4 Lymph % (Auto) 15.2 Hunt % (Auto) 5.0 Eos % (Auto) 0.8 Baso % (Auto) 0.5 Immature Gran # (Auto) 0.01 Neut # (Auto) 6.22 Lymph # (Auto) 1.21 Hunt # (Auto) 0.40 Eos # (Auto) 0.06 Baso # (Auto) 0.04 PT 12.0 INR 1.2 H APTT 26.5 PTT Ratio 1.0 Sodium 138 Potassium 3.8 Chloride 106 Carbon Dioxide 27 Anion Gap 5.0 BUN 24 H Creatinine 1.21 H Est Cr Clr Drug Dosing Not Reportable Est GFR ( Amer) 59.2 Est GFR (Non-Af Amer) 51.0 BUN/Creatinine Ratio 19.9 Glucose 111 H Calcium 8.6 Total Bilirubin 0.5 AST 18 ALT 15 Alkaline Phosphatase 82 Total Creatine Kinase 99 Troponin I 2.230 H* Total Protein 8.0 Albumin 3.1 L Globulin 4.9 H Albumin/Globulin Ratio 0.6 L Lipase 49 L Medications Administered Home Medications Breo Ellipta 1 inh INHALATION DAILY 07/30/18 [History Confirmed 09/06/18] Spiriva with HandiHaler 1 cap INHALATION DAILY 07/30/18 [History Confirmed 09/06/18] acetaminophen [Tylenol] 650 mg PO Q4 PRN 07/30/18 [History Confirmed 09/06/18] albuterol sulfate 2 puff INHALATION QID PRN 07/30/18 [History Confirmed 09/06/18] aspirin 81 mg PO DAILY 07/30/18 [History Confirmed 09/06/18] levothyroxine 12.5 mcg PO DAILY 07/30/18 [History Confirmed 09/06/18] levothyroxine 200 mcg PO DAILY 07/30/18 [History Confirmed 09/06/18] metoprolol succinate 50 mg PO DAILY 07/30/18 [History Confirmed 09/06/18] potassium chloride 40 meq PO DAILY 07/30/18 [History Confirmed 09/06/18] torsemide [Demadex] 20 mg PO DAILY 07/30/18 [History Confirmed 09/06/18] varenicline 0.5 mg PO UD 07/30/18 [History Confirmed 09/06/18] warfarin [Coumadin] 12 mg PO DAILY 07/30/18 [History Confirmed 09/06/18] Active Medications Nitroglycerin/Dextrose (Nitroglycerin/D5w 100 Mcg/Ml) 250 mls @ 12 mls/hr IV .[id number] STA; Protocol Stop: 09/07/18 09:11 Last Titration: 09/06/18 13:11 Dose: 20 mcg/min, 12 mls/hr Documented by: Levothyroxine Sodium (Synthroid) 12.5 mcg PO DAILYBB KAREEM Stop: 10/07/18 06:29 Levothyroxine Sodium (Synthroid) 200 mcg PO DAILYBB KAREEM Stop: 10/07/18 06:29 Miscellaneous (Icu Protocol For Hyperglycemia) 1 ea N/A PRN PRN; Protocol PRN Reason: Hyperglycemia Protocol Stop: 09/08/18 13:54 Miscellaneous (Order Awaiting Action) 1 ea N/A QS KAREEM Stop: 10/06/18 15:59 Last Admin: 09/06/18 15:56 Dose: Not Given Documented by: Potassium Chloride (Klor-Con M20) 40 meq PO DAILY KAREEM Stop: 10/07/18 08:59 Tiotropium [place] (Spiriva) 1 puffs INH DAILY KAREEM Stop: 10/07/18 08:59 Torsemide (Demadex) 20 mg PO DAILY [facility] Stop: 10/07/18 08:59
[2018-09-06 16:25] LABS: INR 1.2 (0.9-1.1); Partial Thromboplastin Ratio 0.9; Partial Thromboplastin Time 25.6 Seconds (21.0-31.0); Prothrombin Time 11.8 Seconds (9.0-12.0)
[2018-09-06 16:41] LABS: Troponin I 19.6 ng/ml (0-0.045)
--- NOTE | 2018-09-06 16:45 | Emergency Department Note ---
History of Present Illness General Chief complaint: Chest Pain Stated complaint: STABBING CHEST PAIN, SOB Time Seen by Provider: 09/06/18 10:14 History of Present Illness Maximum Pain Intensity: 4 52-year-old female who presents the emergency department for evaluation of chest pain across the front of her chest that feels like a pressure sensation. The patient reports that the pain started around 6:30 AM this morning. The patient reports that she was in the process of taking her dog out for a walk when the pain started. The pain has not subsided, and elected to come to the emergency department for further evaluation. The patient reports that she was recently admitted for pneumonia. She did have a CT scan of the chest last week, but was unable to keep her appointment with her rock crusher, and the appointment was rescheduled for 09/20/18. She reports that this pain is different than the pain that she had when she 1 month ago. She denies known coronary artery disease. The patient does smoke cigarettes, and has a history of COPD and pulmonary embolism. She is currently on Coumadin. She rates her discomfort a 7 out of 10 on my initial exam. Home Medications Home Medications Medication Instructions Recorded Confirmed Type Breo Ellipta 1 inh INHALATION DAILY 07/30/18 09/06/18 History Spiriva with HandiHaler 1 cap INHALATION DAILY 07/30/18 09/06/18 History acetaminophen [Tylenol] 650 mg PO Q4 PRN 07/30/18 09/06/18 History albuterol sulfate 2 puff INHALATION QID PRN 07/30/18 09/06/18 History aspirin 81 mg PO DAILY 07/30/18 09/06/18 History levothyroxine 12.5 mcg PO DAILY 07/30/18 09/06/18 History levothyroxine 200 mcg PO DAILY 07/30/18 09/06/18 History metoprolol succinate 50 mg PO DAILY 07/30/18 09/06/18 History potassium chloride 40 meq PO DAILY 07/30/18 09/06/18 History torsemide [Demadex] 20 mg PO DAILY 07/30/18 09/06/18 History varenicline 0.5 mg PO UD 07/30/18 09/06/18 History warfarin [Coumadin] 12 mg PO DAILY 07/30/18 09/06/18 History Allergies Allergy/AdvReac Type Severity Reaction Status Date / Time adhesive tape Allergy Intermediate Rash - Verified 09/06/18 10:30 CLOTH TAPE morphine AdvReac Unknown Unverified 09/06/18 10:30 Past Med/Surg History Medical History HTN (hypertension) (Chronic) CKD (chronic kidney disease), stage III (Chronic) Hematoma of abdominal wall (Resolved) Obesity (Chronic) Pulmonary emboli (Chronic) CVA (cerebral vascular accident) (Chronic) WANDA (obstructive sleep apnea) (Chronic) Tobacco abuse (Chronic) COPD (chronic obstructive pulmonary disease) (Chronic) Expressive aphasia (Chronic) Chronic acquired lymphedema (Chronic) Hypothyroidism (Chronic) ARF (acute renal failure) (Chronic) CHF (congestive heart failure) (Chronic) Surgical History History of cholecystectomy (Chronic) History of tonsillectomy (Chronic) History of carpal tunnel surgery (Chronic) Family History Other Adopted Social History Preferred Language: Yoruba Communication Ability: Effective Senior Receptionist Required: No Beliefs That Will Affect Care: None Current Living Situation: Family Other Information That Helps Us Care for You: No Feels Safe at Home: Yes Safety Concerns: Feels Safe At This Time Smoking Status: Former smoker Hx Alcohol Use: No Hx Substance Use: No Review of Systems HEENT: Denies recent dizziness, visual problems, hearing loss, tinnitus. Denies difficulty swallowing or oral lesions. PULMONARY: Reports mild persistent cough, shortness of breath and sputum production since her hospital admission, but admits symptoms have been improving. CARDIOVASCULAR: See HPI, otherwise denies recent palpitations, dyspnea on exertion, orthopnea or peripheral edema. GASTROINTESTINAL: Denies diarrhea, constipation, nausea, vomiting, or abdominal pain. GENITOURINARY: Denies dysuria, frequency, urgency or nocturia. NEUROLOGIC: Denies history of epilepsy, CVA, TIA or chronic headaches. MUSCULOSKELETAL: Denies history of joint tenderness/swelling. SKIN: Denies rashes or lesions. PSYCHIATRIC: Denies history of depression or mental illness. ENDOCRINE: Denies history of diabetes. History of hypothyroidism. Physical Exam Vital Signs Vital Signs - 24 hr 09/06/18 09:45 09/06/18 09:57 09/06/18 11:16 Temperature 36.9 C Temperature Source Oral Sepsis Recent Fever Within 48 Hours No Sepsis New/Unexplained Change in Mental Status No Sepsis Action Taken by Nursing No Action Required Pulse Rate 90 95 H Pulse Rate [Right Finger] Pulse Rate from SpO2 Sensor Respiratory Rate 25 H 22 Respiratory Effort / Characteristics Non-Labored Respiratory Depth Normal Respiratory Pattern Regular Blood Pressure 155/91 H 203/111 H Blood Pressure [Left Arm] Blood Pressure Mean 112 141 Blood Pressure Mean [Left Arm] Blood Pressure Position Sitting Pulse Oximetry 94 95 Oxygen Delivery Method Room Air Room Air 09/06/18 11:27 09/06/18 11:28 09/06/18 12:11 Temperature Temperature Source Sepsis Recent Fever Within 48 Hours Sepsis New/Unexplained Change in Mental Status Sepsis Action Taken by Nursing Pulse Rate 91 H 85 Pulse Rate [Right Finger] 86 Pulse Rate from SpO2 Sensor 87 86 Respiratory Rate 20 16 20 Respiratory Effort / Characteristics Respiratory Depth Respiratory Pattern Blood Pressure 170/102 H 154/100 H Blood Pressure [Left Arm] 170/102 H Blood Pressure Mean 124 118 Blood Pressure Mean [Left Arm] 124 Blood Pressure Position Pulse Oximetry 95 96 95 Oxygen Delivery Method Room Air 09/06/18 12:12 09/06/18 12:26 09/06/18 12:28 Temperature Temperature Source Sepsis Recent Fever Within 48 Hours Sepsis New/Unexplained Change in Mental Status Sepsis Action Taken by Nursing Pulse Rate 80 Pulse Rate [Right Finger] 86 Pulse Rate from SpO2 Sensor 79 Respiratory Rate 16 18 Respiratory Effort / Characteristics Spontaneous Respiratory Depth Normal Respiratory Pattern Regular Blood Pressure 157/110 H Blood Pressure [Left Arm] 154/100 H Blood Pressure Mean 125 Blood Pressure Mean [Left Arm] 118 Blood Pressure Position Pulse Oximetry 95 95 Oxygen Delivery Method Room Air Room Air 09/06/18 12:30 09/06/18 12:42 09/06/18 12:51 Temperature Temperature Source Sepsis Recent Fever Within 48 Hours Sepsis New/Unexplained Change in Mental Status Sepsis Action Taken by Nursing Pulse Rate 78 81 81 Pulse Rate [Right Finger] Pulse Rate from SpO2 Sensor 78 80 81 Respiratory Rate 27 H 20 19 Respiratory Effort / Characteristics Respiratory Depth Respiratory Pattern Blood Pressure 188/113 H Blood Pressure [Left Arm] Blood Pressure Mean 138 Blood Pressure Mean [Left Arm] Blood Pressure Position Pulse Oximetry 94 95 94 Oxygen Delivery Method 09/06/18 12:52 09/06/18 14:45 09/06/18 15:00 Temperature 36.7 C Temperature Source Sepsis Recent Fever Within 48 Hours Sepsis New/Unexplained Change in Mental Status Sepsis Action Taken by Nursing Pulse Rate 81 77 Pulse Rate [Right Finger] 80 Pulse Rate from SpO2 Sensor Respiratory Rate 16 20 20 Respiratory Effort / Characteristics Respiratory Depth Respiratory Pattern Blood Pressure 124/77 135/85 Blood Pressure [Left Arm] 200/119 H Blood Pressure Mean 92 101 Blood Pressure Mean [Left Arm] 146 Blood Pressure Position Pulse Oximetry 95 93 92 Oxygen Delivery Method Room Air Room Air Room Air 09/06/18 15:15 09/06/18 15:30 09/06/18 15:45 Temperature Temperature Source Sepsis Recent Fever Within 48 Hours Sepsis New/Unexplained Change in Mental Status Sepsis Action Taken by Nursing Pulse Rate 78 69 74 Pulse Rate [Right Finger] Pulse Rate from SpO2 Sensor Respiratory Rate 20 20 20 Respiratory Effort / Characteristics Respiratory Depth Respiratory Pattern Blood Pressure 135/84 130/77 144/82 H Blood Pressure [Left Arm] Blood Pressure Mean 101 94 102 Blood Pressure Mean [Left Arm] Blood Pressure Position Pulse Oximetry 92 90 96 Oxygen Delivery Method Room Air Room Air Room Air CONSTITUTIONAL: Healthy and well nourished. Alert and oriented X 3. Patient appears in moderate discomfort. HEENT: Normocephalic, atraumatic. Pupils equal, round and reactive. Ears and nares are clear. No scleral icterus or conjunctival injection/pallor. NECK: Full active range of motion without discomfort. No obvious JVD or carotid bruits. LYMPHATICS: No cervical chain adenopathy. RESPIRATORY: Clear to auscultation bilaterally with no wheezing, crackles, rhonchi or stridor. CARDIOVASCULAR: Regular rate and rhythm with no murmurs, rubs or gallops. GASTROINTESTINAL: Bowel sounds present in all quadrants. Abdomen is soft and nontender to palpation. MUSCULOSKELETAL: Full range of motion of all joints without discomfort. INTEGUMENTARY: No rash or other significant dermatologic conditions noted. HEMATOLOGIC: No ecchymosis or petechiae. PSYCHIATRIC: Positive affect. NEUROLOGIC: Cranial nerves II-XII grossly intact. No focal neurologic deficits noted. Course Patient history and physical exam were performed. Nurse's notes were reviewed. I also reviewed documentation from the patient's admission 1 month ago. Patient was found to have a large intramuscular left abdominal wall hematoma. Chest CT showed evidence for extensive centrilobular nodules throughout all 5 lobes with patchy consolidations. Bronchoscopy was performed. The patient was treated with ceftriaxone, and a course of doxycycline antibiotics was recommended. The patient reports that she never received a prescription for this medication. IV access was established, and labs were drawn. The patient's initial blood pressure was elevated at 170/102. The patient appeared in mild to moderate disc omfort. Patient was hydrated with a liter of normal saline per did not find any concerning findings. Because the patient just had a CT scan without contrast last week, I elected to get a portable chest x-ray that did not show any consolidations. Cardiomegaly was noted. Review of labs shows an elevated troponin of 2.23. Review of CBC shows improving hemoglobin levels without thrombocytopenia. The patient is subtherapeutic with an INR of 1.2. Creatinine was 1.2. LFTs and lipase are normal. Upon further questioning, the patient reported persistent pain. I did offer to administer morphine for her pain, but she reports this actually causes worsening chest pain. An inch of nitroglycerin place was applied. The patient continued to have an elevated blood pressure, therefore metoprolol 5 mg IVP was administered. Findings were discussed with Dr. Kang, ED attending physician, who recommended hospitalist consultation. I initially spoke with HOLLI Carlos, who recommended that I discussed the case further with the [facility] cardiology. I then discussed the case with Dr. Marquez, who came to the emergency department to perform a bedside echocardiogram, showing apical akinesis. The patient will be sent to the lab systems analyst for further reevaluation. Please see [facility] hospitalist and traveling electrician dictations for further treatment and final disposition. Administered Medications Nitroglycerin/Dextrose (Nitroglycerin/D5w 100 Mcg/Ml) 250 mls @ 12 mls/hr IV .[id number] STA; Protocol Stop: 09/07/18 09:11 Last Titration: 09/06/18 13:11 Dose: 20 mcg/min, 12 mls/hr Documented by: [id number] Admin: 09/06/18 12:47 Dose: 10 mcg/min, 6 mls/hr Documented by: [id number] Miscellaneous (Order Awaiting Action) 1 ea N/A QS KAREEM Stop: 10/06/18 15:59 Last Admin: 09/06/18 15:56 Dose: Not Given Documented by: [id number] Discontinued Medications Fentanyl Citrate (Fentanyl Citrate) Confirm Administered Dose 100 mcg .ROUTE .STK-MED ONE Stop: 09/06/18 13:18 Last Admin: 09/06/18 14:16 Dose: 25 mcg Documented by: [id number] Heparin Sodium (Porcine) (Heparin Iv Bolus) Confirm Administered Dose 10,000 units .ROUTE .STK-MED ONE Stop: 09/06/18 12:38 Last Admin: 09/06/18 12:48 Dose: 2,000 units Documented by: [id number] Cosigned by: [id number] Heparin Sodium (Porcine) (Heparin Iv Bolus ([employer] Use Only)) Confirm Administered Dose 10,000 units .ROUTE .STWAYN-MED ONE Stop: 09/06/18 13:22 Last Admin: 09/06/18 14:18 Dose: Not Given Documented by: [id number] Heparin Sodium/Dextrose () 1 ea IV ONE ONE; Protocol Stop: 09/06/18 12:19 Last Admin: 09/06/18 12:35 Dose: Not Given Documented by: [id number] Heparin Sodium/Dextrose (Heparin Sodium/Dextrose) Confirm Administered Dose 25,000 units IV .STWAYN-MED ONE Stop: 09/06/18 12:34 Last Admin: 09/06/18 12:35 Dose: 33 ml Documented by: [id number] Cosigned by: [id number] Heparin Sodium/Sodium Chloride (Heparin Sod/Nss 2 Units/Ml) Confirm Administered Dose 3,000 units IV .STWAYN-MED ONE Stop: 09/06/18 13:22 Last Admin: 09/06/18 14:19 Dose: 3,000 units Documented by: [id number] Metoprolol Tartrate (Lopressor) 5 mg IV NOW STA Stop: 09/06/18 11:42 Last Admin: 09/06/18 11:49 Dose: 5 mg Documented by: [id number] Metoprolol Tartrate (Lopressor) 5 mg IV NOW STA Stop: 09/06/18 12:32 Last Admin: 09/06/18 12:50 Dose: 5 mg Documented by: [id number] Midazolam HCl (Versed) Confirm Administered Dose 2 mg .ROUTE .STK-MED ONE Stop: 09/06/18 13:18 Last Admin: 09/06/18 14:17 Dose: 1 mg Documented by: [id number] Nicardipine HCl (Cardene) Confirm Administered Dose 25 mg .ROUTE .STK-MED ONE Stop: 09/06/18 13:22 Last Admin: 09/06/18 14:17 Dose: 25 mg Documented by: [id number] Nitroglycerin (Nitro-Bid 2%) 1 inch EXT NOW ONE Stop: 09/06/18 11:20 Last Admin: 09/06/18 11:25 Dose: 1 inch Documented by: [id number] Nitroglycerin/Dextrose (Nitroglycerin/D5w 100 Mcg/Ml 20ml Syringe) Confirm Administered Dose 2,000 mcg .ROUTE .STK-MED ONE Stop: 09/06/18 13:23 Last Admin: 09/06/18 14:20 Dose: 2,000 mcg Documented by: [id number] Medical Decision Making Medical Records Attestation: I reviewed the patient's medical records. Home Medications Current Medication List: was personally reviewed by me Laboratory Data Attestation: I reviewed the patient's lab results. Result diagrams: 09/06/18 10:20 09/06/18 10:20 Lab Results 09/06/18 09/06/18 09/06/18 Range/Units 10:20 10:20 10:20 WBC 7.94 (4.8-10.8) K/uL RBC 3.79 L (4.2-5.4) M/uL Hgb 10.3 L (12.0-16.0) g/dL Hct 33.4 L (37-47) % MCV 88.1 (80-100) fL MCH 27.2 (25-34) pg MCHC 30.8 L (32-36) g/dL RDW Std Deviation 50.1 H (36.4-46.3) fL RDW Coeff of [place] 15.5 H (11.5-14.5) % Plt Count 291 (130-400) K/uL MPV 10.0 (7.4-10.4) fL Immature Gran % (Auto) 0.1 % Neut % (Auto) 78.4 % Lymph % (Auto) 15.2 % [place] % (Auto) 5.0 % Eos % (Auto) 0.8 % Baso % (Auto) 0.5 % Immature Gran # (Auto) 0.01 (0.00-0.02) K/uL Neut # (Auto) 6.22 (1.4-6.5) K/uL Lymph # (Auto) 1.21 (1.2-3.4) K/uL [place] # (Auto) 0.40 (0.11-0.59) K/uL Eos # (Auto) 0.06 (0-0.5) K/uL Baso # (Auto) 0.04 (0-0.2) K/uL PT 12.0 (9.0-12.0) Seconds INR 1.2 H (0.9-1.1) APTT 26.5 (21.0-31.0) Seconds PTT Ratio 1.0 Sodium 138 (136-145) mmol/L Potassium 3.8 (3.5-5.1) mmol/L Chloride 106 (98-107) mmol/L Carbon Dioxide 27 (21-32) mmol/L Anion Gap 5.0 (3-11) BUN 24 H (7-18) mg/dl Creatinine 1.21 H (0.6-1.2) mg/dl Est Cr Clr Drug Dosing Not Reportable Est GFR ( Amer) 59.2 Est GFR (Non-Af Amer) 51.0 BUN/Creatinine Ratio 19.9 (10-20) Glucose 111 H (70-99) mg/dl Calcium 8.6 (8.5-10.1) mg/dl Total Bilirubin 0.5 (0.2-1) mg/dl AST 18 (15-37) U/L ALT 15 (12-78) U/L Alkaline Phosphatase 82 (45-117) U/L Total Creatine Kinase 99 (26-192) U/L Troponin I 2.230 H* (0-0.045) ng/ml Total Protein 8.0 (6.4-8.2) gm/dl Albumin 3.1 L (3.4-5.0) gm/dl Globulin 4.9 H (2.5-4.0) gm/dl Albumin/Globulin Ratio 0.6 L (0.9-2) Lipase 49 L (73-393) U/L 09/06/18 Range/Units 16:04 WBC (4.8-10.8) K/uL RBC (4.2-5.4) M/uL Hgb (12.0-16.0) g/dL Hct (37-47) % MCV (80-100) fL MCH (25-34) pg MCHC (32-36) g/dL RDW Std Deviation (36.4-46.3) fL RDW Coeff of [place] (11.5-14.5) % Plt Count (130-400) K/uL MPV (7.4-10.4) fL Immature Gran % (Auto) % Neut % (Auto) % Lymph % (Auto) % [place] % (Auto) % Eos % (Auto) % Baso % (Auto) % Immature Gran # (Auto) (0.00-0.02) K/uL Neut # (Auto) (1.4-6.5) K/uL Lymph # (Auto) (1.2-3.4) K/uL [place] # (Auto) (0.11-0.59) K/uL Eos # (Auto) (0-0.5) K/uL Baso # (Auto) (0-0.2) K/uL PT 11.8 (9.0-12.0) Seconds INR 1.2 H (0.9-1.1) APTT 25.6 (21.0-31.0) Seconds PTT Ratio 0.9 Sodium (136-145) mmol/L Potassium (3.5-5.1) mmol/L Chloride (98-107) mmol/L Carbon Dioxide (21-32) mmol/L Anion Gap (3-11) BUN (7-18) mg/dl Creatinine (0.6-1.2) mg/dl Est Cr Clr Drug Dosing Est GFR ( Amer) Est GFR (Non-Af Amer) BUN/Creatinine Ratio (10-20) Glucose (70-99) mg/dl Calcium (8.5-10.1) mg/dl Total Bilirubin (0.2-1) mg/dl AST (15-37) U/L ALT (12-78) U/L Alkaline Phosphatase (45-117) U/L Total Creatine Kinase (26-192) U/L Troponin I (0-0.045) ng/ml Total Protein (6.4-8.2) gm/dl Albumin (3.4-5.0) gm/dl Globulin (2.5-4.0) gm/dl Albumin/Globulin Ratio (0.9-2) Lipase (73-393) U/L Imaging Data Attestation: I personally reviewed and interpreted this imaging study as follows: My Impression: My interpretation of a portable chest x-ray shows cardiomegaly without evidence for consolidations or pneumothorax. Radiologist report was also reviewed. Radiologist's Impression: SINGLE VIEW CHEST CLINICAL HISTORY: Atypical chest pain. FINDINGS: An AP, portable, upright chest radiograph is compared to study dated 08/04/2018 and correlated with chest CT dated 08/30/2018. The examination is degraded by portable technique and apical lordotic positioning. The heart is enlarged. The pulmonary vasculature is noncongested. Chronic interstitial thickening is similar to previous. Bibasilar atelectasis is observed. No airspace consolidation or large pleural effusion is identified. No pneumothorax is seen. The skeletal structures are osteopenic. The bony thorax is grossly intact. IMPRESSION: Cardiomegaly with no acute cardiopulmonary abnormality. ECG Data Attestation: I personally reviewed and interpreted this ECG as follows: Indication: chest pain Rhythm: normal sinus Findings: + nonspecific-ST abn Comparison ECG Date: from (07/30/18) Change: the following changes noted (Improvement of inferior T wave abnormality from prior ECG) Blood Pressure Blood Pressure Findings: Elevated blood pressure Blood Pressure Disposition: further management by hospitalist FRANK Narrative To the emergency department for evaluation of chest pain. She has an elevated troponin, concerning for non-STEMI. Emergent bedside echocardiogram shows evidence for apical akinesis. The patient will be sent to the lab systems analyst for further evaluation. It is noted that the patient is hypertensive. Impression & Plan Non-ST elevated myocardial infarction (non-STEMI) Critical Care Time I have personally spent greater than 30 minutes of critical care time in the direct management of this patient. This includes bedside care, interpretation of diagnostic studies, and testing, discussion with consultants, patient, and family members, and other required patient management activities. This 30 minutes is in excess of all separately billable procedures. Critical Care Time: Yes (30 minutes) Total Critical Care Time: 35 Discharge Plan Visit Data *Final* Discharge Date/Time: 09/06/18 13:11 Chief Complaint: Chest Pain Stated Complaint: STABBING CHEST PAIN, SOB ED Provider: Jordy Amaya ED Midlevel Provider: Jay East Discharge Problem: Non-ST elevated myocardial infarction (non-STEMI) Patient Disposition: Admitted As Inpatient Discharge Instructions Interventions: ED Discharge Assessment Last Done: 09/06/18 13:11
[2018-09-06] MEDS: HEPARIN STANDARD DEXTROSE 25,000 UNITS/500 ML IV SCH (17:09)
[2018-09-06] MEDS: WARFARIN SOD 6 MG TAB PO SCH (17:58)
--- NOTE | 2018-09-06 19:38 | Consultation Report ---
DATE OF CONSULTATION: 09/06/2018 CARDIOLOGY CONSULTATION REFERRING PHYSICIAN: HOLLI Carlos. PRIMARY CARE PHYSICIAN: Dr. Gaston. INDICATIONS: Acute chest pain. HISTORY OF PRESENT ILLNESS: The patient is a 52-year-old female whose past medical history is notable for hypertension, obstructive sleep apnea with morbid obesity, past right heart failure, history of acute CVA in 03/2018 with expressive aphasia with recent hospitalization with acute pneumonia in 07/2018. Underlying medical problems include class 3 chronic renal insufficiency, chronic anemia, past history of pulmonary embolus in March, on chronic anticoagulation with warfarin. The patient presents at this admission noting having been doing relatively well following hospitalization in July, but today developed acute onset/heavy sharp substernal chest discomfort. She presented to the Emergency Room where she was noted to be markedly hypertensive. Initial troponin is elevated at 2.2. The patient carries a history of past troponin elevation with CVA in March. No prior history of documented cardiac disease. Echocardiogram done most recently in 03/2018 demonstrated evidence of preserved LV systolic function with right ventricular chamber enlargement. Echocardiogram performed at bedside in the Emergency Room today demonstrates wall motion abnormality involving the inferior and anterior apex. The patient currently is still having ____ chest pain, initial chest pain severe. She denies recent chest pain or discomfort. Notes breathing have been doing well. Has lost nearly 70 pounds over the last years' time through diuresis and dietary changes. Notes no tachy palpitations. Notes no syncope or near syncope. Notes no change in neurologic status. Is ambulatory with ADLs at home. Lower extremity edema, which has been a chronic issue is gradually improved. She notes no bleeding difficulties. Notes no fevers, chills or productive cough other than a hospitalization in July with discharge on 08/13/2018. She has been taking medications as prescribed, though INRs are subtherapeutic on presentation. Anticoagulation in July was complicated by a left abdominal wall hematoma per records. ALLERGIES: ADHESIVE TAPE AND MORPHINE. MEDICATIONS PRIOR TO HOSPITALIZATION: Per records are albuterol inhaler 2 puffs q.i.d., aspirin 81 mg daily, Breo Ellipta 1 inhaled daily, levothyroxine 212.5 mcg p.o. daily, metoprolol succinate 50 mg q.p.m., potassium chloride 40 mEq p.o. daily, Spiriva 1 capsule per day, Demadex 20 mg p.o. daily, varenicline 0.5 mg p.o. daily, warfarin 12 mg p.o. daily. PAST SURGICAL HISTORY: Notable for prior cholecystectomy, tonsillectomy, carpal tunnel surgery, ____ breast biopsies. FAMILY HISTORY: None known. SOCIAL HISTORY: The patient is currently residing with her daughter outside of [place]. She is a nonsmoker since 03/2018. She uses no significant alcoholic beverages. PHYSICAL EXAMINATION: GENERAL: The patient is an uncomfortable appearing obese female with mild expressive aphasia, answering questions appropriately. VITAL SIGNS: Blood pressures 150/110. HEENT: Normocephalic and atraumatic. Nares without discharge. Throat was clear. NECK: Supple without thyromegaly, lymphadenopathy. There is no distinct jugular venous distention, though neck is thick and vein pulsation poorly visualized. There is no audible carotid bruit. LUNGS: Reveal diminished breath sounds. CARDIOVASCULAR: Regular with distant heart sounds. There is no audible murmur or rub. PMI is nondisplaced. ABDOMEN: Obese, soft with large panniculus. EXTREMITIES: Without cyanosis or clubbing. There is chronic stasis and induration change in the lower extremities with intact pulses. NEUROLOGIC: The patient is answering questions appropriately, has noted mild expressive aphasia is present. DIAGNOSTIC DATA: EKG on initial presentation demonstrated sinus rhythm with nonspecific ST segment changes. No acute ST elevation. There is mild flattening of the V2 and the ST segment. Chest x-ray demonstrates cardiomegaly without infiltrate or edema. Echocardiogram performed at bedside as per HPI demonstrates localized apical wall motion abnormality involving apical portion of the inferior wall and septum, EF 45% on preliminary review. LABORATORY STUDIES: White cell count 7.9, hemoglobin 10.3, hematocrit 33.4, platelet count is 291. INR on presentation was 1.2. Sodium is 138, potassium is 3.8, chloride is 106, bicarb is 27, BUN is 24, creatinine is 1.2, glucose is 111. AST and ALT are normal. Troponin is 2.2. Albumin is 3.1. IMPRESSION: A 52-year-old female with complex history including morbid obesity, past right heart failure better compensated, obstructive sleep apnea, hypertension and recent hospitalization in July with pneumonia, past history of documented pulmonary emboli. The patient presents today having developed acute onset chest pain earlier this morning. EKG reveals no ST elevation, ____ exam was notable for marked hypertension and echocardiogram demonstrating localized apical wall motion abnormality with elevated troponin. RECOMMENDATIONS: We will initiate anticoagulation with heparin given subtherapeutic INR. IV nitroglycerin will be added and titrated for blood pressure control. Additional IV metoprolol given. Given wall motion abnormalities, elevated troponin and ongoing symptoms, we will likely refer for diagnostic cardiac catheterization today. Etiology may be hypertensive/Takotsubo versus acute ischemia, recurrent pulmonary emboli not completely excluded given subtherapeutic anticoagulated state. We will follow patient in the hospital. Plans and information discussed in detail with the patient and daughter.
[2018-09-06] MEDS: METOPROLOL SUCC 50MG EXT REL TAB PO SCH (20:37)
[2018-09-06 23:16] LABS: Partial Thromboplastin Ratio 1.3; Partial Thromboplastin Time 36.1 Seconds (21.0-31.0)
[2018-09-06] MEDS ORDERED: HEPARIN IV BOLUS 7,000 UNITS in SYRINGE 0 ML IV ONE (23:45)
--- NOTE | 2018-09-07 02:45 | Consultation Report ---
DATE OF CONSULTATION: 09/06/2018 HISTORY OF PRESENT ILLNESS: The patient was seen and examined in the intensive care unit following diagnostic cardiac catheterization earlier today. The patient is feeling much more comfortable, chest pain eased. These blood pressures have come under better control, though on IV nitroglycerin. Cardiac catheterization demonstrated widely patent normal coronaries with focal apical hypokinesis on LV angiography consistent with echocardiogram. Etiology is either hypertensive versus apical ballooning cardiomyopathy, stress mediated. PLAN: Increase metoprolol to 50 mg twice per day with additional dose now and then at 2100. Continue IV nitroglycerin with plan on tapering. The patient carries a history of past pulmonary emboli and prevented subtherapeutic. We will resume heparin with cautious bridge to full anticoagulation with warfarin, given past history of rectus sheath hematoma. We will continue to follow the patient closely in hospital. Appreciate cardiac critical care.
[2018-09-07] MEDS: LEVOTHYROXINE SODIUM 25 MCG TABLET PO SCH (05:34)
[2018-09-07] MEDS: LEVOTHYROXINE SODIUM 200 MCG TABLET PO SCH (05:34)
[2018-09-07 05:59] LABS: Hematocrit (blood only) 30.3 % (37-47); Hemoglobin 9.4 g/dL (12.0-16.0); Mean Corpuscular Volume 87.1 fL (80-100); Mean Platelet Volume 10.2 fL (7.4-10.4); Platelet Count 283 K/uL (130-400); RDW Coefficient of Variation 15.5 % (11.5-14.5); RDW Standard Deviation 49.6 fL (36.4-46.3); Red Blood Count 3.48 M/uL (4.2-5.4); White Blood Count 8.49 K/uL (4.8-10.8)
[2018-09-07 06:21] LABS: INR 1.2 (0.9-1.1); Partial Thromboplastin Ratio 2.9; Prothrombin Time 12.3 Seconds (9.0-12.0)
[2018-09-07 06:27] LABS: BUN Creatinine Ratio 18.7 (10-20); Calcium 8.4 mg/dl (8.5-10.1); Creatinine Clr Calc Pharmacy 78.2 ml/min; Est GFR (African American) 60.4; Est GFR (Non-African American) 52.1; Magnesium 2.1 mg/dl (1.8-2.4); Potassium 3.9 mmol/L (3.5-5.1)
[2018-09-07 06:28] LABS: Phosphorus 3.8 mg/dl (2.5-4.9)
[2018-09-07 06:34] LABS: Partial Thromboplastin Time 77.4 Seconds (21.0-31.0)
--- NOTE | 2018-09-07 07:06 | Critical Care Progress Note ---
Date of Service September 07, 2018 Assessment & Plan (1) NSTEMI (non-ST elevated myocardial infarction): Reason Critically Ill: 52-year-old female presented to ED with crushing chest pain with radiation to back, no ST elevation on EKG, elevated troponin, hypertensive urgency. was started on heparin and nitro drips and taken to [facility]. No ischemic process. Nitro drip now weaned and patient stable. Neuro - [facility] ICU: Negative History of CVA: Mild dysarthria and expressive aphasia at baseline Cardiac NSTEMI-heart cath negative for ischemic process, EKG negative for ST elevation; likely secondary to hypertensive urgency see management below -Patient reports mild apical chest pain on exam in ICU -Continue nitro drip, restart heparin drip per cardiology -Cardiology consulted, follow recommendation -Continue aspirin, MTP increased to 50 twice daily -Troponins down trended Cardiology to start aspirin and lisinopril when appropriate Hypertensive urgency/hypertension Nitro drip weaned off -Increasing home dose metoprolol CHFEcho report showed EF 50-55%, moderate to severe apical wall hypokinesis, moderate left ventricular hypertrophy -continue torsemide home dose -BNP 261, unremarkable -Strict I's and O's -Cardiac diet, fluid restrictions Respiratory COPDchest x-ray negative for acute process, patient shows no signs of respiratory distress -AA nebs -Pulmonary toileting -Monitor need for further intervention Chronic PEpatient on Coumadin, subtherapeutic INR on admission - will restart heparin drip to bridge GI No indication for PPI at this time History of hematoma of the abdominal wall on last admission, will monitor closely given patient is on heparin drip RENAL/LYTES CKDcreatinine/BUN consistent with previous admissions, stable -Monitor with routine BMPs -Continue torsemide Strict I's and O's ENDO - -ICU hyperglycemic protocol Hypothyroidismcontinue home dose Synthroid HEME - Monitor routine CBCs ID - No evidence of infectious process LINES/IV ACCESS - Peripheral IVs DVT PROPHYLAXIS - SCDs, heparin drip (2) CKD (chronic kidney disease), stage III: (3) HTN (hypertension): (4) Hypertensive urgency: (5) Pulmonary emboli: (6) COPD (chronic obstructive pulmonary disease): (7) Hypothyroidism: Supervising Physician Co-Signing Physician Notes I have personally evaluated and examined this patient. I agree with assessment and plan of Raheem DE LA GARZA. Patient is stable for downgrade out of the ICU Subjective Ms. Chavis is a 52-year-old female past medical history hypertension, CVA, PE, CKD, hematoma of the abdominal wall (from recent admission in July), COPD, CHF who presented to the ED yesterday after having chest pain described as crushing with radiation to the back described as stabbing. Patient states the pain persisted and was unrelieved with rest and position change. At this point she called EMS and was taken to the ER. On arrival, EKG was negative for ST elevation. Troponin was elevated and patient was found to be hypertensive with BP of 203/111. She was placed on nitro drip and heparin drip and taken to [facility]. Per catheterization report, no significant ischemic process identified in coronary vessels. However Echo revealed EF 50-55%, moderate to severe apical wall hypokinesis, and moderate left ventricle hypertrophy. This a.m. the patient appears comfortable, she is alert and oriented and says she feels much better compared to the previous day. She still complains of mild apical chest pain described as throbbing 3 out of 10. Nitro drip is now weaned off, will continue heparin drip to bridge Coumadin. Patient hemodynamically stable and okay for downgrade from ICU status. She denies shortness of breath, dyspnea, palpitations, syncope, LOC. Review of Systems All systems reviewed & are unremarkable except as noted in HPI & below Constitutional: as per Subjective / HPI Physical Exam Vital Signs (Past 24 Hours): Last Vital Signs Temp 36.7 C 09/07/18 04:00 Pulse 77 09/07/18 06:01 Resp 20 09/07/18 06:01 BP 134/79 09/07/18 06:01 Pulse Ox 93 09/07/18 06:01 Eyes: PERRL, conjunctivae normal, anicteric sclerae ENMT: external ear and nose normal, oropharynx normal Neck: trachea midline, no thyromegaly Respiratory: normal respiratory effort, lungs clear to auscultation Cardiovascular: Rate/Rhythm: regular rate and regular rhythm Heart Sounds: normal S1 and normal S2 Gastrointestinal (Abdomen): normal bowel sounds, soft, nontender, no hepatosplenomegaly Neurologic: Cranial Nerves: PERRL Mild dysarthria and expressive aphasia
[2018-09-07] MEDS: HEPARIN STANDARD DEXTROSE 25,000 UNITS/500 ML IV SCH ×2 (07:32→20:19)
[2018-09-07] MEDS: TORSEMIDE 20 MG TAB PO SCH (08:09)
[2018-09-07] MEDS: POTASSIUM CHLORIDE 20 MEQ TABCR PO SCH (08:09)
[2018-09-07] MEDS: METOPROLOL SUCC 50MG EXT REL TAB PO SCH (08:09)
[2018-09-07] MEDS: TIOTROPIUM BROMIDE 5 PUFF/90 MCG INH INH SCH (08:10)
[2018-09-07] MEDS ORDERED: METOPROLOL SUCC 50MG EXT REL TAB PO STA (12:43)
[2018-09-07 13:22] LABS: Partial Thromboplastin Ratio 1.6
--- NOTE | 2018-09-07 13:27 | Cardiology Progress Note ---
Date of Service September 07, 2018 Assessment & Plan (1) Takotsubo cardiomyopathy: Acute presentation with hypertensive urgency and chest pain. Echocardiogram at bedside in the emergency room demonstrated apical wall motion abnormality. Cardiac catheterization demonstrated normal coronary arteries Patient treated with IV nitroglycerin, beta-faustina and anticoagulation transiently with plans to return to full anticoagulation with warfarin Plan: Titrate Toprol higher 75 milligrams twice per day with an additional 25 mg p.o. now Repeat EKG today and in a.m. Continue anticoagulation with IV heparin with bridge to warfarin Resume aspirin 81 mg p.o. daily Add CARLOS inhibitor possibly in a.m. depending on blood pressure response (2) Hypertensive urgency: (3) WANDA (obstructive sleep apnea): Subjective Patient seen and examined chart medications telemetry reviewed. More comfortable this morning, blood pressures are doing well off nitroglycerin drip. No bleeding difficulties no melena hematochezia no worsening cough. Neurologic status stable Physical Exam Vital Signs (Past 24 Hours): Last Vital Signs Temp 36.9 C 09/07/18 12:00 Pulse 77 09/07/18 12:00 Resp 16 09/07/18 12:00 BP 118/87 09/07/18 12:00 Pulse Ox 96 09/07/18 12:00 Constitutional: + obese Eyes: PERRL, conjunctivae normal, anicteric sclerae ENMT: external ear and nose normal, oropharynx normal Respiratory: Auscultation: + diminished lung sounds (But clear to both lung llanos) Cardiovascular: Rate/Rhythm: regular rate and regular rhythm Heart Sounds: normal S1 and normal S2; no gallop, no murmur and no cardiac rub Gastrointestinal (Abdomen): Obese, soft with large panniculus Musculoskeletal: Bilateral lower extremities with chronic stasis changes/lymphedema with trace edema Results & Data Laboratory Results Laboratory Results - last 24 hr 09/06/18 09/06/18 09/06/18 14:50 16:03 16:04 WBC RBC Hgb Hct MCV MCH MCHC RDW Std Deviation RDW Coeff of [place] Plt Count MPV PT 11.8 INR 1.2 H APTT 25.6 PTT Ratio 0.9 Sodium Potassium Chloride Carbon Dioxide Anion Gap BUN Creatinine Est Cr Clr Drug Dosing Est GFR ( Amer) Est GFR (Non-Af Amer) BUN/Creatinine Ratio Glucose POC Glucose Calcium Phosphorus Magnesium Troponin I 19.600 H* NT-Pro-B Natriuret Pep 261 Nasal Screen MRSA (PCR) Negative 09/06/18 09/06/18 09/06/18 16:34 20:40 22:50 WBC RBC Hgb Hct MCV MCH MCHC RDW Std Deviation RDW Coeff of [place] Plt Count MPV PT INR APTT PTT Ratio Sodium Potassium Chloride Carbon Dioxide Anion Gap BUN Creatinine Est Cr Clr Drug Dosing Est GFR ( Amer) Est GFR (Non-Af Amer) BUN/Creatinine Ratio Glucose POC Glucose 96 123 H Calcium Phosphorus Magnesium Troponin I 23.400 H* NT-Pro-B Natriuret Pep Nasal Screen MRSA (PCR) 09/06/18 09/07/18 09/07/18 22:50 05:32 05:32 WBC 8.49 RBC 3.48 L Hgb 9.4 L Hct 30.3 L MCV 87.1 MCH 27.0 MCHC 31.0 L RDW Std Deviation 49.6 H RDW Coeff of [place] 15.5 H Plt Count 283 MPV 10.2 PT 12.3 H INR 1.2 H APTT 36.1 H 77.4 H* PTT Ratio 1.3 2.9 Sodium Potassium Chloride Carbon Dioxide Anion Gap BUN Creatinine Est Cr Clr Drug Dosing Est GFR ( Amer) Est GFR (Non-Af Amer) BUN/Creatinine Ratio Glucose POC Glucose Calcium Phosphorus Magnesium Troponin I NT-Pro-B Natriuret Pep Nasal Screen MRSA (PCR) 09/07/18 09/07/18 09/07/18 05:40 05:40 11:34 WBC RBC Hgb Hct MCV MCH MCHC RDW Std Deviation RDW Coeff of [place] Plt Count MPV PT INR APTT PTT Ratio Sodium 138 Potassium 3.9 Chloride 106 Carbon Dioxide 27 Anion Gap 6.0 BUN 22 H Creatinine 1.19 Est Cr Clr Drug Dosing 78.2 Est GFR ( Amer) 60.4 Est GFR (Non-Af Amer) 52.1 BUN/Creatinine Ratio 18.7 Glucose 99 POC Glucose 103 H Calcium 8.4 L Phosphorus 3.8 Magnesium 2.1 Troponin I 15.200 H* NT-Pro-B Natriuret Pep Nasal Screen MRSA (PCR) 09/07/18 12:45 WBC RBC Hgb Hct MCV MCH MCHC RDW Std Deviation RDW Coeff of [place] Plt Count MPV PT INR APTT 43.0 H PTT Ratio 1.6 Sodium Potassium Chloride Carbon Dioxide Anion Gap BUN Creatinine Est Cr Clr Drug Dosing Est GFR ( Amer) Est GFR (Non-Af Amer) BUN/Creatinine Ratio Glucose POC Glucose Calcium Phosphorus Magnesium Troponin I NT-Pro-B Natriuret Pep Nasal Screen MRSA (PCR)
[2018-09-07] MEDS ORDERED: HEPARIN IV BOLUS 4,000 UNITS in SYRINGE 0 ML IV ONE (16:00)
[2018-09-07] MEDS: WARFARIN SOD 6 MG TAB PO SCH (17:03)
[2018-09-07] MEDS: METOPROLOL SUCC 25MG EXT REL TAB PO SCH (20:20)
--- NOTE | 2018-09-07 21:41 | Hospitalist Progress Note ---
Date of Service September 07, 2018 Assessment & Plan (1) Takotsubo cardiomyopathy: (2) NSTEMI (non-ST elevated myocardial infarction): (3) Chest pain: Present on admission with Chest pain Troponin on admission 2.[address] changes Cardio on board Bedside echo performed by Dr. Marquez in the ED demonstrated a new apical wall hypokinesis S/P Cardiac catheterization demonstrated normal coronary arteries Continue Toprol BID and low dose lisinopril and asprin Clinically stable (4) Pulmonary emboli: History of PE 03/2018 On Coumadin, however INR only 1.3 today Continue IV heparin until INR therapeutic (5) Hypertensive urgency: BP was 200/119 Possible related to hospital setting BP has been well controlled Continue metoprolol, lisinopril Continue monitor BP (6) CKD (chronic kidney disease), stage III: Stable avoid nephrotoxic agents Monitor BMP (7) Hematoma of abdominal wall: Recent admission for rectus sheath hematoma in the setting of a supratherapeutic INR Recent outpatient CT ABD/pelvis showing interval decrease in size in the small left rectus sheath hematoma. Monitor closely for signs of bleeding (8) CVA (cerebral vascular accident): Stable continue aspirin (9) WANDA (obstructive sleep apnea): CPAP as per home settings (10) COPD (chronic obstructive pulmonary disease): Stable Continue home inhalers (11) Chronic acquired lymphedema: Stable continue home dose of torsemide (12) Hypothyroidism: Continue levothyroxine (13) DVT prophylaxis: On IV heparin as above INR 1.3 today Continue coumadin CODE STATUS FULL CODE Subjective Pt was seen and examined Lying in bed with no distress Denies any complaints Physical Exam Vital Signs (Past 24 Hours): Last Vital Signs Temp 37.1 C 09/07/18 20:01 Pulse 79 09/07/18 21:01 Resp 21 09/07/18 21:01 BP 129/65 09/07/18 21:01 Pulse Ox 92 09/07/18 21:01 Physical Exam: General- No acute distress Head- atraumatic Eyes- PERRL, EOMI, ENT- oropharynx clear Neck- supple, no JVD Lungs- clear to auscultation Heart- regular rhythm; no murmur Abdomen- normal bowel sounds, soft, nontender Extremities- no calf tenderness Neuro- alert, oriented x 3; PERRL, EOMI; no facial palsy; no dysarthria Skin- warm & dry
[2018-09-07 23:52] LABS: Partial Thromboplastin Ratio 2.3
[2018-09-08 00:08] LABS: Partial Thromboplastin Time 62.6 Seconds (21.0-31.0)
[2018-09-08] MEDS: LEVOTHYROXINE SODIUM 200 MCG TABLET PO SCH (06:08)
[2018-09-08] MEDS: LEVOTHYROXINE SODIUM 25 MCG TABLET PO SCH (06:08)
[2018-09-08 06:59] LABS: INR 1.3 (0.9-1.1); Partial Thromboplastin Ratio 2.4; Prothrombin Time 12.9 Seconds (9.0-12.0)
[2018-09-08 07:01] LABS: Partial Thromboplastin Time 64.8 Seconds (21.0-31.0)
[2018-09-08] MEDS: POTASSIUM CHLORIDE 20 MEQ TABCR PO SCH (09:34)
[2018-09-08] MEDS: METOPROLOL SUCC 25MG EXT REL TAB PO SCH ×2 (09:35→21:48)
[2018-09-08] MEDS: TORSEMIDE 20 MG TAB PO SCH (09:35)
[2018-09-08] MEDS: TIOTROPIUM BROMIDE 5 PUFF/90 MCG INH INH SCH (09:36)
[2018-09-08] MEDS: HEPARIN STANDARD DEXTROSE 25,000 UNITS/500 ML IV SCH ×2 (09:37→21:46)
--- NOTE | 2018-09-08 14:45 | Cardiology Progress Note ---
Date of Service September 08, 2018 Assessment & Plan (1) Takotsubo cardiomyopathy: Acute presentation with hypertensive urgency and chest pain. Echocardiogram at bedside in the emergency room demonstrated apical wall motion abnormality. Cardiac catheterization demonstrated normal coronary arteries Hypertension and blood pressure now controlled Patient tolerating Toprol-XL 75 mg twice per day would continue. We will add low-dose CARLOS inhibitor regimen (2) Hypertensive urgency: (3) WANDA (obstructive sleep apnea): Using BiPAP at night Subjective Patient seen and examined chart medications telemetry reviewed. More comfortable this morning, blood pressures are doing well off nitroglycerin drip. No bleeding difficulties no melena hematochezia no worsening cough. Neurologic status stable Physical Exam Vital Signs (Past 24 Hours): Last Vital Signs Temp 36.6 C 09/08/18 07:00 Pulse 68 09/08/18 07:00 Resp 18 09/08/18 07:00 BP 130/78 09/08/18 07:00 Pulse Ox 94 09/08/18 07:00 Constitutional: + obese Eyes: PERRL, conjunctivae normal, anicteric sclerae ENMT: external ear and nose normal, oropharynx normal Respiratory: Auscultation: + diminished lung sounds (But clear to both lung llanos) Cardiovascular: Rate/Rhythm: regular rate and regular rhythm Heart Sounds: normal S1 and normal S2; no gallop, no murmur and no cardiac rub Musculoskeletal: Extremities with significant stasis changes but no worsening edema Skin: no rashes, warm and dry Results & Data Laboratory Results Laboratory Results - last 24 hr 09/07/18 09/07/18 09/07/18 17:20 21:28 22:56 PT INR APTT 62.6 H* PTT Ratio 2.3 POC Glucose 95 120 H 09/08/18 09/08/18 06:20 07:42 PT 12.9 H INR 1.3 H APTT 64.8 H* PTT Ratio 2.4 POC Glucose 103 H
[2018-09-08] MEDS: LISINOPRIL 2.5 MG TAB PO SCH (16:19)
[2018-09-08] MEDS: WARFARIN SOD 6 MG TAB PO SCH (16:19)
--- NOTE | 2018-09-08 20:42 | Hospitalist Progress Note ---
Date of Service September 08, 2018 Assessment & Plan (1) Takotsubo cardiomyopathy: (2) NSTEMI (non-ST elevated myocardial infarction): (3) Chest pain: Present on admission with Chest pain Troponin on admission 2.[address] changes Cardio on board Bedside echo performed by Dr. Marquez in the ED demonstrated a new apical wall hypokinesis S/P Cardiac catheterization demonstrated normal coronary arteries Continue Toprol BID and low dose lisinopril and asprin case discussed from cardiology and ok from cardiology standpoint to discharge home Clinically stable (4) Pulmonary emboli: History of PE 03/2018 On Coumadin, however INR only 1.3 today Continue IV heparin until INR therapeutic (5) Hypertensive urgency: BP was 200/119 Possible related to hospital setting BP has been well controlled Continue metoprolol, lisinopril Continue monitor BP (6) CKD (chronic kidney disease), stage III: Stable avoid nephrotoxic agents Monitor BMP (7) Hematoma of abdominal wall: Recent admission for rectus sheath hematoma in the setting of a supratherapeutic INR Recent outpatient CT ABD/pelvis showing interval decrease in size in the small left rectus sheath hematoma. Monitor closely for signs of bleeding (8) CVA (cerebral vascular accident): Stable continue aspirin (9) WANDA (obstructive sleep apnea): CPAP as per home settings (10) COPD (chronic obstructive pulmonary disease): Stable Continue home inhalers (11) Chronic acquired lymphedema: Stable continue home dose of torsemide (12) Hypothyroidism: Continue levothyroxine (13) DVT prophylaxis: On IV heparin as above INR 1.3 today Continue coumadin CODE STATUS FULL CODE Disposition WIll discharge home once INR therapeutic Subjective Pt was seen and examined Lying in bed with no distress Pt said that she feels fine She is very anxious to be discharge home Denies any chest pain, palpitation and SOB Physical Exam Vital Signs (Past 24 Hours): Last Vital Signs Temp 37.4 C 09/08/18 19:36 Pulse 66 09/08/18 19:36 Resp 16 09/08/18 19:36 BP 122/77 09/08/18 19:36 Pulse Ox 92 09/08/18 19:36 Physical Exam: General- No acute distress Head- atraumatic Eyes- PERRL, EOMI, ENT- oropharynx clear Neck- supple, no JVD Lungs- clear to auscultation Heart- regular rhythm; no murmur Abdomen- normal bowel sounds, soft, nontender Extremities- no calf tenderness Neuro- alert, oriented x 3; PERRL, EOMI; no facial palsy; no dysarthria Skin- warm & dry
[2018-09-09] MEDS: LEVOTHYROXINE SODIUM 25 MCG TABLET PO SCH (06:01)
[2018-09-09] MEDS: LEVOTHYROXINE SODIUM 200 MCG TABLET PO SCH (06:01)
[2018-09-09] MEDS: LISINOPRIL 2.5 MG TAB PO SCH (08:28)
[2018-09-09] MEDS: TORSEMIDE 20 MG TAB PO SCH (08:28)
[2018-09-09] MEDS: METOPROLOL SUCC 25MG EXT REL TAB PO SCH ×2 (08:28→21:17)
[2018-09-09] MEDS: POTASSIUM CHLORIDE 20 MEQ TABCR PO SCH (08:28)
[2018-09-09] MEDS: TIOTROPIUM BROMIDE 5 PUFF/90 MCG INH INH SCH (08:28)
[2018-09-09 08:56] LABS: Basophils # (auto) 0.02 K/uL (0-0.2); Basophils % (auto) 0.2 %; Eosinophils # (auto) 0.34 K/uL (0-0.5); Hematocrit (blood only) 32.5 % (37-47); Hemoglobin 10.1 g/dL (12.0-16.0); Immature Granulocytes # (auto) 0.03 K/uL (0.00-0.02); Immature Granulocytes % (auto) 0.4 %; Lymphocytes # (auto) 2.33 K/uL (1.2-3.4); Lymphocytes % (auto) 27.7 %; Mean Corpuscular Hgb Conc 31.1 g/dL (32-36); Mean Corpuscular Volume 87.8 fL (80-100); Mean Platelet Volume 9.9 fL (7.4-10.4); Monocytes # (auto) 0.67 K/uL (0.11-0.59); Neutrophils # (auto) 5.03 K/uL (1.4-6.5); Neutrophils % (auto) 59.7 %; Platelet Count 267 K/uL (130-400); RDW Coefficient of Variation 15.5 % (11.5-14.5); RDW Standard Deviation 50.5 fL (36.4-46.3); White Blood Count 8.42 K/uL (4.8-10.8)
[2018-09-09 09:16] LABS: INR 1.3 (0.9-1.1); Partial Thromboplastin Ratio 2.2
[2018-09-09 09:20] LABS: Partial Thromboplastin Time 60.6 Seconds (21.0-31.0)
[2018-09-09] MEDS: HEPARIN STANDARD DEXTROSE 25,000 UNITS/500 ML IV SCH ×2 (11:06→23:13)
--- NOTE | 2018-09-09 15:06 | Cardiology Progress Note ---
Date of Service September 09, 2018 Assessment & Plan (1) Takotsubo cardiomyopathy: Acute presentation with hypertensive urgency and chest pain. Echocardiogram at bedside in the emergency room demonstrated apical wall motion abnormality. Cardiac catheterization demonstrated normal coronary arteries Hypertension and blood pressure now controlled Patient tolerating Toprol-XL 75 mg twice per day would continue. Added low-dose CARLOS inhibitor with lisinopril 2.5 mg/day BMP ordered for a.m. Awaiting resumption of chronic anticoagulation with patient requiring substantial dosage of warfarin in the past History of complication of rectus sheath hematoma with Lovenox (2) Hypertensive urgency: (3) WANDA (obstructive sleep apnea): Using BiPAP at night Subjective Patient seen and examined chart medications telemetry reviewed. Heart rate and blood pressure much better controlled. No cardiac complaints. No arrhythmias on telemetry. Denies any chest pains or shortness of breath worsening orthopnea Physical Exam Vital Signs (Past 24 Hours): Last Vital Signs Temp 36.8 C 09/09/18 15:00 Pulse 75 09/09/18 15:00 Resp 18 09/09/18 15:00 BP 115/78 09/09/18 15:00 Pulse Ox 91 09/09/18 15:00 Constitutional: + obese Eyes: PERRL, conjunctivae normal, anicteric sclerae ENMT: external ear and nose normal, oropharynx normal Respiratory: Auscultation: + diminished lung sounds (But clear to both lung llanos) Cardiovascular: Rate/Rhythm: regular rate and regular rhythm Heart Sounds: normal S1 and normal S2; no gallop, no murmur and no cardiac rub Skin: no rashes, warm and dry
[2018-09-09] MEDS: WARFARIN SOD 6 MG TAB PO SCH (16:14)
--- NOTE | 2018-09-09 19:01 | Hospitalist Progress Note ---
Date of Service September 09, 2018 Assessment & Plan (1) Takotsubo cardiomyopathy: (2) NSTEMI (non-ST elevated myocardial infarction): (3) Chest pain: Present on admission with Chest pain Troponin on admission 2.[address] changes Cardio on board Bedside echo performed by Dr. Marquez in the ED demonstrated a new apical wall hypokinesis S/P Cardiac catheterization demonstrated normal coronary arteries Continue Toprol BID and low dose lisinopril and asprin case discussed from cardiology and ok from cardiology standpoint to discharge home Clinically stable (4) Pulmonary emboli: History of PE 03/2018 On Coumadin, however INR only 1.3 today Continue IV heparin until INR therapeutic Increased coumadin to 15mg (5) Hypertensive urgency: BP was 200/119 Possible related to hospital setting BP has been well controlled Continue metoprolol, lisinopril Continue monitor BP (6) CKD (chronic kidney disease), stage III: Stable avoid nephrotoxic agents Monitor BMP (7) Hematoma of abdominal wall: Recent admission for rectus sheath hematoma in the setting of a supratherapeutic INR Recent outpatient CT ABD/pelvis showing interval decrease in size in the small left rectus sheath hematoma. Monitor closely for signs of bleeding (8) CVA (cerebral vascular accident): Stable continue aspirin (9) WANDA (obstructive sleep apnea): CPAP as per home settings (10) COPD (chronic obstructive pulmonary disease): Stable Continue home inhalers (11) Chronic acquired lymphedema: Stable continue home dose of torsemide (12) Hypothyroidism: Continue levothyroxine Left Calf Area Tenderness Tenderness Lump fell on Left calf area If symptom does not improve, will get an u/s (13) DVT prophylaxis: On IV heparin as above INR 1.3 today Continue coumadin CODE STATUS FULL CODE Disposition WIll discharge home once INR therapeutic Subjective Pt was seen and examined Lying in bed with no distress Denies any complaints Physical Exam Vital Signs (Past 24 Hours): Last Vital Signs Temp 36.8 C 09/09/18 15:00 Pulse 75 09/09/18 15:00 Resp 18 09/09/18 15:00 BP 115/78 09/09/18 15:00 Pulse Ox 91 09/09/18 15:00 Physical Exam: General- No acute distress Head- atraumatic Eyes- PERRL, EOMI, ENT- oropharynx clear Neck- supple, no JVD Lungs- clear to auscultation Heart- regular rhythm; no murmur Abdomen- normal bowel sounds, soft, nontender Extremities- Left calf lump and tenderness Neuro- alert, oriented x 3; PERRL, EOMI; no facial palsy; no dysarthria Skin- warm & dry
[2018-09-09] MEDS ORDERED: WARFARIN SOD 3 MG TAB PO STA (20:03)
[2018-09-10] MEDS: LEVOTHYROXINE SODIUM 25 MCG TABLET PO SCH (05:30)
[2018-09-10] MEDS: LEVOTHYROXINE SODIUM 200 MCG TABLET PO SCH (05:30)
[2018-09-10 08:12] LABS: INR 1.3 (0.9-1.1); Partial Thromboplastin Ratio 2.1; Prothrombin Time 13.5 Seconds (9.0-12.0)
[2018-09-10 08:20] LABS: Partial Thromboplastin Time 56.1 Seconds (21.0-31.0)
[2018-09-10 08:23] LABS: BUN Creatinine Ratio 18.9 (10-20); Calcium 8.8 mg/dl (8.5-10.1); Creatinine Clr Calc Pharmacy 84.7 ml/min; Est GFR (African American) 67.1; Est GFR (Non-African American) 57.9; Potassium 4.3 mmol/L (3.5-5.1)
[2018-09-10] MEDS: LISINOPRIL 2.5 MG TAB PO SCH (08:25)
[2018-09-10] MEDS: METOPROLOL SUCC 25MG EXT REL TAB PO SCH ×2 (08:25→21:41)
[2018-09-10] MEDS: TIOTROPIUM BROMIDE 5 PUFF/90 MCG INH INH SCH (08:25)
[2018-09-10] MEDS: TORSEMIDE 20 MG TAB PO SCH (08:25)
[2018-09-10] MEDS: POTASSIUM CHLORIDE 20 MEQ TABCR PO SCH (08:25)
--- NOTE | 2018-09-10 11:53 | Ultrasound Report ---
ULTRASOUND LEFT CALF NONVASCULAR CLINICAL HISTORY: Palpable lump in the calf. COMPARISON STUDY: No priors. FINDINGS: Real-time, grayscale, and color flow sonography of the soft tissues of the left lateral/pos terior calf is performed at the indicated site of interest. There is a complex nonvascular fluid farzana ection within the subcutaneous soft tissues at this site with surrounding soft tissue edema. The flui d collection measures 6.7 x 4.6 x 3.6 cm in dimension. IMPRESSION: There is a complex nonvascular fluid collection at the site of interest with surrounding soft tissue edema. Top differential considerations include hematoma versus abscess. Clinical correlat ion will be essential and clinical follow-up to resolution is recommended. Electronically signed by: Julian Tamez M.D. 09/10/2018 11:52 AM
[2018-09-10] MEDS: HEPARIN STANDARD DEXTROSE 25,000 UNITS/500 ML IV SCH ×2 (12:48→23:59)
[2018-09-10] MEDS: WARFARIN SOD 6 MG TAB PO SCH (16:21)
--- NOTE | 2018-09-10 20:06 | Hospitalist Progress Note ---
Date of Service September 10, 2018 Assessment & Plan (1) Takotsubo cardiomyopathy: (2) NSTEMI (non-ST elevated myocardial infarction): (3) Chest pain: Present on admission with Chest pain Troponin on admission 2.[address] changes Cardio on board Bedside echo performed by Dr. Marquez in the ED demonstrated a new apical wall hypokinesis S/P Cardiac catheterization demonstrated normal coronary arteries Continue Toprol BID and low dose lisinopril and asprin case discussed from cardiology and ok from cardiology standpoint to discharge home Clinically stable (4) Pulmonary emboli: History of PE 03/2018 On Coumadin, however INR only 1.3 today Continue IV heparin until INR therapeutic Increased coumadin to 15mg (5) Hypertensive urgency: BP was 200/119 Possible related to hospital setting BP has been well controlled Continue metoprolol, lisinopril Continue monitor BP (6) CKD (chronic kidney disease), stage III: Stable avoid nephrotoxic agents Monitor BMP (7) Hematoma of abdominal wall: Recent admission for rectus sheath hematoma in the setting of a supratherapeutic INR Recent outpatient CT ABD/pelvis showing interval decrease in size in the small left rectus sheath hematoma. Monitor closely for signs of bleeding (8) CVA (cerebral vascular accident): Stable continue aspirin (9) WANDA (obstructive sleep apnea): CPAP as per home settings (10) COPD (chronic obstructive pulmonary disease): Stable Continue home inhalers (11) Chronic acquired lymphedema: Stable continue home dose of torsemide (12) Hypothyroidism: Continue levothyroxine Left Calf Area Tenderness Tenderness Lump fell on Left calf area LLE u/s showed complex nonvascular fluid collection at the site of interest with surrounding soft tissue edema. No signs of abscess (13) DVT prophylaxis: On IV heparin as above INR 1.3 today Continue coumadin CODE STATUS FULL CODE Disposition WIll discharge home once INR therapeutic Subjective Pt was seen and examined Lying in bed with no distress Continue to have tenderness in her left caft area Denies any chest pain, palpitation and SOB Physical Exam Vital Signs (Past 24 Hours): Last Vital Signs Temp 36.8 C 09/10/18 19:00 Pulse 67 09/10/18 19:00 Resp 18 09/10/18 19:00 BP 119/68 09/10/18 19:00 Pulse Ox 91 09/10/18 19:00 Physical Exam: General- No acute distress Head- atraumatic Eyes- PERRL, EOMI, ENT- oropharynx clear Neck- supple, no JVD Lungs- clear to auscultation Heart- regular rhythm; no murmur Abdomen- normal bowel sounds, soft, nontender Extremities- Left calf lump and tenderness Neuro- alert, oriented x 3; PERRL, EOMI; no facial palsy; no dysarthria Skin- warm & dry
[2018-09-10] MEDS ORDERED: WARFARIN SOD 3 MG TAB PO ONE (20:10)
[2018-09-11] MEDS: LEVOTHYROXINE SODIUM 25 MCG TABLET PO SCH (06:02)
[2018-09-11] MEDS: LEVOTHYROXINE SODIUM 200 MCG TABLET PO SCH (06:02)
[2018-09-11 08:28] LABS: Hematocrit (blood only) 32.3 % (37-47); Hemoglobin 10.2 g/dL (12.0-16.0); Mean Corpuscular Hgb Conc 31.6 g/dL (32-36); Mean Corpuscular Volume 87.5 fL (80-100); Mean Platelet Volume 10.2 fL (7.4-10.4); Platelet Count 282 K/uL (130-400); RDW Coefficient of Variation 15.7 % (11.5-14.5); RDW Standard Deviation 51.1 fL (36.4-46.3); Red Blood Count 3.69 M/uL (4.2-5.4); White Blood Count 7.78 K/uL (4.8-10.8)
[2018-09-11] MEDS: POTASSIUM CHLORIDE 20 MEQ TABCR PO SCH (08:59)
[2018-09-11] MEDS: METOPROLOL SUCC 25MG EXT REL TAB PO SCH ×2 (08:59→22:07)
[2018-09-11] MEDS: LISINOPRIL 2.5 MG TAB PO SCH (08:59)
[2018-09-11] MEDS: TORSEMIDE 20 MG TAB PO SCH (08:59)
[2018-09-11] MEDS: TIOTROPIUM BROMIDE 5 PUFF/90 MCG INH INH SCH (08:59)
[2018-09-11 09:08] LABS: INR 1.5 (0.9-1.1); Partial Thromboplastin Ratio 1.8; Prothrombin Time 15.1 Seconds (9.0-12.0)
[2018-09-11 09:19] LABS: Partial Thromboplastin Time 48.6 Seconds (21.0-31.0)
[2018-09-11] MEDS ORDERED: TRAMADOL HCL 50 MG TABLET PO PRN (09:51)
[2018-09-11] MEDS: HEPARIN STANDARD DEXTROSE 25,000 UNITS/500 ML IV SCH (13:32)
[2018-09-11] MEDS: WARFARIN SOD 6 MG TAB PO SCH (17:08)
[2018-09-11] MEDS ORDERED: WARFARIN SOD 3 MG TAB PO ONE (18:15)
--- NOTE | 2018-09-11 19:49 | Hospitalist Progress Note ---
Date of Service September 11, 2018 Assessment & Plan (1) Takotsubo cardiomyopathy: (2) NSTEMI (non-ST elevated myocardial infarction): (3) Chest pain: Present on admission with Chest pain Troponin on admission 2.[address] changes Cardio on board Bedside echo performed by Dr. Marquez in the ED demonstrated a new apical wall hypokinesis S/P Cardiac cath demonstrated normal coronary arteries Continue Toprol BID and low dose lisinopril and asprin case discussed from cardiology and ok from cardiology standpoint to discharge home Clinically stable (4) Pulmonary emboli: History of PE 03/2018 On Coumadin, however INR only 1.5 today Continue IV heparin until INR therapeutic Continue coumadin 15mg (5) Hypertensive urgency: BP was 200/119 Possible related to hospital setting BP has been well controlled Continue metoprolol, lisinopril Continue monitor BP (6) CKD (chronic kidney disease), stage III: Stable Avoid nephrotoxic agents Monitor BMP (7) Hematoma of abdominal wall: Recent admission for rectus sheath hematoma in the setting of a supratherapeutic INR Recent outpatient CT ABD/pelvis showing interval decrease in size in the small left rectus sheath hematoma. Monitor closely for signs of bleeding (8) CVA (cerebral vascular accident): Stable continue aspirin (9) WANDA (obstructive sleep apnea): CPAP as per home settings (10) COPD (chronic obstructive pulmonary disease): Stable Continue home inhalers (11) Chronic acquired lymphedema: Stable continue home dose of torsemide (12) Hypothyroidism: Continue levothyroxine Left Calf Area Tenderness Tenderness Lump fell on Left calf area LLE u/s showed complex nonvascular fluid collection at the site of interest with surrounding soft tissue edema. No signs of abscess Will consult orthopedic (13) DVT prophylaxis: On IV heparin as above INR 1.5 today Continue coumadin CODE STATUS FULL CODE Disposition WIll discharge home once INR therapeutic Subjective Pt was seen and examined Lying in bed with no distress Pt said that she continue to have the tenderness and lump behing her left lower extremity Denies any chest pain, palpitation and SOB Physical Exam Vital Signs (Past 24 Hours): Last Vital Signs Temp 36.9 C 09/11/18 18:57 Pulse 72 09/11/18 18:57 Resp 18 09/11/18 18:57 BP 92/57 L 09/11/18 18:57 Pulse Ox 92 09/11/18 18:57 Physical Exam: General- No acute distress Head- atraumatic Eyes- PERRL, EOMI, ENT- oropharynx clear Neck- supple, no JVD Lungs- clear to auscultation Heart- regular rhythm; no murmur Abdomen- normal bowel sounds, soft, nontender Extremities- Left calf lump and tenderness Neuro- alert, oriented x 3; PERRL, EOMI; no facial palsy; no dysarthria Skin- warm & dry
--- NOTE | 2018-09-11 21:16 | XRay Report ---
XR tibia fibula LT 2V CLINICAL HISTORY: fluid collection left calf COMPARISON: None. DISCUSSION: There are advanced osteoarthritic changes within the left knee. There are no acute fractu res. There is no soft tissue gas. There is lower extremity edema. There is a prominent plantar calcan eal spur. IMPRESSION: 1. No acute fractures 2. Soft tissue edema 3. Advanced osteoarthritic changes involving the left knee Electronically signed by: Vasu Luther M.D. 09/11/2018 9:15 PM
[2018-09-11] MEDS ORDERED: ACETAMINOPHEN 325 MG TAB PO PRN (23:45)
[2018-09-12] MEDS: HEPARIN STANDARD DEXTROSE 25,000 UNITS/500 ML IV SCH ×2 (01:52→15:25)
[2018-09-12] MEDS: LEVOTHYROXINE SODIUM 200 MCG TABLET PO SCH (06:14)
[2018-09-12] MEDS: LEVOTHYROXINE SODIUM 25 MCG TABLET PO SCH (06:14)
[2018-09-12 08:14] LABS: INR 1.6 (0.9-1.1); Partial Thromboplastin Ratio 2.1; Prothrombin Time 16.3 Seconds (9.0-12.0)
[2018-09-12 08:22] LABS: Partial Thromboplastin Time 56.7 Seconds (21.0-31.0)
[2018-09-12] MEDS: POTASSIUM CHLORIDE 20 MEQ TABCR PO SCH (08:45)
[2018-09-12] MEDS: LISINOPRIL 2.5 MG TAB PO SCH (08:45)
[2018-09-12] MEDS: TORSEMIDE 20 MG TAB PO SCH (08:45)
[2018-09-12] MEDS: METOPROLOL SUCC 25MG EXT REL TAB PO SCH ×2 (08:45→21:39)
[2018-09-12] MEDS: TIOTROPIUM BROMIDE 5 PUFF/90 MCG INH INH SCH (10:11)
--- NOTE | 2018-09-12 10:53 | Orthopedic Consultation ---
Date of Consultation September 12, 2018 Assessment & Plan (1) Leg hematoma: Left calf fluid collection, hematoma vs. abcess, not looking infectious at this point. Activity as tolerated, will likely get MRI to eval more closely. Plan as per Dr. Rivera. History of Present Illness Reason for Consultation: 53 yo female admitted to the hospital for Chest pain, poss HI and HTN. Orthopedics being consulted for left LE fluid collection and pain in the calf area. Patient states that the "lump" developed about 2 days ago, denies and injury, states it is tender and does hurt when ambulating. U/S showed non specifiic fluid collection, non vascular. No evidence of DVT. Attending Physician: Lloyd Cullen MD Allergies Allergy/AdvReac Type Severity Reaction Status Date / Time adhesive tape Allergy Intermediate Rash - Verified 09/06/18 10:30 CLOTH TAPE morphine AdvReac Unknown Unverified 09/06/18 10:30 Home Medications Home Medications Medication Instructions Recorded Confirmed Type Breo Ellipta 1 inh INHALATION DAILY 07/30/18 09/06/18 History Spiriva with HandiHaler 1 cap INHALATION DAILY 07/30/18 09/06/18 History acetaminophen [Tylenol] 650 mg PO Q4 PRN 07/30/18 09/06/18 History albuterol sulfate 2 puff INHALATION QID PRN 07/30/18 09/06/18 History aspirin 81 mg PO DAILY 07/30/18 09/06/18 History levothyroxine 12.5 mcg PO DAILY 07/30/18 09/06/18 History levothyroxine 200 mcg PO DAILY 07/30/18 09/06/18 History metoprolol succinate 50 mg PO DAILY 07/30/18 09/06/18 History potassium chloride 40 meq PO DAILY 07/30/18 09/06/18 History torsemide [Demadex] 20 mg PO DAILY 07/30/18 09/06/18 History varenicline 0.5 mg PO UD 07/30/18 09/06/18 History warfarin [Coumadin] 12 mg PO DAILY 07/30/18 09/06/18 History Patient History Medical History HTN (hypertension) (Chronic) CKD (chronic kidney disease), stage III (Chronic) Hematoma of abdominal wall (Resolved) Obesity (Chronic) Pulmonary emboli (Chronic) CVA (cerebral vascular accident) (Chronic) WANDA (obstructive sleep apnea) (Chronic) Tobacco abuse (Chronic) COPD (chronic obstructive pulmonary disease) (Chronic) Expressive aphasia (Chronic) Chronic acquired lymphedema (Chronic) Hypothyroidism (Chronic) ARF (acute renal failure) (Chronic) CHF (congestive heart failure) (Chronic) Surgical History History of cholecystectomy (Chronic) History of tonsillectomy (Chronic) History of carpal tunnel surgery (Chronic) Family History Other Adopted Social History Communication Ability: Effective Beliefs That Will Affect Care: None Current Living Situation: Family Other Information That Helps Us Care for You: No Feels Safe at Home: Yes Safety Concerns: Feels Safe At This Time Smoking Status: Former smoker Hx Alcohol Use: No Hx Substance Use: No Physical Exam Vital Signs (Past 24 Hours): Last Vital Signs Temp 36.6 C 09/12/18 07:41 Pulse 57 L 09/12/18 07:41 Resp 18 09/12/18 07:41 BP 109/73 09/12/18 07:41 Pulse Ox 96 09/12/18 07:41 Physical Exam: Left lateral calf with firm fluid collection on palpation. Skin in tact, no drainage, no erythema, knee and ankle exams are baseline, toes and ankle mobile. N/V+ in tact. Neg Homans. No evidence of infection. Morbid obesity.
[2018-09-12] MEDS: WARFARIN SOD 6 MG TAB PO SCH (15:26)
[2018-09-12] MEDS ORDERED: WARFARIN SOD 3 MG TAB PO ONE (17:30)
--- NOTE | 2018-09-12 17:43 | Orthopedic Progress Note ---
Date of Service September 12, 2018 Assessment & Plan (1) Leg hematoma: Left calf fluid collection, hematoma vs. abcess, not looking infectious at this point. Activity as tolerated, at this time recommend observation. If develops elevated white count erythema or increasing size of mass we could p roceed with an aspiration. Since patient is on anticoagulation it may just be subcutaneous bleeding and hematoma. Recommend moist heat and observation unless this enlarges or becomes more painful. Subjective No change in symptoms focal pain calf area. Physical Exam Vital Signs (Past 24 Hours): Last Vital Signs Temp 37.0 C 09/12/18 15:14 Pulse 70 09/12/18 15:14 Resp 18 09/12/18 15:14 BP 112/65 09/12/18 15:14 Pulse Ox 94 09/12/18 15:14 Physical Exam: 4-5 cm diameter hard indurated skin more bruised looking in appearance. No erythema. Chronic lymphedema of the leg. Fluid collection clearly in the fat and superficial
--- NOTE | 2018-09-12 20:41 | Hospitalist Progress Note ---
Date of Service September 12, 2018 Assessment & Plan (1) Takotsubo cardiomyopathy: (2) NSTEMI (non-ST elevated myocardial infarction): (3) Chest pain: Present on admission with Chest pain Troponin on admission 2.[address] changes Cardio on board Bedside echo performed by Dr. Marquez in the ED demonstrated a new apical wall hypokinesis S/P Cardiac cath demonstrated normal coronary arteries Continue Toprol BID and low dose lisinopril and asprin case discussed from cardiology and ok from cardiology standpoint to discharge home Clinically stable (4) Pulmonary emboli: History of PE 03/2018 On Coumadin, however INR only 1.5 today Continue IV heparin until INR therapeutic Continue coumadin 15mg (5) Hypertensive urgency: BP was 200/119 Possible related to hospital setting BP has been well controlled Continue metoprolol, lisinopril Continue monitor BP (6) CKD (chronic kidney disease), stage III: Stable Avoid nephrotoxic agents Monitor BMP (7) Hematoma of abdominal wall: Recent admission for rectus sheath hematoma in the setting of a supratherapeutic INR Recent outpatient CT ABD/pelvis showing interval decrease in size in the small left rectus sheath hematoma. Monitor closely for signs of bleeding (8) CVA (cerebral vascular accident): Stable continue aspirin (9) WANDA (obstructive sleep apnea): CPAP as per home settings (10) COPD (chronic obstructive pulmonary disease): Stable Continue home inhalers (11) Chronic acquired lymphedema: Stable continue home dose of torsemide (12) Hypothyroidism: Continue levothyroxine Left Calf Area Tenderness Tenderness Lump fell on Left calf area LLE u/s showed complex nonvascular fluid collection at the site of interest with surrounding soft tissue edema. No signs of abscess Orthopedic on board recommended conservative management with moist heat (13) DVT prophylaxis: On IV heparin as above INR 1.6 today Continue coumadin CODE STATUS FULL CODE Disposition WIll discharge home once INR therapeutic Subjective Pt was seen and examined Lying in bed with no distress Continue to have LLE tenderness Denies any chest pain, palpitation and SOB Physical Exam Vital Signs (Past 24 Hours): Last Vital Signs Temp 37.7 C H 09/12/18 19:15 Pulse 74 09/12/18 19:15 Resp 18 09/12/18 19:15 BP 131/78 09/12/18 20:11 Pulse Ox 91 09/12/18 19:15 Physical Exam: General- No acute distress Head- atraumatic Eyes- PERRL, EOMI, ENT- oropharynx clear Neck- supple, no JVD Lungs- clear to auscultation Heart- regular rhythm; no murmur Abdomen- normal bowel sounds, soft, nontender Extremities- Left calf lump and tenderness Neuro- alert, oriented x 3; PERRL, EOMI; no facial palsy; no dysarthria Skin- warm & dry
[2018-09-13] MEDS: HEPARIN STANDARD DEXTROSE 25,000 UNITS/500 ML IV SCH ×2 (03:55→17:28)
[2018-09-13] MEDS: LEVOTHYROXINE SODIUM 25 MCG TABLET PO SCH (06:14)
[2018-09-13] MEDS: LEVOTHYROXINE SODIUM 200 MCG TABLET PO SCH (06:14)
[2018-09-13] MEDS: TORSEMIDE 20 MG TAB PO SCH (08:31)
[2018-09-13] MEDS: LISINOPRIL 2.5 MG TAB PO SCH (08:31)
[2018-09-13] MEDS: TIOTROPIUM BROMIDE 5 PUFF/90 MCG INH INH SCH (08:31)
[2018-09-13] MEDS: POTASSIUM CHLORIDE 20 MEQ TABCR PO SCH (08:31)
[2018-09-13 08:53] LABS: Hematocrit (blood only) 31.5 % (37-47); Hemoglobin 9.8 g/dL (12.0-16.0); Mean Corpuscular Hgb Conc 31.1 g/dL (32-36); Mean Corpuscular Volume 87.5 fL (80-100); Platelet Count 313 K/uL (130-400); RDW Coefficient of Variation 15.7 % (11.5-14.5); RDW Standard Deviation 50.6 fL (36.4-46.3); White Blood Count 7.86 K/uL (4.8-10.8)
[2018-09-13 09:13] LABS: INR 1.8 (0.9-1.1); Partial Thromboplastin Ratio 2.2; Prothrombin Time 17.8 Seconds (9.0-12.0)
[2018-09-13 09:14] LABS: Partial Thromboplastin Time 60.4 Seconds (21.0-31.0)
[2018-09-13] MEDS: METOPROLOL SUCC 25MG EXT REL TAB PO SCH ×2 (09:43→20:03)
[2018-09-13] MEDS ORDERED: FUROSEMIDE 80 MG in SYRINGE 0 ML IV ONE (12:08)
[2018-09-13] MEDS ORDERED: WARFARIN SOD 5 MG TAB PO SCH (16:00)
--- NOTE | 2018-09-13 19:24 | Hospitalist Progress Note ---
Date of Service September 13, 2018 Assessment & Plan (1) Takotsubo cardiomyopathy: (2) NSTEMI (non-ST elevated myocardial infarction): (3) Chest pain: Present on admission with Chest pain Troponin on admission 2.[address] changes Cardio on board Bedside echo performed by Dr. Marquez in the ED demonstrated a new apical wall hypokinesis S/P Cardiac cath demonstrated normal coronary arteries Continue Toprol BID and low dose lisinopril and asprin case discussed from cardiology and ok from cardiology standpoint to discharge home Clinically stable (4) Pulmonary emboli: History of PE 03/2018 On Coumadin, however INR only 1.8 today Continue IV heparin until INR therapeutic Continue coumadin 15mg (5) Hypertensive urgency: BP was 200/119 Possible related to hospital setting BP has been well controlled Continue metoprolol, lisinopril Continue monitor BP (6) CKD (chronic kidney disease), stage III: Stable Avoid nephrotoxic agents Monitor BMP (7) Hematoma of abdominal wall: Recent admission for rectus sheath hematoma in the setting of a supratherapeutic INR Recent outpatient CT ABD/pelvis showing interval decrease in size in the small left rectus sheath hematoma. Monitor closely for signs of bleeding (8) CVA (cerebral vascular accident): Stable continue aspirin (9) WANDA (obstructive sleep apnea): CPAP as per home settings (10) COPD (chronic obstructive pulmonary disease): Stable Continue home inhalers (11) Chronic acquired lymphedema: Stable continue home dose of torsemide (12) Hypothyroidism: Continue levothyroxine Left Calf Area Tenderness Tenderness Lump fell on Left calf area LLE u/s showed complex nonvascular fluid collection at the site of interest with surrounding soft tissue edema. No signs of abscess Orthopedic on board recommended conservative management with moist heat (13) DVT prophylaxis: On IV heparin as above INR 1.8 today Continue coumadin CODE STATUS FULL CODE Disposition WIll discharge home once INR therapeutic Subjective Pt was seen and examined Lying in bed with no distress LLE tenderness still present Very anxious to go home Denies any chest pain, palpitation and SOB Physical Exam Vital Signs (Past 24 Hours): Last Vital Signs Temp 37 C 09/13/18 15:04 Pulse 61 09/13/18 16:00 Resp 18 09/13/18 15:04 BP 120/78 09/13/18 15:04 Pulse Ox 94 09/13/18 15:04 Physical Exam: General- No acute distress Head- atraumatic Eyes- PERRL, EOMI, ENT- oropharynx clear Neck- supple, no JVD Lungs- clear to auscultation Heart- regular rhythm; no murmur Abdomen- normal bowel sounds, soft, nontender Extremities- Left calf lump and tenderness Neuro- alert, oriented x 3; PERRL, EOMI; no facial palsy; no dysarthria Skin- warm & dry
[2018-09-14] MEDS: LEVOTHYROXINE SODIUM 25 MCG TABLET PO SCH (06:00)
[2018-09-14] MEDS: LEVOTHYROXINE SODIUM 200 MCG TABLET PO SCH (06:01)
[2018-09-14] MEDS: HEPARIN STANDARD DEXTROSE 25,000 UNITS/500 ML IV SCH ×2 (06:37→19:15)
[2018-09-14] MEDS: METOPROLOL SUCC 25MG EXT REL TAB PO SCH ×2 (08:01→20:07)
[2018-09-14] MEDS: LISINOPRIL 2.5 MG TAB PO SCH (08:01)
[2018-09-14] MEDS: TORSEMIDE 20 MG TAB PO SCH (08:01)
[2018-09-14] MEDS: POTASSIUM CHLORIDE 20 MEQ TABCR PO SCH (08:02)
[2018-09-14] MEDS: TIOTROPIUM BROMIDE 5 PUFF/90 MCG INH INH SCH (08:02)
[2018-09-14 08:34] LABS: INR 1.7 (0.9-1.1); Prothrombin Time 17.1 Seconds (9.0-12.0)
[2018-09-14 11:08] LABS: Partial Thromboplastin Ratio 1.9
[2018-09-14 11:10] LABS: Partial Thromboplastin Time 50.3 Seconds (21.0-31.0)
--- NOTE | 2018-09-14 11:30 | Hospitalist Progress Note ---
Date of Service September 14, 2018 Assessment & Plan (1) Takotsubo cardiomyopathy: (2) NSTEMI (non-ST elevated myocardial infarction): (3) Chest pain: Present on admission with Chest pain Troponin on admission 2.[address] changes Cardio on board Bedside echo performed by Dr. Marquez in the ED demonstrated a new apical wall hypokinesis S/P Cardiac cath demonstrated normal coronary arteries Continue Toprol BID and low dose lisinopril and aspirin case discussed from cardiology and ok from cardiology standpoint to discharge home Clinically stable (4) Pulmonary emboli: History of PE 03/2018 On Coumadin, however INR only 1.7 today Continue IV heparin until INR therapeutic Continue increased to coumadin 17.5mg Follow up with the coag clinic (5) Hypertensive urgency: BP was 200/119 Possible related to hospital setting BP has been well controlled Continue metoprolol, lisinopril Continue monitor BP (6) CKD (chronic kidney disease), stage III: Stable Avoid nephrotoxic agents Monitor BMP (7) Hematoma of abdominal wall: Recent admission for rectus sheath hematoma in the setting of a suprath erapeutic INR Recent outpatient CT ABD/pelvis showing interval decrease in size in the small left rectus sheath hematoma. Monitor closely for signs of bleeding (8) CVA (cerebral vascular accident): Stable continue aspirin (9) WANDA (obstructive sleep apnea): CPAP as per home settings (10) COPD (chronic obstructive pulmonary disease): Stable Continue home inhalers (11) Chronic acquired lymphedema: Stable continue home dose of torsemide (12) Hypothyroidism: Continue levothyroxine Left Calf Area Tenderness Tenderness Lump fell on Left calf area LLE u/s showed complex nonvascular fluid collection at the site of interest with surrounding soft tissue edema. No signs of abscess Orthopedic on board recommended conservative management with moist heat (13) DVT prophylaxis: On IV heparin as above INR 1.8 today Continue coumadin CODE STATUS FULL CODE Disposition WIll discharge home once INR therapeutic Follow up with the coag clinic Follow up with PCP Dr. Gaston on 09/21 @ 2:05 PM Subjective Pt was seen and examined Lying in bed with no distress Pt said that left lower extremities tenderness improves She is very anxious to go home Her INR is 1.7 today She denies any chest pain, palpitation, dizziness and SOB Physical Exam Vital Signs (Past 24 Hours): Last Vital Signs Temp 37.0 C 09/14/18 07:57 Pulse 60 09/14/18 10:11 Resp 20 09/14/18 07:57 BP 116/65 09/14/18 07:57 Pulse Ox 91 09/14/18 07:57 Physical Exam: General- No acute distress Head- atraumatic Eyes- PERRL, EOMI, ENT- oropharynx clear Neck- supple, no JVD Lungs- clear to auscultation Heart- regular rhythm; no murmur Abdomen- normal bowel sounds, soft, nontender Extremities- Left calf lump and tenderness Neuro- alert, oriented x 3; PERRL, EOMI; no facial palsy; no dysarthria Skin- warm & dry
[2018-09-14] MEDS: WARFARIN SOD 10 MG TAB PO SCH (15:44)
[2018-09-14] MEDS: WARFARIN SOD 7.5 MG TAB PO SCH (15:44)
[2018-09-15] MEDS: LEVOTHYROXINE SODIUM 25 MCG TABLET PO SCH (05:44)
[2018-09-15] MEDS: LEVOTHYROXINE SODIUM 200 MCG TABLET PO SCH (05:44)
[2018-09-15 07:28] LABS: INR 1.8 (0.9-1.1); Prothrombin Time 17.4 Seconds (9.0-12.0)
[2018-09-15 08:17] LABS: Partial Thromboplastin Ratio 2.3
[2018-09-15 08:21] LABS: Partial Thromboplastin Time 61.6 Seconds (21.0-31.0)
[2018-09-15] MEDS: HEPARIN STANDARD DEXTROSE 25,000 UNITS/500 ML IV SCH ×2 (08:58→22:15)
[2018-09-15] MEDS: METOPROLOL SUCC 25MG EXT REL TAB PO SCH ×2 (08:59→20:09)
[2018-09-15] MEDS: LISINOPRIL 2.5 MG TAB PO SCH (08:59)
[2018-09-15] MEDS: POTASSIUM CHLORIDE 20 MEQ TABCR PO SCH (09:00)
[2018-09-15] MEDS: TORSEMIDE 20 MG TAB PO SCH (09:00)
[2018-09-15] MEDS: TIOTROPIUM BROMIDE 5 PUFF/90 MCG INH INH SCH (09:00)
[2018-09-15] MEDS: WARFARIN SOD 7.5 MG TAB PO SCH (17:21)
[2018-09-15] MEDS: WARFARIN SOD 10 MG TAB PO SCH (17:21)
--- NOTE | 2018-09-15 23:01 | Hospitalist Progress Note ---
Date of Service September 15, 2018 Assessment & Plan (1) Takotsubo cardiomyopathy: No further chest pain. Continue metoprolol and lisinopril. (2) Hypertensive urgency: Blood pressures improved. Continue metoprolol and lisinopril. (3) Pulmonary emboli: History of pulmonary emboli. INR subtherapeutic at time of admission. No enoxapairn because of BMI and history of rectus sheath hematoma. Continue IV heparin until INR therapeutic. INR today = 1.8. (4) CVA (cerebral vascular accident): History of stroke. Continue aspirin. (5) COPD (chronic obstructive pulmonary disease): Pulmonary status stable. (6) WANDA (obstructive sleep apnea): Continue CPAP. (7) DVT prophylaxis: IV heparin / warfarin. (8) Discharge planning issues: Anticipated discharge to home. Medical follow-up with Dr. Gaston. Subjective Recheck for multiple problems. Pt seen in her room around 1930. No chest pain. No SOB. No fever. No cough. No nausea or vomiting. No urinary symptons. Physical Exam Vital Signs (Past 24 Hours): Last Vital Signs Temp 36.8 C 09/15/18 19:50 Pulse 59 L 09/15/18 21:00 Resp 18 09/15/18 19:50 BP 139/81 09/15/18 19:50 Pulse Ox 91 09/15/18 21:00 Constitutional: no acute distress Respiratory: no respiratory distress Auscultation: lungs clear to auscultation bilaterally Cardiovascular: Rate/Rhythm: regular rate and regular rhythm Vessels: no JVD Extremities: + edema (2-3+ chronic lymphedema bilat lower extremities); no calf tenderness Gastrointestinal (Abdomen): normal bowel sounds, soft, nontender, no hepatosplenomegaly Skin: no rashes, warm and dry Psychiatric: Orientation: alert and oriented x 3 Results & Data Laboratory Results Laboratory Results - last 24 hr 09/15/18 06:48 PT 17.4 H INR 1.8 H APTT 61.6 H* PTT Ratio 2.3
[2018-09-16 05:33] LABS: INR 1.9 (0.9-1.1); Partial Thromboplastin Ratio 2.6; Prothrombin Time 18.6 Seconds (9.0-12.0)
[2018-09-16 05:36] LABS: Partial Thromboplastin Time 71.2 Seconds (21.0-31.0)
[2018-09-16] MEDS: LEVOTHYROXINE SODIUM 200 MCG TABLET PO SCH (05:50)
[2018-09-16] MEDS: LEVOTHYROXINE SODIUM 25 MCG TABLET PO SCH (05:50)
[2018-09-16] MEDS: TORSEMIDE 20 MG TAB PO SCH (07:57)
[2018-09-16] MEDS: POTASSIUM CHLORIDE 20 MEQ TABCR PO SCH (07:58)
[2018-09-16] MEDS: LISINOPRIL 2.5 MG TAB PO SCH (07:58)
[2018-09-16] MEDS: TIOTROPIUM BROMIDE 5 PUFF/90 MCG INH INH SCH (07:59)
[2018-09-16] MEDS: METOPROLOL SUCC 25MG EXT REL TAB PO SCH ×2 (08:00→20:56)
[2018-09-16] MEDS: HEPARIN STANDARD DEXTROSE 25,000 UNITS/500 ML IV SCH (11:26)
[2018-09-16 12:46] LABS: Partial Thromboplastin Ratio 2.4
[2018-09-16 12:58] LABS: Partial Thromboplastin Time 64.9 Seconds (21.0-31.0)
[2018-09-16] MEDS: WARFARIN SOD 10 MG TAB PO SCH (16:15)
[2018-09-16] MEDS: WARFARIN SOD 7.5 MG TAB PO SCH (16:16)
[2018-09-16] MEDS ORDERED: WARFARIN SOD 5 MG TAB PO ONE (20:31)
--- NOTE | 2018-09-16 23:35 | Hospitalist Progress Note ---
Date of Service September 16, 2018 Assessment & Plan (1) Takotsubo cardiomyopathy: Presented with chest pain and elevated troponin. Echo showed apical wall motion abnormality consistent with Takotsubo cardiomyopathy. Cardiac cath showed normal coronaries. No further chest pain. Continue metoprolol and lisinopril. (2) Hypertensive urgency: Blood pressures improved. Continue metoprolol and lisinopril. (3) Pulmonary emboli: History of pulmonary emboli. INR subtherapeutic at time of admission. No enoxapairn because of BMI and history of rectus sheath hematoma. Continue IV heparin until INR therapeutic. INR today = 1.9. (4) CVA (cerebral vascular accident): History of stroke. Continue aspirin. (5) COPD (chronic obstructive pulmonary disease): Pulmonary status stable. (6) WANDA (obstructive sleep apnea): Continue CPAP. (7) DVT prophylaxis: IV heparin / warfarin. (8) Discharge planning issues: Anticipated discharge to home. Medical follow-up with Dr. Gaston. Subjective Recheck for multiple problems. Pt seen in her room around 2024. No new problems. Frustrated that INR not yet therapeutic. No chest pain or SOB. No fever. No cough. No nausea or vomiting. No urinary symptoms. Ambulating. Physical Exam Vital Signs (Past 24 Hours): Last Vital Signs Temp 36.3 C L 09/16/18 23:02 Pulse 68 09/16/18 23:02 Resp 18 09/16/18 23:02 BP 100/65 09/16/18 23:02 Pulse Ox 91 09/16/18 23:02 Constitutional: no acute distress Respiratory: no respiratory distress Auscultation: lungs clear to auscultation bilaterally Cardiovascular: Rate/Rhythm: regular rate and regular rhythm Vessels: no JVD Extremities: + edema (2-3+ chronic lymphedema bilat lower extremities); no calf tenderness Gastrointestinal (Abdomen): normal bowel sounds, soft, nontender, no hepatosplenomegaly Skin: no rashes, warm and dry Psychiatric: Orientation: alert and oriented x 3 Results & Data Laboratory Results Laboratory Results - last 24 hr 09/16/18 09/16/18 04:44 12:02 PT 18.6 H INR 1.9 H APTT 71.2 H* 64.9 H* PTT Ratio 2.6 2.4
[2018-09-17] MEDS: HEPARIN STANDARD DEXTROSE 25,000 UNITS/500 ML IV SCH (01:27)
[2018-09-17 05:45] LABS: Partial Thromboplastin Ratio 2.6; Prothrombin Time 19.7 Seconds (9.0-12.0)
[2018-09-17 05:50] LABS: Partial Thromboplastin Time 69.2 Seconds (21.0-31.0)
[2018-09-17] MEDS: LEVOTHYROXINE SODIUM 200 MCG TABLET PO SCH (05:55)
[2018-09-17] MEDS: LEVOTHYROXINE SODIUM 25 MCG TABLET PO SCH (05:55)
[2018-09-17 07:35] VITALS: TEMP 98.4; O2SAT 93
[2018-09-17] MEDS: POTASSIUM CHLORIDE 20 MEQ TABCR PO SCH (08:05)
[2018-09-17] MEDS: TORSEMIDE 20 MG TAB PO SCH (08:06)
[2018-09-17] MEDS: LISINOPRIL 2.5 MG TAB PO SCH (08:06)
[2018-09-17] MEDS: METOPROLOL SUCC 25MG EXT REL TAB PO SCH (08:06)
[2018-09-17] MEDS: TIOTROPIUM BROMIDE 5 PUFF/90 MCG INH INH SCH (08:06)
[2018-09-17] MEDS ORDERED: ASPIRIN 81 MG ECTAB PO SCH (09:00)
--- NOTE | 2018-09-17 13:11 | Hospitalist Progress Note ---
Date of Service September 17, 2018 Assessment & Plan (1) Takotsubo cardiomyopathy: Presented with chest pain and elevated troponin. Echo showed apical wall motion abnormality consistent with Takotsubo cardiomyopathy. Cardiac cath showed normal coronaries. No further chest pain. Continue metoprolol and lisinopril. (2) Hypertensive urgency: Blood pressures improved. Continue metoprolol and lisinopril. (3) Pulmonary emboli: History of pulmonary emboli. INR subtherapeutic at time of admission. No enoxapairn because of BMI and history of rectus sheath hematoma. Necessary to continue IV heparin until INR therapeutic. INR today = 2.0. Heparin discharged. Warfarin dose 18 mg at time of DC- will need to be monitored closely by Anticoagulation Clinic. (4) CVA (cerebral vascular accident): History of stroke. Continue aspirin and warfarin. (5) COPD (chronic obstructive pulmonary disease): Pulmonary status stable. (6) WANDA (obstructive sleep apnea): Continue CPAP. (7) Depression: Has anxiety and depression associated with some family issues. May be contributing factor to presentation with Takotsubo cardiomyopathy. Discussed treatment options with Pharmacy; sertraline probably has less potential interaction with warfarin and other agents. Start sertraline 25 mg p.o. daily. (8) DVT prophylaxis: IV heparin / warfarin. (9) Discharge planning issues: Discharge to home. Medical follow-up with Dr. Gaston. Cardiology follow-up with Dr. Calix. Subjective Recheck for multiple problems. Pt seen in her room around 0730. No new problems. Ready to go home. No chest pain or SOB. No fever. No cough. No nausea or vomiting. No urinary symptoms. Ambulating. Physical Exam Vital Signs (Past 24 Hours): Last Vital Signs Temp 36.9 C 09/17/18 07:34 Pulse 72 09/17/18 07:34 Resp 16 09/17/18 07:34 BP 116/72 09/17/18 07:34 Pulse Ox 93 09/17/18 07:34 Constitutional: no acute distress Respiratory: no respiratory distress Auscultation: lungs clear to auscultation bilaterally Cardiovascular: Rate/Rhythm: regular rate and regular rhythm Vessels: no JVD Extremities: + edema (2-3+ chronic lymphedema bilat lower extremities); no calf tenderness (probable organizing hematoma left posterior lateral calf) Gastrointestinal (Abdomen): normal bowel sounds, soft, nontender, no hepatosplenomegaly Skin: no rashes, warm and dry Psychiatric: Orientation: alert and oriented x 3 Results & Data Laboratory Results INR 2.0
[2018-09-17 13:18] VITALS: BP 103/60; PULSE 64
[2018-09-17] MEDS ORDERED: WARFARIN SOD 6 MG TAB PO ONE (14:00)
--- NOTE | 2018-09-19 04:35 | Discharge Summary ---
Date of Service Date of admission: 09/06/18 Date of discharge: 09/17/18 Admission HPI Per Admitting Provider 52 year old female who presents to the ED with chest pain. Of note, patient was recently admitted to [facility] 07/31 - 08/13 for pneumonia and abdominal wall hematoma in the setting of a supra therapuetic INR. Patient completed a 2 week course of doxycycline and Coumadin was resumed by discharged without any bridging. Patient reports she had been feeling well until this morning. She reports she was bending over to put her shoes on this morning when she had a sudden onset of chest pain across her entire chest. She describes the pain as severe and also had an associated stabbing feeling in her back. She then took her dog outside and reports she felt no better. She denies associated shortness of breath, palpitations, nausea, diaphoresis, lightheadedness, dizziness, syncopal events. She reports that "something just didn't feel right". She then came to the ED for further evaluation. Patient denies abdominal pain, vomiting, and diarrhea. No fevers or chills. She denies any urinary symptoms. In the ED, patient is found to be significantly hypertensive with BP 203/111. Initial troponin is 2.230, EKG does not show any acute ST changes. INR noted to be 1.2 (patient reports Coum lenin compliance). Patient was started on 1 inch nitro paste. Admission Exam Per Admitting Provider Constitutional: WD/WN, vitals as above + obese Eyes: PERRL, conjunctivae normal, anicteric sclerae ENMT: external ear and nose normal, oropharynx normal Respiratory: normal respiratory effort, lungs clear to auscultation Cardiovascular: Rate/Rhythm: regular rate and regular rhythm Vessels: normal peripheral pulses Extremities: + edema (lymphedema BLLE) Gastrointestinal (Abdomen): normal bowel sounds, soft, nontender, no hepatosplenomegaly Musculoskeletal: no cyanosis or clubbing, extremities motor strength 5/5 Skin: no rashes, warm and dry Neurologic: Cranial Nerves: PERRL, normal accommodation, EOM intact bilaterally and normal facial strength mild expressive aphasia Psychiatric: A+Ox3, euthymic affect Principal Diagnosis Takotsubo cardiomyopathy history of pulmonary emboli history of rectus sheath hematoma cerebrovascular disease, s/p stroke Discharge Data Allergies Allergy/AdvReac Type Severity Reaction Status Date / Time adhesive tape Allergy Intermediate Rash - Verified 09/06/18 10:30 CLOTH TAPE morphine AdvReac Unknown Unverified 09/06/18 10:30 Consultations 09/06/18 13:55 Consult Case Management - Discharge Planning Routine Consult Bullet Assembly Press Setter Operator Routine 09/06/18 16:09 Consult Cardiology Routine 09/12/18 07:00 Consult Orthopedic Surgery Routine Procedures Performed Operation Date: 09/06/18 12:30 Actual Procedures p Cath, Left with Cors and Vent(Right) - Yosvany Connors MD s Cineradiography w/Routine Exam - Yosvany Connors MD Ordered Studies 09/06/18 12:53 CL Cath Imgs for PACS use only Stat 09/10/18 10:30 US extremity non-vascular ltd Routine Hospital Course (1) Takotsubo cardiomyopathy: Presented with chest pain and elevated troponin. Echo showed apical wall motion abnormality consistent with Takotsubo cardiomyopathy. Cardiac cath showed normal coronaries. No further chest pain. Continue metoprolol and lisinopril. (2) Hypertensive urgency: Blood pressures improved. Continue metoprolol and lisinopril. (3) Pulmonary emboli: History of pulmonary emboli. INR subtherapeutic at time of admission. No enoxapairn because of BMI and history of rectus sheath hematoma. Necessary to continue IV heparin until INR therapeutic. INR day of discharge was 2.0. Heparin discontinued. Warfarin dose 18 mg at time of DC- will need to be monitored closely by Anticoagulation Clinic. (4) CVA (cerebral vascular accident): History of stroke. Continue aspirin and warfarin. (5) COPD (chronic obstructive pulmonary disease): Pulmonary status stable. (6) WANDA (obstructive sleep apnea): Continue CPAP. (7) Depression: Has anxiety and depression associated with some family issues. May be contributing factor to presentation with Takotsubo cardiomyopathy. Discussed treatment options with Pharmacy; sertraline probably has less potential interaction with warfarin and other agents. Start sertraline 25 mg p.o. daily. (8) DVT prophylaxis: IV heparin / warfarin. (9) Discharge planning issues: Discharged to home. Medical follow-up with Dr. Gaston. Cardiology follow-up with Dr. Calix. Total Time Total Time Spent Total Time Spent (In Minutes): 40 Discharge Plan Discharge Items Patient Disposition: Home - Self-Care Reason For Visit: chest pain Discharge Diagnosis: cardiomyopathy- weak heart muscle normal coronary arteries Condition: Good Discharge Goals: Improve disease control Activity: As commented below Lifting: Gradually increase as tolerated Exercise/Sports: Gradually increase as tolerated Non-emergency contact: Primary Care Provider, Hospitalist and Institution Director Call non-emergency contact if: you have any medication questions, your symptoms worsen and your temperature is above 101 Follow-up/Referrals: Nisa Gaston DO [Primary Care Provider] - (09/21/2018 2:20 PM Nisa Gaston DO) Diet: Heart Healthy Addtl Provider Instructions: APPOINTMENTS: PRIMARY CARE 09/21/2018 2:20 PM Nisa Gaston DO [facility]ULATION [facility] Please arrange for appointment this week. CARDIOLOGY Please ask Dr. Gaston for a referral to see Dr. Calix. OTHER INSTRUCTIONS: New warfarin (Coumadin ) dose: 6 mg pills, take 3 pills (18 mg) daily -dose was given on Wednesday before discharge -next dose Monday 09/18 -then as directed by Anticoagulation Clinic Seek medical attention if you have: * temperature above 101 * chest pain or trouble breathing * abdominal pain, nausea, vomiting * diarrhea, dark stools or bloody stools * any unanswered questions or concerns Call 911 if symptoms are severe. Call if you have any questions or problems. My cell # is [phone]. You can also reach a [facility] hospitalist on duty at [facility] 24 hours a day by calling [phone]. Prescriptions: New metoprolol succinate 50 mg tablet extended release 24 hr 75 mg PO BID Qty: 90 RF: 5 lisinopril 2.5 mg tablet 2.5 mg PO DAILY Qty: 30 RF: 5 sertraline 25 mg tablet 25 mg PO DAILY Qty: 30 RF: 5 warfarin 6 mg tablet 18 mg PO DAILY Qty: 90 RF: 5 Continued levothyroxine 200 mcg Tablet 200 mcg PO DAILY RF: 0 albuterol sulfate 90 mcg/actuation Hfa Aerosol Inhaler 2 puff INHALATION QID PRN (Reason: Shortness Of Breath) RF: 0 Spiriva with HandiHaler 18 mcg Capsule, W/Inhalation Device 1 cap INHALATION DAILY RF: 0 acetaminophen [Tylenol] 325 mg Capsule 650 mg PO Q4 PRN (Reason: Pain) RF: 0 Breo Ellipta 200-25 mcg/dose Blister With Device 1 inh INHALATION DAILY RF: 0 torsemide [Demadex] 20 mg Tablet 20 mg PO DAILY RF: 0 potassium chloride 20 mEq Tablet Extended Release 40 meq PO DAILY RF: 0 aspirin 81 mg Tablet,Delayed Release (Dr/Ec) 81 mg PO DAILY RF: 0 levothyroxine 25 mcg Tablet 12.5 mcg PO DAILY RF: 0 Discontinued warfarin [Coumadin] 6 mg Tablet 12 mg PO DAILY RF: 0 metoprolol succinate 50 mg Tablet Extended Release 24 Hr 50 mg PO DAILY RF: 0 varenicline 0.5 mg Tablet 0.5 mg PO UD RF: 0 Stand-Alone Forms: Call Back Authorization, Counts Include [facility] Discharge Orders: Discharge Order (Routine); Ordered 09/17/18 Ordered By: Jorden Manrique Admission Data Admit Date/Time: 09/06/18 12:22 Attending Provider: Jorden Manrique Admit Provider: Karthik Mandujano Primary Care Provider: Nisa Gaston Other Providers: Karthik Mandujano ; Johann Stephens ; Jacob Marquez ; Jaydon Guillermo ; Lloyd Cullen Service: Telemetry Other Interventions: Discharge Summary Assessment (RN) Last Done: 09/17/18 13:16 DC Date/Time DO NOT enter until pt leaves facility: 09/17/18 13:44
== END 2018-09-17 13:44 | disposition home or self-care (01) | DRG 287 ==
LOC: ED 09:56 → SUATTDRO 12:22 → 1E 12:22 → 2W 09-07 19:00

== ENCOUNTER 2022-01-18 11:43 | Inpatient (IN) ==
--- NOTE | 2022-01-18 12:10 | CT Scan Report ---
HEAD CT NONCONTRAST CT DOSE: HISTORY: Slurred speech. Stroke Like Symptoms TECHNIQUE: Multiaxial CT images of the head were performed without the use of intravenous contrast. A utomated exposure control was utilized for this study. A dose lowering technique was utilized adheri ng to the principles of ALARA. Comparison: Head CT 08/16/2020. Findings: The paranasal sinuses and mastoid air cells are clear. The calvarium and skull base are int act. Focal area of encephalomalacia within the left occipital lobe consistent with an old hemorrhagic infarct. Mild microvascular ischemic changes are again noted. There is mild motion artifact no mass, hematoma, midline shift, acute infarct. There are old punctate lacunar infarcts within the right bas al ganglia and bilateral thalami. Impression: 1. No acute infarct or intracranial hemorrhage. 2. Old infarcts as described above. ACT 112: Negative or not required by law. Electronically signed by: Beau Wharton M.D. 01/18/2022 12:07 PM
[2022-01-18] MEDS ORDERED: OPTIRAY 320 125ml IV ONE (12:12)
--- NOTE | 2022-01-18 12:23 | CT Scan Report ---
HEAD & NECK CTA HISTORY: Slurred speech. Stroke Like Symptoms TECHNIQUE: Multiaxial CT images of the head were performed following the intravenous administration o f contrast to evaluate the major cerebral vessels. Multiaxial CT images of the neck were also perform ed following the intravenous administration of contrast to evaluate the major cervical vessels. Maxim um intensity projection images were also obtained. A dose lowering technique was utilized adhering to the principles of ALARA. COMPARISON: Head and neck CTA 04/07/2018. FINDINGS: Encephalomalacia within the left occipital lobe again noted consistent with old hemorrhagic infarct. No acute intracranial hemorrhage identified. Mild mucosal thickening within the maxillary sinuses. Th e major dural venous sinuses are patent. Mild calcified plaque within the bilateral carotid siphons. Visualized intracranial internal carotid arteries, distal vertebral arteries, and basilar artery are widely patent. There is no significant stenosis, occlusion, or aneurysm seen within the bilateral AZAR s or accounts receivable manager. The left MCA is widely patent. Focal short segment occlusion within the distal branch of t he right MCA with immediate reconstitution. This is best seen on images 109 through 111. The aortic arch and proximal great vessels are widely patent. There is no significant stenosis, occ lusion, or dissection identified within the bilateral common carotid, internal carotid, or vertebral arteries. Significant periodontal disease is noted. IMPRESSION: 1. Focal short segment occlusion within a distal branch of the right MCA with immediate reconstitutio n as described above. This is technically age indeterminate but likely acute given the patient's neur ologic deficit. 2. No significant stenosis, occlusion, or dissection identified within the carotid or vertebral arter ies. ACT 112: Negative or not required by law. Electronically signed by: Beau Wharton M.D. 01/18/2022 12:21 PM
--- NOTE | 2022-01-18 12:27 | XRay Report ---
XR chest 1V portable HISTORY: Slurred speech. Stroke Like Symptoms COMPARISON: Chest 08/16/2020. FINDINGS: No pneumothorax. No pleural effusion is. The correct silhouette remains mildly enlarged. Mi ld chronic interstitial thickening persists. This remains unchanged. No new focal lung consolidations to suggest pneumonia. No evidence for pulmonary edema. IMPRESSION: No significant change compared to the prior study. No acute process. Mild cardiomegaly and chronic in terstitial thickening persists. ACT 112: Negative or not required by law. Electronically signed by: Beau Wharton M.D. 01/18/2022 12:25 PM
--- NOTE | 2022-01-18 12:28 | Emergency Department Note ---
Impression & Plan CVA (cerebral vascular accident) ED Provider Note NAME: LUANN ALICEA AGE: 56 SEX: F : 1965 ARRIVES VIA: Walk-In INFORMANT: Patient, the patient's family ED PROVIDER(S): Good Rios DO CHIEF COMPLAINT: Strokelike symptoms HPI: The patient is a 56-year-old female who presented to the emergency department through triage for an evaluation of strokelike symptoms. The patient is a history of an intracranial hemorrhage in 2020. She states that she went to bed last evening at approximately 11 PM. The patient states when she awoke she felt "off". She states that she felt as though she could not get out of bed initially because she was having left-sided weakness. Mostly her weakness was in her left arm. When she started talking to family members they noticed that her speech appeared to be pressured and different from her baseline. Currently the patient does not take any blood thinners. She states that ever since she had the hemorrhagic stroke they stopped all of her anticoagulation. The patient denies having any trauma. She denies having any lower extremity weakness. She states when she tried to ambulate she did have some difficulty. ROS: See above HPI for pertinent positives & negatives. A total of 10 systems reviewed and were otherwise negative. PAST MEDICAL HISTORY: See Below PAST SURGICAL HISTORY: See Below FAMILY HISTORY: See Below SOCIAL HISTORY: See Below HOME MEDICATIONS: See Below ALLERGIES: See Below VITALS: See Below PHYSICAL EXAMINATION: GENERAL: The patient is awake and alert. She is somewhat anxious appearing. EYES: The conjunctivae are clear. The pupils are round and reactive. EARS, NOSE, MOUTH AND THROAT: The nose is without any evidence of any deformity. NECK: The neck is nontender and supple. RESPIRATORY: Normal respiratory effort is noted there is no evidence of wheezing rhonchi or rales CARDIOVASCULAR: Regular rate and rhythm noted there no murmurs rubs or gallops normal S1 normal S2. GASTROINTESTINAL: The abdomen is soft. Abdomen is nontender. MUSCULOSKELETAL/EXTREMITIES: There is no evidence of gross deformity full range of motion is noted in the hips and shoulders. SKIN: Pedal edema was noted bilaterally. NEUROLOGIC: Patient is awake alert and oriented x 3. Speech is pressured and somewhat dysarthric. Central Service Technician strength is diminished in the left hand compared to the right but there is no significant drift in the upper extremities. Patient is able to hold each leg off the bed symmetrically but for less than 5 seconds. MEDICAL DECISION MAKING: The patient is a 56-year-old female who presented to the emergency department through triage. She was made a stroke alert. The patient went directly to CAT scan. I did have the opportunity to quickly evaluate the patient prior to going to CAT scan. The patient had dysarthria as well as left upper extremity weakness. I did discuss the patient's condition with the telestroke neurologist at [facility]. She does not appear to be a candidate for thrombolytics given her onset of symptoms is unknown and she awoke with these symptoms. The patient does not appear to have a proximal large vessel occlusion but does have a blockage in the distal vessel in the middle cerebral artery on the right. I do feel this fits with the patient's presentation. I discussed patient's laboratory and radiographic studies with her. I also discussed her case with the on-call [facility]. They have agreed to evaluate the patient in the emergency department for further management and disposition. Triage Nursing notes reviewed. Prior medical records reviewed Vital Signs: reviewed and remarkable for elevated blood pressure and bradycardia. Differential diagnosis: Infection, dehydration, metabolic abnormality, hypo/hyperglycemia, electrolyte disturbance, anemia, hypoxia, cardiac sources, intracerebral event, toxicologic, neurologic, as well as other pathologies. ER treatment provided: See below Diagnostics interpreted by me: ECG: EKG was obtained in the emergency department. My interpretation is sinus bradycardia 46 bpm. There is no ectopy. Nonspecific inferior ST and T wave abnormalities were noted. This was compared to a tracing from August 16, 2020. No specific changes were noted. Cardiac Monitoring: An order was placed for continuous cardiac monitoring. The monitor shows a rate of 86 bpm with sinus bradycardia. Laboratory studies: As stated above and show below. Imaging studies: See below Consultation(s): I discussed this case with Dr Tyler with [facility] teleroke I discussed this case with Ena who is on-call for the [facility] group. ED COURSE: Procedures: none Critical Care: I have personally spent greater than 45 minutes of critical care time in the direct management of this patient. This includes bedside care, interpretation of diagnostic studies, and testing, discussion with consultants, patient, and family members, and other required patient management activities. This 45 m inutes is in excess of all separately billable procedures. Past Med/Surg History Medical History (Updated 01/18/22 @ 14:56 by Ena Odom PA-C) ARF (acute renal failure) CHF (congestive heart failure) Chronic acquired lymphedema CKD (chronic kidney disease), stage III COPD (chronic obstructive pulmonary disease) CVA (cerebral vascular accident) Depression Expressive aphasia Hematoma of abdominal wall HTN (hypertension) Hypothyroidism Obesity WANDA (obstructive sleep apnea) Pulmonary emboli Tobacco abuse Surgical History History of carpal tunnel surgery History of cholecystectomy History of tonsillectomy Family History Other Adopted Social History (Updated 01/18/22 @ 14:51 by Ena dOom PA-C) Smoking Status: Former smoker Number of Years Since Quit: 4; Second Hand Exposure: No; Hx Alcohol Use: No Hx Substance Use: No Preferred Language: Greek Communication Ability: Effective Vp Ancillary Required: No Beliefs That Will Affect Care: None marital status: Current Living Situation: Family Feels Safe at Home: Yes Safety Concerns: Feels Safe At This Time Assistive Devices: CPAP, Glasses and Oxygen - at Night Allergies Allergies Allergy/AdvReac Type Severity Reaction Status Date / Time adhesive tape Allergy Intermediate Rash - Verified 08/16/20 16:36 CLOTH TAPE morphine AdvReac Unknown Unknown Verified 08/16/20 16:36 Home Meds Home Medications Medication Instructions Recorded Confirmed acetazolamide 250 mg tablet 500 mg PO BID 01/18/22 01/18/22 albuterol sulfate 90 mcg/actuation 2 inh inhalation Q6H PRN SOB 01/18/22 01/18/22 aerosol inhaler aspirin 81 mg tablet,delayed 81 mg PO DAILY 01/18/22 01/18/22 release atorvastatin 40 mg tablet 40 mg PO DAILY 01/18/22 01/18/22 gabapentin 300 mg capsule 300 mg PO TID 01/18/22 01/18/22 levothyroxine 200 mcg tablet 200 mcg PO DAILY 01/18/22 01/18/22 levothyroxine 25 mcg tablet 25 mcg PO DAILY 01/18/22 01/18/22 metoprolol succinate 50 mg 75 mg PO BID 01/18/22 01/18/22 tablet,extended release 24 hr sertraline 50 mg tablet 50 mg PO DAILY 01/18/22 01/18/22 Results & Data (ED) Vital Signs Vital Signs - 24 hr 01/18/22 11:50 01/18/22 12:04 01/18/22 12:04 Temperature 36.7 C 36.6 C Temperature Source Temporal Artery Scan Oral Pulse Rate 49 L Pulse Rate [Right Finger] 46 L Pulse Rhythm [Right Finger] Regular Pulse Strength [Right Finger] Normal Respiratory Rate 20 17 Respiratory Effort / Characteristics Non-Labored Spontaneous Non-Labored Respiratory Depth Normal Normal Respiratory Pattern Regular Regular Blood Pressure 148/79 H Blood Pressure [Left Arm] 148/91 H Blood Pressure Mean 102 Blood Pressure Mean [Left Arm] 110 Blood Pressure Position [Left Arm] Lying Pulse Oximetry 91 99 Oxygen Delivery Method Room Air Room Air Room Air Sepsis Recent Fever Within 48 Hours No Sepsis New/Unexplained Change in Mental Status No Sepsis Action Taken by Nursing No Action Required Home Medications Current Medication List: was personally reviewed by me Laboratory Data Attestation: I reviewed the patient's lab results. Result diagrams: 01/18/22 13:05 01/18/22 13:05 Lab Results 01/18/22 01/18/22 01/18/22 Range/Units 12:22 12:57 13:05 WBC 7.94 (4.8-10.8) K/ul RBC 4.10 (3.93-5.22) M/uL Hgb 11.1 L (12.0-16.0) g/dl POC Hgb (12.0-16.0) g/dl Hct 37.7 (34.1-44.9) % POC Hct (37-47) % MCV 92.0 (80.0-100.0) fL MCH 27.1 (25.0-34.0) pg MCHC 29.4 L (32.0-36.0) g/dL RDW Std Deviation 48.4 H (36.4-46.3) fL RDW Coeff of [place] 14.3 (11.5-14.5) % Plt Count 198 (130-400) K/uL MPV 11.2 (9.4-12.3) fL Immature Gran % (Auto) 0.4 % Neut % (Auto) 71.8 % Lymph % (Auto) 15.7 % [place] % (Auto) 8.2 % Eos % (Auto) 3.1 % Baso % (Auto) 0.8 % Neut # (Auto) 5.70 (1.4-6.5) K/uL Lymph # (Auto) 1.25 (1.2-3.4) K/uL [place] # (Auto) 0.65 (0.24-0.82) K/uL Eos # (Auto) 0.25 (0-0.50) K/uL Baso # (Auto) 0.06 (0-0.2) K/uL Immature Gran # (Auto) 0.03 H (0.00-0.02) K/uL PT (9.0-12.0) Seconds INR (0.9-1.1) APTT (21.0-31.0) Seconds PTT Ratio POC Sodium (135-144) mmol/L Sodium (136-145) mmol/L POC Potassium (3.3-5.0) mmol/L Potassium (3.5-5.1) mmol/L POC Chloride (101-112) mmol/L Chloride (98-107) mmol/L Carbon Dioxide (21-32) mmol/L POC Total CO2 (24-31) mmol/L Anion Gap (3-11) POC Anion Gap (16-25) mmol/L POC BUN (7-18) mg/dl BUN (6-23) mg/dl Creatinine (0.6-1.2) mg/dl POC Creatinine (0.6-1.3) mg/dl Est Cr Clr Drug Dosing ml/min Est GFR ( Amer) ml/min Est GFR (Non-Af Amer) ml/min BUN/Creatinine Ratio (10-20) Glucose (70-99(Fasting)) mg/dl POC Glucose 88 (70-99) mg/dl POC Glucose (other) (70-99) mg/dl Calcium (8.5-10.1) mg/dl POC Ioniz Calcium Kiko (1.12-1.32) mmol/l Magnesium (1.7-2.4) mg/dl Total Bilirubin (0.2-1.0) mg/dl AST (13-39) U/L ALT (7-52) U/L Alkaline Phosphatase (34-104) U/L Troponin I High Sens (0-14) pg/ml Total Protein (6.0-8.3) gm/dl Albumin (3.4-5.0) gm/dl Globulin (2.5-4.0) gm/dl Albumin/Globulin Ratio (0.9-2) SARS-CoV-2, RNA, NAAT NEGATIVE (NEGATIVE) 01/18/22 01/18/22 01/18/22 Range/Units 13:05 13:05 13:09 WBC (4.8-10.8) K/ul RBC (3.93-5.22) M/uL Hgb (12.0-16.0) g/dl POC Hgb 12.6 (12.0-16.0) g/dl Hct (34.1-44.9) % POC Hct 37 (37-47) % MCV (80.0-100.0) fL MCH (25.0-34.0) pg MCHC (32.0-36.0) g/dL RDW Std Deviation (36.4-46.3) fL RDW Coeff of [place] (11.5-14.5) % Plt Count (130-400) K/uL MPV (9.4-12.3) fL Immature Gran % (Auto) % Neut % (Auto) % Lymph % (Auto) % [place] % (Auto) % Eos % (Auto) % Baso % (Auto) % Neut # (Auto) (1.4-6.5) K/uL Lymph # (Auto) (1.2-3.4) K/uL [place] # (Auto) (0.24-0.82) K/uL Eos # (Auto) (0-0.50) K/uL Baso # (Auto) (0-0.2) K/uL Immature Gran # (Auto) (0.00-0.02) K/uL PT 11.0 (9.0-12.0) Seconds INR 1.0 (0.9-1.1) APTT 28.8 (21.0-31.0) Seconds PTT Ratio 1.0 POC Sodium 140 (135-144) mmol/L Sodium 138 (136-145) mmol/L POC Potassium 4.1 (3.3-5.0) mmol/L Potassium 4.1 (3.5-5.1) mmol/L POC Chloride 108 (101-112) mmol/L Chloride 108 H (98-107) mmol/L Carbon Dioxide 23 (21-32) mmol/L POC Total CO2 22 L (24-31) mmol/L Anion Gap 7 (3-11) POC Anion Gap 14.0 L (16-25) mmol/L POC BUN 24 H (7-18) mg/dl BUN 25 H (6-23) mg/dl Creatinine 1.02 (0.6-1.2) mg/dl POC Creatinine 1.1 (0.6-1.3) mg/dl Est Cr Clr Drug Dosing 87.7 ml/min Est GFR ( Amer) 70.7 ml/min Est GFR (Non-Af Amer) 61.0 ml/min BUN/Creatinine Ratio 24.5 H (10-20) Glucose 94 (70-99(Fasting)) mg/dl POC Glucose (70-99) mg/dl POC Glucose (other) 95 (70-99) mg/dl Calcium 8.1 L (8.5-10.1) mg/dl POC Ioniz Calcium Kiko 1.17 (1.12-1.32) mmol/l Magnesium 2.0 (1.7-2.4) mg/dl Total Bilirubin 0.5 (0.2-1.0) mg/dl AST 10 L (13-39) U/L ALT 8 (7-52) U/L Alkaline Phosphatase 72 (34-104) U/L Troponin I High Sens 7.1 (0-14) pg/ml Total Protein 7.0 (6.0-8.3) gm/dl Albumin 3.7 (3.4-5.0) gm/dl Globulin 3.3 (2.5-4.0) gm/dl Albumin/Globulin Ratio 1.1 (0.9-2) SARS-CoV-2, RNA, NAAT (NEGATIVE) Administered Medications Lorazepam (Lorazepam 1 Mg Tab) 1 mg PO ONE PRN PRN Reason: 30 mins prior to MRI Stop: 02/17/22 14:14 Last Admin: 01/18/22 15:04 Dose: 1 mg Documented By: MIKKI Discontinued Medications Ioversol (Optiray 320 125ml) 118 ml IV ONCE ONE Stop: 01/18/22 12:13 Last Admin: 01/18/22 12:13 Dose: 118 ml Documented By: SAMEER Imaging Data Radiologist's Impression: Chest X-Ray 01/18/22 11:51 XR chest 1V portable HISTORY: Slurred speech. Stroke Like Symptoms COMPARISON: Chest 08/16/2020. FINDINGS: No pneumothorax. No pleural effusion is. The correct silhouette remains mildly enlarged. Mild chronic interstitial thickening persists. This remains unchanged. No new focal lung consolidations to suggest pneumonia. No evidence for pulmonary edema. IMPRESSION: No significant change compared to the prior study. No acute process. Mild cardiomegaly and chronic interstitial thickening persists. ACT 112: Negative or not required by law. Electronically signed by: Beau Wharton M.D. 01/18/2022 12:[address] 01/18/22 11:[address] DOSE: HISTORY: Slurred speech. Stroke Like Symptoms TECHNIQUE: Multiaxial CT images of the head were performed without the use of intravenous contrast. Automated exposure control was utilized for this study. A dose lowering technique was utilized adhering to the principles of ALARA. Comparison: Head CT 08/16/2020. Findings: The paranasal sinuses and mastoid air cells are clear. The calvarium and skull base are intact. Focal area of encephalomalacia within the left o ccipital lobe consistent with an old hemorrhagic infarct. Mild microvascular ischemic changes are again noted. There is mild motion artifact no mass, hematoma, midline shift, acute infarct. There are old punctate lacunar infarcts within the right basal ganglia and bilateral thalami. Impression: 1. No acute infarct or intracranial hemorrhage. 2. Old infarcts as described above. ACT 112: Negative or not required by law. Electronically signed by: Beau Wharton M.D. 01/18/2022 12:07 PM Head CTA 01/18/22 11:51 HEAD & NECK CTA HISTORY: Slurred speech. Stroke Like Symptoms TECHNIQUE: Multiaxial CT images of the head were performed following the intravenous administration of contrast to evaluate the major cerebral vessels. Multiaxial CT images of the neck were also performed following the intravenous administration of contrast to evaluate the major cervical vessels. Maximum intensity projection images were also obtained. A dose lowering technique was utilized adhering to the principles of ALARA. COMPARISON: Head and neck CTA 04/07/2018. FINDINGS: Encephalomalacia within the left occipital lobe again noted consistent with old hemorrhagic infarct. No acute intracranial hemorrhage identified. Mild mucosal thickening within the maxillary sinuses. The major dural venous sinuses are patent. Mild calcified plaque within the bilateral carotid siphons. Visualized intracranial internal carotid arteries, distal vertebral arteries, and basilar artery are widely patent. There is no significant stenosis, occlusion, or aneurysm seen within the bilateral ACAs or geriatric social work professor. The left MCA is widely patent. Focal short segment occlusion within the distal branch of the right MCA with immediate reconstitution. This is best seen on images 109 through 111. The aortic arch and proximal great vessels are widely patent. There is no significant stenosis, occlusion, or dissection identified within the bilateral common carotid, internal carotid, or vertebral arteries. Significant periodontal disease is noted. IMPRESSION: 1. Focal short segment occlusion within a distal branch of the right MCA with immediate reconstitution as described above. This is technically age indeterm inate but likely acute given the patient's neurologic deficit. 2. No significant stenosis, occlusion, or dissection identified within the carotid or vertebral arteries. ACT 112: Negative or not required by law. Electronically signed by: Beau Wharton M.D. 01/18/2022 12:21 PM Neck CTA 01/18/22 11:51 HEAD & NECK CTA HISTORY: Slurred speech. Stroke Like Symptoms TECHNIQUE: Multiaxial CT images of the head were performed following the intravenous administration of contrast to evaluate the major cerebral vessels. Multiaxial CT images of the neck were also performed following the intravenous administration of contrast to evaluate the major cervical vessels. Maximum in tensity projection images were also obtained. A dose lowering technique was utilized adhering to the principles of ALARA. COMPARISON: Head and neck CTA 04/07/2018. FINDINGS: Encephalomalacia within the left occipital lobe again noted consistent with old hemorrhagic infarct. No acute intracranial hemorrhage identified. Mild mucosal thickening within the maxillary sinuses. The major dural venous sinuses are patent. Mild calcified plaque within the bilateral carotid siphons. Visualized intracranial internal carotid arteries, distal vertebral arteries, and basilar artery are widely patent. There is no significant stenosis, occlusion, or aneurysm seen within the bilateral ACAs or geriatric social work professor. The left MCA is widely patent. Focal short segment occlusion within the distal branch of the right MCA with immediate reconstitution. This is best seen on images 109 through 111. The aortic arch and proximal great vessels are widely patent. There is no significant stenosis, occlusion, or dissection identified within the bilateral common carotid, internal carotid, or vertebral arteries. Significant periodontal disease is noted. IMPRESSION: 1. Focal short segment occlusion within a distal branch of the right MCA with immediate reconstitution as described above. This is technically age indeterminate but likely acute given the patient's neurologic deficit. 2. No significant stenosis, occlusion, or dissection identified within the carotid or vertebral arteries. ACT 112: Negative or not required by law. Electronically signed by: Beau Wharton M.D. 01/18/2022 12:21 PM Discharge Plan Visit Data Chief Complaint: Stroke/CVA Symptoms Stated Complaint: CAN'T MOVE ARM, SLURRED SPEACH, FACIAL DROOP ED Provider: Good Rios Discharge Problem: CVA (cerebral vascular accident) Patient Disposition: Admitted As Inpatient Discharge Instructions Interventions: ED Discharge Assessment Last Done: 01/18/22 16:20 : CVA (cerebral vascular accident) Qualifiers: CVA mechanism: occlusion Precerebral and cerebral artery: middle cerebral artery Laterality of affected vessel: right Qualified Code(s): I63.511 - Cerebral infarction due to unspecified occlusion or stenosis of right middle cerebral artery
[2022-01-18 13:16] LABS: Basophils # (auto) 0.06 K/uL (0-0.2); Basophils % (auto) 0.8 %; Eosinophils # (auto) 0.25 K/uL (0-0.50); Eosinophils % (auto) 3.1 %; Hematocrit (blood only) 37.7 % (34.1-44.9); Hemoglobin 11.1 g/dl (12.0-16.0); Immature Granulocytes # (auto) 0.03 K/uL (0.00-0.02); Immature Granulocytes % (auto) 0.4 %; Lymphocytes # (auto) 1.25 K/uL (1.2-3.4); Lymphocytes % (auto) 15.7 %; Mean Corpuscular Hemoglobin 27.1 pg (25.0-34.0); Mean Corpuscular Hgb Conc 29.4 g/dL (32.0-36.0); Mean Platelet Volume 11.2 fL (9.4-12.3); Monocytes # (auto) 0.65 K/uL (0.24-0.82); Monocytes % (auto) 8.2 %; Neutrophils % (auto) 71.8 %; Platelet Count 198 K/uL (130-400); RDW Coefficient of Variation 14.3 % (11.5-14.5); RDW Standard Deviation 48.4 fL (36.4-46.3); White Blood Count 7.94 K/ul (4.8-10.8)
[2022-01-18 13:21] LABS: iSTAT Creatinine 1.1 mg/dl (0.6-1.3); iSTAT Hemoglobin 12.6 g/dl (12.0-16.0); iSTAT Ionized Calcium 1.17 mmol/l (1.12-1.32); iSTAT Potassium 4.1 mmol/L (3.3-5.0)
[2022-01-18 13:30] LABS: Partial Thromboplastin Time 28.8 Seconds (21.0-31.0)
[2022-01-18 13:36] LABS: Albumin Globulin Ratio 1.1 (0.9-2); Albumin Level 3.7 gm/dl (3.4-5.0); BUN Creatinine Ratio 24.5 (10-20); Bilirubin,Total 0.5 mg/dl (0.2-1.0); Calcium 8.1 mg/dl (8.5-10.1); Creatinine Clr Calc Pharmacy 87.7 ml/min; Est GFR (African American) 70.7 ml/min; Globulin 3.3 gm/dl (2.5-4.0); Potassium 4.1 mmol/L (3.5-5.1)
[2022-01-18 13:42] LABS: Troponin I High Sensitivity 7.1 pg/ml (0-14)
[2022-01-18] MEDS ORDERED: LORazepam 1 MG TAB PO PRN (14:15)
--- NOTE | 2022-01-18 14:59 | History & Physical Report ---
Date of Service January 18, 2022 Assessment & Plan (1) Stroke-like symptoms: (2) History of CVA with residual deficit: (3) Sinus bradycardia: (4) COPD (chronic obstructive pulmonary disease): (5) WANDA (obstructive sleep apnea): (6) CKD (chronic kidney disease), stage III: (7) HTN (hypertension): (8) Hx of pulmonary embolus: Plan This is a 56-year-old female who has a significant past medical history of COPD, WANDA on CPAP, pulmonary hypertension, chronic HFpEF, HTN, history of Takotsubo cardiomyopathy, hypothyroidism, history of ischemic CVA in 2018, history of hemorrhagic CVA in 2020, pre diabetes, former tobacco abuse, history of pulmonary embolism off oral anticoagulation in setting of intraparenchymal hemorrhage and depression who presents to ED secondary to left hand weakness and worsened aphasia since waking up this morning. Strokelike symptoms with left upper extremity weakness, worsened aphasia and difficulty with intrinsic hand movements History of ischemic CVA in 2018 as well as occipital intraparenchymal hemorrhage in 2020 Focal short segment occlusion within distal branch of right MCA with immediate reconstitution Admit to telemetry [facility] tele neurology consulted, given prior history of IPH patient is not candidate for thrombolytic therapy and recommend further inpatient work-up Obtain MRI if able, will premedicate with oral Ativan as patient is claustrophobic Obtain echocardiogram Continued stroke scale Will continue ASA 81 mg daily and Lipitor, will defer to neurology for further antiplatelet in setting of prior intraparenchymal hemorrhage Consult [facility] neurology as currently [facility] is not on-call PT/OT/ST Blood pressure adequate, will allow for permissive hypertension ADDENDUM 1700 MRI Results: 7 mm focus of restricted diffusion within the posterior right frontal lobe consistent with a small acute infarct. No mass effect. No acute hemorrhage. 2. Encephalomalacia within left occipital lobe. This finding is chronic and represent sequela of previous hemorrhage. 3. Numerous hypointense foci on gradient echo sequence which could reflect old blood products or amyloid angiopathy. Will start patient on plavix 75mg with first dose now. Dx: Acute ischemic CVA R frontal Lobe Sinus bradycardia Heart rates in the 40s in ER Will hold today's morning dose of metoprolol Reduce metoprolol succinate from 75 mg twice daily to 50 mg twice daily with hold parameters COPD WANDA on CPAP Previously patient was on Breo and Spiriva, currently not taking Her CPAP has been recalled and therefore she has been wearing 4 L of oxygen at bedtime Will utilize CPAP while inpatient As needed albuterol No acute exacerbation Chronic HFpEF Patient appears euvolemic with chronic lymphedema Continue ASA, statin and metoprolol History of PE Off Coumadin in setting of intraparenchymal hemorrhage Depression Continue Zoloft Hypothyroidism Continue levothyroxine DVT ppx: SCDS, no chemical in setting of previous IPH Dispo: PCU PCP: Marilin FULL CODE Patient was seen and examined in collaboration with, Dr. Brothers, please see addendum History of Present Illness Chief Complaint: Left hand weakness and worsened aphasia since waking up this morning. 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 Her 2 daughters are at bedside. Prior deficits from former CVAs include right lateral vision loss and aphasia. She also has chronic ambulatory dysfunction at baseline due to pain in her legs. Last night she went to bed in her normal state of health. When she woke up this morning she had difficulty getting out of bed and ended up on the floor. She did not lose consciousness or hit her head. Her was in the bathroom and was able to assist her and get their daughter. They noted she had left- sided facial droop, worsened expressive aphasia and left hand weakness. She had inability to hold anything on her left hand and daughter felt overall entire left arm was weak. She denies any left leg weakness, numbness or tingling. Prior to this morning she was in her normal state of health. She denies any recent fever, chills, sweats, lightheadedness, dizziness, syncope, change in vision, change in hearing, chest pain, shortness breath, cough, URI symptoms, nausea, vomiting, abdominal pain, change in bowel or urinary habits. She did not lose her bowel or bladder this morning. She admits to being incontinent of urine but that was because she had to urinate and was unable to get to the bathroom. Allergies Allergy/AdvReac Type Severity Reaction Status Date / Time adhesive tape Allergy Intermediate Rash - Verified 08/16/20 16:36 CLOTH TAPE morphine AdvReac Unknown Unknown Verified 08/16/20 16:36 Home Medications Medication Instructions Recorded Confirmed Type acetazolamide 250 mg tablet 500 mg PO BID 01/18/22 01/18/22 History albuterol sulfate 90 mcg/actuation 2 inh inhalation Q6H PRN SOB 01/18/22 01/18/22 History aerosol inhaler aspirin 81 mg tablet,delayed 81 mg PO DAILY 01/18/22 01/18/22 History release atorvastatin 40 mg tablet 40 mg PO DAILY 01/18/22 01/18/22 History gabapentin 300 mg capsule 300 mg PO TID 01/18/22 01/18/22 History levothyroxine 200 mcg tablet 200 mcg PO DAILY 01/18/22 01/18/22 History levothyroxine 25 mcg tablet 25 mcg PO DAILY 01/18/22 01/18/22 History metoprolol succinate 50 mg 75 mg PO BID 01/18/22 01/18/22 History tablet,extended release 24 hr sertraline 50 mg tablet 50 mg PO DAILY 01/18/22 01/18/22 History Past Med/Surg History Medical History (Updated 01/18/22 @ 14:56 by Ena Odom PA-C) ARF (acute renal failure) CHF (congestive heart failure) Chronic acquired lymphedema CKD (chronic kidney disease), stage III COPD (chronic obstructive pulmonary disease) CVA (cerebral vascular accident) Depression Expressive aphasia Hematoma of abdominal wall HTN (hypertension) Hypothyroidism Obesity WANDA (obstructive sleep apnea) Pulmonary emboli Tobacco abuse Surgical History History of carpal tunnel surgery History of cholecystectomy History of tonsillectomy Family History Other Adopted Social History (Updated 01/18/22 @ 14:51 by Ena Odom PA-C) Smoking Status: Former smoker Number of Years Since Quit: 4; Second Hand Exposure: No; Hx Alcohol Use: No Hx Substance Use: No Preferred Language: Stateless Communication Ability: Effective 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 Beliefs That Will Affect Care: None marital status: Current Living Situation: Family Feels Safe at Home: Yes Assistive Devices: Glasses Review of Systems Review of Systems: All systems reviewed & are unremarkable except as noted in HPI & below Physical Exam Physical Exam: Constitutional: WD/WN, chronically ill-appearing female, morbidly obese, vitals as above, NAD, answers questions appropriately with noted aphasia Head: Normocephalic, Atraumatic Eyes: PERRL, conjunctivae normal, anicteric sclerae ENMT: external ear and nose normal, oropharynx normal Neck: trachea midline, no thyromegaly normal visual inspection Respiratory: normal respiratory effort, lungs clear to auscultation, no wheeze, rales, rhonchi. 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 strength on left compared to right, unable to assess true strength in lower extremities due to patient having pain and inability to flex at her hip Skin: no rashes, warm and dry normal turgor Neurologic: PERRL, EOMI, accommodation nl, no face palsy, + dysarthria CN's II-XI intact bilaterally and moves all extremities with weakness to left upper extremity, patient with difficulty with intrinsic movements of left hand as well as difficulty with [id number] on left, no lyudmila pronator drift Psychiatric: A+Ox3, euthymic affect Lymphatic: no cervical or axillary lymphadenopathy : deferred Results & Data Results & Data ([facility]) Vital Signs (Past 12 Hours) Vital Signs Temp Pulse Pulse Resp BP BP Pulse Ox 01/18/22 12:04 36.6 C 46 L 17 148/91 H 99 01/18/22 12:04 01/18/22 11:50 36.7 C 49 L 20 148/79 H 91 O2 Del Method 01/18/22 12:04 Room Air 01/18/22 12:04 Room Air 01/18/22 11:50 Room Air Diagnostic Findings Chest X-Ray 01/18/22 11:51 XR chest 1V portable HISTORY: Slurred speech. Stroke Like Symptoms COMPARISON: Chest 08/16/2020. FINDINGS: No pneumothorax. No pleural effusion is. The correct silhouette remains mildly enlarged. Mild chronic interstitial thickening persists. This remains unchanged. No new focal lung consolidations to suggest pneumonia. No evidence for pulmonary edema. IMPRESSION: No significant change compared to the prior study. No acute process. Mild cardiomegaly and chronic interstitial thickening persists. ACT 112: Negative or not required by law. Electronically signed by: Beau Wharton M.D. 01/18/2022 12:[address] 01/18/22 11:[address] DOSE: HISTORY: Slurred speech. Stroke Like Symptoms TECHNIQUE: Multiaxial CT images of the head were performed without the use of intravenous contrast. Automated exposure control was utilized for this study. A dose lowering technique was utilized adhering to the principles of ALARA. Comparison: Head CT 08/16/2020. Findings: The paranasal sinuses and mastoid air cells are clear. The calvarium and skull base are intact. Focal area of encephalomalacia within the left occipital lobe consistent with an old hemorrhagic infarct. Mild microvascular ischemic changes are again noted. There is mild motion artifact no mass, hematoma, midline shift, acute infarct. There are old punctate lacunar infarcts within the right basal ganglia and bilateral thalami. Impression: 1. No acute infarct or intracranial hemorrhage. 2. Old infarcts as described above. ACT 112: Negative or not required by law. Electronically signed by: Beau Wharton M.D. 01/18/2022 12:07 PM Head CTA 01/18/22 11:51 HEAD & NECK CTA HISTORY: Slurred speech. Stroke Like Symptoms TECHNIQUE: Multiaxial CT images of the head were performed following the intravenous administration of contrast to evaluate the major cerebral vessels. Multiaxial CT images of the neck were also performed following the intravenous administration of contrast to evaluate the major cervical vessels. Maximum intensity projection images were also obtained. A dose lowering technique was utilized adhering to the principles of ALARA. COMPARISON: Head and neck CTA 04/07/2018. FINDINGS: Encephalomalacia within the left occipital lobe again noted consistent with old hemorrhagic infarct. No acute intracranial hemorrhage identified. Mild mucosal thickening within the maxillary sinuses. The major dural venous sinuses are patent. Mild calcified plaque within the bilateral carotid siphons. Visualized intracranial internal carotid arteries, distal vertebral arteries, and basilar artery are widely patent. There is no significant stenosis, occlusion, or aneurysm seen within the bilateral ACAs or fruit bar maker. The left MCA is widely patent. Focal short segment occlusion within the distal branch of the right MCA with immediate reconstitution. This is best seen on images 109 through 111. The aortic arch and proximal great vessels are widely patent. There is no significant stenosis, occlusion, or dissection identified within the bilateral common carotid, internal carotid, or vertebral arteries. Significant periodontal disease is noted. IMPRESSION: 1. Focal short segment occlusion within a distal branch of the right MCA with immediate reconstitution as described above. This is technically age indeterminate but likely acute given the patient's neurologic deficit. 2. No significant stenosis, occlusion, or dissection identified within the carotid or vertebral arteries. ACT 112: Negative or not required by law. Electronically signed by: Beau Wharton M.D. 01/18/2022 12:21 PM Neck CTA 01/18/22 11:51 HEAD & NECK CTA HISTORY: Slurred speech. Stroke Like Symptoms TECHNIQUE: Multiaxial CT images of the head were performed following the intravenous administration of contrast to evaluate the major cerebral vessels. Multiaxial CT images of the neck were also performed following the intravenous administration of contrast to evaluate the major cervical vessels. Maximum intensity projection images were also obtained. A dose lowering technique was utilized adhering to the principles of ALARA. COMPARISON: Head and neck CTA 04/07/2018. FINDINGS: Encephalomalacia within the left occipital lobe again noted consistent with old hemorrhagic infarct. No acute intracranial hemorrhage identified. Mild mucosal thickening within the maxillary sinuses. The major dural venous sinuses are patent. Mild calcified plaque within the bilateral carotid siphons. Visualized intracranial internal carotid arteries, distal vertebral arteries, and basilar artery are widely patent. There is no significant stenosis, occlusion, or aneurysm seen within the bilateral ACAs or fruit bar maker. The left MCA is widely patent. Focal short segment occlusion within the distal branch of the right MCA with immediate reconstitution. This is best seen on images 109 through 111. The aortic arch and proximal great vessels are widely patent. There is no significant stenosis, occlusion, or dissection identified within the bilateral common carotid, internal carotid, or vertebral arteries. Significant periodontal disease is noted. IMPRESSION: 1. Focal short segment occlusion within a distal branch of the right MCA with immediate reconstitution as described above. This is technically age indeterminate but likely acute given the patient's neurologic deficit. 2. No significant stenosis, occlusion, or dissection identified within the carotid or vertebral arteries. ACT 112: Negative or not required by law. Electronically signed by: Beau Wharton M.D. 01/18/2022 12:21 PM Medications Administered Medication List Discontinued Medications Ioversol (Optiray 320 125ml) 118 ml IV ONCE ONE Stop: 01/18/22 12:13 Last Admin: 01/18/22 12:13 Dose: 118 ml Documented By: SAMEER ECG Rate (beats per minute): 46 Rhythm: sinus bradycardia Findings: + RBBB COVID-19 Results Results COVID-19 Adm Lab Results: RBC 4.10 M/uL (3.93-5.22) 01/18/22 WBC 7.94 K/ul (4.8-10.8) 01/18/22 Hgb 11.1 g/dl (12.0-16.0) L 01/18/22 Hct 37.7 % (34.1-44.9) 01/18/22 Plt Count 198 K/uL (130-400) 01/18/22 Neutrophils (%) (Auto) 71.8 % 01/18/22 Lymphocytes (%) (Auto) 15.7 % 01/18/22 Monocytes # (Auto) 0.65 K/uL (0.24-0.82) 01/18/22 Eosinophils # (Auto) 0.25 K/uL (0-0.50) 01/18/22 Immature Granulocyte % (Auto) 0.4 % 01/18/22 Neutrophils # (Auto) 5.70 K/uL (1.4-6.5) 01/18/22 Lymphocytes # (Auto) 1.25 K/uL (1.2-3.4) 01/18/22 Monocytes # (Auto) 0.65 K/uL (0.24-0.82) 01/18/22 Eosinophils # (Auto) 0.25 K/uL (0-0.50) 01/18/22 Basophils # (Auto) 0.06 K/uL (0-0.2) 01/18/22 Immature Granulocyte # (Auto) 0.03 K/uL (0.00-0.02) H 01/18 Na 138 mmol/L (136-145) 01/18/22 K 4.1 mmol/L (3.5-5.1) 01/18/22 Cl 108 mmol/L (98-107) H 01/18/22 CO2 23 mmol/L (21-32) 01/18/22 Anion Gap 7 (3-11) 01/18/22 BUN 25 mg/dl (6-23) H 01/18/22 Creatinine 1.02 mg/dl (0.6-1.2) 01/18/22 BUN/Creatinine Ratio 24.5 (10-20) H 01/18/22 Glucose Level 94 mg/dl (70-99(Fasting)) 01/18/22 Ca 8.1 mg/dl (8.5-10.1) L 01/18/22 Total Bilirubin 0.5 mg/dl (0.2-1.0) 01/18/22 AST/SGOT 10 U/L (13-39) L 01/18/22 ALT/SGPT 8 U/L (7-52) 01/18/22 Alkaline Phosphatase 72 U/L (34-104) 01/18/22 Total Protein 7.0 gm/dl (6.0-8.3) 01/18/22 Albumin 3.7 gm/dl (3.4-5.0) 01/18/22 Globulin 3.3 gm/dl (2.5-4.0) 01/18/22 Albumin/Globulin Ratio 1.1 (0.9-2) 01/18/22 PTT 28.8 Seconds (21.0-31.0) 01/18/22 INR 1.0 (0.9-1.1) 01/18/22 SARS-CoV-2, RNA, NAAT NEGATIVE (NEGATIVE) 01/18/22 Chest X-Ray 01/18/22 Code Status & VTE Plan Code Status FULL CODE VTE Prophylaxis Plan VTE Prophylaxis will be ordered: Yes Supervising Physician Co-Signing Physician Notes Attending addendum: The patient was seen and examined in the emergency room in presence of all of the daughters She is morbidly obese with multiple medical problems including prior stroke with some residual dysarthria Was brought into the emergency room with increasing dysphasia, left facial droop and left upper extremity weakness The dysphagia and facial droop have improved but still left upper extremity weakness persisting She was examined by telemetry neurology and subsequent MRI did not show any new 7 mm focus of restricted diffusion within the posterior right frontal lobe consistent with a small acute infarct without any hemorrhage She denies any other significant symptoms On examination Lying in bed without any apparent distress She is morbidly obese Bradycardia at 45 otherwise hemodynamically stable Chest-decreased breath sounds bilaterally Heart-S1, S2, no murmur Abdomen-benign, distended, bowel sound present Extremities-bilateral leg edema/lymphedema of 3+ [employer]-minimal left facial droop from prior stroke, left upper extremity weakness of 3/5 Her admission labs, imaging studies and EKG reviewed Has new stroke in right frontal lobe She has been on aspirin and will add Plavix Neurology consulted Agree with assessment and plan as outlined above by Ena Brothers
[2022-01-18] MEDS ORDERED: ONDANSETRON INJ 2 MG/ML 2 ML VIAL IV PRN (16:22)
[2022-01-18] MEDS ORDERED: MAGNESIUM HYDROXIDE SUSP 30 ML UDC PO PRN (16:22)
[2022-01-18] MEDS ORDERED: POLYETHYLENE (MIRALAX) 17 GM PACK PO PRN (16:22)
[2022-01-18] MEDS ORDERED: ALBUTEROL HFA 8 GM INHALER INH PRN (16:22)
[2022-01-18] MEDS ORDERED: ALUMINUM/MAGNESIUM SUSP 30 ML UDC PO PRN (16:22)
[2022-01-18] MEDS ORDERED: PHARMACIST DISCHARGE MED REC CONSULT PRN (16:22)
--- NOTE | 2022-01-18 16:44 | Magnetic Resonance Report ---
MRI OF THE BRAIN WITHOUT CONTRAST CLINICAL HISTORY: stroke like sx COMPARISON STUDY: Head CT and CTA of the head January 18, 2022. TECHNIQUE: Utilizing a 1.5 Lottie magnet and dedicated coil, multiplanar, multiecho imaging of the bra in was performed without IV contrast. FINDINGS: Note is made of a small 7 mm focus of restricted diffusion within the posterior right front al lobe on axial image 18 of 25. Correlation with the ADC map is difficult given the small size howev er this favors a small acute infarct. No additional foci of restricted diffusion are present. Basal c isterns are patent. There are no extra axial collections. Focus of encephalomalacia at site of previo us hemorrhage is noted. This is chronic. Numerous small hypointense foci are noted on the gradient ec ho sequence which suggests old blood products or amyloid angiopathy. White matter T2 hyperintense foc i suggest small vessel disease. Calvarial signal is within normal limits. No intracranial masses are identified on this unenhanced exam. Old lacunar infarct within left thalamus is present. There are ho spected old lacunar infarcts within the bilateral basal ganglia. IMPRESSION: 1. 7 mm focus of restricted diffusion within the posterior right frontal lobe consistent with a small acute infarct. No mass effect. No acute hemorrhage. 2. Encephalomalacia within left occipital lobe. This finding is chronic and represent sequela of prev ious hemorrhage. 3. Numerous hypointense foci on gradient echo sequence which could reflect old blood products or amyl oid angiopathy. ACT 112: Negative or not required by law. Electronically signed by: Nicola Wynne M.D. 01/18/2022 4:42 PM
[2022-01-18] MEDS: acetaZOLAMIDE 250 MG TAB PO SCH (21:38)
[2022-01-18] MEDS: GABAPENTIN 300 MG CAP PO SCH (21:39)
[2022-01-18] MEDS: CLOPIDOGREL BISULFATE 75 MG TAB PO SCH (22:01)
[2022-01-18] MEDS: METOPROLOL SUCC 50MG EXT REL TAB PO SCH (22:02)
[2022-01-19] MEDS: LEVOTHYROXINE SODIUM 25 MCG TABLET PO SCH (06:19)
[2022-01-19] MEDS: LEVOTHYROXINE SODIUM 200 MCG TABLET PO SCH (06:20)
[2022-01-19 07:11] LABS: Basophils # (auto) 0.06 K/uL (0-0.2); Eosinophils % (auto) 5.1 %; Hematocrit (blood only) 36.8 % (34.1-44.9); Hemoglobin 10.9 g/dl (12.0-16.0); Immature Granulocytes # (auto) 0.01 K/uL (0.00-0.02); Immature Granulocytes % (auto) 0.2 %; Lymphocytes # (auto) 1.46 K/uL (1.2-3.4); Lymphocytes % (auto) 24.7 %; Mean Corpuscular Hgb Conc 29.6 g/dL (32.0-36.0); Mean Corpuscular Volume 91.3 fL (80.0-100.0); Mean Platelet Volume 11.4 fL (9.4-12.3); Monocytes # (auto) 0.49 K/uL (0.24-0.82); Monocytes % (auto) 8.3 %; Neutrophils % (auto) 60.7 %; Platelet Count 198 K/uL (130-400); RDW Coefficient of Variation 14.3 % (11.5-14.5); RDW Standard Deviation 48.1 fL (36.4-46.3); Red Blood Count 4.03 M/uL (3.93-5.22); White Blood Count 5.92 K/ul (4.8-10.8)
[2022-01-19 07:36] LABS: Estimated Average Glucose 120 mg/dl; Hemoglobin A1C 5.8 % (4.5-5.6)
[2022-01-19 07:51] LABS: BUN Creatinine Ratio 23.7 (10-20); Calcium 8.2 mg/dl (8.5-10.1); Chol HDL Ratio 2.7 (0-5); Creatinine Clr Calc Pharmacy 100.5 ml/min; Est GFR (African American) 75.1 ml/min; Est GFR (Non-African American) 64.8 ml/min; Potassium 3.7 mmol/L (3.5-5.1)
[2022-01-19] MEDS: acetaZOLAMIDE 250 MG TAB PO SCH ×2 (08:36→20:14)
[2022-01-19] MEDS: GABAPENTIN 300 MG CAP PO SCH ×3 (08:36→20:14)
[2022-01-19] MEDS: CLOPIDOGREL BISULFATE 75 MG TAB PO SCH (08:37)
[2022-01-19] MEDS: SERTRALINE HCL 50 MG TABLET PO SCH (08:37)
[2022-01-19] MEDS: ATORVASTATIN 40 MG TAB PO SCH (08:37)
[2022-01-19] MEDS ORDERED: ASPIRIN 81 MG ECTAB PO SCH (09:00)
[2022-01-19] MEDS: ACETAMINOPHEN 325 MG TAB PO PRN ×2 (09:53→15:31)
--- NOTE | 2022-01-19 13:52 | Hospitalist Progress Note ---
Date of Service January 19, 2022 Assessment & Plan (1) Stroke-like symptoms: (2) History of CVA with residual deficit: (3) Sinus bradycardia: (4) COPD (chronic obstructive pulmonary disease): (5) WANDA (obstructive sleep apnea): (6) CKD (chronic kidney disease), stage III: (7) HTN (hypertension): (8) Hx of pulmonary embolus: Plan This is a 56-year-old female who has a significant past medical history of COPD, WANDA on CPAP, pulmonary hypertension, chronic HFpEF, HTN, history of Takotsubo cardiomyopathy, hypothyroidism, history of ischemic CVA in 2018, history of hemorrhagic CVA in 2020, pre diabetes, former tobacco abuse, history of pulmonary embolism off oral anticoagulation in setting of intraparenchymal hemorrhage and depression who presents to ED secondary to left hand weakness and worsened aphasia since waking up this morning. Strokelike symptoms with left upper extremity weakness, worsened aphasia and difficulty with intrinsic hand movements History of ischemic CVA in 2018 as well as occipital intraparenchymal hemorrhage in 2020 Focal short segment occlusion within distal branch of right MCA with immediate reconstitution Admit to telemetry [facility] [place], given prior history of IPH patient is not candidate for thrombolytic therapy and recommend further inpatient work-up Obtain MRI if able, will premedicate with oral Ativan as patient is claustrophobic Obtain echocardiogram Continued stroke scale Will continue ASA 81 mg daily and Lipitor, will defer to neurology for further antiplatelet in setting of prior intraparenchymal hemorrhage consult [facility] Neurology PT/OT/ST Blood pressure adequate Sinus bradycardia Heart rates in the 40s in ER Will hold today's morning dose of metoprolol Reduce metoprolol succinate from 75 mg twice daily to 50 mg twice daily with hold parameters COPD WANDA on CPAP Previously patient was on Breo and Spiriva, currently not taking Her CPAP has been recalled and therefore she has been wearing 4 L of oxygen at bedtime Will utilize CPAP while inpatient As needed albuterol No acute exacerbation Chronic HFpEF Patient appears euvolemic with chronic lymphedema Continue ASA, statin and metoprolol History of PE Off Coumadin in setting of intraparenchymal hemorrhage Depression Continue Zoloft Hypothyroidism Continue levothyroxine DVT ppx: SCDS, no chemical in setting of previous IPH Dispo: PCU PCP: Marilin FULL CODE Percy Rodriguez MD Hospital Medicine Admission and Anticipated Discharge Date Admission Date: January 18, 2022 Subjective This is a 56-year-old female who has a significant past medical history of COPD, WANDA on CPAP, pulmonary hypertension, chronic HFpEF, HTN, history of Takotsubo cardiomyopathy, hypothyroidism, history of ischemic CVA in 2017, history of hemorrhagic CVA in 2020, pre diabetes, former tobacco abuse, history of pulmonary embolism off oral anticoagulation in setting of intraparenchymal hemorrhage and depression who presents to ED secondary to left hand weakness and worsened aphasia since waking up this morning. She was found to ahve focal short segment occlusion in distal branch of right MCA with reconstitution on CTA head and neck and 7 mm focus of restricted diffusion within the posterior right frontal lobe consistent with a small acute infarct on MRI brain. She was continued on aspirin 81mg and atorvastatin and started on plavix. Neurology was consulted for further recommendations. Patient reports some improvement in strength in left hand this morning but still weaker than baseline on her size marker. Dysarthria she reports being close to baseline. She denies any other symptoms of chest pain, shortness of breath, n/v/d, abdominal pain, dysuria, cough. Review of Systems Review of Systems: All systems reviewed & are unremarkable except as noted in Subjective Physical Exam Constitutional: WD/WN, vitals as above + morbidly obese Eyes: PERRL, conjunctivae normal, anicteric sclerae ENMT: external ear and nose normal, oropharynx normal Neck: trachea midline, no thyromegaly Respiratory: normal respiratory effort, lungs clear to auscultation Cardiovascular: RRR, no murmur, no edema Gastrointestinal (Abdomen): normal bowel sounds, soft, nontender, no hepatosplenomegaly Musculoskeletal: no cyanosis or clubbing, extremities motor strength 5/5 Skin: no rashes, warm and dry Neurologic: patellar DTR's 2+ bilat, sensation intact normal touch/pain/proprioception, CN's II-XI intact bilaterally, + focal motor deficit (mild left arm drift and 2/5 left size marker) and awake Speech / Cognition: + abnormal speech (baseline dysarthria) Motor/Sensory: + pronator drift Coordination: + abnormal [id number] test (left) Psychiatric: A+Ox3, euthymic affect Results & Data Results & [facility] ([facility]) Vital Signs (Past 12 Hours) Vital Signs Temp Pulse Pulse Resp BP Pulse Ox O2 Del Method 07/25/22 11:36 36.9 C 50 L 18 111/73 93 Room Air 01/19/22 08:46 36.9 C 57 L 19 112/65 94 Room Air 01/19/22 03:00 37.1 C 51 L 20 124/56 L 92 01/19/22 02:30 100 H 17 96 Diagnostic Findings Laboratory Results WBC 5.92 K/ul (4.8-10.8) 01/19/22 06:40 RBC 4.03 M/uL (3.93-5.22) 01/19/22 06:40 Hgb 10.9 g/dl (12.0-16.0) L 01/19/22 06:40 POC Hgb 12.6 g/dl (12.0-16.0) 01/18/22 13:09 Hct 36.8 % (34.1-44.9) 01/19/22 06:40 POC Hct 37 % (37-47) 01/18/22 13:09 MCV 91.3 fL (80.0-100.0) 01/19/22 06:40 MCH 27.0 pg (25.0-34.0) 01/19/22 06:40 MCHC 29.6 g/dL (32.0-36.0) L 01/19/22 06:40 RDW Std Deviation 48.1 fL (36.4-46.3) H 01/19/22 06:40 RDW Coeff of [place] 14.3 % (11.5-14.5) 01/19/22 06:40 Plt Count 198 K/uL (130-400) 01/19/22 06:40 MPV 11.4 fL (9.4-12.3) 01/19/22 06:40 Immature Gran % (Auto) 0.2 % 01/19/22 06:40 Neut % (Auto) 60.7 % 01/19/22 06:40 Lymph % (Auto) 24.7 % 01/19/22 06:40 Beckham % (Auto) 8.3 % 01/19/22 06:40 Eos % (Auto) 5.1 % 01/19/22 06:40 Baso % (Auto) 1.0 % 01/19/22 06:40 Neut # (Auto) 3.60 K/uL (1.4-6.5) 01/19/22 06:40 Lymph # (Auto) 1.46 K/uL (1.2-3.4) 01/19/22 06:40 Beckham # (Auto) 0.49 K/uL (0.24-0.82) 01/19/22 06:40 Eos # (Auto) 0.30 K/uL (0-0.50) 01/19/22 06:40 Baso # (Auto) 0.06 K/uL (0-0.2) 01/19/22 06:40 Immature Gran # (Auto) 0.01 K/uL (0.00-0.02) 01/19/22 06:40 PT 11.0 Seconds (9.0-12.0) 01/18/22 13:05 INR 1.0 (0.9-1.1) 01/18/22 13:05 APTT 28.8 Seconds (21.0-31.0) 01/18/22 13:05 PTT Ratio 1.0 01/18/22 13:05 POC Sodium 140 mmol/L (135-144) 01/18/22 13:09 Sodium 138 mmol/L (136-145) 01/19/22 06:40 POC Potassium 4.1 mmol/L (3.3-5.0) 01/18/22 13:09 Potassium 3.7 mmol/L (3.5-5.1) 01/19/22 06:40 POC Chloride 108 mmol/L (101-112) 01/18/22 13:09 Chloride 108 mmol/L (98-107) H 01/19/22 06:40 Carbon Dioxide 24 mmol/L (21-32) 01/19/22 06:40 POC Total CO2 22 mmol/L (24-31) L 01/18/22 13:09 Anion Gap 6 (3-11) 01/19/22 06:40 POC Anion Gap 14.0 mmol/L (16-25) L 01/18/22 13:09 POC BUN 24 mg/dl (7-18) H 01/18/22 13:09 BUN 23 mg/dl (6-23) 01/19/22 06:40 Creatinine 0.97 mg/dl (0.6-1.2) 01/19/22 06:40 POC Creatinine 1.1 mg/dl (0.6-1.3) 01/18/22 13:09 Est Cr Clr Drug Dosing 100.5 ml/min 01/19/22 06:40 Est GFR ( Amer) 75.1 ml/min 01/19/22 06:40 Est GFR (Non-Af Amer) 64.8 ml/min 01/19/22 06:40 BUN/Creatinine Ratio 23.7 (10-20) H 01/19/22 06:40 Glucose 86 mg/dl (70-99(Fasting)) 01/19/22 06:40 POC Glucose 88 mg/dl (70-99) 01/18/22 12:22 POC Glucose (other) 95 mg/dl (70-99) 01/18/22 13:09 Estimat Average Glucose 120 mg/dl 01/19/22 06:40 Hemoglobin A1c 5.8 % (4.5-5.6) H 01/19/22 06:40 Calcium 8.2 mg/dl (8.5-10.1) L 01/19/22 06:40 POC Ioniz Calcium Kiko 1.17 mmol/l (1.12-1.32) 01/18/22 13:09 Magnesium 2.0 mg/dl (1.7-2.4) 01/18/22 13:05 Total Bilirubin 0.5 mg/dl (0.2-1.0) 01/18/22 13:05 AST 10 U/L (13-39) L 01/18/22 13:05 ALT 8 U/L (7-52) 01/18/22 13:05 Alkaline Phosphatase 72 U/L (34-104) 01/18/22 13:05 Troponin I High Sens 7.1 pg/ml (0-14) 01/18/22 13:05 Total Protein 7.0 gm/dl (6.0-8.3) 01/18/22 13:05 Albumin 3.7 gm/dl (3.4-5.0) 01/18/22 13:05 Globulin 3.3 gm/dl (2.5-4.0) 01/18/22 13:05 Albumin/Globulin Ratio 1.1 (0.9-2) 01/18/22 13:05 Triglycerides 79 mg/dl (0-150) 01/19/22 06:40 Cholesterol 101 mg/dl (0-200) 01/19/22 06:40 LDL Cholesterol, Calc 48 mg/dl 01/19/22 06:40 VLDL Cholesterol, Calc 16 mg/dl (0-30) 01/19/22 06:40 HDL Cholesterol 37 mg/dl 01/19/22 06:40 Cholesterol/HDL Ratio 2.7 (0-5) 01/19/22 06:40 SARS-CoV-2, RNA, NAAT NEGATIVE (NEGATIVE) 01/18/22 12:57 Impressions Chest X-Ray 01/18/22 11:51 XR chest 1V portable HISTORY: Slurred speech. Stroke Like Symptoms COMPARISON: Chest 08/16/2020. FINDINGS: No pneumothorax. No pleural effusion is. The correct silhouette remains mildly enlarged. Mild chronic interstitial thickening persists. This remains unchanged. No new focal lung consolidations to suggest pneumonia. No evidence for pulmonary edema. IMPRESSION: No significant change compared to the prior study. No acute process. Mild cardiomegaly and chronic interstitial thickening persists. ACT 112: Negative or not required by law. Electronically signed by: Beau Wharton M.D. 01/18/2022 12:[address] 01/18/22 11:[address] DOSE: HISTORY: Slurred speech. Stroke Like Symptoms TECHNIQUE: Multiaxial CT images of the head were performed without the use of intravenous contrast. Automated exposure control was utilized for this study. A dose lowering technique was utilized adhering to the principles of ALARA. Comparison: Head CT 08/16/2020. Findings: The paranasal sinuses and mastoid air cells are clear. The calvarium and skull base are intact. Focal area of encephalomalacia within the left occipital lobe consistent with an old hemorrhagic infarct. Mild microvascular ischemic changes are again noted. There is mild motion artifact no mass, hematoma, midline shift, acute infarct. There are old punctate lacunar infarcts within the right basal ganglia and bilateral thalami. Impression: 1. No acute infarct or intracranial hemorrhage. 2. Old infarcts as described above. ACT 112: Negative or not required by law. Electronically signed by: Beau Wharton M.D. 01/18/2022 12:07 PM Head CTA 01/18/22 11:51 HEAD & NECK CTA HISTORY: Slurred speech. Stroke Like Symptoms TECHNIQUE: Multiaxial CT images of the head were performed following the intravenous administration of contrast to evaluate the major cerebral vessels. Multiaxial CT images of the neck were also performed following the intravenous administration of contrast to evaluate the major cervical vessels. Maximum intensity projection images were also obtained. A dose lowering technique was utilized adhering to the principles of ALARA. COMPARISON: Head and neck CTA 04/07/2018. FINDINGS: Encephalomalacia within the left occipital lobe again noted consistent with old hemorrhagic infarct. No acute intracranial hemorrhage identified. Mild mucosal thickening within the maxillary sinuses. The major dural venous sinuses are patent. Mild calcified plaque within the bilateral carotid siphons. Visualized intracranial internal carotid arteries, distal vertebral arteries, and basilar artery are widely patent. There is no significant stenosis, occlusion, or aneurysm seen within the bilateral ACAs or flosser. The left MCA is widely patent. Focal short segment occlusion within the distal branch of the right MCA with immediate reconstitution. This is best seen on images 109 through 111. The aortic arch and proximal great vessels are widely patent. There is no significant stenosis, occlusion, or dissection identified within the bilateral common carotid, internal carotid, or vertebral arteries. Significant periodontal disease is noted. IMPRESSION: 1. Focal short segment occlusion within a distal branch of the right MCA with immediate reconstitution as described above. This is technically age indeterminate but likely acute given the patient's neurologic deficit. 2. No significant stenosis, occlusion, or dissection identified within the carotid or vertebral arteries. ACT 112: Negative or not required by law. Electronically signed by: Beau Wharton M.D. 01/18/2022 12:21 PM Neck CTA 01/18/22 11:51 HEAD & NECK CTA HISTORY: Slurred speech. Stroke Like Symptoms TECHNIQUE: Multiaxial CT images of the head were performed following the intravenous administration of contrast to evaluate the major cerebral vessels. Multiaxial CT images of the neck were also performed following the intravenous administration of contrast to evaluate the major cervical vessels. Maximum intensity projection images were also obtained. A dose lowering technique was utilized adhering to the principles of ALARA. COMPARISON: Head and neck CTA 04/07/2018. FINDINGS: Encephalomalacia within the left occipital lobe again noted consistent with old hemorrhagic infarct. No acute intracranial hemorrhage identified. Mild mucosal thickening within the maxillary sinuses. The major dural venous sinuses are patent. Mild calcified plaque within the bilateral carotid siphons. Visualized intracranial internal carotid arteries, distal vertebral arteries, and basilar artery are widely patent. There is no significant stenosis, occlusion, or aneurysm seen within the bilateral ACAs or flosser. The left MCA is widely patent. Focal short segment occlusion within the distal branch of the right MCA with immediate reconstitution. This is best seen on images 109 through 111. The aortic arch and proximal great vessels are widely patent. There is no significant stenosis, occlusion, or dissection identified within the bilateral common carotid, internal carotid, or vertebral arteries. Significant periodontal disease is noted. IMPRESSION: 1. Focal short segment occlusion within a distal branch of the right MCA with immediate reconstitution as described above. This is technically age indeterminate but likely acute given the patient's neurologic deficit. 2. No significant stenosis, occlusion, or dissection identified within the carotid or vertebral arteries. ACT 112: Negative or not required by law. Electronically signed by: Beau Wharton M.D. 01/18/2022 12:21 PM Brain MRI 01/18/22 14:08 MRI OF THE BRAIN WITHOUT CONTRAST CLINICAL HISTORY: stroke like sx COMPARISON STUDY: Head CT and CTA of the head January 18, 2022. TECHNIQUE: Utilizing a 1.5 Lottie magnet and dedicated coil, multiplanar, multiecho imaging of the brain was performed without IV contrast. FINDINGS: Note is made of a small 7 mm focus of restricted diffusion within the posterior right frontal lobe on axial image 18 of 25. Correlation with the ADC map is difficult given the small size however this favors a small acute infarct. No additional foci of restricted diffusion are present. Basal cisterns are patent. There are no extra axial collections. Focus of encephalomalacia at site of previous hemorrhage is noted. This is chronic. Numerous small hypointense foci are noted on the gradient echo sequence which suggests old blood products or amyloid angiopathy. White matter T2 hyperintense foci suggest small vessel disease. Calvarial signal is within normal limits. No intracranial masses are identified on this unenhanced exam. Old lacunar infarct within left thalamus is present. There are suspected old lacunar infarcts within the bilateral basal ganglia. IMPRESSION: 1. 7 mm focus of restricted diffusion within the posterior right frontal lobe consistent with a small acute infarct. No mass effect. No acute hemorrhage. 2. Encephalomalacia within left occipital lobe. This finding is chronic and represent sequela of previous hemorrhage. 3. Numerous hypointense foci on gradient echo sequence which could reflect old blood products or amyloid angiopathy. ACT 112: Negative or not required by law. Electronically signed by: Nicola Wynne M.D. 01/18/2022 4:42 PM Medications Administered Current Inpatient Medications Acetaminophen (Acetaminophen 325 Mg Tab) 650 mg PO Q4H PRN PRN Reason: Pain or Fever Stop: 02/17/22 16:21 Last Admin: 01/19/22 09:53 Dose: 650 mg Acetazolamide (Acetazolamide 250 Mg Tab) [address] [facility] Stop: 02/17/22 20:59 Last Admin: 01/19/22 08:36 Dose: 500 mg Al Hydrox/Mg Hydrox/Simethicone (Aluminum/Magnesium Susp 30 Ml Udc) 15 ml PO Q4H PRN PRN Reason: Dyspepsia Stop: 02/17/22 16:21 Albuterol (Albuterol Hfa 8 Gm Inhaler) 2 puffs INH Q6R PRN PRN Reason: Shortness Of Breath Stop: 02/17/22 16:21 Aspirin (Aspirin 81 Mg Ectab) [address] [facility] Stop: 02/18/22 08:59 Last Admin: 01/19/22 08:37 Dose: 81 mg Atorvastatin Calcium (Atorvastatin 40 Mg Tab) [address] [facility] Stop: 02/18/22 08:59 Last Admin: 01/19/22 08:37 Dose: 40 mg Clopidogrel Bisulfate (Clopidogrel Bisulfate 75 Mg Tab) [address] [facility] Stop: 02/17/22 17:14 Last Admin: 01/19/22 08:37 Dose: 75 mg Gabapentin (Gabapentin 300 Mg Cap) [address] [facility] Stop: 02/17/22 20:59 Last Admin: 01/19/22 08:36 Dose: 300 mg Levothyroxine Sodium (Levothyroxine Sodium 25 Mcg Tablet) [address] [facility] Stop: 02/18/22 06:29 Last Admin: 01/19/22 06:19 Dose: 25 mcg Levothyroxine Sodium (Levothyroxine Sodium 200 Mcg Tablet) [address] [facility] Stop: 02/18/22 06:29 Last Admin: 01/19/22 06:20 Dose: 200 mcg Lorazepam (Lorazepam 1 Mg Tab) 1 mg PO ONE PRN PRN Reason: 30 mins prior to MRI Stop: 02/17/22 14:14 Last Admin: 01/18/22 15:04 Dose: 1 mg Magnesium Hydroxide (Magnesium Hydroxide Susp 30 Ml Udc) 30 ml PO Q12H PRN PRN Reason: Constipation Stop: 02/17/22 16:21 Metoprolol Succinate (Metoprolol Succ 50mg Ext Rel Tab) [address] [facility] Stop: 02/17/22 20:59 Last Admin: 01/18/22 22:02 Dose: 50 mg Miscellaneous Information (Pharmacist Discharge Med Rec Consult) 1 each N/A UD PRN PRN Reason: Consult Stop: 02/17/22 16:21 Ondansetron HCl (Ondansetron Inj 2 Mg/Ml 2 Ml Vial) 4 mg IV Q6H PRN PRN Reason: Nausea Stop: 02/17/22 16:21 Polyethylene Glycol (Polyethylene (Miralax) 17 Gm Pack) 17 gm PO DAILY PRN PRN Reason: Constipation Stop: 02/17/22 16:21 Sertraline HCl (Sertraline Hcl 50 Mg Tablet) [address] [facility] Stop: 02/18/22 08:59 Last Admin: 01/19/22 08:37 Dose: 50 mg
--- NOTE | 2022-01-19 14:06 | Electrocardiogram Report ---
Test Reason : Blood Pressure : / mmHG Vent. Rate : 046 BPM Atrial Rate : 046 BPM P-R Int : 190 ms QRS Dur : 114 ms QT Int : 498 ms P-R-T Axes : 058 002 -19 degrees QTc Int : 435 ms Sinus bradycardia Incomplete right bundle branch block Borderline ECG When compared with ECG of 16-AUG-2020 13:25, Vent. rate has decreased BY 27 BPM Confirmed by David Newman ([id number]) on 01/19/2022 2:06:28 PM Referred By: REFERRED SELF Confirmed By:David Newman
[2022-01-19] MEDS: METOPROLOL SUCC 50MG EXT REL TAB PO SCH ×2 (14:35→20:14)
--- NOTE | 2022-01-19 15:01 | Neurology Consultation ---
Date of Consultation January 19, 2022 Assessment & Plan (1) CVA (cerebral vascular accident): 1. switch from aspirin 81 mg to plavix 75 mg daily may need a verify now to see if plavix and aspirin are affective. 2. TTE - normal EF 3. optimzie HTN, HLD, DM LDL <70 4. PT/OT /speech for discharge needs 5. ZIO as outpatient 6. c pap at home 7. will see in our clinic in 8 weeks after discharge. (2) History of CVA with residual deficit: Supervising Physician Co-Signing Physician Notes Patient was seen and examined. Discussed with Wendy Arriaga PA-C and agree with recs. Admitted with left uppere extremity weakness due to acute right frontal lobe embolic stroke. CTA head and neck shows right MCA occlussion with reconstitution. MRI brain also she microhemorrhages on GRE suggestive of possible underlying amyloid Vs sequella from previous antticoagulation use. She does have prior history of hemorrhage while on Coumadin. Recommend Plavix 75 mg daily for stroke prevention. TTE report reviewed. No shunt. Normal EF. Recommend repeat 14-day zio as outpatient with cardiology referral for possible loop recorder pending ZIO. Patient does have WANDA and is using cPAP. Former smoker but quit. PT/OT for rehab needs. Discussed weight loss. Outpatient follow up with neuro in 8 weeks. History of Present Illness Reason for Consultation: stroke Requesting Physician: Percy Phipps MD Attending Physician: Percy Phipps MD History of Present Illness Nohemy is a 56 year old female who has a PMH COPD, WANDA on CPAP, pulmonary hypertension, chronic HFpEF, HTN, Takotsubo cardiomyopathy, hypothyroidism, history of ischemic CVA in 2017, history of hemorrhagic CVA in 2020, pre diabetes, former tobacco abuse, history of pulmonary embolism off oral anticoagulation in setting of intraparenchymal hemorrhage and depression who presents to [facility] 01/18/22 secondary to left hand weakness and worsened aphasia since waking up this morning.Her prior deficits from former CVAs include right lateral vision loss and aphasia. She also has chronic ambulatory dysfunction at baseline due to pain in her legs. Last night she went to bed in her normal state of health. When she woke up this morning she had difficulty getting out of bed and ended up on the floor. She did not lose consciousness or hit her head. Her was in the bathroom and was able to assist her and get their daughter. They noted she had left-sided facial droop, worsened expressive aphasia and left hand weakness. She had inability to hold anything on her left hand and daughter felt overall entire left arm was weak. She denies any left leg weakness, numbness or tingling. She did not lose her bowel or bladder this morning. She admits to being incontinent of urine but that was because she had to urinate and was unable to get to the bathroom. Allergies Allergy/AdvReac Type Severity Reaction Status Date / Time adhesive tape Allergy Intermediate Rash - Verified 08/16/20 16:36 CLOTH TAPE morphine AdvReac Unknown Unknown Verified 08/16/20 16:36 Home Medications Medication Instructions Recorded Confirmed Type acetazolamide 250 mg tablet 500 mg PO BID 01/18/22 01/18/22 History albuterol sulfate 90 mcg/actuation 2 inh inhalation Q6H PRN SOB 01/18/22 01/18/22 History aerosol inhaler aspirin 81 mg tablet,delayed 81 mg PO DAILY 01/18/22 01/18/22 History release atorvastatin 40 mg tablet 40 mg PO DAILY 01/18/22 01/18/22 History gabapentin 300 mg capsule 300 mg PO TID 01/18/22 01/18/22 History levothyroxine 200 mcg tablet 200 mcg PO DAILY 01/18/22 01/18/22 History levothyroxine 25 mcg tablet 25 mcg PO DAILY 01/18/22 01/18/22 History metoprolol succinate 50 mg 75 mg PO BID 01/18/22 01/18/22 History tablet,extended release 24 hr sertraline 50 mg tablet 50 mg PO DAILY 01/18/22 01/18/22 History Patient History Medical History (Updated 01/18/22 @ 14:56 by Ena Odom PA-C) ARF (acute renal failure) CHF (congestive heart failure) Chronic acquired lymphedema CKD (chronic kidney disease), stage III COPD (chronic obstructive pulmonary disease) CVA (cerebral vascular accident) Depression Expressive aphasia Hematoma of abdominal wall HTN (hypertension) Hypothyroidism Obesity WANDA (obstructive sleep apnea) Pulmonary emboli Tobacco abuse Surgical History History of carpal tunnel surgery History of cholecystectomy History of tonsillectomy Family History Other Adopted Social History (Updated 01/18/22 @ 14:51 by Ena Odom PA-C) Smoking Status: Former smoker Number of Years Since Quit: 4; Second Hand Exposure: No; Hx Alcohol Use: No Hx Substance Use: No Preferred Language: Macanese Communication Ability: Effective 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 Required: No Beliefs That Will Affect Care: None marital status: Current Living Situation: Family Feels Safe at Home: Yes Safety Concerns: Feels Safe At This Time Assistive Devices: Walker and Wheelchair Review of Systems Review of Systems: All systems reviewed & are unremarkable except as noted in HPI & below Physical Exam Physical Exam: Physical Exam: Constitutional: appearance morbidly obese Ears, Nose, Mouth and Throat: mucous membranes moist, no injection and skin normal, eyes normal Cardiovascular: normal S-1 and S-2 and regular rate and rhythm Respiratory: course breath sounds Musculoskeletal: ++ peripheral edema and decreased distal pulses Skin: no stigmata of neurocutaneous disease noted and normal and intact Eyes: extraocular muscles intact (EOMI) and pupils equal, round and reactive to light (PERRL), right hemianopsia NEUROLOGIC EXAMINATION: Mental status: Alert and interactive Oriented to full date and location Oriented to person Speech dysphasia with some words Cranial Nerves some flattening of right nasolabial fold Reflexes: Deep tendon reflexes were unable to assess due to size Sensory: no sensory deficits, light cool vibrations, GT proprioception absent on right Coordination: finger to nose Gait/Stance: Posture lying in bed Strength: 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) Vital Signs (Past 12 Hours) Vital Signs Temp Pulse Resp BP Pulse Ox O2 Del Method 01/19/22 11:36 36.9 C 50 L 18 111/73 93 Room Air 01/19/22 08:46 36.9 C 57 L 19 112/65 94 Room Air 01/19/22 03:00 37.1 C 51 L 20 124/56 L 92 Laboratory Results Abnormal lab results 01/19/22 01/19/22 01/19/22 Range/Units 06:40 06:40 06:40 Hgb 10.9 L (12.0-16.0) g/dl MCHC 29.6 L (32.0-36.0) g/dL RDW Std Deviation 48.1 H (36.4-46.3) fL Chloride 108 H (98-107) mmol/L BUN/Creatinine Ratio 23.7 H (10-20) Hemoglobin A1c 5.8 H (4.5-5.6) % Calcium 8.2 L (8.5-10.1) mg/dl Diagnostic Findings CXR-No significant change compared to the prior study. No acute process. Mild cardiomegaly and chronic interstitial thickening persists. CT head-No acute infarct or intracranial hemorrhage.. Old infarcts CTA head neck-Focal short segment occlusion within a distal branch of the right MCA with immediate reconstitution as described above. This is technically age indeterminate but likely acute given the patient's neurologic deficit.. No significant stenosis, occlusion, or dissection identified within the carotid or vertebral arteries. MRI brain-7 mm focus of restricted diffusion within the posterior right frontal lobe consistent with a small acute infarct. No mass effect. No acute hemorrhage. Encephalomalacia within left occipital lobe. This finding is chronic and represent sequela of previous hemorrhage. Numerous hypointense foci on gradient echo sequence which could reflect old blood products or amyloid angiopathy (1) CVA (cerebral vascular accident) CVA mechanism: occlusion Laterality of affected vessel: right Precerebral and cerebral artery: middle cerebral artery Qualified Code(s): I63.511 - Cer ebral infarction due to unspecified occlusion or stenosis of right middle cerebral artery
[2022-01-20] MEDS: LEVOTHYROXINE SODIUM 25 MCG TABLET PO SCH (05:57)
[2022-01-20] MEDS: LEVOTHYROXINE SODIUM 200 MCG TABLET PO SCH (05:57)
[2022-01-20] MEDS: CLOPIDOGREL BISULFATE 75 MG TAB PO SCH (07:52)
[2022-01-20] MEDS: acetaZOLAMIDE 250 MG TAB PO SCH ×2 (07:52→20:07)
[2022-01-20] MEDS: GABAPENTIN 300 MG CAP PO SCH ×3 (07:52→20:07)
[2022-01-20] MEDS: ATORVASTATIN 40 MG TAB PO SCH (07:52)
[2022-01-20] MEDS: SERTRALINE HCL 50 MG TABLET PO SCH (07:53)
[2022-01-20] MEDS: METOPROLOL SUCC 50MG EXT REL TAB PO SCH (07:53)
[2022-01-20 09:16] LABS: Basophils # (auto) 0.07 K/uL (0-0.2); Basophils % (auto) 0.9 %; Eosinophils # (auto) 0.32 K/uL (0-0.50); Eosinophils % (auto) 4.2 %; Hematocrit (blood only) 38.7 % (34.1-44.9); Hemoglobin 11.3 g/dl (12.0-16.0); Immature Granulocytes # (auto) 0.03 K/uL (0.00-0.02); Immature Granulocytes % (auto) 0.4 %; Lymphocytes # (auto) 1.49 K/uL (1.2-3.4); Lymphocytes % (auto) 19.7 %; Mean Corpuscular Hemoglobin 26.8 pg (25.0-34.0); Mean Corpuscular Hgb Conc 29.2 g/dL (32.0-36.0); Mean Corpuscular Volume 91.9 fL (80.0-100.0); Mean Platelet Volume 11.5 fL (9.4-12.3); Monocytes # (auto) 0.58 K/uL (0.24-0.82); Monocytes % (auto) 7.7 %; Neutrophils # (auto) 5.06 K/uL (1.4-6.5); Neutrophils % (auto) 67.1 %; Platelet Count 198 K/uL (130-400); RDW Coefficient of Variation 14.3 % (11.5-14.5); RDW Standard Deviation 48.1 fL (36.4-46.3); Red Blood Count 4.21 M/uL (3.93-5.22); White Blood Count 7.55 K/ul (4.8-10.8)
[2022-01-20 09:27] LABS: BUN Creatinine Ratio 21.7 (10-20); Calcium 8.6 mg/dl (8.5-10.1); Creatinine Clr Calc Pharmacy 91.8 ml/min; Est GFR (African American) 67.5 ml/min; Est GFR (Non-African American) 58.2 ml/min; Magnesium 2.1 mg/dl (1.7-2.4); Phosphorus 3.7 mg/dl (2.5-4.9); Potassium 3.8 mmol/L (3.5-5.1)
--- NOTE | 2022-01-20 10:15 | Hospitalist Progress Note ---
Date of Service January 20, 2022 Assessment & Plan (1) Stroke-like symptoms: (2) History of CVA with residual deficit: (3) Sinus bradycardia: (4) COPD (chronic obstructive pulmonary disease): (5) WANDA (obstructive sleep apnea): (6) CKD (chronic kidney disease), stage III: (7) HTN (hypertension): (8) Hx of pulmonary embolus: Plan This is a 56-year-old female who has a significant past medical history of COPD, WANDA on CPAP, pulmonary hypertension, chronic HFpEF, HTN, history of Takotsubo cardiomyopathy, hypothyroidism, history of ischemic CVA in 2018, history of hemorrhagic CVA in 2020, pre diabetes, former tobacco abuse, history of pulmonary embolism off oral anticoagulation in setting of intraparenchymal hemorrhage and depression who presents to ED secondary to left hand weakness and worsened aphasia since waking up this morning. Strokelike symptoms with left upper extremity weakness, worsened aphasia and difficulty with intrinsic hand movements History of ischemic CVA in 2018 as well as occipital intraparenchymal hemorrhage in 2020 Focal short segment occlusion within distal branch of right MCA with immediate reconstitution Admit to telemetry [facility] tele neurology consulted, given prior history of IPH patient is not candidate for thrombolytic therapy and recommend further inpatient work-up Obtain MRI if able, will premedicate with oral Ativan as patient is claustrophobic Obtain echocardiogram Continued stroke scale discontinue Aspirin 81mg - start and continue plavix daily - continue atorvastatin consult [facility] Neurology PT/OT/ST - for rehab inpatient - will set up follow up with Cardiology for outpatient zio patch Sinus bradycardia Heart rates in the 40s in ER Will hold today's morning dose of metoprolol Continue metoprolol 50mg BID for now - follow up with cardiology outpatient COPD WANDA on CPAP Previously patient was on Breo and Spiriva, currently not taking Her CPAP has been recalled and therefore she has been wearing 4 L of oxygen at bedtime Will utilize CPAP while inpatient As needed albuterol No acute exacerbation Chronic HFpEF Patient appears euvolemic with chronic lymphedema Continue plavix, statin and metoprolol History of PE Off Coumadin in setting of intraparenchymal hemorrhage Depression Continue Zoloft Hypothyroidism Continue levothyroxine DVT ppx: SCDS, no chemical in setting of previous IPH Dispo: PCU PCP: Marilin FULL CODE Percy Rodriguez MD Hospital Medicine Admission and Anticipated Discharge Date Admission Date: January 18, 2022 Subjective This is a 56-year-old female who has a significant past medical history of COPD, WANDA on CPAP, pulmonary hypertension, chronic HFpEF, HTN, history of Takotsubo cardiomyopathy, hypothyroidism, history of ischemic CVA in 2017, history of hemorrhagic CVA in 2020, pre diabetes, former tobacco abuse, history of pulmonary embolism off oral anticoagulation in setting of intraparenchymal hemorrhage and depression who presents to ED secondary to left hand weakness and worsened aphasia since waking up this morning. She was found to ahve focal short segment occlusion in distal branch of right MCA with reconstitution on CTA head and neck and 7 mm focus of restricted diffusion within the posterior right frontal lobe consistent with a small acute infarct on MRI brain. She was continued on aspirin 81mg and atorvastatin and started on plavix. Neurology was consulted for further recommendations. Patient reports some improvement in strength in left hand this morning but still weaker than baseline on her senior director. Dysarthria she reports being close to bas marissa. She denies any other symptoms of chest pain, shortness of breath, n/v/d, abdominal pain, dysuria, cough. Just not feeling great today without any other sypmtoms. Review of Systems Review of Systems: All systems reviewed & are unremarkable except as noted in Subjective Physical Exam Constitutional: WD/WN, vitals as above + morbidly obese Eyes: PERRL, conjunctivae normal, anicteric sclerae ENMT: external ear and nose normal, oropharynx normal Neck: trachea midline, no thyromegaly Respiratory: normal respiratory effort, lungs clear to auscultation Cardiovascular: RRR, no murmur, no edema Gastrointestinal (Abdomen): normal bowel sounds, soft, nontender, no hepatosplenomegaly Musculoskeletal: no cyanosis or clubbing, extremities motor strength 5/5 Skin: no rashes, warm and dry Neurologic: patellar DTR's 2+ bilat, sensation intact normal touch/pain/proprioception, CN's II-XI intact bilaterally, + focal motor deficit (mild left arm drift and 3+/5 left senior director) and awake Speech / Cognition: + abnormal speech (baseline dysarthria) Motor/Sensory: + pronator drift Coordination: + abnormal [id number] test (left) Psychiatric: A+Ox3, euthymic affect Results & Data Results & Data ([place]) Vital Signs (Past 12 Hours) Vital Signs Temp Pulse Pulse Resp BP BP Pulse Ox 01/20/22 07:48 36.8 C 57 L 20 150/98 H 95 01/19/22 22:20 58 L 01/20/22 03:00 36.8 C 51 L 20 121/78 96 01/20/22 00:30 01/20/22 02:05 52 L 20 94 01/19/22 22:39 62 17 91 O2 Del Method O2 Flow Rate 01/20/22 07:48 Room Air 01/19/22 22:20 01/20/22 03:00 01/20/22 00:30 CPAP 01/20/22 02:05 2 01/19/22 22:39 2 Laboratory Results Short CBC 01/20/22 Range/Units 07:40 WBC 7.55 (4.8-10.8) K/ul Hgb 11.3 L (12.0-16.0) g/dl Hct 38.7 (34.1-44.9) % Plt Count 198 (130-400) K/uL BMP 01/20/22 07:40 Sodium 141 Potassium 3.8 Chloride 111 H Carbon Dioxide 24 BUN 23 Creatinine 1.06 Glucose 78 Calcium 8.6 Medications Administered Current Inpatient Medications Acetaminophen (Acetaminophen 325 Mg Tab) 650 mg PO Q4H PRN PRN Reason: Pain or Fever Stop: 02/17/22 16:21 Last Admin: 01/19/22 15:31 Dose: 650 mg Acetazolamide (Acetazolamide 250 Mg Tab) 500 mg PO BID [facility] Stop: 02/17/22 20:59 Last Admin: 01/20/22 07:52 Dose: 500 mg Al Hydrox/Mg Hydrox/Simethicone (Aluminum/Magnesium Susp 30 Ml Udc) 15 ml PO Q4H PRN PRN Reason: Dyspepsia Stop: 02/17/22 16:21 Albuterol (Albuterol Hfa 8 Gm Inhaler) 2 puffs INH Q6R PRN PRN Reason: Shortness Of Breath Stop: 02/17/22 16:21 Atorvastatin Calcium (Atorvastatin 40 Mg Tab) 40 mg PO DAILY [facility] Stop: 02/18/22 08:59 Last Admin: 01/20/22 07:52 Dose: 40 mg Clopidogrel Bisulfate (Clopidogrel Bisulfate 75 Mg Tab) 75 mg PO QAM [facility] Stop: 02/17/22 17:14 Last Admin: 01/20/22 07:52 Dose: 75 mg Gabapentin (Gabapentin 300 Mg Cap) 300 mg PO TID [facility] Stop: 02/17/22 20:59 Last Admin: 01/20/22 07:52 Dose: 300 mg Levothyroxine Sodium (Levothyroxine Sodium 25 Mcg Tablet) 25 mcg PO DAILYBB [facility] Stop: 02/18/22 06:29 Last Admin: 01/20/22 05:57 Dose: 25 mcg Levothyroxine Sodium (Levothyroxine Sodium 200 Mcg Tablet) 200 mcg PO DAILYBB [facility] Stop: 02/18/22 06:29 Last Admin: 01/20/22 05:57 Dose: 200 mcg Magnesium Hydroxide (Magnesium Hydroxide Susp 30 Ml Udc) 30 ml PO Q12H PRN PRN Reason: Constipation Stop: 02/17/22 16:21 Metoprolol Succinate (Metoprolol Succ 50mg Ext Rel Tab) 50 mg PO BID [facility] Stop: 02/17/22 20:59 Last Admin: 01/20/22 07:53 Dose: 50 mg Miscellaneous Information (Pharmacist Discharge Med Rec Consult) 1 each N/A UD PRN PRN Reason: Consult Stop: 02/17/22 16:21 Ondansetron HCl (Ondansetron Inj 2 Mg/Ml 2 Ml Vial) 4 mg IV Q6H PRN PRN Reason: Nausea Stop: 02/17/22 16:21 Polyethylene Glycol (Polyethylene (Miralax) 17 Gm Pack) 17 gm PO DAILY PRN PRN Reason: Constipation Stop: 02/17/22 16:21 Sertraline HCl (Sertraline Hcl 50 Mg Tablet) 50 mg PO DAILY [facility] Stop: 02/18/22 08:59 Last Admin: 01/20/22 07:53 Dose: 50 mg
[2022-01-20] MEDS: ACETAMINOPHEN 325 MG TAB PO PRN ×2 (10:47→17:38)
[2022-01-20] MEDS ORDERED: STROKE PATIENT DISCHARGE STA (15:50)
--- NOTE | 2022-01-20 16:23 | Discharge Summary ---
Date of Service January 20, 2022 Admission HPI Per Admitting Provider This is a 56-year-old female who has a significant past medical history of COPD, WANDA on CPAP, pulmonary hypertension, chronic HFpEF, HTN, history of Takotsubo cardiomyopathy, hypothyroidism, history of ischemic CVA in 2018, history of hemorrhagic CVA in 2020, pre diabetes, former tobacco abuse, history of pulmonary embolism off oral anticoagulation in setting of intraparenchymal hemorrhage and depression who presents to ED secondary to left hand weakness and worsened aphasia since waking up this morning. Her 2 daughters are at bedside. Prior deficits from former CVAs include right lateral vision loss and aphasia. She also has chronic ambulatory dysfunction at baseline due to pain in her legs. Last night she went to bed in her normal state of health. When she woke up this morning she had difficulty getting out of bed and ended up on the floor. She did not lose consciousness or hit her head. Her was in the bathroom and was able to assist her and get their daughter. They noted she had left-si ded facial droop, worsened expressive aphasia and left hand weakness. She had inability to hold anything on her left hand and daughter felt overall entire left arm was weak. She denies any left leg weakness, numbness or tingling. Prior to this morning she was in her normal state of health. She denies any recent fever, chills, sweats, lightheadedness, dizziness, syncope, change in vision, change in hearing, chest pain, shortness breath, cough, URI symptoms, nausea, vomiting, abdominal pain, change in bowel or urinary habits. She did not lose her bowel or bladder this morning. She admits to being incontinent of urine but that was because she had to urinate and was unable to get to the bathroom. Admission Exam Per Admitting Provider Constitutional: WD/WN, chronically ill-appearing female, morbidly obese, vitals as above, NAD, answers questions appropriately with noted aphasia Head: Normocephalic, Atraumatic Eyes: PERRL, conjunctivae normal, anicteric sclerae ENMT: external ear and nose normal, oropharynx normal Neck: trachea midline, no thyromegaly normal visual inspection Respiratory: normal respiratory effort, lungs clear to auscultation, no wheeze, rales, rhonchi. Normal insp/exp effort, no accessory muscle use Cardiovascular: RRR, no murmur, no edema, but obese lower extremities vessels: no JVD or carotid bruit Chest: normal inspection of chest Abdomen: normal bowel sounds, soft, nontender, no hepatosplenomegaly Musculoskeletal: no cyanosis or clubbing, right upper extremity 5 out of 5, left upper extremity 4 out of 5, decreased ophthalmic dispenser strength on left compared to right, unable to assess true strength in lower extremities due to patient having pain and inability to flex at her hip Skin: no rashes, warm and dry normal turgor Neurologic: PERRL, EOMI, accommodation nl, no face palsy, + dysarthria CN's II-XI intact bilaterally and moves all extremities with weakness to left upper extremity, patient with difficulty with intrinsic movements of left hand as well as difficulty with [id number] on left, no lyudmila pronator drift Psychiatric: A+Ox3, euthymic affect Lymphatic: no cervical or axillary lymphadenopathy : deferred Principal Diagnosis acute ischemic CVA Discharge Exam Constitutional WD/WN, vitals as above + morbidly obese Eyes PERRL, conjunctivae normal, anicteric sclerae ENMT external ear and nose normal, oropharynx normal Neck trachea midline, no thyromegaly Respiratory normal respiratory effort, lungs clear to auscultation Cardiovascular RRR, no murmur, no edema Gastrointestinal (Abdomen) normal bowel sounds, soft, nontender, no hepatosplenomegaly Inspection/Auscultation: + significant pannus Musculoskeletal no cyanosis or clubbing, extremities motor strength 5/5 Skin no rashes, warm and dry Neurologic normal touch/pain/proprioception and CN's II-XI intact bilaterally Speech / Cognition: + abnormal speech (at baseline dysarthria from previous CVA) Motor/Sensory: + pronator drift (mild in left arm) Coordination: + abnormal betmlj-[id number] test (on left, likely from weakness) decreased ophthalmic dispenser strength in left hand 3+/5 Psychiatric A+Ox3, euthymic affect Discharge Data Allergies Allergy/AdvReac Type Severity Reaction Status Date / Time adhesive tape Allergy Intermediate Rash - Verified 08/16/20 16:36 CLOTH TAPE morphine AdvReac Unknown Unknown Verified 08/16/20 16:36 Consultations 01/18/22 13:08 ED Decision to Admit Stat 01/19/22 08:50 Consult Neurology Routine Ordered Studies 01/18/22 11:51 CT angio head w con Stat CT angio neck with con Stat CT head/brain wo con Stat 01/18/22 14:08 MR brain wo con Routine Hospital Course (1) CVA (cerebral vascular accident): This is a 56-year-old female who has a significant past medical history of COPD, WANDA on CPAP, pulmonary hypertension, chronic HFpEF, HTN, history of Takotsubo cardiomyopathy, hypothyroidism, history of ischemic CVA in 2018, history of hemorrhagic CVA in 2020, pre diabetes, former tobacco abuse, history of pulmonary embolism off oral anticoagulation in setting of intraparenchymal hemorrhage and depression who presents to ED secondary to left hand weakness and worsened aphasia since waking up this morning. Strokelike symptoms with left upper extremity weakness, worsened aphasia and difficulty with intrinsic hand movements History of ischemic CVA in 2018 as well as occipital intraparenchymal hemorrhage in 2020 Focal short segment occlusion within distal branch of right MCA with immediate reconstitution Admit to [place] [facility] [place], given prior history of IPH patient is not candidate for thrombolytic therapy and recommend further inpatient work-up Obtain MRI if able, will premedicate with oral Ativan as patient is claustrophobic Obtain echocardiogram Continued stroke scale discontinue Aspirin 81mg - start and continue plavix daily - continue atorvastatin consult [facility] Neurology PT/OT/ST - for rehab inpatient - will set up follow up with Cardiology for outpatient zio patch (2) COPD (chronic obstructive pulmonary disease): Previously patient was on Breo and Spiriva, currently not taking Her CPAP has been recalled and therefore she has been wearing 4 L of oxygen at bedtime Will utilize CPAP while inpatient As needed albuterol No acute exacerbation (3) WANDA (obstructive sleep apnea): Previously patient was on Breo and Spiriva, currently not taking Her CPAP has been recalled and therefore she has been wearing 4 L of oxygen at bedtime Will utilize CPAP while inpatient As needed albuterol No acute exacerbation (4) Depression: Continue Zoloft (5) Hx of pulmonary embolus: Off Coumadin in setting of intraparenchymal hemorrhage (6) Hypothyroidism: Continue levothyroxine Total Time Total Time Spent Total Time Spent (In Minutes): 20 minutes Total Time Includes: Examination of the Patient, Discharge Planning, Medication Reconciliation and Communication With Other Providers Discharge Plan Discharge Items Patient Disposition: Transfer Inpatient Rehab Fac Reason For Visit: STROKE LIKE SYMPTOMS Discharge Diagnosis: acute ischemic CVA Activity: As commented below Activity Comment: as per rehab Non-emergency contact: Primary Care Provider, Supervisor Carding and Neurologist Call non-emergency contact if: you have any medication questions and your symptoms worsen Follow-up/Referrals: Wendy Arriaga PA-C [Physician Asset Accountant] - Nisa Gaston DO [Primary Care Provider] - Bob Richards DO [Physician] - Diet: Heart Healthy Addtl Attending Provider Instructions: You were admitted with symptoms of a new stroke with left arm and hand weakness. You had CT head and neck with contrat and MRI brain that showed the new stroke. You were seen by neurology and were recommended to be on atorvastatin 40mg and plavix 75mg daily. You will have follow up with Cardiology for an outpatient zio patch to monitor for irregular heart rhythms and you should follow up with your primary care doctor as well as the neurologist in about 8 weeks. Pending Studies at Discharge: No Stand-Alone Forms: Medications to Prevent Stroke, My [facility] Skilled Items Patient informed of condition?: Yes DNR: No Discharge Level of Care: Acute rehab Communicable Disease: No Discharge Prognosis: Stable Lines: None Urinary Catheter: No Medications and DC Order Prescriptions: New clopidogrel 75 mg Tablet 75 mg PO QAM Qty: 30 0RF metoprolol succinate 25 mg Tablet Extended Release 24 Hr 12.5 mg PO BID Qty: 60 0RF polyethylene glycol 3350 [Miralax] 17 gram Powder In Packet 17 g PO DAILY PRN (Reason: constipation) Qty: 30 0RF Continued atorvastatin 40 mg Tablet 40 mg PO DAILY acetazolamide 250 mg Tablet 500 mg PO BID levothyroxine 25 mcg Tablet 25 mcg PO DAILY Rx Instructions: give with 200mcg to = 225mcg gabapentin 300 mg capsule 300 mg PO TID levothyroxine 200 mcg Tablet 200 mcg PO DAILY Rx Instructions: give with 25mcg to = 225mcg albuterol sulfate 90 mcg/actuation HFA aerosol inhaler 2 inh INHALATION Q6H PRN (Reason: SOB) sertraline 50 mg tablet 50 mg PO DAILY Discontinued metoprolol succinate 50 mg tablet extended release 24 hr 75 mg PO BID aspirin [Aspir-81] 81 mg Tablet,Delayed Release (Dr/Ec) 81 mg PO DAILY Discharge Orders: Discharge Order (Routine); Ordered 01/20/22 Ordered By: Percy Rodriguez Admission Data Admit Date/Time: 01/18/22 13:31 Attending Provider: Percy Rodriguez Admit Provider: Earlene Brothers Primary Care Provider: Nisa Gaston Other Providers: Ena Odom ; Earlene Brothers ; Wendy Arriaga ; Jorden Neal ; Wendy Patterson ; Bob Richards ; Paula Phillips ; [facility] Other Interventions: Discharge Summary Assessment (RN) Last Done: 01/20/22 16:00
[2022-01-20] MEDS ORDERED: METOPROLOL SUCC 25MG EXT REL TAB PO SCH (21:00)
[2022-01-21] MEDS: LEVOTHYROXINE SODIUM 25 MCG TABLET PO SCH (05:55)
[2022-01-21] MEDS: LEVOTHYROXINE SODIUM 200 MCG TABLET PO SCH (05:55)
[2022-01-21 07:00] LABS: Appearance Urine Clear (Clear); Bacteria Urine Automated Negative (Negative); Bilirubin Urine Negative (Negative); Blood Urine 3+ (Negative); Cast Urine Automated 0 /lpf (0-5); Color Urine Yellow; Epithelial Cell Urine Auto 20-30 /lpf (0-5); Glucose Urine UA Negative (Negative); Ketones Urine Negative (Negative); Leukocyte Esterase Urine Negative (Negative); Nitrite Urine Negative (Negative); Protein Urine Negative (Negative); RBC Urine Automated >30 /hpf (0-4); Specific Gravity Urine 1.023 (1.000-1.030); Urobilinogen Urine Negative (Negative)
[2022-01-21 07:07] LABS: Hematocrit (blood only) 37.1 % (34.1-44.9); Hemoglobin 10.9 g/dl (12.0-16.0); Mean Corpuscular Hemoglobin 26.9 pg (25.0-34.0); Mean Corpuscular Hgb Conc 29.4 g/dL (32.0-36.0); Mean Corpuscular Volume 91.6 fL (80.0-100.0); Mean Platelet Volume 12.1 fL (9.4-12.3); Platelet Count 162 K/uL (130-400); RDW Coefficient of Variation 14.2 % (11.5-14.5); RDW Standard Deviation 48.4 fL (36.4-46.3); Red Blood Count 4.05 M/uL (3.93-5.22); White Blood Count 5.54 K/ul (4.8-10.8)
[2022-01-21 07:40] LABS: Basophils # (auto) 0.06 K/uL (0-0.2); Basophils % (auto) 1.1 %; Eosinophils # (auto) 0.31 K/uL (0-0.50); Eosinophils % (auto) 5.6 %; Immature Granulocytes # (auto) 0.01 K/uL (0.00-0.02); Immature Granulocytes % (auto) 0.2 %; Lymphocytes # (auto) 1.36 K/uL (1.2-3.4); Lymphocytes % (auto) 24.5 %; Monocytes # (auto) 0.53 K/uL (0.24-0.82); Monocytes % (auto) 9.6 %; Neutrophils # (auto) 3.27 K/uL (1.4-6.5)
[2022-01-21] MEDS: acetaZOLAMIDE 250 MG TAB PO SCH (08:26)
[2022-01-21] MEDS: CLOPIDOGREL BISULFATE 75 MG TAB PO SCH (08:26)
[2022-01-21] MEDS: ACETAMINOPHEN 325 MG TAB PO PRN (08:26)
[2022-01-21] MEDS: SERTRALINE HCL 50 MG TABLET PO SCH (08:27)
[2022-01-21] MEDS: GABAPENTIN 300 MG CAP PO SCH ×2 (08:27→13:21)
[2022-01-21] MEDS: ATORVASTATIN 40 MG TAB PO SCH (08:27)
[2022-01-21] MEDS ORDERED: METOPROLOL SUCC 25MG EXT REL TAB PO SCH (09:00)
--- NOTE | 2022-01-21 10:29 | Hospitalist Progress Note ---
Date of Service January 21, 2022 Assessment & Plan (1) CVA (cerebral vascular accident): Plan: Acute frontal CVA with h/o hemorrhagic stroke in the past. Left upper extremity weakness appears improved. Now has a persistent headache that changed in nature. Reading deficit reported but no visual issues reported otherwise. Use glasses and has them on. Generalized low appetite. OTT not improved with tylenol. Will repeat head CT to ensure no extension of microhemorrhages seen on MRI thought 2/2 sequelae of old CVA vs changes consistent with amyloidosis and consider alternative therapy for headache. After this is ruled out and headache improved, will consider transfer to [facility] rehab. ASA 81 stopped Cont Plavix and Atorvastatin daily outpatient zio patch recommended. Follow-up with neurology outpatient in 4-6 weeks (2) COPD (chronic obstructive pulmonary disease): Plan: chronic, stable, no wheezing. Previously on Bro and Spiriva, currently not taking. (3) WANDA (obstructive sleep apnea): Plan: Chronic, stable. Cont CPAP qHS (4) Depression: Plan: chronic, stable. Cont zoloft per home regimen. (5) Hx of pulmonary embolus: Plan: off coumadin in the setting of intraparenchymal hemorrhage. (6) Hypothyroidism: Plan: chronic, stable. Cont levothyroxine per home regimen. (7) Sinus bradycardia: Plan: Her metoprolol was held. Outpatient Zio patch will be ordered as above. Cont to avoid until follow-up with PCP. (8) DVT prophylaxis: Plan: No chemoprophy given h/o intracerebral hemorrhage Full Code Dispo-uncertain pending resolution of current headache and results of repeat CT head which was ordered. Heather Camacho DO [facility] Hospitalist Admission and Anticipated Discharge Date Admission Date: January 18, 2022 Subjective This is a 56-year-old female who has a significant past medical history of COPD, WANDA on CPAP, pulmonary hypertension, chronic HFpEF, HTN, history of Takotsubo cardiomyopathy, hypothyroidism, history of ischemic CVA in 2017, history of hemorrhagic CVA in 2020, pre diabetes, former tobacco abuse, history of pul monary embolism off oral anticoagulation in setting of intraparenchymal hemorrhage and depression who presents to ED secondary to left hand weakness and worsened aphasia since waking up this morning. She was found to ahve focal short segment occlusion in distal branch of right MCA with reconstitution on CTA head and neck and 7 mm focus of restricted diffusion within the posterior right f rontal lobe consistent with a small acute infarct on MRI brain. She was continued on aspirin 81mg and atorvastatin and started on plavix. Neurology was consulted for further recommendations. Reports dropping items with her left hand. Yesterday she reported dysarthria she reports being close to baseline. and today she was having a small amount of word finding issues. But she was able to speak in full sentences and articulate effectively. Reprots a headache that is still present today, yesterday it was over the forehead and today it is extending posteriorly along the top of her head. She reports not haivng issues with vision except when she tries to read (her tablet). She denies any attempts to read yesterday because she was "sleeping all day." Poor appetite this am but denies nausea. She was able to tolerate a small amount of breakfast. Reports some pain in her lateral right thigh that is increased today as a result of her leg sliding under her home dresser. Denies any falls at home, but slid down off her bed. No bruising is present. Full strength present in both legs and sensation is intact. Daughter at bedside and confirmed the plan with her and patient which includes a repeat head CT today to ensure no new changes, aicha with h/o hemorrhagic CVA in the past. Notably she is just on Plavix monotherapy for secondary stroke prophylaxis and currently is not on DVT chemoprophylaxis. Review of Systems Review of Systems: All other systems were reviewed and negative except as indicated on subjective above. Physical Exam Physical Exam: CONSTITUTIONAL: morbid obesity, vitals as above, generally NAD EYES: EOMI bilaterally, pupils are round and equal bilaterally , normal conjunctivae, no scleral icterus ENT: external ear and nose normal, poor dentition. NECK: trachea midline RESPIRATORY: clear to auscultation bilaterally, no crackles, rales or wheezes, normal respiratory effort CARDIOVASCULAR: regular rate and rhythm, S1 and 2 heard without murmurs, gallops or rubs, no JVD, no peripheral edema CHEST: inspection of chest was normal GASTROINTESTINAL: soft, nontender, ND, no guarding MUSCULOSKELETAL: strength 5/5 throughout, head is normocephalic and atraumatic, difficulty moving around in the bed independently. She was able to pull herself onto the side of the bed with min assistance. SKIN: warm and dry, no rashes NEUROLOGIC: patellar DTRs -couldn't elicit. PERRL, EOMI, no facial palsy, no dysarthria. CN 2-12 grossly intact, no sensory deficit, normal cognition, normal speech, no tremor, gait not assessed. PSYCHIATRIC: alert cooperative and oriented to person, place and time. Euthymic mood, makes good eye contact, language grossly intact, recent and remote memory grossly intact. Results & Data Results & Data ([facility]) Vital Signs (Past 12 Hours) Vital Signs Temp Pulse Pulse Resp BP Pulse Ox O2 Del Method 01/21/22 07:47 36.9 C 45 L 18 140/83 97 Room Air 01/20/22 23:00 42 L 01/21/22 04:50 36.5 C 41 L 16 105/67 96 CPAP 01/21/22 02:35 50 L 19 94 01/20/22 23:07 36.7 C 41 L 16 112/67 96 CPAP FiO2 01/21/22 07:47 01/20/22 23:00 01/21/22 04:50 01/21/22 02:35 21 01/20/22 23:07 Laboratory Results Short CBC 01/21/22 Range/Units 06:09 WBC 5.54 (4.8-10.8) K/ul Hgb 10.9 L (12.0-16.0) g/dl Hct 37.1 (34.1-44.9) % Plt Count 162 (130-400) K/uL Urine 01/21/22 Range/Units 06:19 Urine Color Yellow Urine Appearance Clear (Clear) Urine pH 7.0 (4.5-7.5) Ur Specific [place] 1.023 (1.000-1.030) Urine Protein Negative (Negative) Urine Glucose (UA) Negative (Negative) Medications Administered Current Inpatient Medications Acetaminophen (Acetaminophen 325 Mg Tab) 650 mg PO Q4H PRN PRN Reason: Pain or Fever Stop: 02/17/22 16:21 Last Admin: 01/21/22 08:26 Dose: 650 mg Acetazolamide (Acetazolamide 250 Mg Tab) 500 mg PO BID KAREEM Stop: 02/17/22 20:59 Last Admin: 01/21/22 08:26 Dose: 500 mg Al Hydrox/Mg Hydrox/Simethicone (Aluminum/Magnesium Susp 30 Ml Udc) 15 ml PO Q4H PRN PRN Reason: Dyspepsia Stop: 02/17/22 16:21 Albuterol (Albuterol Hfa 8 Gm Inhaler) 2 puffs INH Q6R PRN PRN Reason: Shortness Of Breath Stop: 02/17/22 16:21 Atorvastatin Calcium (Atorvastatin 40 Mg Tab) 40 mg PO DAILY [facility] Stop: 02/18/22 08:59 Last Admin: 01/21/22 08:27 Dose: 40 mg Clopidogrel Bisulfate (Clopidogrel Bisulfate 75 Mg Tab) 75 mg PO QAM [facility] Stop: 02/17/22 17:14 Last Admin: 01/21/22 08:26 Dose: 75 mg Gabapentin (Gabapentin 300 Mg Cap) 300 mg PO TID [facility] Stop: 02/17/22 20:59 Last Admin: 01/21/22 08:27 Dose: 300 mg Levothyroxine Sodium (Levothyroxine Sodium 25 Mcg Tablet) 25 mcg PO DAILYBB [facility] Stop: 02/18/22 06:29 Last Admin: 01/21/22 05:55 Dose: 25 mcg Levothyroxine Sodium (Levothyroxine Sodium 200 Mcg Tablet) 200 mcg PO DAILYBB [facility] Stop: 02/18/22 06:29 Last Admin: 01/21/22 05:55 Dose: 200 mcg Magnesium Hydroxide (Magnesium Hydroxide Susp 30 Ml Udc) 30 ml PO Q12H PRN PRN Reason: Constipation Stop: 02/17/22 16:21 Metoprolol Succinate (Metoprolol Succ 25mg Ext Rel Tab) 25 mg PO DAILY [facility] Stop: 02/20/22 08:59 Ondansetron HCl (Ondansetron Inj 2 Mg/Ml 2 Ml Vial) 4 mg IV Q6H PRN PRN Reason: Nausea Stop: 02/17/22 16:21 Polyethylene Glycol (Polyethylene (Miralax) 17 Gm Pack) 17 gm PO DAILY PRN PRN Reason: Constipation Stop: 02/17/22 16:21 Sertraline HCl (Sertraline Hcl 50 Mg Tablet) 50 mg PO DAILY [facility] Stop: 02/18/22 08:59 Last Admin: 01/21/22 08:27 Dose: 50 mg (1) CVA (cerebral vascular accident) CVA mechanism: occlusion Laterality of affected vessel: right Precerebral and cerebral artery: middle cerebral artery Qualified Code(s): I63.511 - Cerebral infarction due to unspecified occlusion or stenosis of right middle cerebral artery (2) Hypothyroidism Hypothyroidism type: unspecified Qualified Code(s): E03.9 - Hypothyroidism, unspecified
--- NOTE | 2022-01-21 11:22 | CT Scan Report ---
HEAD CT NONCONTRAST CT DOSE: 1673.87 mGy.cm HISTORY: headache persists after stroke TECHNIQUE: Multiaxial CT images of the head were performed without the use of intravenous contrast. A utomated exposure control was utilized for this study. A dose lowering technique was utilized adheri ng to the principles of ALARA. Comparison: Head CT 01/18/2022. Brain MRI 01/18/2022. Findings: Mild mucosal thickening within the right maxillary sinus. The mastoid air cells are clear. The calvarium and skull base are intact. The patient's small acute right frontal lobe infarct is not clearly identified by this modality. There is no mass, hematoma, midline shift. The ventricles are no rmal in size. Mild microvascular ischemic changes are again noted. Chronic encephalomalacia within th e left occipital lobe is again noted. Impression: No significant change compared to the prior study. No acute intracranial abnormality. The patient's s mall right frontal lobe infarct seen on the recent brain MRI is not well visualized by this modality. ACT 112: Negative or not required by law. Electronically signed by: Beau Wharton M.D. 01/21/2022 11:20 AM
[2022-01-21] MEDS ORDERED: BUTALBITAL/ACETAMIN/CAFFEINE TAB PO STA (11:39)
--- NOTE | 2022-01-21 13:50 | Electrocardiogram Report ---
Test Reason : Blood Pressure : / mmHG Vent. Rate : 047 BPM Atrial Rate : 047 BPM P-R Int : 196 ms QRS Dur : 102 ms QT Int : 482 ms P-R-T Axes : 006 071 057 degrees QTc Int : 426 ms Sinus bradycardia Otherwise normal ECG When compared with ECG of 18-JAN-2022 12:19, Questionable change in QRS axis T wave inversion no longer evident in Inferior leads Confirmed by David Newman ([id number]) on 01/21/2022 1:49:47 PM Referred By: REFERRED SELF Confirmed By:David Newman
--- NOTE | 2022-01-21 14:50 | Discharge Summary ---
Date of Service January 21, 2022 Principal Diagnosis acute ischemic CVA Discharge Exam CONSTITUTIONAL: morbid obesity, vitals as above, generally NAD EYES: EOMI bilaterally, pupils are round and equal bilaterally , normal conjunctivae, no scleral icterus ENT: external ear and nose normal, poor dentition. NECK: trachea midline RESPIRATORY: clear to auscultation bilaterally, no crackles, rales or wheezes, normal respiratory effort CARDIOVASCULAR: regular rate and rhythm, S1 and 2 heard without murmurs, gallops or rubs, no JVD, no peripheral edema CHEST: inspection of chest was normal GASTROINTESTINAL: soft, nontender, ND, no guarding MUSCULOSKELETAL: strength 5/5 throughout, head is normocephalic and atraumatic, difficulty moving around in the bed independently. She was able to pull herself onto the side of the bed with min assistance. SKIN: warm and dry, no rashes NEUROLOGIC: patellar DTRs -couldn't elicit. PERRL, EOMI, no facial palsy, no dysarthria. CN 2-12 grossly intact, no sensory deficit, normal cognition, normal speech, no tremor, gait not assessed. PSYCHIATRIC: alert cooperative and oriented to person, place and time. Euthymic mood, makes good eye contact, language grossly intact, recent and remote memory grossly intact. Discharge Data Allergies Allergy/AdvReac Type Severity Reaction Status Date / Time adhesive tape Allergy Intermediate Rash - Verified 08/16/20 16:36 CLOTH TAPE morphine AdvReac Unknown Unknown Verified 08/16/20 16:36 Consultations 01/18/22 13:08 ED Decision to Admit Stat 01/19/22 08:50 Consult Neurology Routine Ordered Studies 01/18/22 11:51 CT angio head w con Stat CT angio neck with con Stat CT head/brain wo con Stat 01/18/22 14:08 MR brain wo con Routine 01/21/22 10:09 CT head/brain wo con Urgent Hospital Course (1) CVA (cerebral vascular accident): Acute frontal CVA with h/o hemorrhagic stroke in the past when on coumadin. Left upper extremity weakness appears improved after admission and was almost normalized at time of discharge. Additional deficits include difficulties with reading with general vision at baseline with her glasses. She had a persistent headache that appeared to change in nature so a repeat head CT was performed showing no changes. Generalized low appetite reported post-stroke but is able to tolerate PO. OTT not improved with tylenol but was improved wtih Fioricet. With h/o intracranial bleed in the past, aspirin was stopped and she will continue on Plavix and atorvastatin daily. Outpatient zio patch recommended for completion of stroke workup. TTE performed revealed normal EF and no interatrial shunt. Follow-up with neurology outpatient in 4-6 weeks (2) COPD (chronic obstructive pulmonary disease): chronic, stable, no wheezing. Previously on Bro and Spiriva, currently not taking. Would readdress this with PCP. (3) WANDA (obstructive sleep apnea): Chronic, stable. Cont CPAP qHS (4) Depression: chronic, stable. Cont zoloft per home regimen. (5) Hx of pulmonary embolus: off coumadin in the setting of intraparenchymal hemorrhage. (6) Hypothyroidism: chronic, stable. Cont levothyroxine per home regimen. (7) Sinus bradycardia: Her metoprolol was held. Outpatient Zio patch recommended above. Cont with reduced dose and heart rate will be monitored at [facility]. Total Time Total Time Spent Total Time Spent (In Minutes): 60 Discharge Plan Discharge Items Patient Disposition: Transfer Inpatient Rehab Fac Reason For Visit: STROKE LIKE SYMPTOMS Discharge Diagnosis: acute ischemic CVA Condition on Discharge: Good Activity: As commented below Activity Comment: as per rehab Non-emergency contact: Primary Care Provider, Plug Sorter and Neurologist Call non-emergency contact if: you have any medication questions and your symptoms worsen Follow-up/Referrals: Wendy Arriaga PA-C [Physician Loading Machine Adjuster] - Nisa Gaston DO [Primary Care Provider] - Bob Richards DO [Physician] - Diet: Heart Healthy Addtl Attending Provider Instructions: You were admitted with symptoms of a new stroke with left arm and hand weakness. You had CT head and neck with contrast and MRI brain that showed the new stroke. You were seen by neurology and were recommended to be on atorvastatin 40mg and plavix 75mg daily. You will have follow up with Cardiology for an outpatient zio patch (also called event monitor) to look for irregular heart rhythms and you should follow up with your primary care doctor as well as the neurologist in about 8 weeks. Your heart rate was also noted to be low, and your metoprolol dose from home was reduced by 50%. It is recommended to follow-up with your primary care physician within 1 week of hospital discharge to review how this change is working for you, monitor how you are doing since discharge, and setting up any new specialty referrals as needed. It was a pleasure taking care of you! Please call if you have any questions or problems. You can reach a Edwina hospitalist on duty at [facility] 24 hours a day by calling [phone]. Take care of yourself. Heather Camacho, DO [facility] Hospitalist Pending Studies at Discharge: No Stand-Alone Forms: Medications to Prevent Stroke, My [facility] Skilled Items Patient informed of condition?: Yes DNR: No Discharge Level of Care: Acute rehab Communicable Disease: No Discharge Prognosis: Stable Lines: None Urinary Catheter: No Medications and DC Order Prescriptions: New clopidogrel 75 mg Tablet 75 mg PO QAM Qty: 30 0RF polyethylene glycol 3350 [Miralax] 17 gram Powder In Packet 17 g PO DAILY PRN (Reason: constipation) Qty: 30 0RF metoprolol succinate 25 mg tablet extended release 24 hr 25 mg PO DAILY Qty: 30 0RF Rx Instructions: Hold for HR <65 Continued atorvastatin 40 mg Tablet 40 mg PO DAILY acetazolamide 250 mg Tablet 500 mg PO BID levothyroxine 25 mcg Tablet 25 mcg PO DAILY Rx Instructions: give with 200mcg to = 225mcg gabapentin 300 mg capsule 300 mg PO TID levothyroxine 200 mcg Tablet 200 mcg PO DAILY Rx Instructions: give with 25mcg to = 225mcg albuterol sulfate 90 mcg/actuation HFA aerosol inhaler 2 inh INHALATION Q6H PRN (Reason: SOB) sertraline 50 mg tablet 50 mg PO DAILY Discontinued metoprolol succinate 50 mg tablet extended release 24 hr 75 mg PO BID aspirin [Aspir-81] 81 mg Tablet,Delayed Release (Dr/Ec) 81 mg PO DAILY Discharge Orders: Discharge Order (Routine); Ordered 01/21/22 Ordered By: Heather Camacho Admission Data Admit Date/Time: 01/18/22 13:31 Attending Provider: Heather Camacho Admit Provider: Earlene Brothers Primary Care Provider: Nisa Gaston Other Providers: Ena Odom ; Earlene Brothers ; Wendy Arriaga ; Jorden Neal ; Wendy Patterson ; Bob Richards ; Paula Phillips ; [facility] Other Interventions: Discharge Summary Assessment (RN) Last Done: 01/20/22 16:00
== END 2022-01-21 16:02 | DRG 65 ==
LOC: ED 11:43 → SUATTDRO 13:31 → EDINP 13:31 → 2E 16:20